=== PATIENT | male | born 1945 | race Caucasian/White ===

== ENCOUNTER 2024-02-26 08:53 | Emergency (ER) | payer MEDICARE, MEDICAID, SELFPAY ==
[2024-02-26] VITALS (9 sets, daily range): BP systolic 132–158; BP diastolic 59–82; PULSE 70–85; RESP 14–21; TEMP 36.3–36.7; O2SAT 93–96; BMI 22.6
--- NOTE | ~2024-02-26 | XR_ITS ---
EXAMINATION: XR CHEST CLINICAL INFORMATION: Acute mental status change and shortness of breath COMPARISON: None available. TECHNIQUE: Frontal view of the chest was obtained. FINDINGS: The cardiac silhouette does not appear enlarged. Hilar and mediastinal contours are unremarkable. There is slight elevation of the left hemidiaphragm. The lungs are clear. No pleural effusion or pneumothorax. Degenerative changes of the spine. XR/XR chest 1V IMPRESSION: Slight elevation of the left hemidiaphragm otherwise unremarkable exam.
--- NOTE | ~2024-02-26 | CT_ITS ---
EXAMINATION: CT HEAD WITHOUT CONTRAST CLINICAL INFORMATION: Altered mental status. COMPARISON: None available. TECHNIQUE: Contiguous axial imaging was performed from the skull base to vertex without intravenous administration of contrast. This CT examination was performed using dose optimization techniques as appropriate, variously including the following: *Automated exposure control *Adjustment of mA and/or kV according to patient size (this includes techniques or standardized protocols for targeted exams where dose is matched to indication/reason for exam; i.e. extremities or head) *Use of iterative reconstruction technique DLP: 697 mGy-cm FINDINGS: No evidence of intracranial hemorrhage, extra-axial surface collection, focal mass effect or midline shift. There is atherosclerotic calcification of cavernous carotid arteries. Patchy hypoattenuation within supratentorial white matter is compatible with sequela of chronic microangiopathy. 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 The murry-white matter differentiation is maintained. No evidence of an acute major vascular territory infarction. The cerebellar tonsils are in normal position. Chronic parenchymal volume loss with commensurate prominence of ventricles and sulci. No hydrocephalus. The visualized paranasal sinuses and mastoid air cells are well aerated. Prior ocular lens extractions. The orbits and temporomandibular joints are intact. CT/CT head/brain wo IV con IMPRESSION: * No intracranial hemorrhage or other acute intracranial pathology. * [id number]-[id number] parenchymal volume loss with commensurate prominence of ventricles and sulci. 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
--- OUTSIDE RECORDS SUMMARY | 2024-02-26 09:27 | XMS_ITS | Continuity of Care Document ---
Author Organization [facility] Nestor lt Address [address] [place] [address]- Care Team Providers Care Drill Press Tender Name Role Phone Adarsh Menon MD Primary Care Physician [phone] En[place] [facility] [place](s): 12/17/23 - 01/16/24 [facility] Adult [address] [place] [address]- Allergies, Adverse Reactions, Alerts Substance Reaction Severity Status penicillin Unknown Active Aricept dizziness Active Immunizations Given and Recorded Vaccine Date Status Refusal Reason pneumococcal 23-valent vaccine 10/19/22 Given [id number] 12y+ bivalent booster vax 08/25/22 Recorded influenza virus vaccine, inactivated 08/20/22 Virgil rded influenza virus vaccine, inactivated 09/04/21 Virgil rded influenza virus vaccine, inactivated 08/12/20 Virgil rded influenza virus vaccine, inactivated 09/04/19 Virgil rded influenza virus vaccine, inactivated 09/04/19 Virgil rded influenza virus vaccine, inactivated 09/24/18 Virgil rded SARS-CoV-2 (COVID-19) mRNA BNT-162b2 vac 09/11/21 Recorded SARS-CoV-2 (COVID-19) mRNA BNT-162b2 vac 03/13/21 Recorded SARS-CoV-2 (COVID-19) mRNA BNT-162b2 vac 02/18/21 Recorded Influenza Virus Vaccine (oldterm) 07/23/20 Recorde d tetanus/diphtheria/pertussis, acel(Tdap) 09/19/19 Given pneumococcal 13-valent vaccine 09/19/19 Given Medications amLODIPine 2.5 mg oral tablet 2.5 mg, 1, tablet, By Mouth, Daily, # 90 tablet, Refills 1, Tot. Refills 1, Maintenance, 12/07/23 9:46:00 EST, Route to Pharmacy Electronically, [facility] [address] [place] [address], [place], Partialfill upon patient request, 175, cm, 12/07/23 9:27:0... Start Date: 12/07/23 Status: Ordered Aricept 5 mg oral tablet 5 mg, 1, tablet, By Mouth, Daily at bedtime, # 90 tablet, Refills 1, Tot. Refills 1, Maintenance, 12/07/23 9:46:00 EST, Route to Pharmacy Electronically, [facility] [address] [place] [address], [place], Partial fill upon patient request if the prescript... Start Date: 12/07/23 Status: Ordered Catheter Supplies See Instructions, # 120 pack/packet, Maintenance, Self catheterize your bladder 4 times daily and as needed Dispense quantity sufficient for 30 days, 05/12/22 11:45:00 EDT, Supply Start Date: 05/12/22 Status: Ordered Flonase 50 mcg/inh nasal spray 1 sprays, Nares, Both, 2 times a day, 0 Refills, Maintenance, 03/23/19 9:41:46 EDT, [place] Start Date: 03/23/19 Status: Ordered warfarin 2.5 mg oral tablet See Instructions, 1 to 4 tablets by mouth daily adjusted by primary care office., # 120 tablet, 5 Refills, Maintenance, 12/07/23 9:46:00 EST, Tablet, [facility] [address] [place] [address], [place], 175, cm, 12/07/23 9:27:00 EST, Height, 75, kg, ... 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 Active Dementia 3 Confirmed Active Forgetfulness Confirmed Active [place] (hard of hearing) Confirmed Active History of Lyme disease Confirmed Active Hypercholesterolemia Confirmed Active HTN (hypertension) Confirmed Active Cognitive impairment Confirmed Active Anticoagulant long-term use Confirmed Active Lung nodule Confirmed Active Recurrent pulmonary embolism Confirmed Active Urinary retention Confirmed Active 1Per chart review meeting GFR criteria 2Lower extremity 3MoCA 2018 Social History Social History Type Response Smoking Status Never (less than 100 in lifetime); Tobacco user in household: No entered on: 5/9/19 Sex Patient Care team information Care Team Personnel Name: Adarsh Menon MD Position: [facility] Physician - Primary Care Member Role: PCP Address: Address: [address] [place] [address]- [place] Name: Becky Marie PharmD Position: [facility] Associate Professional Member Role: Lifetime Consulting Provider Address: Address: [address] [place] [address] [place] [address]- Care Team Related Persons Name: PAUL CHANDRA Address: home [address] [place] [address]
--- OUTSIDE RECORDS SUMMARY | 2024-02-26 09:27 | XMS_ITS | Continuity of Care Document ---
Author Organization [facility] Nestor lt Address [address] [place] [address]- Care Team Providers Care Boss Miner Name Role Phone Lynsey APPLE, Adarsh Patel Primary Care Physician [place] [facility] [place]13[place]21 [place] 10/20/21 [facility] Adult [address] [place] [address]- Attending Physician: Argelia Alcaraz NP Referring Physician: Adarsh Menon MD Allergies, Adverse Reactions, Alerts Substance Reaction Severity Status penicillin Unknown Active Immunizations Given and Recorded Vaccine Date Status Refusal Reason SARS-CoV-2 (COVID-19) mRNA BNT-162b2 vac 09/11/21 Recorded SARS-CoV-2 (COVID-19) mRNA BNT-162b2 vac 03/13/21 Recorded SARS-CoV-2 (COVID-19) mRNA BNT-162b2 vac 02/18/21 Recorded influenza virus vaccine, inactivated 09/04/21 Virgil rded influenza virus vaccine, inactivated 09/04/19 Virgil rded influenza virus vaccine, inactivated 09/04/19 Virgil rded Influenza Virus Vaccine (oldterm) 07/23/20 Recorde d tetanus/diphtheria/pertussis, acel(Tdap) 09/19/19 Given pneumococcal 13-valent vaccine 09/19/19 Given Medications amLODIPine 2.5 mg oral tablet 2.5 mg, 1, tablet, By Mouth, Daily, # 90 tablet, Refills 1, Tot. Refills 1, Maintenance, 10/13/21 13:08:00 EST, Route to Pharmacy Electronically, [facility] [place], [place], Partial fill upon patient request, 175, cm, 10/13/21 12:51... Start Date: 10/13/21 Status: Ordered Aricept 10 mg oral tablet 10 mg, 1, tablet, By Mouth, Daily at bedtime, # 90 tablet, Refills 1, Tot. Refills 1, Maintenance, 10/13/21 13:08:00 EST, Route to Pharmacy Electronically, [facility] [address] [place] [address], [place], Partial fill upon patient request if the prescri... Start Date: 10/13/21 Status: Ordered Flonase 50 mcg/inh nasal spray 1 sprays, Nares, Both, 2 times a day, 0 Refills, Maintenance, 03/23/19 9:41:46 EDT, [place] Start Date: 03/23/19 Status: Ordered warfarin 2.5 mg oral tablet See Instructions, 1 to 4 tablets by mouth daily adjusted by primary care office., # 120 tablet, 11 Refills, Maintenance, 04/07/21 11:18:00 EDT, Tablet, [facility] [address] [facility], [place], 175, cm, 04/07/21 10:55:00 EDT, Height, 75, kg, 02/13... Start Date: 04/07/21 Status: Ordered Problem List Condition Effective Dates Status Health Status Inform ant BPH (benign prostatic hyperplasia)(Confirmed) Active Stage 3 chronic kidney disease(Confirmed) Active Chronic sinusitis(Confirmed) Active Recurrent deep vein thrombos is of lower extremity(Confirmed) 1 Active Forgetfulness(Confirmed) Active [place] (hard of hearing)(Confirmed) Active History of Lyme disease(Confirmed) Active Hypercholesterolemia(Confirmed) Active HTN (hypertension)(Confirmed) Active Cognitive impairment(Confirmed) Active Anticoagulant long-term use(Confirmed) Active Lung nodule(Confirmed) Active Recurrent pulmonary embolism(Confirmed) Active Urinary retention(Confirmed) Active 1Lower extremity Vital Signs Most recent to oldest [Reference Range]: 1 Height 175 cm (10/13/21 12:51 PM) Weight 72.7 kg (10/13/21 12:51 PM) Oxygen Saturation [94-100 %] 98 % (10/13/21 12:51 PM) Pulse Rate [55-90 bpm] 60 bpm (10/13/21 12:51 PM) Body Mass Index [18.5-24.99] 23.74 (10/13/21 12:51 PM) Blood Pressure [90-138/55-84 mm Hg] 132/ 64mm Hg (10/13/21 12:51 PM) Temperature [96.8-100.4 DegF] 98.2 DegF (10/13/21 12:51 PM) Mode of Delivery (Oxygen) Room air (10/13/21 12:51 PM) Blood pressure sites Arm, right (10/13/21 12:51 PM) Temperature Route Oral (10/13/21 12:51 PM) Weight Obtained Via Standing scale (10/13/21 12:51 PM) Social History Social History Type Response Smoking Status Never (less than 100 in lifetime); Tobacco user in household: No entered on: 03/23/19 Sex
--- OUTSIDE RECORDS SUMMARY | 2024-02-26 09:27 | XMS_ITS | Continuity of Care Document ---
Author Organization [facility] Nestor lt Address [address] [place] [address]- Care Team Providers Care Director Of Therapy Services Name Role Phone Adarsh Menon MD Primary Care Physician [place] [facility] [place] 12/28/20 [facility] Adult [address] [place] [address]- Allergies, Adverse Reactions, Alerts Substance Reaction Severity Status penicillin Unknown Active Immunizations Given and Recorded Vaccine Date Status Refusal Reason Influenza Virus Vaccine (oldterm) 07/23/20 Recorde d tetanus/diphtheria/pertussis, acel(Tdap) 09/19/19 Given pneumococcal 13-valent vaccine 09/19/19 Given influenza virus vaccine, inactivated 09/04/19 Virgil rded influenza virus vaccine, inactivated 09/04/19 Virgil rded Medications amLODIPine 2.5 mg oral tablet 2.5 mg, 1, tablet, By Mouth, Daily, # 90 tablet, Refills 1, Tot. Refills 1, Maintenance, 09/30/20 12:47:00 EST, Route to Pharmacy Electronically, [facility] [address] [place] [address], Partial fill upon patient request, 175, cm, 09/30/20 12:36... Start Date: 09/30/20 Status: Ordered Aricept 5 mg oral tablet 5 mg, 1, tablet, By Mouth, Daily at bedtime, # 30 tablet, Refills 6, Tot. Refills 6, Maintenance, 12/03/20 9:31:00 EST, Route to Pharmacy Electronically, [facility] [address] [place] [address], Partial fill upon patient request if the prescript... Start Date: 12/03/20 Status: Ordered Flonase 50 mcg/inh nasal spray 1 sprays, Nares, Both, 2 times a day, 0 Refills, Maintenance, 03/23/19 9:41:46 EDT, [place] Start Date: 03/23/19 Status: Ordered warfarin 2.5 mg oral tablet See Instructions, 1 to 4 tablets by mouth daily adjusted by primary care office., # 120 tablet, 11 Refills, Maintenance, 05/10/20 14:19:00 EDT, Tablet, [facility] [place], 175, cm, 05/10/20 13:49:00 EDT, [place] Start Date: 05/10/20 Status: Ordered Problem List Condition Effective Dates Status Health Status Inform ant BPH (benign prostatic hyperplasia)(Confirmed) Active Stage 3 chronic kidney disease(Confirmed) Active Chronic sinusitis(Confirmed) Active Recurrent deep vein thrombos is of lower extremity(Confirmed) 1 Active Forgetfulness(Confirmed) Active [place] (hard of hearing)(Confirmed) Active Hypercholesterolemia(Confirmed) Active HTN (hypertension)(Confirmed) Active Cognitive impairment(Confirmed) Active Anticoagulant long-term use(Confirmed) Active Lung nodule(Confirmed) Active Recurrent pulmonary embolism(Confirmed) Active Urinary retention(Confirmed) Active 1Lower extremity Social History Social History Type Response Smoking Status Never (less than 100 in lifetime); Tobacco user in household: No entered on: 03/23/19 Sex
--- OUTSIDE RECORDS SUMMARY | 2024-02-26 09:27 | XMS_ITS | Continuity of Care Document ---
Author Organization [facility] Nestor lt Address [address] [place] [address]- Care Team Providers Care Algebraist Name Role Phone Adarsh Menon MD Primary Care Physician Encounter [facility] [place] Date(s): 05/27/23 - 06/26/23 [facility] Adult [address] [place] [address]- Attending Physician: Admtr, Ar8 Admitting Physician: Admtr, Ar8 Referring Physician: Admtr, Ar8 Allergies, Adverse Reactions, Alerts Substance Reaction Severity Status penicillin Unknown Active Aricept dizziness Active Immunizations Given and Recorded Vaccine Date Status Refusal Reason pneumococcal 23-valent vaccine 10/19/22 Given [id number] 12y+ bivalent booster vax 08/25/22 Recorded influenza [...] tablet, Refills 1, Tot. Refills 1, Maintenance, 04/27/23 10:18:00 EDT, Route to Pharmacy Electronically, [facility] [address] [place] [address], [place], Partial fill upon patient request, 180, cm, 04/27/23 9:58:... Start Date: 04/27/23 Status: Ordered Aricept 5 mg oral tablet 5 mg, 1, tablet, By Mouth, Daily at bedtime, # 90 tablet, Refills 0, Tot. Refills 0, Maintenance, 04/27/23 10:19:00 EDT, Route to Pharmacy Electronically, [facility] [address] [place] [address], [place], Partial fill upon patient request if the prescrip... Start Date: 04/27/23 Status: Ordered Catheter Supplies See Instructions, # 120 pack/packet, Maintenance, Self catheterize your bladder 4 times daily and as needed Dispense quantity sufficient for 30 days, 05/12/22 11:45:00 EDT, Supply Start Date: 05/12/22 Status: Ordered Flonase 50 mcg/inh nasal spray 1 sprays, Nares, Both, 2 times a day, 0 Refills, Maintenance, 03/23/19 9:41:46 EDT, [place] Start Date: 03/23/19 Status: Ordered warfarin 2.5 mg oral tablet See Instructions, 1 to 4 tablets by mouth daily adjusted by primary care office., # 120 tablet, 5 Refills, Maintenance, 04/27/23 10:18:00 EDT, Tablet, [facility] [address] [place] [address], [place], 180, cm, 04/27/23 9:58:00 EDT, Height, 73, kg, ... 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 Active Forgetfulness Confirmed Active [place] (hard of hearing) Confirmed Active History of Lyme disease Confirmed Active Hypercholesterolemia Confirmed Active HTN (hypertension) Confirmed Active Cognitive impairment Confirmed Active Anticoagulant long-term use Confirmed Active Lung nodule Confirmed Active Recurrent pulmonary embolism Confirmed Active Urinary retention Confirmed Active 1Per chart review meeting GFR criteria 2Lower extremity Social History Social History Type Response Smoking Status Never (less than 100 in lifetime); Tobacco user in household: No entered on: 03/23/19 Sex Patient Care team information Care Team Personnel Name: Adarsh Menon MD Position: [facility] Physician - Primary Care Member Role: PCP Address: Address: [address] [place] [address]- Name: Becky Marie PharmD Position: [facility] Associate Professional Member Role: Lifetime Consulting Provider Address: Address: [address] [place] [address] [place] [address]- Care Team Related Persons Name: PAUL CHANDRA Address: home [address] [place] [address]
--- OUTSIDE RECORDS SUMMARY | 2024-02-26 09:27 | XMS_ITS | Continuity of Care Document ---
Author Organization [facility] Nestor lt Address [address] [place] [address]- Care Team Providers Care Airplane First Officer Name Role Phone Adarsh Menon MD Primary Care Physician [phone] [place] [facility] [place] 10/29/22 - 11/28/22 [facility] Adult [address] [place] [address]- Allergies, Adverse Reactions, Alerts Substance Reaction Severity Status penicillin Unknown Active Immunizations Given and Recorded Vaccine Date Status Refusal Reason pneumococcal 23-valent vaccine 10/19/22 Given [id number] 12y+ bivalent booster vax 08/25/22 Recorded influenza [...] tablet, Refills 1, Tot. Refills 1, Maintenance, 10/19/22 14:31:00 EST, Route to Pharmacy Electronically, [facility] [address] [place] [address], [place], Partial fill upon patient request, 180, cm, 10/19/22 14:05... Start Date: 10/19/22 Status: Ordered Aricept 10 mg oral tablet 10 mg, 1, tablet, By Mouth, Daily at bedtime, # 90 tablet, Refills 1, Tot. Refills 1, Maintenance, 10/19/22 14:31:00 EST, Route to Pharmacy Electronically, [facility] [address] [place] [address], Partial fill upon patient request if the prescri... Start Date: 10/19/22 Status: Ordered Catheter Supplies See Instructions, # 120 pack/packet, Maintenance, Self catheterize your bladder 4 times daily and as needed Dispense quantity sufficient for 30 days, 05/12/22 11:45:00 EDT, Supply Start Date: 05/12/22 Status: Ordered Flonase 50 mcg/inh nasal spray 1 sprays, Nares, Both, 2 times a day, 0 Refills, Maintenance, 03/23/19 9:41:46 EDT, [place] Start Date: 03/23/19 Status: Ordered warfarin 2.5 mg oral tablet See Instructions, 1 to 4 tablets by mouth daily adjusted by primary care office., # 120 tablet, 5 Refills, Maintenance, 10/19/22 14:31:00 EST, Tablet, [facility] [address] [place] [address], [place], 180, cm, 10/19/22 14:05:00 EST, Height, 73, kg, 05/12... 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 Associate Professional Member Role: Lifetime Consulting Provider Address: Address: [address] [place] [address] [place] [address]- [place] Care Team Related Persons Name: PAUL CHANDRA Address: home [address] [place] [address]
--- OUTSIDE RECORDS SUMMARY | 2024-02-26 09:27 | XMS_ITS | Continuity of Care Document ---
Author Organization [facility] Nestor lt Address [address] [place] [address]- Care Team Providers Care Airborne Operations Manager Name Role Phone Adarsh Menon MD Primary Care Physician [phone] Encounter [facility] [place] Date(s): 01/06/21 - 01/13/21 [facility] Adult [address] [place] [address]- Attending Physician: Argelia Alcarza NP Referring Physician: Adarsh Menon MD Allergies, [...] tablet, Refills 1, Tot. Refills 1, Maintenance, 01/06/21 11:03:00 EST, Route to Pharmacy Electronically, [facility] [address] [place] [address], Partial fill upon patient request, 175, cm, 01/06/21 10:40... Start Date: 01/06/21 Status: Ordered Aricept 5 mg oral tablet 5 mg, 1, tablet, By Mouth, Daily at bedtime, # 90 tablet, Refills 1, Tot. Refills 1, Maintenance, 01/06/21 11:03:00 EST, Route to Pharmacy Electronically, [facility] [address] [place] [address], Partial fill upon patient request if the prescrip... Start Date: 01/06/21 Status: Ordered Flonase 50 mcg/inh nasal spray 1 sprays, Nares, Both, 2 times a day, 0 Refills, Maintenance, 03/23/19 9:41:46 EDT, [place] Start Date: 03/23/19 Status: Ordered warfarin 2.5 [...] of lower extremity(Confirmed) 1 Active Forgetfulness(Confirmed) Active CADDO (hard of hearing)(Confirmed) Active History of Lyme disease(Confirmed) Active Hypercholesterolemia(Confirmed) Active HTN (hypertension)(Confirmed) Active Cognitive impairment(Confirmed) Active Anticoagulant long-term use(Confirmed) Active Lung nodule(Confirmed) Active Recurrent pulmonary embolism(Confirmed) Active Urinary retention(Confirmed) Active 1Lower extremity Vital Signs Most recent to oldest [Reference Range]: 1 Height 175 cm (01/06/21 10:40 AM) Weight 78.2 kg (01/06/21 10:40 AM) Oxygen Saturation [94-100 %] 97 % (01/06/21 10:40 AM) Pulse Rate [55-90 bpm] 66 bpm (01/06/21 10:40 AM) Body Mass Index [18.5-24.99] 25.53 *H* (01/06/21 10:40 AM) Blood Pressure [90-138/55-84 mm Hg] 134/ 72mm Hg (01/06/21 10:40 AM) Blood pressure sites Arm, left (01/06/21 10:40 AM) Social History Social History Type Response Smoking Status Never (less than 100 in lifetime); Tobacco user in household: No entered on: 03/23/19 Sex
--- OUTSIDE RECORDS SUMMARY | 2024-02-26 09:27 | XMS_ITS | Continuity of Care Document ---
Author Organization [facility] ter Address [address] [place] [address]- Care Team Providers Care Thermit Welding Machine Operator Name Role Phone Lynsey APPLE, Adarsh Patel Primary Care Physician Encounter [facility] [place] Date(s): 12/16/23 - 12/16/[address] [address] Attending Physician: Kieran ISSA, Argelia Grubbs Allergies, Adverse Reactions, Alerts Substance Reaction Severity Status penicillin Unknown Active Aricept dizziness Active Immunizations Given and Recorded Vaccine Date Status Refusal Reason pneumococcal 23-valent vaccine 10/19/22 Given [id number] 12y+ bivalent booster vax 08/25/22 Recorded influenza [...] 12/07/23 9:46:00 EST, Route to Pharmacy Electronically, [facility] [address] [place] [address], [place], Partialfill upon patient request, 175, cm, 12/07/23 9:27:0... Start Date: 12/07/23 Status: Ordered Aricept 5 mg oral tablet 5 mg, 1, tablet, By Mouth, Daily at bedtime, # 90 tablet, Refills 1, Tot. Refills 1, Maintenance, 12/07/23 9:46:00 EST, Route to Pharmacy Electronically, [facility] [address] [place] [address], [place], Partial fill upon patient request if the [...] day, 0 Refills, Maintenance, 03/23/19 9:41:46 EDT, [place] Start Date: 03/23/19 Status: Ordered warfarin 2.5 mg oral tablet See Instructions, 1 to 4 tablets by mouth daily adjusted by primary care office., # 120 tablet, 5 Refills, Maintenance, 12/07/23 9:46:00 EST, Tablet, [facility] [address] [place] [address], [place], 175, cm, 12/07/23 9:27:00 EST, Height, 75, kg, ... 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 Active Dementia 3 Confirmed Active Forgetfulness Confirmed Active [place] (hard of hearing) Confirmed Active History of [...] Team Personnel Name: Adarsh Menon MD Position: [facility] Physician - Primary Care Member Role: PCP Address: Address: [address] [place] [address]- [place] Name: Becky Marie PharmD Position: [facility] Associate Professional Member Role: Lifetime Consulting Provider Address: Address: [address] [place] [address] [place] [address]- Care Team Related Persons Name: PAUL CHANDRA Address: [address] [place] [address]
--- OUTSIDE RECORDS SUMMARY | 2024-02-26 09:27 | XMS_ITS | Continuity of Care Document ---
Author Organization [facility] Nestor lt Address [address] [place] [address]- Care Team Providers Care Cylinder Tester Name Role Phone Adarsh Menon MD Primary Care Physician Encounter [facility] Date(s): 01/25/24 - 02/24/24 [facility] Adult [address] [place] [address]- Allergies, Adverse Reactions, Alerts Substance Reaction Severity Status penicillin Unknown Active Immunizations Given and Recorded Vaccine Date Status Refusal Reason pneumococcal 23-valent vaccine 10/19/22 Given [id number] 12y+ bivalent booster vax 08/25/22 Recorded influenza [...] Route to Pharmacy Electronically, [facility] [address] [place] [address], [place], Partialfill upon patient request, 175, cm, 12/07/23 9:27:0... Start Date: 12/07/23 Status: Ordered Aricept 5 mg oral tablet 5 mg, 1, tablet, By Mouth, Daily at bedtime, # 90 tablet, Refills 1, Tot. Refills 1, Maintenance, 12/07/23 9:46:00 EST, Route to Pharmacy Electronically, [facility] [address] [place] [address], Partial fill upon patient request if the prescript... Start Date: 12/07/23 Status: Ordered Flonase 50 mcg/inh nasal spray 1 sprays, Nares, Both, 2 times a day, 0 Refills, Maintenance, 03/23/19 9:41:46 EDT, [place] Start Date: 03/23/19 Status: Ordered SEROquel 25 mg oral tablet 25 mg, 1, tablet, By Mouth, 3 times a day, # 30 capsule, Refills 0, Tot. Refills 0, Maintenance, 01/27/24 11:27:00 EDT, Route to Pharmacy Electronically, [facility] [address] [place] [address], [place], Partial fill upon patient request if the prescript... Start Date: 01/27/24 Status: Ordered tamsulosin 0.4 mg oral capsule 0.4 mg, By Mouth, Daily, # 30 capsule, Refills 0, Tot. Refills 0, Maintenance, 02/19/24 8:03:00 EDT, Route to Pharmacy Electronically, [facility] [address] [place] [address], Partial fill uponpatient request if the prescription is for a schedu... Start Date: 02/19/24 Stop Date: 03/20/24 Status: Ordered traZODone 50 mg oral tablet 25 mg, By Mouth, Daily at bedtime, Refills 0, Maintenance, 02/23/24 13:34:00 EDT, Partial fill uponpatient request if the prescription is for a schedule II opioid drug. Start Date: 02/23/24 Status: Ordered warfarin 2.5 mg oral tablet See Instructions, 1 to 4 tablets by mouth daily adjusted by primary care office., # 120 tablet, 5 Refills, Maintenance, 12/07/23 9:46:00 EST, Tablet, [facility] - [place], [place], 175, cm, 12/07/23 9:27:00 EST, Height, 75, kg, ... 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 Active Dementia 3 Confirmed Active Forgetfulness Confirmed Active [place] (hard of hearing) Confirmed Active History of [...] Team Personnel Name: Adarsh Menon MD Position: [facility] Physician - Primary Care Member Role: PCP Address: Address: [address] [place] [address]- Name: Becky Marie PharmD Position: [facility] Associate Professional Member Role: Lifetime Consulting Provider Address: Address: [address] [place] [address] [place] [address]- Name: Stephani Edwards RN Position: S RN Member Role: Primary Care Nurse Name: Ellen Short RN Position: [facility] RN Supv Member Role: Primary Care Nurse Care Team Related Persons Name: PAUL CHANDRA Address: home [address] [place] [address]
--- OUTSIDE RECORDS SUMMARY | 2024-02-26 09:27 | XMS_ITS | Continuity of Care Document ---
Author Organization [facility] ter Address [address] [place] [address]- Care Team Providers Care Custodial Services Manager Name Role Phone Lynsey APPLE, Adarsh Patel Primary Care Physician [phone] [facility] Date(s[place] 12/16/23 - 12/16/[address] [address] [[email or web address]] Attending Physician: Kieran ISSA, Argelia Grubbs Allergies, Adverse Reactions, Alerts Substance Reaction Severity Status penicillin Unknown Active Aricept dizziness Active Immunizations Given and Recorded Vaccine Date Status Refusal Reason pneumococcal 23-valent vaccine 10/19/22 Given [id number] 12y+ bivalent booster vax 08/25/22 Recorded influenza [...] 12/07/23 9:46:00 EST, Route to Pharmacy Electronically, [facility] [address] [place] [address], [place], Partialfill upon patient request, 175, cm, 12/07/23 9:27:0... Start Date: 12/07/23 Status: Ordered Aricept 5 mg oral tablet 5 mg, 1, tablet, By Mouth, Daily at bedtime, # 90 tablet, Refills 1, Tot. Refills 1, Maintenance, 12/07/23 9:46:00 EST, Route to Pharmacy Electronically, [facility] [address] [place] [address], [place], Partial fill upon patient request if the [...] day, 0 Refills, Maintenance, 03/23/19 9:41:46 EDT, [place] Start Date: 03/23/19 Status: Ordered warfarin 2.5 mg oral tablet See Instructions, 1 to 4 tablets by mouth daily adjusted by primary care office., # 120 tablet, 5 Refills, Maintenance, 12/07/23 9:46:00 EST, Tablet, [facility] [address] [place] [address], [place], 175, cm, 12/07/23 9:27:00 EST, Height, 75, kg, ... 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
--- OUTSIDE RECORDS SUMMARY | 2024-02-26 09:27 | XMS_ITS | Continuity of Care Document ---
Author Organization [facility] Nestor lt Address [address] [place] [address]- Care Team Providers Care Hand Method Lasting Machine Operator Name Role Phone Adarsh Menon MD Primary Care Physician Encounter [facility] Date(s): 01/18/24 - 02/17/24 [facility] Adult [address] [place] [address]- Allergies, Adverse Reactions, Alerts Substance Reaction Severity Status penicillin Unknown Active Immunizations Given and Recorded Vaccine Date Status Refusal Reason pneumococcal 23-valent vaccine 10/19/22 Given [id number] 12y+ bivalent booster vax 08/25/22 Recorded influenza [...] EST, Route to Pharmacy Electronically, [facility] [address] [place] [address], [place], Partialfill upon patient request, 175, cm, 12/07/23 9:27:0... Start Date: 12/07/23 Status: Ordered Aricept 5 mg oral tablet 5 mg, 1, tablet, By Mouth, Daily at bedtime, # 90 tablet, Refills 1, Tot. Refills 1, Maintenance, 12/07/23 9:46:00 EST, Route to Pharmacy Electronically, [facility] [address] [place] [address], Partial fill upon patient request if the [...] day, 0 Refills, Maintenance, 03/23/19 9:41:46 EDT, [place] Start Date: 03/23/19 Status: Ordered SEROquel 25 mg oral tablet 25 mg, 1, tablet, By Mouth, 2 times a day, # 60 tablet, Refills 0, Tot. Refills 0, Maintenance, 01/27/24 11:27:00 EDT, Route to Pharmacy Electronically, [facility] [address] [place] [address],Partial fill upon patient request if the prescripti... Start Date: 01/27/24 Status: Ordered warfarin 2.5 mg oral tablet See Instructions, 1 to 4 tablets by mouth daily adjusted by primary care office., # 120 tablet, 5 Refills, Maintenance, 12/07/23 9:46:00 EST, Tablet, [facility] [address] [place] [address], [place], 175, cm, 12/07/23 9:27:00 EST, Height, 75, kg, ... 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 Active Dementia 3 Confirmed Active Forgetfulness Confirmed Active [place] (hard of hearing) Confirmed Active History of [...] Team Personnel Name: Adarsh Menon MD Position: [facility] Physician - Primary Care Member Role: PCP Address: Address: [address] [place] [phone]- [place] Name: Becky Marie PharmD Position: [facility] Associate Professional Member Role: Lifetime Consulting Provider Address: Address: [address] [place] [address] [place] [address]- Care Team Related Persons Name: PAUL CHANDRA Address: home [address] [place] [address]
--- OUTSIDE RECORDS SUMMARY | 2024-02-26 09:27 | XMS_ITS | Continuity of Care Document ---
Author Organization [facility] Nestor lt Address [address] [place] [address]- Care Team Providers Care Javascript Software Engineer Name Role Phone Adarsh Menon MD Primary Care Physician [phone] Encounter [facility] Date(s): 12/03/20 - 12/10/20 [facility] Adult [address] [place] [address]- Attending Physician: Argelia Alcaraz NP Allergies, Adverse Reactions, Alerts Substance Reaction Severity [...] 09/30/20 12:47:00 EST, Route to Pharmacy Electronically, [facility] [address] [place] [address], Partial fill upon patient request, 175, cm, 09/30/20 12:36... Start Date: 09/30/20 Status: Ordered Aricept 5 mg oral tablet 5 mg, 1, tablet, By Mouth, Daily at bedtime, # 30 tablet, Refills 6, Tot. Refills 6, Maintenance, 12/03/20 9:31:00 EST, Route to Pharmacy Electronically, [facility] [address] [place] [address], Partial fill upon patient request if the prescript... Start Date: 12/03/20 Status: Ordered doxycycline hyclate 100 mg oral tablet 1 tablet = 100 mg, By Mouth, 2 times a day, for 10 days, with fluids, # 20 tablet, 0 Refills, Acute12/19/20 16:16:00 EST, 12/09/20 16:16:00 EST, Tablet, [facility] - [place], [place], Partial fill upon patient request if the prescript... Start Date: 12/09/20 Stop Date: 12/19/20 Status: Ordered Flonase 50 mcg/inh nasal spray 1 sprays, Nares, Both, 2 times a day, 0 Refills, Maintenance, 03/23/19 9:41:46 EDT, [place] Start Date: 03/23/19 Status: Ordered warfarin 2.5 [...] chronic kidney disease(Confirmed) Active Chronic sinusitis(Confirmed) Active Forgetfulness(Confirmed) Active [place] (hard of hearing)(Confirmed) Active Hypercholesterolemia(Confirmed) Active HTN (hypertension)(Confirmed) Active Cognitive impairment(Confirmed) Active Anticoagulant long-term use(Confirmed) Active Lung nodule(Confirmed) Active Recurrent deep vein thrombos is (DVT)(Confirmed) Active Recurrent pulmonary embolism(Confirmed) Active Urinary retention(Confirmed) Active Vital Signs Most recent to oldest [Reference Range]: 1 2 3 Height 175 cm (12/03/20 9:18 AM) 175 cm (12/03/20 9:17 AM) 175 cm (12/03/20 9:01 AM) Weight 76.7 kg (12/03/20 9:01 AM) Oxygen Saturation [94-100 %] 97 % (12/03/20 9:01 AM) Pulse Rate [55-90 bpm] 76 bpm (12/03/20 9:01 AM) Body Mass Index [18.5-24.99] 25.04 *H* (12/03/20 9:01 AM) Blood Pressure [90-138/55-84 mm Hg] 141/78mm Hg *H* (12/03/20 9:18 AM) 138/74mm Hg (12/03/20 9:17 AM) 144/82mm Hg *H* (12/03/20 9:01 AM) Blood pressure sites Arm, right (12/03/20 9:01 AM) Social History Social History Type Response Smoking Status Never (less than 100 in lifetime); Tobacco user in household: No entered on: 03/23/19 Sex
--- OUTSIDE RECORDS SUMMARY | 2024-02-26 09:27 | XMS_ITS | Continuity of Care Document ---
Author Organization [facility] Nestor lt Address [address] [place] [address]- Care Team Providers Care Liquid Waste Treatment Plant Operator Name Role Phone Adarsh Menon MD Primary Care Physician Encounter [facility] [place] Date(s): 05/22/20 - 06/21/20 [facility] Adult [address] [place] [address]- [facility] Allergies, Adverse Reactions, Alerts Substance Reaction Severity Status penicillin Unknown Active Immunizations Given and Recorded Vaccine Date Status Refusal Reason tetanus/diphtheria/pertussis, acel(Tdap) 09/19/19 Given pneumococcal 13-valent vaccine 09/19/19 Given influenza virus vaccine, inactivated 09/04/19 Virgil rded influenza virus vaccine, inactivated 09/04/19 Vir[place] rded Medications amLODIPine 2.5 mg oral tablet 2.5 mg, 1, tablet, By Mouth, Daily, # 90 tablet, Refills 3, Tot. Refills 3, Maintenance, 12/25/19 11:29:00 EST, Route to Pharmacy Electronically, [facility] - [place], 175, cm, 12/25/19 11:01:00 EST, [place] Start Date: 12/25/19 Status: Ordered apixaban 2.5 mg oral tablet 1 tablet = 2.5 mg, By Mouth, 2 times a day, replaces 5 mg tablet, # 60 tablet, 11 Refills, Maintenance, 09/19/19 10:23:51 EST, Tablet Start Date: 09/19/19 Status: Ordered Flonase 50 mcg/inh nasal spray 1 sprays, Nares, Both, 2 times a day, 0 Refills, Maintenance, 03/23/19 9:41:46 EDT, [place] Start Date: 03/23/19 Status: Ordered warfarin 2.5 [...] disease(Confirmed) Active Chronic sinusitis(Confirmed) Active Forgetfulness(Confirmed) Active [place] (hard of hearing)(Confirmed) Active Hypercholesterolemia(Confirmed) Active HTN (hypertension)(Confirmed) Active Cognitive impairment(Confirmed) Active Anticoagulant long-term use(Confirmed) Active Lung nodule(Confirmed) Active Recurrent deep vein thrombos is (DVT)(Confirmed) Active Recurrent pulmonary embolism(Confirmed) Active Urinary retention(Confirmed) Active Social History Social History Type Response Smoking Status Never (less than 100 in lifetime); Tobacco user in household: No entered on: 03/23/19 Sex
--- OUTSIDE RECORDS SUMMARY | 2024-02-26 09:27 | XMS_ITS | Continuity of Care Document ---
Author Organization [facility] Nestor lt Address [address] [place] [address]- Care Team Providers Care Aircraft Rigging And Controls Mechanic Name Role Phone Adarsh Menon MD Primary Care Physician Encounter [facility] Date(s): 07/23/23 - 08/22/23 [facility] Adult [address] [place] [address]- Allergies, Adverse Reactions, Alerts Substance Reaction Severity Status penicillin Unknown Active Aricept dizziness Active Immunizations Given and Recorded Vaccine Date Status Refusal Reason pneumococcal 23-valent vaccine 10/19/22 Given [id number] 12y+ bivalent booster vax 08/25/22 Recorded influenza [...] 04/27/23 10:18:00 EDT, Route to Pharmacy Electronically, [facility] [address] [place] [address], [place], Partial fill upon patient request, 180, cm, 04/27/23 9:58:... Start Date: 04/27/23 Status: Ordered Aricept 5 mg oral tablet 5 mg, 1, tablet, By Mouth, Daily at bedtime, # 90 tablet, Refills 1, Tot. Refills 1, Maintenance, 07/23/23 16:23:00 EDT, Route to Pharmacy Electronically, [facility] [address] [place] [address], [place], Partial fill upon patient request if the prescrip... Start Date: 07/23/23 Status: Ordered Catheter Supplies See Instructions, # 120 pack/packet, Maintenance, Self catheterize your bladder 4 times daily and as needed Dispense quantity sufficient for 30 days, 05/12/22 11:45:00 EDT, Supply Start Date: 05/12/22 Status: Ordered Flonase 50 mcg/inh nasal spray 1 sprays, Nares, Both, 2 times a day, 0 Refills, Maintenance, 03/23/19 9:41:46 EDT, [place] Start Date: 03/23/19 Status: Ordered warfarin 2.5 mg oral tablet See Instructions, 1 to 4 tablets by mouth daily adjusted by primary care office., # 120 tablet, 5 Refills, Maintenance, 04/27/23 10:18:00 EDT, Tablet, [facility] [address] [place] [address], [place], 180, cm, 04/27/23 9:58:00 EDT, Height, 73, kg, ... 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 Active Dementia 3 Confirmed Active Forgetfulness Confirmed Active [place] (hard of hearing) Confirmed Active History of [...] Team Personnel Name: Adarsh Menon MD Position: [facility] Physician - Primary Care Member Role: PCP Address: Address: [address] [place] [phone]- [place] Name: Becky Marie PharmD Position: [facility] Associate Professional Member Role: Lifetime Consulting Provider Address: Address: [address] [place] [address] [place] [address]- Care Team Related Persons Name: PAUL CHANDRA Address: home [address] [place] [address]
--- OUTSIDE RECORDS SUMMARY | 2024-02-26 09:27 | XMS_ITS | Continuity of Care Document ---
Author Organization [facility] Nestor lt Address [address] [place] [address]- Care Team Providers Care Training Engineer Name Role Phone Adarsh Menon MD Primary Care Physician Encounter [facility] [place] Date(s): 10/19/22 - 10/26/22 [facility] Adult [address] [place] [address]- Attending Physician: Argelia Alcaraz NP Referring Physician: Adarsh Menon MD Allergies, Adverse Reactions, Alerts Substance Reaction Severity Status penicillin Unknown Active Immunizations Given and Recorded Vaccine Date Status Refusal Reason pneumococcal 23-valent vaccine 10/19/22 Given [id number] 12y+ bivalent booster vax 08/25/22 Recorded influenza [...] 10/19/22 14:31:00 EST, Route to Pharmacy Electronically, [facility] [address] [place] [address], [place], Partial fill upon patient request, 180, cm, 10/19/22 14:05... Start Date: 10/19/22 Status: Ordered Aricept 10 mg oral tablet 10 mg, 1, tablet, By Mouth, Daily at bedtime, # 90 tablet, Refills 1, Tot. Refills 1, Maintenance, 10/19/22 14:31:00 EST, Route to Pharmacy Electronically, [facility] [address] [place] [address], [place], Partial fill upon patient request if the [...] day, 0 Refills, Maintenance, 03/23/19 9:41:46 EDT, [place] Start Date: 03/23/19 Status: Ordered warfarin 2.5 mg oral tablet See Instructions, 1 to 4 tablets by mouth daily adjusted by primary care office., # 120 tablet, 5 Refills, Maintenance, 10/19/22 14:31:00 EST, Tablet, [facility] [address] [place] [address], [place], 180, cm, 10/19/22 14:05:00 EST, Height, 73, [...] chart review meeting GFR criteria 2Lower extremity Vital Signs Most recent to oldest [Reference Range]: 1 Height 180 cm (10/19/22 2:05 PM) Weight 75.1 kg (10/19/22 2:05 PM) Oxygen Saturation [94-100 %] 97 % (10/19/22 2:05 PM) Pulse Rate [55-90 bpm] 64 bpm (10/19/22 2:05 PM) Body Mass Index [18.5-24.99 kg/m2] 23.18 kg/m2 (10/19/22 2:05 PM) Blood Pressure [90-138/55-84 mm Hg] 124/ 70mm Hg (10/19/22 2:05 PM) Mode of Delivery (Oxygen) Room air (10/19/22 2:05 PM) Blood pressure sites Arm, left (10/19/22 2:05 PM) Weight Obtained Via Standing scale (10/19/22 2:05 PM) Social History Social History Type Response Smoking Status Never (less than 100 in lifetime); Tobacco user in household: No entered on: 03/23/19 Sex Note * Delmy Nevarez: PERFORM, SIGN, VERIFY Event Display: Patient Education/Instruction Authored Date: [facility] *BMP So Wil Ch Clinical Summary Name CHLOE CHANDRA Age 77 Years 1945 PCP Lynsey APPLE, Adarsh Patel PCP Visit Date 10/19/2022 13:52:00 Additional Instructions: Scheduled Appointments?? Future Appointments ?No Future Appointments Scheduled Follow-Up Instructions ?? Diagnosis Medications: Please continue your medications until treatment is completed or stopped by your provider. Discuss any questions related to medications with your provider. Medications to Continue with No Changes [facility] [address] [place] [address], [address], [place] [id number], [phone] Amlodipine (amLODIPine 2.5 mg oral tablet) 1 tab(s) Oral Daily. Refills: 1. Next Dose: Donepezil (Aricept 10 mg oral tablet) 1 tab(s) Oral Daily at Bedtime. Refills: 1. Next Dose: Warfarin (warfarin 2.5 mg oral tablet) 1 to 4 tablets by mouth daily adjusted by primary care office.. Refills: 5. Next Dose: These medications were not printed or sent to your pharmacy Durable Medical Equipment (Catheter Supplies) Self catheterize your bladder 4 times daily and as needed Dispense quantity sufficient for 30 days. Refills: 0. Next Dose: Fluticasone Nasal (Flonase 50 mcg/inh nasal spray) 1 spray(s) Nares, Both twice a day. Next Dose: Allergy Info:?? penicillin Medications Given This Visit Medication Dose Route Pneumococcal 23-Valent Vaccine (pneumococcal 23-valent (Adult) vacc) 0.5 mL Intramuscular Future Orders ?No future orders Vital Signs Height 180 cm Weight 75.1 kg BMI 23.18 kg/m2 Blood Pressure 124 mm Hg/70 mm Hg Temperature Pulse Rate 64 bpm Respiratory Rate 02 Sat Mode of Delivery 97 %/Room air You can now view a summary of your hospital visit from the comfort of your home through a free online portal called P4RC. P4RC is a website that allows you to securely view your medical information including discharge summary, medications and follow-up visits. ??You can alsosend a secure electronic message to your doctor???s office to request appointments, renew medications or just ask a question. You can enroll at [email or web address] or register during your next office visit. Disclaimer:?? The information provided is of a general nature and is intended to be used in conjunction with the recommendations and advice of your health care practitioner. ??Every effort has been made to ensure that the information provided is accurate and complete at the time it is provided to you however, as your needs change, or, as new ??information becomes available, different or additional instructions may be required. If you have questions, please consult with your primary care provider or pharmacist, as appropriate. ??This information is not intended to serve as substitution for assessment and evaluation by a qualified health care provider. If you do not have a primary care provider, you may find a [facility] provider by calling [facility] Link at [phone]. For information about the plan of care including goals and instructions for your diagnosis, please see the patient education orders section of this document. Patient Education Materials?? The content of this educational material or handout may have been modified, supplemented, or adapted from its original content and format to support your individualized medical care. Patient Care team information Care Team Personnel Name: Adarsh Menon MD Position: [facility] Primary Care Physician Member Role: PCP Address: Address: [address] [place] [address]- Name: Becky Marie PharmD Position: [facility] Associate Professional Member Role: Lifetime Consulting Provider Address: Address: [address] [facility] [place] [address]- Care Team Related Persons Name: PAUL CHANDRA Address: home [address] [place] [address]
--- OUTSIDE RECORDS SUMMARY | 2024-02-26 09:27 | XMS_ITS | Continuity of Care Document ---
Author Organization [facility] Nestor lt Address [address] [place] [address]- Care Team Providers Care Zipper Slide Attacher Name Role Phone Adarsh Menon MD Primary Care Physician [phone] En[place] [facility] [place] Date(s): 06/27/21 - 07/27/21 [facility] Adult [address] [place] [address]- Allergies, Adverse Reactions, Alerts Substance Reaction Severity Status penicillin Unknown Active Immunizations Given and Recorded Vaccine Date Status Refusal Reason SARS-CoV-2 (COVID-19) mRNA BNT-162b2 vac 03/13/21 Recorded SARS-CoV-2 (COVID-19) mRNA BNT-162y9 vac 02/18/21 Recorded Influenza Virus Vaccine (oldterm) 07/23/20 Recorde d tetanus/diphtheria/pertussis, acel(Tdap) 09/19/19 Given pneumococcal 13-valent vaccine 09/19/19 Given influenza virus vaccine, inactivated 09/04/19 Virgil rded influenza virus vaccine, inactivated 09/04/19 Virgil rded Medications amLODIPine 2.5 mg oral tablet 2.5 mg, 1, tablet, By Mouth, Daily, # 90 tablet, Refills 1, Tot. Refills 1, Maintenance, 06/16/21 13:45:00 EDT, Route to Pharmacy Electronically, [facility] [address] [place] [address], Partial fill upon patient request, 175, cm, 06/16/21 13:33... Start Date: 06/16/21 Status: Ordered Aricept 10 mg oral tablet 10 mg, 1, tablet, By Mouth, Daily at bedtime, DOSAGE INCREASE, # 90 tablet, Refills 1, Tot. Refills1, Maintenance, 04/07/21 11:18:00 EDT, Route to Pharmacy Electronically, [facility] [address] [place] [address], Partial fill upon patient reque... Start Date: 04/07/21 Status: Ordered Flonase 50 mcg/inh nasal spray 1 sprays, Nares, Both, 2 times a day, 0 Refills, Maintenance, 03/23/19 9:41:46 EDT, [place] Start Date: 03/23/19 Status: Ordered warfarin 2.5 mg oral tablet See Instructions, 1 to 4 tablets by mouth daily adjusted by primary care office., # 120 tablet, 11 Refills, Maintenance, 04/07/21 11:18:00 EDT, Tablet, [facility] [place], [place], 175, cm, 04/07/21 10:55:00 EDT, Height, 75, kg, 02/13... 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
--- OUTSIDE RECORDS SUMMARY | 2024-02-26 09:27 | XMS_ITS | Continuity of Care Document ---
Author Organization [facility] ter Address [address] [place] [address]- Care Team Providers Care Boat Canvas Installer Name Role Phone Adarsh Menon MD Primary Care Physician En[place] [facility] [place] Date(s): 12/16/23 - 12/16/[address] [address] Attending Physician: Not on Staff, Attending MD Allergies, Adverse Reactions, Alerts Substance Reaction Severity Status penicillin Unknown Active Aricept dizziness Active Immunizations Given and Recorded Vaccine Date Status Refusal Reason pneumococcal 23-valent vaccine 10/19/22 Given [id number] 12y+ bivalent booster vax 08/25/22 Recorded influenza [...] 12/07/23 9:46:00 EST, Route to Pharmacy Electronically, [facility] [address] [place] [address], [place], Partialfill upon patient request, 175, cm, 12/07/23 9:27:0... Start Date: 12/07/23 Status: Ordered Aricept 5 mg oral tablet 5 mg, 1, tablet, By Mouth, Daily at bedtime, # 90 tablet, Refills 1, Tot. Refills 1, Maintenance, 12/07/23 9:46:00 EST, Route to Pharmacy Electronically, [facility] [address] [place] [address], [place], Partial fill upon patient request if [...] day, 0 Refills, Maintenance, 03/23/19 9:41:46 EDT, [place] Start Date: 03/23/19 Status: Ordered warfarin 2.5 mg oral tablet See Instructions, 1 to 4 tablets by mouth daily adjusted by primary care office., # 120 tablet, 5 Refills, Maintenance, 12/07/23 9:46:00 EST, Tablet, [facility] [address] [place] [address], [place], 175, cm, 12/07/23 9:27:00 EST, Height, 75, [...] Team Personnel Name: Adarsh Menon MD Position: [facility] Physician - Primary Care Member Role: PCP Address: Address: [address] [place] [address]- [place] Name: Becky Marie PharmD Position: [facility] Associate Professional Member Role: Lifetime Consulting Provider Address: Address: [address] [place] [address] [place] [address]- Care Team Related Persons Name: PAUL CHANDRA Address: home [address] [place] [address]
--- OUTSIDE RECORDS SUMMARY | 2024-02-26 09:27 | XMS_ITS | Continuity of Care Document ---
Author Organization [facility] Nestor lt Address [address] [place] [address]- Care Team Providers Care Solid Fiber Paster Operator Name Role Phone Lynsey APPLE, Adarsh Patel Primary Care Physician [phone] [place] [facility] [place](s): 01/27/24 - 02/03/24 [facility] Adult [address] [place] [address]- Encounter Diagnosis Dementia(Discharge Diagnosis) - 01/27/24 Attending Physician: Kieran ISSA, Argelia Grubbs Allergies, Adverse Reactions, Alerts Substance Reaction Severity Status penicillin Unknown Active Aricept dizziness Active Immunizations Given and Recorded Vaccine Date Status Refusal Reason pneumococcal 23-valent vaccine 10/19/22 Given [id number] 12y+ bivalent booster vax 08/25/22 Recorded influenza [...] 12/07/23 9:46:00 EST, Route to Pharmacy Electronically, [facility] [address] [place] [address], [place], Partialfill upon patient request, 175, cm, 12/07/23 9:27:0... Start Date: 12/07/23 Status: Ordered Aricept 5 mg oral tablet 5 mg, 1, tablet, By Mouth, Daily at bedtime, # 90 tablet, Refills 1, Tot. Refills 1, Maintenance, 12/07/23 9:46:00 EST, Route to Pharmacy Electronically, [facility] [address] [place] [address], [place], Partial fill upon patient request if the [...] day, 0 Refills, Maintenance, 03/23/19 9:41:46 EDT, [place] Start Date: 03/23/19 Status: Ordered SEROquel 25 mg oral tablet 25 mg, 1, tablet, By Mouth, 2 times a day, # 60 tablet, Refills 0, Tot. Refills 0, Maintenance, 01/27/24 11:27:00 EDT, Route to Pharmacy Electronically, [facility] [address] [place] [address], [place],Partial fill upon patient request if the prescripti... Start Date: 01/27/24 Status: Ordered warfarin 2.5 mg oral tablet See Instructions, 1 to 4 tablets by mouth daily adjusted by primary care office., # 120 tablet, 5 Refills, Maintenance, 12/07/23 9:46:00 EST, Tablet, [facility] [address] [place] [address], [place], 175, cm, 12/07/23 9:27:00 EST, Height, 75, kg, ... 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 Active Dementia 3 Confirmed Active Forgetfulness Confirmed Active [place] (hard of hearing) Confirmed Active History of Lyme disease Confirmed Active Hypercholesterolemia Confirmed Active HTN (hypertension) Confirmed Active Cognitive impairment Confirmed Active Anticoagulant long-term use Confirmed Active Lung nodule Confirmed Active Recurrent pulmonary embolism Confirmed Active Urinary retention Confirmed Active 1Per chart review meeting GFR criteria 2Lower extremity 3MoCA 2018 Diagnosis Diagnosis Type Effective Dates Health Status Clini alejandra Service Informant Dementia Discharge Diagnosis 01/27/24 Vital Signs Most recent to oldest [Reference Range]: 1 Height 175 cm (01/27/24 11:04 AM) Weight 72.7 kg (01/27/24 11:04 AM) Body Mass Index [18.5-24.99 kg/m2] 23.74 kg/m2 (01/27/24 11:04 AM) Weight Obtained Via Patient/family state d (01/27/24 11:04 AM) Social History Social History Type Response Smoking Status Never (less than 100 in lifetime); Tobacco user in household: No entered on: 03/23/19 Sex Patient Care team information Care Team Personnel Name: Adarsh Menon MD Position: [facility] Physician - Primary Care Member Role: PCP Address: Address: [address] [place] [address]- [place] Name: Becky Marie PharmD Position: [facility] Associate Professional Member Role: Lifetime Consulting Provider Address: Address: [address] [facility] [place] [address]- Care Team Related Persons Name: PAUL CHANDRA Address: [address] [place] [address]
--- OUTSIDE RECORDS SUMMARY | 2024-02-26 09:27 | XMS_ITS | Continuity of Care Document ---
Author Organization [facility] Nestor lt Address [address] [place] [address]- Care Team Providers Care Rn Surgery Name Role Phone Adarsh Menon MD Primary Care Physician Encounter [facility] [place] Date(s): 04/27/23 - 05/04/23 [facility] Adult [address] [place] [address]- Encounter Diagnosis 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(Discharge Diagnosis) - 04/27/23 Recurrent pulmonary embolism(Discharge Diagnosis) - 04/27/23 HTN (hypertension)(Discharge Diagnosis) - 04/27/23 Cognitive impairment(Discharge Diagnosis) - 04/27/23 Chronic kidney disease, stage 3a(Discharge Diagnosis) - 04/27/23 Attending Physician: Argelia Alcaraz NP Referring Physician: Adarsh Menon MD Allergies, Adverse Reactions, Alerts Substance Reaction Severity Status penicillin Unknown Active Aricept dizziness Active Immunizations Given and Recorded Vaccine Date Status Refusal Reason pneumococcal 23-valent vaccine 10/19/22 Given [id number] 12y+ bivalent booster vax 08/25/22 Recorded influenza [...] 04/27/23 10:18:00 EDT, Route to Pharmacy Electronically, [facility] [address] [place] [address], [place], Partial fill upon patient request, 180, cm, 04/27/23 9:58:... Start Date: 04/27/23 Status: Ordered Aricept 5 mg oral tablet 5 mg, 1, tablet, By Mouth, Daily at bedtime, # 90 tablet, Refills 0, Tot. Refills 0, Maintenance, 04/27/23 10:19:00 EDT, Route to Pharmacy Electronically, [facility] [address] [place] [address], [place], Partial fill upon patient request if the [...] day, 0 Refills, Maintenance, 03/23/19 9:41:46 EDT, [place] Start Date: 03/23/19 Status: Ordered warfarin 2.5 mg oral tablet See Instructions, 1 to 4 tablets by mouth daily adjusted by primary care office., # 120 tablet, 5 Refills, Maintenance, 04/27/23 10:18:00 EDT, Tablet, [facility] [facility], [place], 180, cm, 04/27/23 9:58:00 EDT, Height, 73, kg, ... 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 Active Forgetfulness Confirmed Active [place] (hard of hearing) Confirmed Active History of Lyme disease Confirmed Active Hypercholesterolemia Confirmed Active HTN (hypertension) Confirmed Active Cognitive impairment Confirmed Active Anticoagulant long-term use Confirmed Active Lung nodule Confirmed Active Recurrent pulmonary embolism Confirmed Active Urinary retention Confirmed Active 1Per chart review meeting GFR criteria 2Lower extremity Diagnosis Diagnosis Type Effective Dates Health Status Clinical Service Informant 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 Discharge Diagnosis 04/27/23 Recurrent pulmonary embolism Discharge Diagnosis 04/27/23 HTN (hypertension) Discharge Diagnosis 04/27/23 Cognitive impairment Discharge Diagnosis 04/27/23 Chronic kidney disease, stage 3a Discharge Diagnosis 04/27/23 Vital Signs Most recent to oldest [Reference Range]: 1 Height 180 cm (04/27/23 9:58 AM) Weight 77.2 kg (04/27/23 9:58 AM) Oxygen Saturation [94-100 %] 95 % (04/27/23 9:58 AM) Pulse Rate [55-90 bpm] 72 bpm (04/27/23 9:58 AM) Body Mass Index [18.5-24.99 kg/m2] 23.83 kg/m2 (04/27/23 9:58 AM) Blood Pressure [90-138/55-84 mm Hg] 132/ 66mm Hg (04/27/23 9:58 AM) Respiratory Rate [16-30 br/min] 16 br/mi n (04/27/23 9:58 AM) Temperature [96.8-100.4 DegF] 98.1 DegF (04/27/23 9:58 AM) Mode of Delivery (Oxygen) Room air (04/27/23 9:58 AM) Blood pressure sites Arm, right (04/27/23 9:58 AM) Temperature Route Oral (04/27/23 9:58 AM) Weight Obtained Via Standing scale (04/27/23 9:58 AM) Social History Social History Type Response Smoking Status Never (less than 100 in lifetime); Tobacco user in household: No entered on: 03/23/19 Sex Note * Brianda Saucedo: PERFORM, SIGN, VERIFY Event Display: Patient Education/Instruction Authored Date: [facility] *ANDRY Ch Clinical Summary Name CHLOE CHANDRA Age 77 Years 1945 PCP Lynsey APPLE, Adarsh Patel PCP Visit Date 04/27/2023 09:45:00 Additional Instructions: Scheduled Appointments?? Future Appointments ?[facility] ?[address] ?[facility],??[place],??[address] ?Phone:??[phone]?Fax:??-- ?Appt. Date:??06/16/2023?10:00 AM ?Scheduled Provider:??[facility] 1 Follow-Up Instructions ?? With: Address: When: Kieran ISSA, Argelia Grubbs [address] [place] [address] Business (1) In 6 months Comments: [facility] With: Address: When: Kieran ISSA, Argelia Humera[address] [address] [facility] (1) In 1 month Comments: [place] Diagnosis Medications: Please continue your medications until treatment is completed or stopped by your provider. Discuss any questions related to medications with your provider. New Medications [facility] [address] [place] [address], [address], [place] [id number], [phone] Donepezil (Aricept 5 mg oral tablet) 1 tab(s) Oral Daily at Bedtime. Refills: 0. Next Dose: Medications to Continue with No Changes [facility] [address] [place] [address], [address], [place] [id number], [phone] Amlodipine (amLODIPine 2.5 mg oral tablet) 1 tab(s) Oral Daily. Refills: 1. Next Dose: Warfarin (warfarin 2.5 [...] twice a day. Next Dose: Allergy Info:?? Aricept; penicillin Medications Given This Visit Future Orders ?No future orders Vital Signs Height 180 cm Weight 77.2 kg BMI 23.83 kg/m2 Blood Pressure 132 mm Hg/66 mm Hg Temperature 98.1 DegF Pulse Rate 72 bpm Respiratory Rate 16 br/min 02 Sat Mode of Delivery 95 %/Room air You can now view a summary of your hospital visit from the comfort of your home through a free online portal called Yovia. Yovia is a website that allows you to securely view your medical information including discharge summary, medications and follow-up visits. ??You can alsosend a secure electronic message to your doctor???s office to request appointments, renew medications or just ask a question. You can enroll at [email or web address] or register during your next office visit. [...] primary care provider, you may find a [facility] provider by calling [facility] [employer] at [phone]. For information about the plan of care [...] Team Personnel Name: Adarsh Menon MD Position: [facility] Physician - Primary Care Member Role: PCP Address: Address: [address] [place] [address]- Name: Becky Marie PharmD Position: [facility] Associate Professional Member Role: Lifetime Consulting Provider Address: Address: [address] [place] [address] [place] [address]- Care Team Related Persons Name: PAUL CHANDRA Address: home [address] [place] [address]
--- OUTSIDE RECORDS SUMMARY | 2024-02-26 09:27 | XMS_ITS | Continuity of Care Document ---
Author Organization [facility] Nestor lt Address [address] [place] [address]- Care Team Providers Care Supply Requirements Officer Name Role Phone Adarsh Menon MD Primary Care Physician Encounter [facility] Date(s): 01/10/24 - 02/09/24 [facility] Adult [address] [place] [address]- Allergies, Adverse Reactions, Alerts Substance Reaction Severity Status penicillin Unknown Active Aricept dizziness Active Immunizations Given and Recorded Vaccine Date Status Refusal Reason pneumococcal 23-valent vaccine 10/19/22 Given [id number] 12y+ bivalent booster vax 08/25/22 Recorded influenza [...] Route to Pharmacy Electronically, [facility] [address] [place] [address], [place], Partialfill upon patient request, 175, cm, 12/07/23 9:27:0... Start Date: 12/07/23 Status: Ordered Aricept 5 mg oral tablet 5 mg, 1, tablet, By Mouth, Daily at bedtime, # 90 tablet, Refills 1, Tot. Refills 1, Maintenance, 12/07/23 9:46:00 EST, Route to Pharmacy Electronically, [facility] [address] [place] [address], Partial fill upon patient request if the [...] day, 0 Refills, Maintenance, 03/23/19 9:41:46 EDT, [place] Start Date: 03/23/19 Status: Ordered SEROquel 25 mg oral tablet 25 mg, 1, tablet, By Mouth, 2 times a day, # 60 tablet, Refills 0, Tot. Refills 0, Maintenance, 01/27/24 11:27:00 EDT, Route to Pharmacy Electronically, [facility] [address] [place] [address],Partial fill upon patient request if the prescripti... Start Date: 01/27/24 Status: Ordered warfarin 2.5 mg oral tablet See Instructions, 1 to 4 tablets by mouth daily adjusted by primary care office., # 120 tablet, 5 Refills, Maintenance, 12/07/23 9:46:00 EST, Tablet, [facility] [address] [place] [address], [place], 175, cm, 12/07/23 9:27:00 EST, Height, 75, kg, ... 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 Active Dementia 3 Confirmed Active Forgetfulness Confirmed Active [place] (hard of hearing) Confirmed Active History of [...] Team Personnel Name: Adarsh Menon MD Position: [facility] Physician - Primary Care Member Role: PCP Address: Address: [address] [place] [address]- [place] Name: Becky Marie PharmD Position: [facility] Associate Professional Member Role: Lifetime Consulting Provider Address: Address: [address] [place] [address] [place] [address]- Care Team Related Persons Name: PAUL CHANDRA Address: home [address] [place] [address]
--- OUTSIDE RECORDS SUMMARY | 2024-02-26 09:27 | XMS_ITS | Continuity of Care Document ---
Author Organization [facility] Nestor lt Address [address] [place] [address]- Care Team Providers Care Music Executive Name Role Phone Adarsh Menon MD Primary Care Physician [phone] [place] [facility] [place] 04/06/22 - 04/13/22 [facility] Adult [address] [place] [address]- Attending Physician: Argelia Alcaraz NP Referring Physician: [...] tablet, Refills 1, Tot. Refills 1, Maintenance, 04/06/22 13:41:00 EDT, Route to Pharmacy Electronically, [facility] - [place], [place], Partial fill upon patient request, 175, cm, 04/06/22 13:25... Start Date: 04/06/22 Status: Ordered Aricept 10 mg oral tablet 10 mg, 1, tablet, By Mouth, Daily at bedtime, # 90 tablet, Refills 1, Tot. Refills 1, Maintenance, 04/06/22 13:41:00 EDT, Route to Pharmacy Electronically, [facility] [address] [place] [address], [place], Partial fill upon patient request if the prescri... Start Date: 04/06/22 Status: Ordered Flonase 50 mcg/inh nasal spray 1 sprays, Nares, Both, 2 times a day, 0 Refills, Maintenance, 03/23/19 9:41:46 EDT, [place] Start Date: 03/23/19 Status: Ordered warfarin 2.5 mg oral tablet See Instructions, 1 to 4 tablets by mouth daily adjusted by primary care office., # 120 tablet, 5 Refills, Maintenance, 04/09/22 15:06:00 EDT, Tablet, [facility] [address] [place] [address], [place], 175, cm, 04/06/22 13:25:00 EDT, Height, 75, kg, 16... 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(Confirmed) 1 Active Forgetfulness(Confirmed) Active [place] (hard of hearing)(Confirmed) Active History of Lyme disease(Confirmed) Active Hypercholesterolemia(Confirmed) Active HTN (hypertension)(Confirmed) Active Cognitive impairment(Confirmed) Active Anticoagulant long-term use(Confirmed) Active Lung nodule(Confirmed) Active Recurrent pulmonary embolism(Confirmed) Active Urinary retention(Confirmed) Active 1Lower extremity Vital Signs Most recent to oldest [Reference Range]: 1 Height 175 cm (04/06/22 1:25 PM) Weight 73.7 kg (04/06/22 1:25 PM) Oxygen Saturation [94-100 %] 97 % (04/06/22 1:25 PM) Pulse Rate [55-90 bpm] 60 bpm (04/06/22 1:25 PM) Body Mass Index [18.5-24.99] 24.07 (04/06/22 1:25 PM) Blood Pressure [90-138/55-84 mm Hg] 126/ 68mm Hg (04/06/22 1:25 PM) Respiratory Rate [16-30 br/min] 20 br/mi n (04/06/22 1:25 PM) Mode of Delivery (Oxygen) Room air (04/06/22 1:25 PM) Blood pressure sites Arm, left (04/06/22 1:25 PM) Weight Obtained Via Standing scale (04/06/22 1:25 PM) Social History Social History Type Response Smoking Status Never (less than 100 in lifetime); Tobacco user in household: No entered on: 03/23/19 Sex
--- OUTSIDE RECORDS SUMMARY | 2024-02-26 09:27 | XMS_ITS | Continuity of Care Document ---
Author Organization [facility] Nestor lt Address [address] [place] [address]- Care Team Providers Care Cloth Wire Weaver Name Role Phone Adarsh Menon MD Primary Care Physician [phone] [place] [facility] [place]): [place]17[place]24 - 02/24/24 [facility] Adult [address] [place] [address]- Encounter Diagnosis Dementia(Discharge Diagnosis) - 02/17/24 Attending Physician: Kieran ROD BENDING MACHINE OPERATOR, Argelia Grubbs Allergies, Adverse Reactions, Alerts Substance Reaction Severity Status penicillin Unknown Active Immunizations Given and Recorded Vaccine Date Status Refusal Reason pneumococcal 23-valent vaccine 10/19/22 Given [id number] 12y+ bivalent booster vax 08/25/22 Recorded influenza [...] Route to Pharmacy Electronically, [facility] [address] [place] [address], [place], Partialfill upon patient request, 175, cm, 12/07/23 9:27:0... Start Date: 12/07/23 Status: Ordered Aricept 5 mg oral tablet 5 mg, 1, tablet, By Mouth, Daily at bedtime, # 90 tablet, Refills 1, Tot. Refills 1, Maintenance, 12/07/23 9:46:00 EST, Route to Pharmacy Electronically, [facility] [address] [place] [address], [place], Partial fill upon patient request if the prescript... Start Date: 12/07/23 Status: Ordered Flonase 50 mcg/inh nasal spray 1 sprays, Nares, Both, 2 times a day, 0 Refills, Maintenance, 03/23/19 9:41:46 EDT, [place] Start Date: 03/23/19 Status: Ordered SEROquel 25 mg oral tablet 25 mg, 1, tablet, By Mouth, 3 times a day, # 30 capsule, Refills 0, Tot. Refills 0, Maintenance, 01/27/24 11:27:00 EDT, Route to Pharmacy Electronically, [facility] [address] [place] [address], [place], Partial fill upon patient request if the prescript... Start Date: 01/27/24 Status: Ordered tamsulosin 0.4 mg oral capsule 0.4 mg, By Mouth, Daily, # 30 capsule, Refills 0, Tot. Refills 0, Maintenance, 02/19/24 8:03:00 EDT, Route to Pharmacy Electronically, [facility] [address] [place] [address], [place], Partial fill uponpatient request if the prescription [...] EST, Tablet, [facility] - [place], [place], 175, cm, 12/07/23 9:27:00 EST, Height, 75, kg, ... 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 Active Dementia 3 Confirmed Active Forgetfulness Confirmed Active [place] (hard of hearing) Confirmed Active History of [...] Clini alejandra Service Informant Dementia Discharge Diagnosis 02/17/24 Vital Signs Most recent to oldest [Reference Range]: 1 Height 175 cm (02/17/24 3:16 PM) Weight 76.3 kg (02/17/24 3:16 PM) Body Mass Index [18.5-24.99 kg/m2] 24.91 kg/m2 (02/17/24 3:16 PM) Weight Obtained Via Patient/family state d (02/17/24 3:16 PM) Social History Social History Type Response Smoking Status Never (less than 100 in lifetime); Tobacco user in household: No entered on: 03/23/19 Sex Patient Care team information Care Team Personnel Name: Adarsh Menon MD Position: [facility] Physician - Primary Care Member Role: PCP Address: Address: [address] [place] [address] [place] [address]- [place] Name: Becky Marie PharmD Position: [facility] Associate Professional Member Role: Lifetime Consulting Provider Address: Address: [address] [place] [address] [place] [address]- [place] Name: Stephani Edwards RN Position: S RN Member Role: Primary Care Nurse Name: Ellen Short RN Position: S RN Supv Member Role: Primary Care Nurse Care Team Related Persons Name: PAUL CHANDRA Address: home [address] [place] [address]
--- OUTSIDE RECORDS SUMMARY | 2024-02-26 09:27 | XMS_ITS | Continuity of Care Document ---
Author Organization [facility] Nestor lt Address [address] [place] [address]- Care Team Providers Care Inspector Machine Cut Glass Name Role Phone Adarsh Menon MD Primary Care Physician Encounter [facility] Date(s): 01/19/24 - 02/18/24 [facility] Adult [address] [place] [address]- Allergies, Adverse Reactions, Alerts Substance Reaction Severity Status penicillin Unknown Active Immunizations Given and Recorded Vaccine Date Status Refusal Reason pneumococcal 23-valent vaccine 10/19/22 Given [id number] 12y+ bivalent booster vax 08/25/22 Recorded influenza [...] EST, Route to Pharmacy Electronically, [facility] [address] [place] [address], [place], Partialfill upon patient request, 175, cm, 12/07/23 9:27:0... Start Date: 12/07/23 Status: Ordered Aricept 5 mg oral tablet 5 mg, 1, tablet, By Mouth, Daily at bedtime, # 90 tablet, Refills 1, Tot. Refills 1, Maintenance, 12/07/23 9:46:00 EST, Route to Pharmacy Electronically, [facility] [address] [place] [address], Partial fill upon patient request if the [...] day, 0 Refills, Maintenance, 03/23/19 9:41:46 EDT, [place] Start Date: 03/23/19 Status: Ordered SEROquel 25 mg oral tablet 25 mg, 1, tablet, By Mouth, 2 times a day, # 60 tablet, Refills 0, Tot. Refills 0, Maintenance, 01/27/24 11:27:00 EDT, Route to Pharmacy Electronically, [facility] [address] [place] [address],Partial fill upon patient request if the prescripti... Start Date: 01/27/24 Status: Ordered warfarin 2.5 mg oral tablet See Instructions, 1 to 4 tablets by mouth daily adjusted by primary care office., # 120 tablet, 5 Refills, Maintenance, 12/07/23 9:46:00 EST, Tablet, [facility] [address] [place] [address], [place], 175, cm, 12/07/23 9:27:00 EST, Height, 75, kg, ... 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
--- OUTSIDE RECORDS SUMMARY | 2024-02-26 09:27 | XMS_ITS | Continuity of Care Document ---
Author Organization [facility] Nestor lt Address [address] [place] [address]- Care Team Providers Care Service Dispatcher Name Role Phone Adarsh Menon MD Primary Care Physician Encounter [facility] Date(s): 12/07/23 - 12/14/23 [facility] Adult [address] [place] [address]- Encounter Diagnosis Wellness examination(Discharge Diagnosis) - 12/07/23 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(Discharge Diagnosis) - 12/07/23 Recurrent pulmonary embolism(Discharge Diagnosis) - 12/07/23 Dementia(Discharge Diagnosis) - 12/07/23 Chronic kidney disease, stage 3a(Discharge Diagnosis) - 12/07/23 Attending Physician: Argelia Alcaraz NP Referring Physician: Adarsh Menon MD Allergies, Adverse Reactions, Alerts Substance Reaction Severity Status penicillin Unknown Active Aricept dizziness Active Immunizations Given and Recorded Vaccine Date Status Refusal Reason pneumococcal 23-valent vaccine 10/19/22 Given [id number] 12y+ bivalent booster vax 08/25/22 Recorded influenza [...] to Pharmacy Electronically, [facility] [address] [place] [address], [place], Partialfill upon patient request, 175, cm, 12/07/23 9:27:0... Start Date: 12/07/23 Status: Ordered Aricept 5 mg oral tablet 5 mg, 1, tablet, By Mouth, Daily at bedtime, # 90 tablet, Refills 1, Tot. Refills 1, Maintenance, 12/07/23 9:46:00 EST, Route to Pharmacy Electronically, [facility] [address] [place] [address], [place], Partial fill upon patient request if the [...] day, 0 Refills, Maintenance, 03/23/19 9:41:46 EDT, [place] Start Date: 03/23/19 Status: Ordered warfarin 2.5 mg oral tablet See Instructions, 1 to 4 tablets by mouth daily adjusted by primary care office., # 120 tablet, 5 Refills, Maintenance, 12/07/23 9:46:00 EST, Tablet, [facility] [facility], [place], 175, cm, 12/07/23 9:27:00 EST, Height, 75, kg, ... 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 Active Dementia 3 Confirmed Active Forgetfulness Confirmed Active [place] (hard of hearing) Confirmed Active History of Lyme disease Confirmed Active Hypercholesterolemia Confirmed Active HTN (hypertension) Confirmed Active Cognitive impairment Confirmed Active Anticoagulant long-term use Confirmed Active Lung nodule Confirmed Active Recurrent pulmonary embolism Confirmed Active Urinary retention Confirmed Active 1Per chart review meeting GFR criteria 2Lower extremity 3MoCA 2018 Diagnosis Diagnosis Type Effective Dates Health Status Clinical Service Informant Wellness examination Discharge Diagnosis 12/07/23 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 Discharge Diagnosis 12/07/23 Recurrent pulmonary embolism Discharge Diagnosis 12/07/23 Dementia Discharge Diagnosis 12/07/23 Chronic kidney disease, stage 3a Discharge Diagnosis 12/07/23 Vital Signs Most recent to oldest [Reference Range]: 1 Height 175 cm (12/07/23 9:27 AM) Weight 71.8 kg (12/07/23 9:27 AM) Oxygen Saturation [94-100 %] 98 % (12/07/23 9:27 AM) Pulse Rate [55-90 bpm] 74 bpm (12/07/23 9:27 AM) Body Mass Index [18.5-24.99 kg/m2] 23.44 kg/m2 (12/07/23 9:27 AM) Blood Pressure [90-138/55-84 mm Hg] 120/ 58mm Hg (12/07/23 9:27 AM) Respiratory Rate [16-30 br/min] 16 br/mi n (12/07/23 9:27 AM) Mode of Delivery (Oxygen) Room air (12/07/23 9:27 AM) Blood pressure sites Arm, left (12/07/23 9:27 AM) Temperature Route Oral (12/07/23 9:27 AM) Weight Obtained Via Standing scale (12/07/23 9:27 AM) Social History Social History Type Response Smoking Status Never (less than 100 in lifetime); Tobacco user in household: No entered on: 03/23/19 Sex Patient Care team information Care Team Personnel Name: Adarsh Menon MD Position: [facility] Physician - Primary Care Member Role: PCP Address: Address: [address] [place] [address]- Name: Becky Marie PharmD Position: [facility] Associate Professional Member Role: Lifetime Consulting Provider Address: Address: [address] [place] [address] [place] [address]- Care Team Related Persons Name: PAUL CHANDRA Address: home [address] [address]
--- OUTSIDE RECORDS SUMMARY | 2024-02-26 09:27 | XMS_ITS | Continuity of Care Document ---
Author Organization [facility] Nestor lt Address [address] [place] [address]- Care Team Providers Care Structural Steel Worker Apprentice Name Role Phone Adarsh Menon MD Primary Care Physician [phone] Encounter [facility] [place] Date(s): 01/17/24 - 02/16/24 [facility] Adult [address] [place] [address]- Allergies, Adverse Reactions, Alerts Substance Reaction Severity Status penicillin Unknown Active Aricept dizziness Active Immunizations Given and Recorded Vaccine Date Status Refusal Reason pneumococcal 23-valent vaccine 10/19/22 Given [id number] 12y+ bivalent booster vax 08/25/22 Recorded influenza [...] Route to Pharmacy Electronically, [facility] [address] [place] [address], [place], Partialfill upon patient request, 175, cm, 12/07/23 9:27:0... Start Date: 12/07/23 Status: Ordered Aricept 5 mg oral tablet 5 mg, 1, tablet, By Mouth, Daily at bedtime, # 90 tablet, Refills 1, Tot. Refills 1, Maintenance, 12/07/23 9:46:00 EST, Route to Pharmacy Electronically, [facility] [address] [place] [address], Partial fill upon patient request if the [...] day, 0 Refills, Maintenance, 03/23/19 9:41:46 EDT, [place] Start Date: 03/23/19 Status: Ordered SEROquel 25 mg oral tablet 25 mg, 1, tablet, By Mouth, 2 times a day, # 60 tablet, Refills 0, Tot. Refills 0, Maintenance, 01/27/24 11:27:00 EDT, Route to Pharmacy Electronically, [facility] [address] [place] [address],Partial fill upon patient request if the prescripti... Start Date: 01/27/24 Status: Ordered warfarin 2.5 mg oral tablet See Instructions, 1 to 4 tablets by mouth daily adjusted by primary care office., # 120 tablet, 5 Refills, Maintenance, 12/07/23 9:46:00 EST, Tablet, [facility] [address] [place] [address], [place], 175, cm, 12/07/23 9:27:00 EST, Height, 75, kg, ... 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 Active Dementia 3 Confirmed Active Forgetfulness Confirmed Active [place] (hard of hearing) Confirmed Active History of [...] Team Personnel Name: Adarsh Menon MD Position: [facility] Physician - Primary Care Member Role: PCP Address: Address: [address] [place] [address]- [place] Name: Becky Marie PharmD Position: [facility] Associate Professional Member Role: Lifetime Consulting Provider Address: Address: [address] [place] [address] [place] [address]- Care Team Related Persons Name: PAUL CHANDRA Address: home [address] [place] [address]
--- OUTSIDE RECORDS SUMMARY | 2024-02-26 09:27 | XMS_ITS | Continuity of Care Document ---
Author Organization [facility] Nestor lt Address [address] [place] [address]- Care Team Providers Care Human Factors Scientist Name Role Phone Adarsh Menon MD Primary Care Physician [phone] Encounter [facility] [place] Date(s): 01/29/20 - 02/05/20 [facility] Adult [address] [place] [address]- [facility] Attending Physician: Argelia Alcaraz NP Referring Physician: [...] 12/25/19 11:29:00 EST, Route to Pharmacy Electronically, [facility] - [place], [place], [...] day, 0 Refills, Maintenance, 03/23/19 9:41:46 EDT, [place] Start Date: 03/23/19 Status: Ordered Problem List Condition Effective Dates Status Health Status Inform ant BPH (benign prostatic hyperplasia)(Confirmed) Active Stage 3 chronic kidney disease(Confirmed) Active Chronic sinusitis(Confirmed) Active Forgetfulness(Confirmed) Active [place] (hard of hearing)(Confirmed) Active Hypercholesterolemia(Confirmed) Active HTN (hypertension)(Confirmed) Active Cognitive impairment(Confirmed) Active Anticoagulant long-term use(Confirmed) Active Lung nodule(Confirmed) Active Recurrent deep vein thrombos is (DVT)(Confirmed) Active Recurrent pulmonary embolism(Confirmed) Active Urinary retention(Confirmed) Active Vital Signs Most recent to oldest [Reference Range]: 1 2 Height 175 cm (01/29/20 12:08 PM) 175 cm (01/29/20 11:25 AM) Weight 77.6 kg (01/29/20 11:25 AM) Oxygen Saturation [94-100 %] 97 % (01/29/20 11:25 AM) Pulse Rate [55-90 bpm] 61 bpm (01/29/20 11:25 AM) Body Mass Index [18.5-24.99] 25.34 *H* (01/29/20 11:25 AM) Blood Pressure [90-138/55-84 mm Hg] 130/ 78mm Hg (01/29/20 12:08 PM) 148/80mm Hg *H* (01/29/20 11:25 AM) Temperature [96.8-100.4 DegF] 97.6 DegF (01/29/20 11:25 AM) Blood pressure sites Arm, right (01/29/20 11:25 AM) Temperature Route Oral (01/29/20 11:25 AM) Social History Social History Type Response Smoking Status Never (less than 100 in lifetime); Tobacco user in household: No entered on: 03/23/19 Sex
--- OUTSIDE RECORDS SUMMARY | 2024-02-26 09:27 | XMS_ITS | Continuity of Care Document ---
Author Organization [facility] Nestor lt Address [address] [place] [address]- Care Team Providers Care Miller Head Wet Process Name Role Phone Adarsh Menon MD Primary Care Physician [place] [facility] [place](s[place] 05/10/20 - 05/17/20 [facility] Adult [address] [place] [address]- [facility] Encounter Diagnosis Recurrent pulmonary embolism(Discharge Diagnosis) - 05/10/20 Stage 3 chronic kidney disease(Discharge Diagnosis) - 05/10/20 Anticoagulant long-term use(Discharge Diagnosis) - 05/10/20 HTN (hypertension)(Discharge Diagnosis) - 05/10/20 BPH (benign prostatic hyperplasia)(Discharge Diagnosis) - 05/10/20 Attending Physician: Adarsh Menno MD Allergies, Adverse Reactions, Alerts Substance Reaction [...] 12/25/19 11:29:00 EST, Route to Pharmacy Electronically, [facility] [place], 175, cm, [...] day, 0 Refills, Maintenance, 03/23/19 9:41:46 EDT, [place] Start Date: 03/23/19 Status: Ordered warfarin 2.5 mg oral tablet See Instructions, 1 to 4 tablets by mouth daily adjusted by primary care office., # 120 tablet, 11 Refills, Maintenance, 05/10/20 14:19:00 EDT, Tablet, [facility] [place], 175, cm, 05/10/20 13:49:00 EDT, [place] Start Date: 05/10/20 Status: Ordered Problem List Condition Effective Dates Status Health Status Inform ant BPH (benign prostatic hyperplasia)(Confirmed) Active Stage 3 chronic kidney disease(Confirmed) Active Chronic sinusitis(Confirmed) Active Forgetfulness(Confirmed) Active [place] (hard of hearing)(Confirmed) Active Hypercholesterolemia(Confirmed) Active HTN (hypertension)(Confirmed) Active Cognitive impairment(Confirmed) Active Anticoagulant long-term use(Confirmed) Active Lung nodule(Confirmed) Active Recurrent deep vein thrombos is (DVT)(Confirmed) Active Recurrent pulmonary embolism(Confirmed) Active Urinary retention(Confirmed) Active Diagnosis Diagnosis Type Effective Dates Health Status Clinical Service Informant Recurrent pulmonary embolism Discharge Diagnosis 05/10/20 Stage 3 chronic kidney disease Discharge Diagnosis 05/10/20 Anticoagulant long-term use Discharge Diagnosis 05/10/20 HTN (hypertension) Discharge Diagnosis 05/10/20 BPH (benign prostatic hyperplasia) Discharge Diagnosis 05/10/20 Vital Signs Most recent to oldest [Reference Range]: 1 Height 175 cm (05/10/20 1:49 PM) Weight 77.8 kg (05/10/20 1:49 PM) Oxygen Saturation [94-100 %] 98 % (05/10/20 1:49 PM) Pulse Rate [55-90 bpm] 88 bpm (05/10/20 1:49 PM) Body Mass Index [18.5-24.99] 25.4 *H* (05/10/20 1:49 PM) Blood Pressure [90-138/55-84 mm Hg] 140/ 72mm Hg *H* (05/10/20 1:49 PM) Mode of Delivery (Oxygen) Room air (05/10/20 1:49 PM) Blood pressure sites Arm, left (05/10/20 1:49 PM) Weight Obtained Via Standing scale (05/10/20 1:49 PM) Social History Social History Type Response Smoking Status Never (less than 100 in lifetime); Tobacco user in household: No entered on: 03/23/19 Sex
--- OUTSIDE RECORDS SUMMARY | 2024-02-26 09:27 | XMS_ITS | Continuity of Care Document ---
Author Organization [facility] Nestor lt Address [address] [place] [address]- Care Team Providers Care Coke Drawer Name Role Phone Adarsh Menon MD Primary Care Physician [phone] Encounter [facility] [place] Date(s): 06/03/21 - 07/03/21 [facility] Adult [address] [place] [address]- Allergies, Adverse Reactions, Alerts Substance Reaction Severity Status penicillin Unknown Active Immunizations Given and Recorded Vaccine Date Status Refusal Reason SARS-CoV-2 (COVID-19) mRNA BNT-162b2 vac 03/13/21 Recorded SARS-CoV-2 (COVID-19) mRNA BNT-162c2 vac 02/18/21 Recorded Influenza Virus Vaccine (oldterm) 07/23/20 Recorde d tetanus/diphtheria/pertussis, acel(Tdap) 09/19/19 Given pneumococcal 13-valent vaccine 09/19/19 Given influenza virus vaccine, inactivated 09/04/19 Virgil rded influenza virus vaccine, inactivated 09/04/19 Virgil rded Medications amLODIPine 2.5 mg oral tablet 2.5 mg, 1, tablet, By Mouth, Daily, # 90 tablet, Refills 1, Tot. Refills 1, Maintenance, 06/16/21 13:45:00 EDT, Route to Pharmacy Electronically, [facility] [place] [address], Partial fill upon patient request, 175, cm, 06/16/21 13:33... Start Date: 06/16/21 Status: Ordered Aricept 10 mg oral tablet 10 mg, 1, tablet, By Mouth, Daily at bedtime, DOSAGE INCREASE, # 90 tablet, Refills 1, Tot. Refills1, Maintenance, 04/07/21 11:18:00 EDT, Route to Pharmacy Electronically, [facility] [place] [address], Partial fill upon patient reque... Start Date: 04/07/21 Status: Ordered Flonase 50 mcg/inh nasal spray 1 sprays, Nares, Both, 2 times a day, 0 Refills, Maintenance, 03/23/19 9:41:46 EDT, [place] Start Date: 03/23/19 Status: Ordered warfarin 2.5 mg oral tablet See Instructions, 1 to 4 tablets by mouth daily adjusted by primary care office., # 120 tablet, 11 Refills, Maintenance, 04/07/21 11:18:00 EDT, Tablet, [facility], [place], 175, cm, 04/07/21 10:55:00 EDT, Height, 75, kg, 02/13... Start Date: 04/07/21 Status: Ordered Problem List Condition Effective Dates Status Health Status Inform ant BPH (benign prostatic hyperplasia)(Confirmed) Active Stage 3 chronic kidney disease(Confirmed) Active Chronic sinusitis(Confirmed) Active Recurrent deep vein thrombos is of lower extremity(Confirmed) 1 Active Forgetfulness(Confirmed) Active [place] (hard of hearing)(Confirmed) Active History of Lyme disease(Confirmed) Active Hypercholesterolemia(Confirmed) Active HTN (hypertension)(Confirmed) Active Cognitive impairment(Confirmed) Active Anticoagulant long-term use(Confirmed) Active Lung nodule(Confirmed) Active Recurrent pulmonary embolism(Confirmed) Active Urinary retention(Confirmed) Active 1Lower extremity Social History Social History Type Response Smoking Status Never (less than 100 in lifetime); Tobacco user in household: No entered on: 03/23/19 Sex
--- OUTSIDE RECORDS SUMMARY | 2024-02-26 09:27 | XMS_ITS | Continuity of Care Document ---
Author Organization [facility] Nestor lt Address [address] [place] [address]- Care Team Providers Care Matte Cutter Name Role Phone Adarsh Menon MD Primary Care Physician Encounter [facility] [place] Date(s): 04/16/22 - 05/16/22 [facility] Adult [address] [place] [address]- Allergies, Adverse Reactions, Alerts Substance Reaction Severity [...] 04/06/22 13:41:00 EDT, Route to Pharmacy Electronically, [facility] - [place], [place], Partial fill upon patient request, 175, cm, 04/06/22 13:25... Start Date: 04/06/22 Status: Ordered Aricept 10 mg oral tablet 10 mg, 1, tablet, By Mouth, Daily at bedtime, # 90 tablet, Refills 1, Tot. Refills 1, Maintenance, 04/06/22 13:41:00 EDT, Route to Pharmacy Electronically, [facility] [address] [place] [address], [place], Partial fill upon patient request if the prescri... Start Date: 04/06/22 Status: Ordered Catheter Supplies See Instructions, # 120 pack/packet, Maintenance, Self catheterize your bladder 4 times daily and as needed Dispense quantity sufficient for 30 days, 05/12/22 11:45:00 EDT, Supply Start Date: 05/12/22 Status: Ordered Flonase 50 mcg/inh nasal spray 1 sprays, Nares, Both, 2 times a day, 0 Refills, Maintenance, 03/23/19 9:41:46 EDT, [place] Start Date: 03/23/19 Status: Ordered warfarin 2.5 mg oral tablet See Instructions, 1 to 4 tablets by mouth daily adjusted by primary care office., # 120 tablet, 5 Refills, Maintenance, 04/09/22 15:06:00 EDT, Tablet, [facility] [address] [place] [address], [place], 175, cm, 04/06/22 13:25:00 EDT, Height, 75, kg, 02/28... 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(Confirmed) 1 Active Forgetfulness(Confirmed) Active [place] (hard of hearing)(Confirmed) Active History of Lyme disease(Confirmed) Active Hypercholesterolemia(Confirmed) Active HTN (hypertension)(Confirmed) Active Cognitive impairment(Confirmed) Active Anticoagulant long-term use(Confirmed) Active Lung nodule(Confirmed) Active Recurrent pulmonary embolism(Confirmed) Active Urinary retention(Confirmed) Active 1Lower extremity Social History Social History Type Response Smoking Status Never (less than 100 in lifetime); Tobacco user in household: No entered on: 03/23/19 Sex
--- OUTSIDE RECORDS SUMMARY | 2024-02-26 09:27 | XMS_ITS | Continuity of Care Document ---
Author Organization [facility] Nestor lt Address [address] [place] [address]- Care Team Providers Care Insurance Office Supervisor Name Role Phone Adarsh Menon MD Primary Care Physician [phone] Encounter [facility] [place] Date(s): 01/18/24 - 02/17/24 [facility] Adult [address] [place] [address]- Allergies, Adverse Reactions, Alerts Substance Reaction Severity Status penicillin Unknown Active Immunizations Given and Recorded Vaccine Date Status Refusal Reason pneumococcal 23-valent vaccine 10/19/22 Given [id number] 12y+ bivalent booster vax 08/25/22 Recorded influenza [...] EST, Route to Pharmacy Electronically, [facility] [address] [place] [address], [place], Partialfill upon patient request, 175, cm, 12/07/23 9:27:0... Start Date: 12/07/23 Status: Ordered Aricept 5 mg oral tablet 5 mg, 1, tablet, By Mouth, Daily at bedtime, # 90 tablet, Refills 1, Tot. Refills 1, Maintenance, 12/07/23 9:46:00 EST, Route to Pharmacy Electronically, [facility] [place] [address], Partial fill upon patient request if the [...] day, 0 Refills, Maintenance, 03/23/19 9:41:46 EDT, [place] Start Date: 03/23/19 Status: Ordered SEROquel 25 mg oral tablet 25 mg, 1, tablet, By Mouth, 2 times a day, # 60 tablet, Refills 0, Tot. Refills 0, Maintenance, 01/27/24 11:27:00 EDT, Route to Pharmacy Electronically, [facility] [address] [place] [address],Partial fill upon patient request if the prescripti... Start Date: 01/27/24 Status: Ordered warfarin 2.5 mg oral tablet See Instructions, 1 to 4 tablets by mouth daily adjusted by primary care office., # 120 tablet, 5 Refills, Maintenance, 12/07/23 9:46:00 EST, Tablet, [facility] [address] [place] [address], [place], 175, cm, 12/07/23 9:27:00 EST, Height, 75, kg, ... 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 Active Dementia 3 Confirmed Active Forgetfulness Confirmed Active [place] (hard of hearing) Confirmed Active History of [...] Team Personnel Name: Adarsh Menon MD Position: [facility] Physician - Primary Care Member Role: PCP Address: Address: [address] [place] [id number]- [place] Name: Becky Marie PharmD Position: [facility] Associate Professional Member Role: Lifetime Consulting Provider Address: Address: [address] [place] [address] [place] [address]- Care Team Related Persons Name: PAUL CHANDRA Address: home [address] [place] [address]
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
--- OUTSIDE RECORDS SUMMARY | 2024-02-26 09:27 | XMS_ITS | Continuity of Care Document ---
Author Organization [facility] Nestor lt Address [address] [place] [address]- Care Team Providers Care Sewing Machine Repairer Name Role Phone Adarsh Menon MD Primary Care Physician [phone] Encounter [facility] [place] Date(s): 12/25/19 - 01/01/20 [facility] Adult [address] [place] [address]- [facility] Encounter Diagnosis Recurrent deep vein thrombosis (DVT)(Discharge Diagnosis) - 12/25/19 Anticoagulant long-term use(Discharge Diagnosis) - 12/25/19 Attending Physician: Adarsh Menon MD Allergies, Adverse [...] 12/25/19 11:29:00 EST, Route to Pharmacy Electronically, [facility] - [place], [place], [...] day, 0 Refills, Maintenance, 03/23/19 9:41:46 EDT, [place] Start Date: 03/23/19 Status: Ordered Problem List Condition Effective Dates Status Health Status Inform ant BPH (benign prostatic hyperplasia)(Confirmed) Active Stage 3 chronic kidney disease(Confirmed) Active Chronic sinusitis(Confirmed) Active Forgetfulness(Confirmed) Active [place] (hard of hearing)(Confirmed) Active Hypercholesterolemia(Confirmed) Active Cognitive impairment(Confirmed) Active Anticoagulant long-term use(Confirmed) Active Lung nodule(Confirmed) Active Recurrent deep vein thrombos is (DVT)(Confirmed) Active Recurrent pulmonary embolism(Confirmed) Active Urinary retention(Confirmed) Active Diagnosis Diagnosis Type Effective Dates Health Status Clinical Service Informant Recurrent deep vein thrombosis (DVT) Discharge Diagnosis 12/25/19 Anticoagulant long-term use Discharge Diagnosis 12/25/19 Vital Signs Most recent to oldest [Reference Range]: 1 Height 175 cm (12/25/19 11:01 AM) Weight 77.3 kg (12/25/19 11:01 AM) Oxygen Saturation [94-100 %] 97 % (12/25/19 11:01 AM) Pulse Rate [55-90 bpm] 69 bpm (12/25/19 11:01 AM) Body Mass Index [18.5-24.99] 25.24 *H* (12/25/19 11:01 AM) Blood Pressure [90-138/55-84 mm Hg] 142/ 80mm Hg *H* (12/25/19 11:01 AM) Temperature [96.8-100.4 DegF] 97.7 DegF (12/25/19 11:01 AM) Blood pressure sites Arm, left (12/25/19 11:01 AM) Temperature Route Oral (12/25/19 11:01 AM) Social History Social History Type Response Smoking Status Never (less than 100 in lifetime); Tobacco user in household: No entered on: 03/23/19 Sex
--- OUTSIDE RECORDS SUMMARY | 2024-02-26 09:27 | XMS_ITS | Continuity of Care Document ---
Author Organization [facility] Nestor lt Address [address] [place] [address]- Care Team Providers Care Campus Recruiter Name Role Phone Adarsh Menon MD Primary Care Physician Encounter [facility] [place] Date(s): 01/21/24 - 02/20/24 [facility] Adult [address] [place] [address]- Allergies, Adverse Reactions, Alerts Substance Reaction Severity Status penicillin Unknown Active Immunizations Given and Recorded Vaccine Date Status Refusal Reason pneumococcal 23-valent vaccine 10/19/22 Given [id number] 12y+ bivalent booster vax 08/25/22 Recorded influenza [...] Route to Pharmacy Electronically, [facility] [facility] [place], Partialfill upon patient request, 175, cm, 12/07/23 9:27:0... Start Date: 12/07/23 Status: Ordered Aricept 5 mg oral tablet 5 mg, 1, tablet, By Mouth, Daily at bedtime, # 90 tablet, Refills 1, Tot. Refills 1, Maintenance, 12/07/23 9:46:00 EST, Route to Pharmacy Electronically, [facility] [address] [place] [address] [place], Partial fill upon patient request if the prescript... Start Date: 12/07/23 Status: Ordered Flonase 50 mcg/inh nasal spray 1 sprays, Nares, Both, 2 times a day, 0 Refills, Maintenance, 03/23/19 9:41:46 EDT, [place] Start Date: 03/23/19 Status: Ordered SEROquel 25 mg oral tablet See Instructions, 0.25 tablet By Mouth 2 times a day, # 30 capsule, Refills 0, Tot. Refills 0, Maintenance, 01/27/24 11:27:00 EDT, Instructions Replace Required Details, Route to Pharmacy Electronically, [facility] [address] [place] [address], [place],... Start Date: 01/27/24 Status: Ordered tamsulosin 0.4 mg oral capsule 0.4 mg, By Mouth, Daily, # 30 capsule, Refills 0, Tot. Refills 0, Maintenance, 02/19/24 8:03:00 EDT, Route to Pharmacy Electronically, [facility] [address] [place] [address] [place], Partial fill uponpatient request if the prescription is for a schedu... Start Date: 02/19/24 Stop Date: 03/20/24 Status: Ordered warfarin 2.5 mg oral tablet See Instructions, 1 to 4 tablets by mouth daily adjusted by primary care office., # 120 tablet, 5 Refills, Maintenance, 12/07/23 9:46:00 EST, Tablet, [facility] [facility] [place], 175, cm, 12/07/23 9:27:00 EST, Height, 75, kg, ... 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 Active Dementia 3 Confirmed Active Forgetfulness Confirmed Active [place] (hard of hearing) Confirmed Active History of [...] Team Personnel Name: Adarsh Menon MD Position: [facility] Physician - Primary Care Member Role: PCP Address: Address: [address] [place] [address]- Name: Becky Marie PharmD Position: [facility] Associate Professional Member Role: Lifetime Consulting Provider Address: Address: [address] [place] [address] [place] [address]- [place] Name: Stephani Edwards RN Position: S RN Member Role: Primary Care Nurse Name: Ellen Short RN Position: [facility] RN Supv Member Role: Primary Care Nurse Care Team Related Persons Name: PAUL CHANDRA Address: home [address] [place] [id number]
--- OUTSIDE RECORDS SUMMARY | 2024-02-26 09:28 | XMS_ITS | Continuity of Care Document ---
Author Organization [facility] Nestor lt Address [address] [place] [address]- Care Team Providers Care Float Nurse Name Role Phone Adarsh Menon MD Primary Care Physician [phone] Encounter [facility] [place] Date(s): 07/25/21 - 08/24/21 [facility] Adult [address] [place] [address]- Allergies, Adverse Reactions, Alerts Substance Reaction Severity Status penicillin Unknown Active Immunizations Given and Recorded Vaccine Date Status Refusal Reason SARS-CoV-2 (COVID-19) mRNA BNT-162b2 vac 03/13/21 Recorded SARS-CoV-2 (COVID-19) mRNA BNT-162x7 vac 02/18/21 Recorded Influenza Virus Vaccine (oldterm) 07/23/20 Recorde d tetanus/diphtheria/pertussis, acel(Tdap) 09/19/19 Given pneumococcal 13-valent vaccine 09/19/19 Given influenza virus vaccine, inactivated 09/04/19 Virgil rded influenza virus vaccine, inactivated 09/04/19 Virgil rded Medications amLODIPine 2.5 mg oral tablet 2.5 mg, 1, tablet, By Mouth, Daily, # 90 tablet, Refills 1, Tot. Refills 1, Maintenance, 06/16/21 13:45:00 EDT, Route to Pharmacy Electronically, [facility] [address] [place] [address], Partial fill upon patient request, 175, cm, 06/16/21 13:33... Start Date: 06/16/21 Status: Ordered Aricept 10 mg oral tablet 10 mg, 1, tablet, By Mouth, Daily at bedtime, DOSAGE INCREASE, # 90 tablet, Refills 1, Tot. Refills1, Maintenance, 04/07/21 11:18:00 EDT, Route to Pharmacy Electronically, [facility] [address] [place] [address], Partial fill upon patient reque... Start Date: 04/07/21 Status: Ordered Flonase 50 mcg/inh nasal spray 1 sprays, Nares, Both, 2 times a day, 0 Refills, Maintenance, 03/23/19 9:41:46 EDT, [place] Start Date: 03/23/19 Status: Ordered warfarin 2.5 mg oral tablet See Instructions, 1 to 4 tablets by mouth daily adjusted by primary care office., # 120 tablet, 11 Refills, Maintenance, 04/07/21 11:18:00 EDT, Tablet, [facility] - [place], [place], 175, cm, 04/07/21 10:55:00 EDT, Height, 75, kg, 02/13... Start Date: 04/07/21 Status: Ordered Problem List Condition Effective Dates Status Health Status Inform ant BPH (benign prostatic hyperplasia)(Confirmed) Active Stage 3 chronic kidney disease(Confirmed) Active Chronic sinusitis(Confirmed) Active Recurrent deep vein thrombos is of lower extremity(Confirmed) 1 Active Forgetfulness(Confirmed) Active [place] (hard of hearing)(Confirmed) Active History of Lyme disease(Confirmed) Active Hypercholesterolemia(Confirmed) Active HTN (hypertension)(Confirmed) Active Cognitive impairment(Confirmed) Active Anticoagulant long-term use(Confirmed) Active Lung nodule(Confirmed) Active Recurrent pulmonary embolism(Confirmed) Active Urinary retention(Confirmed) Active 1Lower extremity Social History Social History Type Response Smoking Status Never (less than 100 in lifetime); Tobacco user in household: No entered on: 03/23/19 Sex
--- OUTSIDE RECORDS SUMMARY | 2024-02-26 09:28 | XMS_ITS | Continuity of Care Document ---
Author Organization [facility] Nestor lt Address [address] [place] [address]- Care Team Providers Care Motion Study Engineer Name Role Phone Adarsh Menon MD Primary Care Physician Encounter [facility] [place] Date(s): 12/04/21 - 01/03/22 [facility] Adult [address] [place] [address]- Allergies, Adverse Reactions, Alerts Substance Reaction Severity [...] 13:08:00 EST, Route to Pharmacy Electronically, [facility] - [place], [place], Partial fill upon patient request, 175, cm, 10/13/21 12:51... Start Date: 10/13/21 Status: Ordered Aricept 10 mg oral tablet 10 mg, 1, tablet, By Mouth, Daily at bedtime, # 90 tablet, Refills 1, Tot. Refills 1, Maintenance, 10/13/21 13:08:00 EST, Route to Pharmacy Electronically, [facility] [address] [facility], [place], Partial fill upon patient request if the prescri... Start Date: 10/13/21 Status: Ordered Flonase 50 mcg/inh nasal spray 1 sprays, Nares, Both, 2 times a day, 0 Refills, Maintenance, 03/23/19 9:41:46 EDT, [place] Start Date: 03/23/19 Status: Ordered warfarin 2.5 mg oral tablet See Instructions, 1 to 4 tablets by mouth daily adjusted by primary care office., # 120 tablet, 11 Refills, Maintenance, 04/07/21 11:18:00 EDT, Tablet, [facility] - [place], [place], 175, cm, 04/07/21 10:55:00 EDT, Height, 75, kg, 02/13... Start Date: 04/07/21 Status: Ordered Problem List Condition Effective Dates Status Health Status Inform ant BPH (benign prostatic hyperplasia)(Confirmed) Active Stage 3 chronic kidney disease(Confirmed) Active Chronic sinusitis(Confirmed) Active Recurrent deep vein thrombos is of lower extremity(Confirmed) 1 Active Forgetfulness(Confirmed) Active [place] (hard of hearing)(Confirmed) Active History of Lyme disease(Confirmed) Active Hypercholesterolemia(Confirmed) Active HTN (hypertension)(Confirmed) Active Cognitive impairment(Confirmed) Active Anticoagulant long-term use(Confirmed) Active Lung nodule(Confirmed) Active Recurrent pulmonary embolism(Confirmed) Active Urinary retention(Confirmed) Active 1Lower extremity Social History Social History Type Response Smoking Status Never (less than 100 in lifetime); Tobacco user in household: No entered on: 03/23/19 Sex
--- OUTSIDE RECORDS SUMMARY | 2024-02-26 09:28 | XMS_ITS | Continuity of Care Document ---
Author Organization [facility] Nestor lt Address [address] [place] [address]- Care Team Providers Care E Commerce Specialist Name Role Phone Lynsey APPLE, Adarsh Patel Primary Care Physician Encounter [facility] [place] Date(s): 04/07/21 - 04/14/21 [facility] Adult [address] [place] [address]- Attending Physician: Argelia Alcaraz NP Referring Physician: [...] tablet, Refills 1, Tot. Refills 1, Maintenance, 04/07/21 11:19:00 EDT, Route to Pharmacy Electronically, [facility] [address] [place] [address], Partial fill upon patient request, 175, cm, 04/07/21 10:55... Start Date: 04/07/21 Status: Ordered Aricept 10 mg oral tablet 10 mg, 1, tablet, By Mouth, Daily at bedtime, DOSAGE INCREASE, # 90 tablet, Refills 1, Tot. Refills1, Maintenance, 04/07/21 11:18:00 EDT, Route to Pharmacy Electronically, [facility] [address] [place] [address], Partial fill upon patient reque... Start Date: 04/07/21 Status: Ordered Flonase 50 mcg/inh nasal spray 1 sprays, Nares, Both, 2 times a day, 0 Refills, Maintenance, 03/23/19 9:41:46 EDT, [place] Start Date: 03/23/19 Status: Ordered warfarin 2.5 mg oral tablet See Instructions, 1 to 4 tablets by mouth daily adjusted by primary care office., # 120 tablet, 11 Refills, Maintenance, 04/07/21 11:18:00 EDT, Tablet, [facility] #[facility] - [place], [place], 175, cm, 04/07/21 10:55:00 EDT, Height, 75, kg, 02/13... Start Date: 04/07/21 Status: Ordered Problem List Condition Effective Dates Status Health Status Inform ant BPH (benign prostatic hyperplasia)(Confirmed) Active Stage 3 chronic kidney disease(Confirmed) Active Chronic sinusitis(Confirmed) Active Recurrent deep vein thrombos is of lower extremity(Confirmed) 1 Active Forgetfulness(Confirmed) Active [place] (hard of hearing)(Confirmed) Active History of Lyme disease(Confirmed) Active Hypercholesterolemia(Confirmed) Active HTN (hypertension)(Confirmed) Active Cognitive impairment(Confirmed) Active Anticoagulant long-term use(Confirmed) Active Lung nodule(Confirmed) Active Recurrent pulmonary embolism(Confirmed) Active Urinary retention(Confirmed) Active 1Lower extremity Vital Signs Most recent to oldest [Reference Range]: 1 Height 175 cm (04/07/21 10:55 AM) Weight 73.1 kg (04/07/21 10:55 AM) Oxygen Saturation [94-100 %] 97 % (04/07/21 10:55 AM) Pulse Rate [55-90 bpm] 62 bpm (04/07/21 10:55 AM) Body Mass Index [18.5-24.99] 23.87 (04/07/21 10:55 AM) Blood Pressure [90-138/55-84 mm Hg] 138/ 64mm Hg (04/07/21 10:55 AM) Blood pressure sites Arm, left (04/07/21 10:55 AM) Social History Social History Type Response Smoking Status Never (less than 100 in lifetime); Tobacco user in household: No entered on: 03/23/19 Sex
--- OUTSIDE RECORDS SUMMARY | 2024-02-26 09:28 | XMS_ITS | Continuity of Care Document ---
Author Organization [facility] Nestor lt Address [address] [place] [address]- Care Team Providers Care Training Program Manager Name Role Phone Adarsh Menon MD Primary Care Physician [phone] Encounter [facility] [place] Date(s): 06/16/21 - 06/23/21 [facility] Adult [address] [place] [address]- Encounter Diagnosis Cognitive impairment(Discharge Diagnosis) - 06/16/21 Attending Physician: Argelia Alcaraz NP Referring Physician: [...] 06/16/21 13:45:00 EDT, Route to Pharmacy Electronically, [facility] #[facility] - [place], [place], Partial fill upon patient request, 175, cm, 06/16/21 13:33... Start Date: 06/16/21 Status: Ordered Aricept 10 mg oral tablet 10 mg, 1, tablet, By Mouth, Daily at bedtime, DOSAGE INCREASE, # 90 tablet, Refills 1, Tot. Refills1, Maintenance, 04/07/21 11:18:00 EDT, Route to Pharmacy Electronically, [facility] [address] [place] [address], [place], Partial fill upon patient reque... Start Date: 04/07/21 Status: Ordered Flonase 50 mcg/inh nasal spray 1 sprays, Nares, Both, 2 times a day, 0 Refills, Maintenance, 03/23/19 9:41:46 EDT, [place] Start Date: 03/23/19 Status: Ordered warfarin 2.5 mg oral tablet See Instructions, 1 to 4 tablets by mouth daily adjusted by primary care office., # 120 tablet, 11 Refills, Maintenance, 04/07/21 11:18:00 EDT, Tablet, [facility] [address] [facility], [place], 175, cm, 04/07/21 10:55:00 EDT, Height, 75, kg, 02/13... Start Date: 04/07/21 Status: Ordered Problem List Condition Effective Dates Status Health Status Inform ant BPH (benign prostatic hyperplasia)(Confirmed) Active Stage 3 chronic kidney disease(Confirmed) Active Chronic sinusitis(Confirmed) Active Recurrent deep vein thrombos is of lower extremity(Confirmed) 1 Active Forgetfulness(Confirmed) Active [place] (hard of hearing)(Confirmed) Active History of Lyme disease(Confirmed) Active Hypercholesterolemia(Confirmed) Active HTN (hypertension)(Confirmed) Active Cognitive impairment(Confirmed) Active Anticoagulant long-term use(Confirmed) Active Lung nodule(Confirmed) Active Recurrent pulmonary embolism(Confirmed) Active Urinary retention(Confirmed) Active 1Lower extremity Diagnosis Diagnosis Type Effective Dates Health Status Clinical Service Informant Cognitive impairment Discharge Diagnosis 06/16/21 Vital Signs Most recent to oldest [Reference Range]: 1 2 Height 175 cm (06/16/21 1:57 PM) 175 cm (06/16/21 1:33 PM) Weight 73.0 kg (06/16/21 1:33 PM) Oxygen Saturation [94-100 %] 97 % (06/16/21 1:33 PM) Pulse Rate [55-90 bpm] 60 bpm (06/16/21 1:33 PM) Body Mass Index [18.5-24.99] 23.84 (06/16/21 1:33 PM) Blood Pressure [90-138/55-84 mm Hg] 138/ 80mm Hg (06/16/21 1:57 PM) 144/74mm Hg *H* (06/16/21 1:33 PM) Respiratory Rate [16-30 br/min] 12 br/mi n *L* (06/16/21 1:33 PM) Temperature [96.8-100.4 DegF] 98.0 DegF (06/16/21 1:33 PM) Mode of Delivery (Oxygen) Room air (06/16/21 1:33 PM) Blood pressure sites Arm, right (06/16/21 1:33 PM) Temperature Route Oral (06/16/21 1:33 PM) Weight Obtained Via Standing scale (06/16/21 1:33 PM) Social History Social History Type Response Smoking Status Never (less than 100 in lifetime); Tobacco user in household: No entered on: 03/23/19 Sex
--- OUTSIDE RECORDS SUMMARY | 2024-02-26 09:28 | XMS_ITS | Continuity of Care Document ---
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 Role Phone Adarsh Menon MD Primary Care Physician [phone] Encounter [facility] [place] Date(s): 08/30/20 - 09/06/20 [facility] Adult [address] [place] [address]- [facility] Attending Physician: Argelia Alcaraz NP Referring Physician: Adarsh Menon MD Allergies, Adverse Reactions, Alerts Substance Reaction Severity Status penicillin Unknown Active Immunizations Given and Recorded Vaccine Date Status Refusal Reason Influenza Virus Vaccine (oldterm) 07/23/20 Recorde d tetanus/diphtheria/pertussis, acel(Tdap) 09/19/19 Given pneumococcal 13-valent vaccine 09/19/19 Given influenza virus vaccine, inactivated 09/04/19 Virgil rded influenza virus vaccine, inactivated 09/04/19 Virgil rded Medications amLODIPine 5 mg oral tablet 5 mg, 1, tablet, By Mouth, Daily, DOSAGE INCEASE, # 90 tablet, Refills 1, Tot. Refills 1, Maintenance, 08/30/20 13:07:00 EDT, Route to Pharmacy Electronically, [facility] [address] [place] [address], 175, cm, 08/30/20 12:37:00 EDT, [place] Start Date: 08/30/20 Status: Ordered Flonase 50 mcg/inh nasal spray 1 sprays, Nares, Both, 2 times a day, 0 Refills, Maintenance, 03/23/19 9:41:46 EDT, [place] Start Date: 03/23/19 Status: Ordered warfarin 2.5 mg oral tablet See Instructions, 1 to 4 tablets by mouth daily adjusted by primary care office., # 120 tablet, 11 Refills, Maintenance, 05/10/20 14:19:00 EDT, Tablet, [facility] [address] [place] [address], 175, cm, 05/10/20 13:49:00 EDT, [place] Start Date: 05/10/20 Status: Ordered Problem List Condition Effective Dates Status Health Status Inform ant BPH (benign prostatic hyperplasia)(Confirmed) Active Stage 3 chronic kidney disease(Confirmed) Active Chronic sinusitis(Confirmed) Active Forgetfulness(Confirmed) Active [place] (hard of hearing)(Confirmed) Active Hypercholesterolemia(Confirmed) Active HTN (hypertension)(Confirmed) Active Cognitive impairment(Confirmed) Active Anticoagulant long-term use(Confirmed) Active Lung nodule(Confirmed) Active 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
--- OUTSIDE RECORDS SUMMARY | 2024-02-26 09:28 | XMS_ITS | Continuity of Care Document ---
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 Role Phone Adarsh Menon MD Primary Care Physician [place] [facility] [place] 02/10[place]21 - 03/12/21 [facility] Adult [address] [place] [address]- Allergies, Adverse Reactions, Alerts Substance Reaction Severity Status penicillin Unknown Active Immunizations Given and Recorded Vaccine Date Status Refusal Reason Influenza Virus Vaccine (oldterm) 07/23/20 Recorde d tetanus/diphtheria/pertussis, acel(Tdap) 09/19/19 Given pneumococcal 13-valent vaccine 09/19/19 Given influenza virus vaccine, inactivated 09/04/19 Virgil rded influenza virus vaccine, inactivated 09/04/19 Virgil rded Medications acetaminophen-HYDROcodone 325 mg-5 mg oral tablet 1-2 tablet, By Mouth, Every 6 hours, PRN for pain, May partial fill BS [id number], # 12 tablet, 0 Refills, Maintenance, 02/28/21 16:06:00 EDT, Tablet, [facility] [address] [place] [address], Partial fill upon patient request if the prescription i... Start Date: 02/28/21 Status: Ordered amLODIPine 2.5 mg oral tablet 2.5 mg, 1, tablet, By Mouth, Daily, # 90 tablet, Refills 1, Tot. Refills 1, Maintenance, 01/06/21 11:03:00 EST, Route to Pharmacy Electronically, [facility] [address] [place] [address], Partial fill upon patient request, 175, cm, 01/06/21 10:40... Start Date: 01/06/21 Status: Ordered Aricept 5 mg oral tablet 5 mg, 1, tablet, By Mouth, Daily at bedtime, # 90 tablet, Refills 1, Tot. Refills 1, Maintenance, 01/06/21 11:03:00 EST, Route to Pharmacy Electronically, [facility] - [place], [place], Partial fill upon patient request if the prescrip... Start Date: 01/06/21 Status: Ordered Flonase 50 mcg/inh nasal spray 1 sprays, Nares, Both, 2 times a day, 0 Refills, Maintenance, 03/23/19 9:41:46 EDT, [place] Start Date: 03/23/19 Status: Ordered warfarin 2.5 mg oral tablet See Instructions, 1 to 4 tablets by mouth daily adjusted by primary care office., # 120 tablet, 11 Refills, Maintenance, 05/10/20 14:19:00 EDT, Tablet, [facility] #[facility] - [place], 175, cm, 05/10/20 13:49:00 EDT, [place] Start Date: 05/10/20 Status: Ordered Problem List Condition Effective Dates Status Health Status Inform ant BPH (benign prostatic hyperplasia)(Confirmed) Active Stage 3 chronic kidney disease(Confirmed) Active Chronic sinusitis(Confirmed) Active Recurrent deep vein thrombos is of lower extremity(Confirmed) 1 Active Forgetfulness(Confirmed) Active [place] (hard of hearing)(Confirmed) Active History of Lyme disease(Confirmed) Active Hypercholesterolemia(Confirmed) Active HTN (hypertension)(Confirmed) Active Cognitive impairment(Confirmed) Active Anticoagulant long-term use(Confirmed) Active Lung nodule(Confirmed) Active Recurrent pulmonary embolism(Confirmed) Active Urinary retention(Confirmed) Active 1Lower extremity Social History Social History Type Response Smoking Status Never (less than 100 in lifetime); Tobacco user in household: No entered on: 03/23/19 Sex
--- OUTSIDE RECORDS SUMMARY | 2024-02-26 09:28 | XMS_ITS | Continuity of Care Document ---
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 Name Role Phone Adarsh Menon MD Primary Care Physician [place] [facility] [place] 01/19/24 - 02/18/24 [facility] Adult [address] [place] [address]- Allergies, Adverse Reactions, Alerts Substance Reaction Severity Status penicillin Unknown Active Immunizations Given and Recorded Vaccine Date Status Refusal Reason pneumococcal 23-valent vaccine 10/19/22 Given [id number] 12y+ bivalent booster vax 08/25/22 Recorded influenza [...] EST, Route to Pharmacy Electronically, [facility] [address] [place] [address], [place], Partialfill upon patient request, 175, cm, 12/07/23 9:27:0... Start Date: 12/07/23 Status: Ordered Aricept 5 mg oral tablet 5 mg, 1, tablet, By Mouth, Daily at bedtime, # 90 tablet, Refills 1, Tot. Refills 1, Maintenance, 12/07/23 9:46:00 EST, Route to Pharmacy Electronically, [facility] [address] [place] [address], Partial fill upon patient request if the [...] day, 0 Refills, Maintenance, 03/23/19 9:41:46 EDT, [place] Start Date: 03/23/19 Status: Ordered SEROquel 25 mg oral tablet 25 mg, 1, tablet, By Mouth, 2 times a day, # 60 tablet, Refills 0, Tot. Refills 0, Maintenance, 01/27/24 11:27:00 EDT, Route to Pharmacy Electronically, [facility] [address] [place] [address],Partial fill upon patient request if the prescripti... Start Date: 01/27/24 Status: Ordered warfarin 2.5 mg oral tablet See Instructions, 1 to 4 tablets by mouth daily adjusted by primary care office., # 120 tablet, 5 Refills, Maintenance, 12/07/23 9:46:00 EST, Tablet, [facility] [address] [place] [address], [place], 175, cm, 12/07/23 9:27:00 EST, Height, 75, kg, ... 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 Active Dementia 3 Confirmed Active Forgetfulness Confirmed Active [place] (hard of hearing) Confirmed Active History of [...] Primary Care Member Role: PCP Address: Address: [address] [place] [id number]- [place] Name: Becky Marie PharmD Position: [facility] Associate Professional Member Role: Lifetime Consulting Provider Address: Address: [address] [place] [address] [place] [address]- Care Team Related Persons Name: PAUL CHANDRA Address: [address] [place] [address]
--- OUTSIDE RECORDS SUMMARY | 2024-02-26 09:28 | XMS_ITS | Continuity of Care Document ---
Author Organization [facility] Nestor lt Address [address] [place] [address]- Care Team Providers Care Mission Manager Name Role Phone Adarsh Menon MD Primary Care Physician [phone] [place] [facility] [place] 04/25[place]21 - 05/25/21 [facility] Adult [address] [place] [address]- Allergies, Adverse Reactions, Alerts Substance Reaction Severity [...] 04/07/21 11:19:00 EDT, Route to Pharmacy Electronically, [facility] [address], Partial fill upon patient request, 175, cm, 04/07/21 10:55... Start Date: 04/07/21 Status: Ordered Aricept 10 mg oral tablet 10 mg, 1, tablet, By Mouth, Daily at bedtime, DOSAGE INCREASE, # 90 tablet, Refills 1, Tot. Refills1, Maintenance, 04/07/21 11:18:00 EDT, Route to Pharmacy Electronically, [facility] [address] [place] [address], Partial fill upon patient reque... Start Date: 04/07/21 Status: Ordered Flonase 50 mcg/inh nasal spray 1 sprays, Nares, Both, 2 times a day, 0 Refills, Maintenance, 03/23/19 9:41:46 EDT, [place] Start Date: 03/23/19 Status: Ordered Namenda 5 mg oral tablet 1 tablet = 5 mg, By Mouth, Daily, # 30 tablet, 1 Refills, Maintenance, 05/13/21 11:00:00 EDT, Tablet, [facility] [address] [place] [address], [place], Partial fill upon patient request if the prescription is for a schedule II opioid drug., 175, cm, 04/16... Start Date: 05/13/21 Status: Ordered warfarin 2.5 mg oral tablet See Instructions, 1 to 4 tablets by mouth daily adjusted by primary care office., # 120 tablet, 11 Refills, Maintenance, 04/07/21 11:18:00 EDT, Tablet, [facility] - [place], [place], 175, cm, 04/07/21 10:55:00 EDT, Height, 75, kg, 02/13... 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
--- OUTSIDE RECORDS SUMMARY | 2024-02-26 09:28 | XMS_ITS | Continuity of Care Document ---
Author Organization [facility] lt Address [address] [place] [address]- Care Team Providers Care Specialist Physicians Name Role Phone Adarsh Menon MD Primary Care Physician [place] [facility] [place]): [place] 05/20/21 [facility] [address] [place] [address]- Encounter Diagnosis Cognitive impairment(Discharge Diagnosis) - 05/13/21 Attending Physician: Argelia Alcaraz NP Referring Physician: [...] 04/07/21 11:19:00 EDT, Route to Pharmacy Electronically, [facility] [address] [place] [address], Partial fill upon patient request, 175, cm, 04/07/21 10:55... Start Date: 04/07/21 Status: Ordered Aricept 10 mg oral tablet 10 mg, 1, tablet, By Mouth, Daily at bedtime, DOSAGE INCREASE, # 90 tablet, Refills 1, Tot. Refills1, Maintenance, 04/07/21 11:18:00 EDT, Route to Pharmacy Electronically, [facility] [address] [place] [address], Partial fill upon patient reque... Start Date: 04/07/21 Status: Ordered Flonase 50 mcg/inh nasal spray 1 sprays, Nares, Both, 2 times a day, 0 Refills, Maintenance, 03/23/19 9:41:46 EDT, [place] Start Date: 03/23/19 Status: Ordered Namenda 5 mg oral tablet 1 tablet = 5 mg, By Mouth, Daily, # 30 tablet, 1 Refills, Maintenance, 05/13/21 11:00:00 EDT, Tablet, [facility] [address] [place] [address], [place], Partial fill upon patient request if the prescription is for a schedule II opioid drug., 175, cm, 04/16... Start Date: 05/13/21 Status: Ordered warfarin 2.5 mg oral tablet See Instructions, 1 to 4 tablets by mouth daily adjusted by primary care office., # 120 tablet, 11 Refills, Maintenance, 04/07/21 11:18:00 EDT, Tablet, [facility] [address] [place] [address], [place], 175, cm, 04/07/21 10:55:00 EDT, Height, 75, kg, 02/13... Start Date: 04/07/21 Status: Ordered Problem List Condition Effective Dates Status Health Status Inform ant BPH (benign prostatic hyperplasia)(Confirmed) Active Stage 3 chronic kidney disease(Confirmed) Active Chronic sinusitis(Confirmed) Active Recurrent deep vein thrombos is of lower extremity(Confirmed) 1 Active Forgetfulness(Confirmed) Active [place] (hard of hearing)(Confirmed) Active History of Lyme disease(Confirmed) Active Hypercholesterolemia(Confirmed) Active HTN (hypertension)(Confirmed) Active Cognitive impairment(Confirmed) Active Anticoagulant long-term use(Confirmed) Active Lung nodule(Confirmed) Active Recurrent pulmonary embolism(Confirmed) Active Urinary retention(Confirmed) Active 1Lower extremity Diagnosis Diagnosis Type Effective Dates Health Status Clinical Service Informant Cognitive impairment Discharge Diagnosis 05/13/21 Vital Signs Most recent to oldest [Reference Range]: 1 Height 175 cm (05/13/21 10:33 AM) Weight 72.7 kg (05/13/21 10:33 AM) Oxygen Saturation [94-100 %] 98 % (05/13/21 10:33 AM) Pulse Rate [55-90 bpm] 75 bpm (05/13/21 10:33 AM) Body Mass Index [18.5-24.99] 23.74 (05/13/21 10:33 AM) Blood Pressure [90-138/55-84 mm Hg] 134/ 78mm Hg (05/13/21 10:33 AM) Blood pressure sites Arm, right (05/13/21 10:33 AM) Social History Social History Type Response Smoking Status Never (less than 100 in lifetime); Tobacco user in household: No entered on: 03/23/19 Sex
--- NOTE | 2024-02-26 09:33 | PC.NURSE ---
arrives calm/coop, no distress, no pain reported. new nielsen tubing/bag applied to chronic nielsen. urine in previous bag yellow, 500 cc. at this time no new urine in sterile draininage kit applied. checked backside- no skin issues noted, no BM incontinence. boosted, repositioned, given pillow and warm blankets. pleasant. VSS
--- NOTE | 2024-02-26 09:37 | PC.NURSE ---
tech drawing blood.
--- NOTE | 2024-02-26 09:46 | ED_ITS ---
HPI - General Adult General Chief complaint: Behavioral Concerns Stated complaint: COMBATIVE CONFUSED Time Seen by Provider: 02/26/24 09:30 Source: patient and EMS Mode of arrival: EMS Limitations: altered mental status History of Present Illness HPI narrative: 78-year-old male history of pulmonary embolism on warfarin , BPH, hypertension, UTI presenting from [facility] with agitation x1 day according to EMS patient was combative toward staff members at [facility]. He is confused at baseline however it seems to be worsening. According to report patient is on antibiotics for UTI he was recently diagnosed with this. Patient does have a chronic indwelling Saeed catheterization Patient is on Coumadin. He is pleasantly confused common cooperative on arrival. Alert to person and place not time or situation. Unable to obtain an accurate history review of systems on this patient. Related Data Allergies Allergy/AdvReac Type Severity Reaction Status Date / Time Penicillins [PCN] Allergy Unknown Unknown Verified 02/26/24 09:09 Review of Systems 2 Review of Systems: Yes all other systems are reviewed and are negative [facility] Past Medical History Attestation statement: The following information was validated with the patient. Source: old records reviewed and nursing notes reviewed Social History Social History Smoked in Last 30 Days: No Use of substances other than those prescribed or required for medical reasons: No Advance Directives: No Advance Directives Information Provided: No Physical Exam ED Vital Signs: Vital Signs - 24 hr 02/26/24 09:06 02/26/24 10:16 02/26/24 12:50 Temperature 97.6 F 97.3 F Pulse Rate 76 74 78 Respiratory Rate 16 21 H 19 Blood Pressure 139/65 132/59 L 135/62 Pulse Oximetry 96 95 96 Oxygen Delivery Method Room Air Room Air Room Air 02/26/24 13:45 02/26/24 14:00 02/26/24 14:06 Temperature 97.9 F Pulse Rate 82 Respiratory Rate 18 Blood Pressure 132/74 Pulse Oximetry 94 Oxygen Delivery Method Room Air 02/26/24 17:36 02/26/24 21:17 Temperature 98.1 F 97.7 F Pulse Rate 85 82 Respiratory Rate 18 14 Blood Pressure 153/82 H 158/82 H Pulse Oximetry 93 93 Oxygen Delivery Method Room Air Room Air BMI result Body Mass Index 22.6 vss Appearance: Alert.? Oriented to person and place, not time or situation.? No acute distress.? Head: Normocephalic, atraumatic, no step-offs or deformities Eyes: Pupils equal, round and reactive to light.? CVS: Normal heart rate and rhythm.? Pulses normal.? Respiratory: No respiratory distress.? Breath sounds normal.? Abdomen: Soft and nontender.? Skin: Skin warm and dry.? Normal skin color.? Normal skin turgor.? Extremities: No lower extremity edema.? No calf ttp. 5/5 strength to bilateral upper and lower extremities Back: No midline tenderness, no C-spine tenderness, full range of motion, no CVA tenderness bilaterally Neuro: Oriented to person and place not time or situation.? No motor deficit.? No sensory deficit. CN 2-12 intact Course Reevaluation(s) Reevaluation #1: CBC no acute findings requiring intervention. Chemistry with elevated BUN and creatinine giving hydration, will repeat after fluids. Time: 10:35 Reevaluation #2: UA unremarkable. Head CT no acute findings requiring intervention. No intracranial hemorrhage or acute intracranial pathology. Moderate to severe parenchymal volume loss. Patchy hypoattenuation within supratentorial white matter is palpable with sequelae of micro angiography. Time: 11:30 Reevaluation #3: Sign out to Samanta FLOYD pending repeat cmp and fluids. I also added a chest x- ray an INR Time: 16:01 Additional Reevaluation(s): 1750-- I assumed care of patient pending repeat CMP, IVFs, INR and CXR results. Chest xray showing slight elevation of the left hemidiaphragm, otherwise wnl. There are no infiltrates or consolidations to suggest pneumonia. No masses. There is no previous chest x-ray to compare to. 1932-- repeat BMP following IVFs shows improvement in renal function. Creatinine now at baseline. BUN still elevated to 31 however improved. INR 1.7 >Labs otherwise wnl. Patient has not been combative in ED. He is A&O x2. Is well- appearing. As work up is essentially unremarkable, [facility] Discussed this with the patient and his daughter who is at bedside. Medications Administered Discontinued Medications Generic Name Dose Route Start Last Admin Trade Name Freq PRN Reason Stop Dose Admin Acetaminophen 975 mg 02/26/24 18:33 02/26/24 19:18 Acetaminophen 325 Mg Tablet PO 02/26/24 18:34 975 mg ONCE ONE Administration Sodium Chloride 1,000 mls @ 999 mls/hr 02/26/24 16:15 02/26/24 20:17 Ns IV 02/26/24 17:15 Infused .Q1H1M TAY Infusion Quetiapine Fumarate 25 mg 02/26/24 13:10 02/26/24 14:00 Quetiapine Fumarate 25 Mg Tablet PO 02/26/24 13:11 25 mg ONCE ONE Administration Medical Decision Making Medical Decision Making [facility] Narrative: 78-year-old male presents with agitation for the past day. Recent diagnosis of UTI according to report patient on antibiotics. Physical exam patient alert to person and place not time or situation. Otherwise unremarkable History and physical exam concerning for urinary tract infection with agitation. Will rule out metabolic derangements. Unlikely sepsis. Agitation secondary to dementia also possible. Unlikely intracranial hemorrhage, stroke posterior stroke. No evidence of trauma Plan labs, imaging, urine Differential Diagnosis Differential Diagnoses: The differential diagnosis associated with the presentation includes History and physical exam concerning for urinary tract infection with agitation. Will rule out metabolic derangements. Unlikely sepsis. Agitation secondary to dementia also possible. Unlikely intracranial hemorrhage, stroke posterior stroke. No evidence of trauma Admission/Observation Consideration of admission/observation: Escalation of care including admission/observation considered Lab Data [facility] Lab Attestation statement: I reviewed the patient's lab results. 02/26/24 09:49 02/26/24 18:33 Labs: Lab Results 02/26/24 02/26/24 02/26/24 Range/Units 09:49 10:22 17:55 WBC 7.5 (4.8-10.8) X10*3/uL RBC 4.51 L (4.60-5.80) X10*6/uL Hgb 15.5 (14.0-18.0) g/dl Hct 46.0 (42.0-52.0) % MCV 102.0 H (80.0-98.0) fL MCH 34.4 H (27.0-33.0) pg MCHC 33.7 (31.0-36.0) g/dl RDW 12.8 (11.0-16.0) % Plt Count 253 (160-400) X10*3/uL MPV 8.8 L (9.4-12.4) fL Immature Gran % (Auto) 0.3 (0.0-0.4) % Neut % (Auto) 65.2 (45-73) % Lymph % (Auto) 23.1 (20-40) % [place] % (Auto) 8.4 (2-11) % Eos % (Auto) 2.7 (0-4) % Baso % (Auto) 0.3 (0-2) % Lymph # (Auto) 1.7 (1.2-4.9) X10*3/uL [place] # (Auto) 0.6 (0.1-1.2) X10*3/uL Eos # (Auto) 0.2 (0.0-0.4) X10*3/uL Baso # (Auto) 0.0 (0.0-0.2) X10*3/uL Abs Immat Gran (auto) 0.02 (0.00-0.03) X10*3/uL Absolute Neuts (auto) 4.9 (2.0-8.3) x10*3/uL Absolute Nucleated RBC 0.000 (0.0-0.012) X10*3/uL Nucleated RBC % (auto) 0.0 (0.0-0.2) /100WBC PT 19.9 H (11.1-13.3) SEC INR 1.6 H (0.9-1.1) Sodium 142 139 (135-145) mmol/L Potassium 4.0 5.3 H D (3.3-5.1) mmol/L Chloride 107 108 (96-108) mmol/L Carbon Dioxide 28 24 (22-29) mmol/L Anion Gap 11 L 12 (12-20) BUN 38 H 33 H (9-16) mg/dL Creatinine 1.50 H 1.31 (0.5-1.4) mg/dL Estim Creat Clear Calc 41.4 47.4 Estimated GFR 45 53 Random Glucose 106 100 (60-115) mg/dL Calcium 9.1 8.8 (8.4-10.2) mg/dL Magnesium 2.4 (1.6-2.6) mg/dL Total Bilirubin 0.7 0.6 (0.0-1.0) mg/dL AST 32 46 H (5-37) U/L ALT 30 31 (0-40) U/L Alkaline Phosphatase 70 63 (39-117) U/L Total Protein 7.3 7.7 (6.5-8.0) g/dL Albumin 3.6 3.5 (3.5-5.0) g/dL Urine Color Yellow Urine Appearance Clear Urine pH 5.5 (5.0-9.0) Ur Specific [place] >= 1.030 H (1.005-1.025) Urine Protein 30 (1+) H (Neg-Trace) mg/dL Urine Glucose (UA) Negative (Negative) mg/dL Urine Ketones Negative (Negative) mg/dL Urine Blood Negative (Negative) Urine Nitrite Negative (Negative) Ur Leukocyte Esterase Trace H (Negative) Urine RBC 0-2 (0-2) /HPF Urine WBC 6-10 H (0-5) /HPF Ur Squamous Epith Cells 0-2 (0-2) /HPF Urine Bacteria None Seen (None Seen) Hyaline Casts 0-2 (0-2) /LPF 02/26/24 Range/Units 18:33 WBC (4.8-10.8) X10*3/uL RBC (4.60-5.80) X10*6/uL Hgb (14.0-18.0) g/dl Hct (42.0-52.0) % MCV (80.0-98.0) fL MCH (27.0-33.0) pg MCHC (31.0-36.0) g/dl RDW (11.0-16.0) % Plt Count (160-400) X10*3/uL MPV (9.4-12.4) fL Immature Gran % (Auto) (0.0-0.4) % Neut % (Auto) (45-73) % Lymph % (Auto) (20-40) % [place] % (Auto) (2-11) % Eos % (Auto) (0-4) % Baso % (Auto) (0-2) % Lymph # (Auto) (1.2-4.9) X10*3/uL [place] # (Auto) (0.1-1.2) X10*3/uL Eos # (Auto) (0.0-0.4) X10*3/uL Baso # (Auto) (0.0-0.2) X10*3/uL Abs Immat Gran (auto) (0.00-0.03) X10*3/uL Absolute Neuts (auto) (2.0-8.3) x10*3/uL Absolute Nucleated RBC (0.0-0.012) X10*3/uL Nucleated RBC % (auto) (0.0-0.2) /100WBC PT 20.2 H (11.1-13.3) SEC INR 1.7 H (0.9-1.1) Sodium 139 (135-145) mmol/L Potassium 3.9 D (3.3-5.1) mmol/L Chloride 110 H (96-108) mmol/L Carbon Dioxide 21 L (22-29) mmol/L Anion Gap 12 (12-20) BUN 31 H (9-16) mg/dL Creatinine 1.18 (0.5-1.4) mg/dL Estim Creat Clear Calc 52.7 Estimated GFR 60 Random Glucose 102 (60-115) mg/dL Calcium 8.5 (8.4-10.2) mg/dL Magnesium (1.6-2.6) mg/dL Total Bilirubin (0.0-1.0) mg/dL AST (5-37) U/L ALT (0-40) U/L Alkaline Phosphatase (39-117) U/L Total Protein (6.5-8.0) g/dL Albumin (3.5-5.0) g/dL Urine Color Urine Appearance Urine pH (5.0-9.0) Ur Specific [place] (1.005-1.025) Urine Protein (Neg-Trace) mg/dL Urine Glucose (UA) (Negative) mg/dL Urine Ketones (Negative) mg/dL Urine Blood (Negative) Urine Nitrite (Negative) Ur Leukocyte Esterase (Negative) Urine RBC (0-2) /HPF Urine WBC (0-5) /HPF Ur Squamous Epith Cells (0-2) /HPF Urine Bacteria (None Seen) Hyaline Casts (0-2) /LPF Discharge Plan Discharge Clinical Impression: Mental status alteration, RAKESH (acute kidney injury) Patient Disposition: Home, Self-Care Instructions: Acute Kidney Injury (DC), Alzheimer Disease (DC), Dementia (ED), Altered Mental Status (ED) Additional Instructions: Your lab work today is reassuring. Your urine does not demonstrate infection. Your chest xray does not demonstrate pneumonia. Your urine does not demonstrate infection. Please follow up with PCP regarding medication management/ possible changes to medication regimen. Return with new or worsening symptoms. In the case of an emergency call 911. Interventions: ED Discharge Assessment Last Done: 02/26/24 21:17 Discharge Date/Time: 02/26/24 21:18 Print Language: [place]ian
[2024-02-26 09:53] LABS: MANUAL DIFF FLAG NO
[2024-02-26 09:55] LABS: Basophils Percent Auto 0.3 % (0-2); Eosinophils Absolute Auto 0.2 X10*3/uL (0.0-0.4); Eosinophils Percent Auto 2.7 % (0-4); Hemoglobin 15.5 g/dl (14.0-18.0); Imm Gran Abs Auto 0.02 X10*3/uL (0.00-0.03); Imm Gran Pct Auto 0.3 % (0.0-0.4); Lymphocytes Absolute Auto 1.7 X10*3/uL (1.2-4.9); Lymphocytes Percent Auto 23.1 % (20-40); Mean Corpuscular HGB Conc 33.7 g/dl (31.0-36.0); Mean Corpuscular Hemoglobin 34.4 pg (27.0-33.0); Mean Platelet Volume 8.8 fL (9.4-12.4); Monocytes Absolute Auto 0.6 X10*3/uL (0.1-1.2); Monocytes Percent Auto 8.4 % (2-11); Neutrophils Absolute Auto 4.9 x10*3/uL (2.0-8.3); Neutrophils Percent Auto 65.2 % (45-73); Platelet Count 253 X10*3/uL (160-400); Red Blood Count 4.51 X10*6/uL (4.60-5.80); Red Cell Distribution Width 12.8 % (11.0-16.0); White Blood Count 7.5 X10*3/uL (4.8-10.8)
[2024-02-26 10:03] LABS: INTERNATIONAL NORM RATIO 1.6 (0.9-1.1); Prothrombin Time 19.9 SEC (11.1-13.3)
[2024-02-26 10:21] LABS: Alanine Aminotransferase 30 U/L (0-40); Albumin Level 3.6 g/dL (3.5-5.0); Alkaline Phosphatase 70 U/L (39-117); Anion Gap 11 (12-20); Aspartate Amino Transferase 32 U/L (5-37); Bilirubin Total 0.7 mg/dL (0.0-1.0); Blood Urea Nitrogen 38 mg/dL (9-16); Calcium 9.1 mg/dL (8.4-10.2); Carbon Dioxide 28 mmol/L (22-29); Chloride 107 mmol/L (96-108); Creatinine Clr Calc Pharmacy 41.4; Estimated Glomerular Filt Rate 45; Glucose Random 106 mg/dL (60-115); Magnesium 2.4 mg/dL (1.6-2.6); Sodium 142 mmol/L (135-145); Total Protein 7.3 g/dL (6.5-8.0)
[2024-02-26 10:30] LABS: Appearance Urine Clear; Color Urine Yellow; Glucose Urine UA Negative (Negative); Leukocyte Esterase Urine Trace (Negative); Nitrite Urine Negative (Negative); PH 5.5 (5.0-9.0); Specific Gravity - Urine >= 1.030 (1.005-1.025); UMIC TRIGGER UACC YES; Urine Blood Negative (Negative); Urine Ketones Negative (Negative); Urine Protein 30 (1+) mg/dL (Neg-Trace)
[2024-02-26 10:35] LABS: Bacteria Urine None Seen (None Seen); Hyaline Casts Urine 0-2 /LPF (0-2); RBC Urine 0-2 /HPF (0-2); Squamous Epithelial Cell Urine 0-2 /HPF (0-2); UACC Culture Trigger YES
--- NOTE | 2024-02-26 11:38 | PC.NURSE ---
pt attempting to get oob. red socks remain on. bed low/locked. redirected to stay in bed. pt given more blankets. video camera in place by tech/rn- called behavioral monitoring team to confirm pt in view. pt in view. no distress.
[2024-02-26] MEDS: QUEtiapine Fumarate 25 MG TABLET PO (14:00)
--- NOTE | 2024-02-26 14:06 | PC.NURSE ---
pt takes seroquel TID at [facility]- given midday seroquel.
[2024-02-26] MEDS: 0.9 % Sodium Chloride 1,000 ML 999 ML IV (17:44)
[2024-02-26 18:23] LABS: Alanine Aminotransferase 31 U/L (0-40); Albumin Level 3.5 g/dL (3.5-5.0); Alkaline Phosphatase 63 U/L (39-117); Anion Gap 12 (12-20); Aspartate Amino Transferase 46 U/L (5-37); Bilirubin Total 0.6 mg/dL (0.0-1.0); Blood Urea Nitrogen 33 mg/dL (9-16); Calcium 8.8 mg/dL (8.4-10.2); Carbon Dioxide 24 mmol/L (22-29); Chloride 108 mmol/L (96-108); Creatinine Clr Calc Pharmacy 47.4; Estimated Glomerular Filt Rate 53; Glucose Random 100 mg/dL (60-115); Potassium 5.3 mmol/L (3.3-5.1); Sodium 139 mmol/L (135-145); Total Protein 7.7 g/dL (6.5-8.0)
[2024-02-26 18:45] LABS: INTERNATIONAL NORM RATIO 1.7 (0.9-1.1); Prothrombin Time 20.2 SEC (11.1-13.3)
[2024-02-26 19:01] LABS: Anion Gap 12 (12-20); Blood Urea Nitrogen 31 mg/dL (9-16); Calcium 8.5 mg/dL (8.4-10.2); Carbon Dioxide 21 mmol/L (22-29); Chloride 110 mmol/L (96-108); Creatinine Clr Calc Pharmacy 52.7; Estimated Glomerular Filt Rate 60; Glucose Random 102 mg/dL (60-115); Potassium 3.9 mmol/L (3.3-5.1); Sodium 139 mmol/L (135-145)
[2024-02-26] MEDS: Acetaminophen 325 MG TABLET 975 MG PO (19:18)
--- NOTE | 2024-02-26 19:29 | PC.NURSE ---
Assumed care for pt. Pt calm and confused, attempting to get out of the bed. Pt repositioned to the bedside. Video monitor in place. Ate 100% of meal. Pending lab results. Monitoring is ongoing.
--- NOTE | 2024-02-26 21:17 | PC.NURSE ---
Pt returning to [facility] via EMS. Nursing report given to Princess Smith from [facility].
== END 2024-02-26 21:18 | disposition home or self-care (01) ==
PROVIDERS: Physician Assistant; Physician Assistant Medical; Emergency Provider Emergency Medicine Emergency Medical Services; PCP Family Medicine
DX: R41.0 Disorientation, unspecified (principal); N39.0 Urinary tract infection, site not specified; R11.2 Nausea with vomiting, unspecified; R06.02 Shortness of breath; R51.9 Headache, unspecified; Z79.899 Other long term (current) drug therapy; Z79.01 Long term (current) use of anticoagulants
CPT/HCPCS: 36415; 70450; 71045; 80048; 80053; 81001; 83735; 85025; 85610; 87086; 96360; 96361; 99284; 99285

== ENCOUNTER 2024-03-04 09:08 | Inpatient (IN) | payer MEDICARE, MEDICAID, SELFPAY ==
--- NOTE | ~2024-03-04 | XR_ITS ---
EXAMINATION: XR CHEST CLINICAL INFORMATION: Hypoxia COMPARISON: 02/26/2024 TECHNIQUE: AP upright view of the chest was obtained. FINDINGS: Persistent abnormal elevation of the left diaphragm. This may be exacerbated by scoliosis. Atelectasis at the left base. Stable prominence of the heart and mediastinum on limited imaging. No overt edema. No obvious mass. Probable aortic ectasia. Nonobstructive gas pattern. XR/XR chest 1V IMPRESSION: Abnormal elevation of the left diaphragm with left basilar atelectasis.
--- NOTE | ~2024-03-04 | CT_ITS ---
EXAMINATION: CT ABDOMEN AND PELVIS WITHOUT CONTRAST CLINICAL INFORMATION: Diffuse abdominal pain COMPARISON: Plain radiographs of the chest TECHNIQUE: Multidetector volumetric imaging was performed from the superior aspect of the liver through the pubic symphysis. Sagittal and coronal reformatted images were obtained on the technologist's workstation. Arms at sides results in artifact. This CT examination was performed using dose optimization techniques as appropriate, variously including the following: *Automated exposure control *Adjustment of mA and/or kV according to patient size (this includes techniques or standardized protocols for targeted exams where dose is matched to indication/reason for exam; i.e. extremities or head) *Use of iterative reconstruction technique DLP: 1078 mGy-cm FINDINGS: LUNG BASES: Motion artifact. Minor dependent atelectasis on the right. LIVER, GALLBLADDER, AND BILIARY TREE: The liver is normal in size, shape, and attenuation. No focal hepatic lesion or biliary ductal dilatation is present. The gallbladder is unremarkable with no evidence of radiopaque gallstones, gallbladder wall thickening, or obvious pericholecystic inflammatory changes. PANCREAS: Unremarkable. SPLEEN: Unremarkable. ADRENAL GLANDS: Unremarkable. KIDNEYS AND URETERS: The left kidney is chronically atrophied. There is left hydronephrosis. The right kidney is enlarged. This likely reflects a combination of compensatory hypertrophy and hydronephrosis. There is severe right hydroureteronephrosis. The right collecting structures are higher in attenuation than the left. This is nonspecific but could represent blood, infection or other urothelial lesion. Etiology of bilateral hydronephrosis is uncertain. The bladder is massively distended. However, the distal ureters are not well seen and not definitively dilated. Recommend follow-up renal ultrasound after decompression of the urinary bladder. Further investigation may be required. BLADDER: The bladder is massively distended with urine seen to the level of the duodenal C-sweep. GASTROINTESTINAL TRACT: There is a rectal fecal impaction. No definite colitis. Nonobstructive gas pattern. No free air or free fluid. The appendix is not specifically identified. ABDOMINAL WALL: Small fat-containing umbilical hernia. Small fat-containing inguinal hernias. LYMPH NODES: Normal. VASCULAR: Moderate atherosclerotic peripheral vascular disease. PELVIC VISCERA: The prostate is enlarged. The seminal vesicles are grossly symmetric. No pelvic free fluid or adenopathy. OSSEOUS STRUCTURES: Marked degenerative changes in the spine. Scoliosis. L2 compression deformity appears chronic given abundant associated osteophytosis. Diffuse osteopenia. Bone densitometry may be helpful. CT/CT abdomen pelvis wo IV con IMPRESSION: 1. Severe bladder distention. 2. Prostatomegaly. 3. Bilateral hydronephrosis of uncertain etiology. Recommend follow-up renal ultrasound after decompression of the urinary bladder. Right renal collecting system is higher in attenuation than left raising the possibility of blood, pus or other urothelial lesion. Further clinical evaluation required. 4. Left renal atrophy. Fleischner guidelines were followed.
[2024-03-04 09:10] VITALS: BP 130/60; BP 143/80; PULSE 78; PULSE 88; RESP 18; TEMP 36.6; O2SAT 94; BMI 29.2
--- NOTE | 2024-03-04 09:39 | ECG_ITS ---
Test Reason : ABDOMINAL PAIN Blood Pressure : / mmHG Vent. Rate : 090 BPM Atrial Rate : 090 BPM P-R Int : 154 ms QRS Dur : 080 ms QT Int : 366 ms P-R-T Axes : 058 060 054 degrees QTc Int : 447 ms Normal sinus rhythm Normal ECG No previous ECGs available Referred By: Michael Escalante Electronically Signed By:JUVENTINO MERCHANT
--- NOTE | 2024-03-04 09:44 | ED.ABDPAIN ---
HPI - Abdominal Pain General Chief Complaint: Abdominal Pain Stated Complaint: from snf, abd pain Time Seen by Provider: 03/04/24 09:20 Source: family (Daughter) and EMS Mode of arrival: EMS Limitations: physical limitation History of Present Illness HPI narrative: 78-year-old male history of pulmonary embolism on warfarin, BPH, HTN, UTI, presented from [facility] for evaluation of abdominal pain, patient found by EMS to be hypoxic at 88% on room air patient required 2 L of supplemental oxygen via nasal cannula during transportation. Patient is poor historian secondary to dementia. Unknown history of fever, chills, shortness of breath, coughing, past abdominal surgery. Daughter at the bedside confirmed patient had Saeed catheter that he pulled it out 2 days ago they did bladder scan at the [place] [facility] was only 150 cc as per patient, unsure if the patient is urinating or not. Related Data Home Medications ?Medication ?Instructions ?Recorded ?Confirmed acetaminophen 325 mg tablet 650 mg PO Q4H PRN Fever Or Pain 03/04/24 03/04/24 (Tylenol) amlodipine 2.5 mg tablet 2.5 mg PO DAILY 03/04/24 03/04/24 bisacodyl 10 mg rectal suppository 10 mg WI DAILY PRN Constipation 03/04/24 03/04/24 donepezil 5 mg tablet 5 mg PO BEDTIME 03/04/24 03/04/24 fluticasone propionate 50 1 spray intranasal BID 03/04/24 03/04/24 mcg/actuation nasal spray,suspension magnesium hydroxide 400 mg/5 mL 30 ml PO DAILY PRN Constipation 03/04/24 03/04/24 oral suspension (Milk of Magnesia) naloxone 4 mg/actuation nasal 4 mg intranasal Q3M PRN Opioid 03/04/24 03/04/24 spray (Narcan) Overdose quetiapine 25 mg tablet 25 mg PO TID 03/04/24 03/04/24 sodium phosphates 19 gram-7 118 ml WI DAILY PRN Constipation 03/04/24 03/04/24 gram/118 mL enema (Fleet Enema) tamsulosin 0.4 mg capsule 0.4 mg PO DAILY 03/04/24 03/04/24 trazodone 50 mg tablet 25 mg PO DAILY 03/04/24 03/04/24 warfarin 7.5 mg tablet 7.5 mg PO DAILY@1800 03/04/24 03/04/24 Allergies Allergy/AdvReac Type Severity Reaction Status Date / Time Penicillins [PCN] Allergy Unknown Unknown Verified 03/04/24 09:32 Review of Systems Review of Systems Yes Unobtainable due to mental status [facility] Social History Social History Smoked in Last 30 Days: No Use of substances other than those prescribed or required for medical reasons: No Advance Directives: No Advance Directives Information Provided: Yes Physical Exam ED Vital Signs: Vital Signs - 24 hr 03/04/24 09:10 03/04/24 11:16 03/04/24 12:11 Temperature 97.9 F 98.1 F 98.1 F Pulse Rate 88 91 Respiratory Rate 18 18 Blood Pressure 143/80 H 147/74 H Pulse Oximetry 94 Oxygen Delivery Method Room Air Room Air Oxygen Flow Rate 93 BMI result Body Mass Index 29.2 Vital signs have been reviewed and appear to be correct. Blood pressure elevated. Heart rate normal. Respiratory rate normal. Temperature normal. Oxygen saturation normal. Appearance: Disoriented x3 No acute distress. Head: Normal external exam. Normocephalic. Atraumatic. No [place] signs noted. No raccoon eyes noted Eyes: PERRLA. EOMI. Conjunctiva and sclera normal. Eyelids normal. ENT: TM's Normal. Pharynx normal. Uvula midline. Moist mucous membranes. No trismus noted. No drooling noted. No muffled voice noted. Neck: Normal inspection. Neck supple. FROM. No adenopathy. Thyroid Normal. No meningeal signs. No neck mass noted. CVS: Normal heart rate and rhythm. Heart sound normal. No murmurs noted. Pulses normal throughout. Respiratory: No respiratory distress. Painless inspiration. Breath sounds normal. No wheezes/rales/rhonchi noted. Chest nontender. No accessory muscle usage noted or decreased air movement noted. Abdomen: Suprapubic abdominal tenderness and distention, no rebound tenderness, no guarding. Bowel sounds normal in all 4 quadrants. No distention noted. No organomegaly noted. No visible injury noted. Back: bilateral CVA tenderness. Full range of motion noted. Skin: Skin warm and dry. Normal skin color. Normal skin turgor. No rashes/lesions/lacerations noted. Extremities: No lower extremity edema. Extremities exhibit normal range of motion. Extremities nontender. Neuro: Cranial nerve exam: II-XII are grossly intact No motor deficit. No sensory deficit. Reflexes normal. Course Reevaluation(s) Reevaluation #1: 78-year-old history of dementia came in for abdominal discomfort due to severe bladder distention and urinary retention, Saeed catheter was placed in the emergency department about 3000 mL of grossly infected urine was foul odor was drained, had bilateral CVA tenderness which consistent with pyelonephritis diagnosis, patient was given ceftriaxone IV, case discussed with Urology Dr.Corlis James who recommended antibiotic and continue with Saeed catheter for now and she will consult as an inpatient. Patient initially found at the [place] [facility] to be hypoxic at 88% on room air that required 2 L of oxygen for transportation patient while in the emergency department O2 sat remained in the 94% on 2 L of oxygen, x-ray was unremarkable for acute pathology. Time: 14:30 Medical Decision Making Differential Diagnosis Differential Diagnoses: The differential diagnosis associated with the presentation includes (Acute colitis, acute diverticulitis, perforated viscus, urinary retention, RAKESH, pyelonephritis, electrolyte derangement, severe anemia.) Admission/Observation Consideration of admission/observation: Escalation of care including admission/observation considered Consult Healthcare Provider Management of the patient was discussed with: Hospitalist (Dr. Funez) and Shipping Coordinator (Dr. Corine James) Lab Data MDM Lab Attestation statement: I reviewed the patient's lab results. 03/04/24 Unknown 03/04/24 Unknown Labs: Lab Results 03/04/24 03/04/24 Range/Units 12:37 Unknown WBC 11.0 H (4.8-10.8) X10*3/uL RBC 4.29 L (4.60-5.80) X10*6/uL Hgb 15.0 (14.0-18.0) g/dl Hct 43.7 (42.0-52.0) % MCV 101.9 H (80.0-98.0) fL MCH 35.0 H (27.0-33.0) pg MCHC 34.3 (31.0-36.0) g/dl RDW 12.9 (11.0-16.0) % Plt Count 250 (160-400) X10*3/uL MPV 9.0 L (9.4-12.4) fL Immature Gran % (Auto) 0.5 H (0.0-0.4) % Neut % (Auto) 77.3 H (45-73) % Lymph % (Auto) 12.1 L (20-40) % [place] % (Auto) 9.4 (2-11) % Eos % (Auto) 0.4 (0-4) % Baso % (Auto) 0.3 (0-2) % Lymph # (Auto) 1.3 (1.2-4.9) X10*3/uL [place] # (Auto) 1.0 (0.1-1.2) X10*3/uL Eos # (Auto) 0.0 (0.0-0.4) X10*3/uL Baso # (Auto) 0.0 (0.0-0.2) X10*3/uL Abs Immat Gran (auto) 0.05 H (0.00-0.03) X10*3/uL Absolute Neuts (auto) 8.5 H (2.0-8.3) x10*3/uL Absolute Nucleated RBC 0.000 (0.0-0.012) X10*3/uL Nucleated RBC % (auto) 0.0 (0.0-0.2) /100WBC Sodium 140 (135-145) mmol/L Potassium 4.2 (3.3-5.1) mmol/L Chloride 108 (96-108) mmol/L Carbon Dioxide 25 (22-29) mmol/L Anion Gap 11 L (12-20) BUN 28 H (9-16) mg/dL Creatinine 1.33 (0.5-1.4) mg/dL Estim Creat Clear Calc 45.3 Estimated GFR 52 Random Glucose 132 H (60-115) mg/dL Lactic Acid 1.2 (0.5-2.0) mmol/L Calcium 9.1 D (8.4-10.2) mg/dL Total Bilirubin 0.6 (0.0-1.0) mg/dL Direct Bilirubin 0.2 (0.0-0.5) mg/dL AST 26 (5-37) U/L ALT 21 (0-40) U/L Alkaline Phosphatase 75 (39-117) U/L Troponin I High Sens 10.1 (<3.5-35.0) ng/L B-Natriuretic Peptide 31 (<100) pg/mL Total Protein 7.6 (6.5-8.0) g/dL Albumin 3.7 (3.5-5.0) g/dL Lipase 38 (8-78) U/L Urine Color Dark Yellow Urine Appearance Cloudy Urine pH 6.5 (5.0-9.0) Ur Specific [place] 1.020 (1.005-1.025) Urine Protein 100 (2+) H (Neg-Trace) mg/dL Urine Glucose (UA) Negative (Negative) mg/dL Urine Ketones Negative (Negative) mg/dL Urine Blood Large (3+) H (Negative) Urine Nitrite Positive H (Negative) Ur Leukocyte Esterase Large (3+) H (Negative) Urine RBC >20 H (0-2) /HPF Urine WBC >50 H (0-5) /HPF Ur Squamous Epith Cells 0-2 (0-2) /HPF Urine Bacteria 4+ (None Seen) Hyaline Casts 0-2 (0-2) /LPF Influenza Type A (PCR) NEGATIVE (Negative) Influenza Type B (PCR) NEGATIVE (Negative) RSV RNA Qual (PCR) NEGATIVE (Negative) SARS-CoV-2 RNA (RT-PCR) NEGATIVE (Negative) Independent Interpretation I performed an independent interpretation of an: Plain X-Ray (Chest:Abnormal elevation of the left diaphragm with left basilar atelectasis. ) and CT Scan (Abdomen pelvis:1. Severe bladder distention. 2. Prostatomegaly. 3. Bilateral hydronephrosis of uncertain etiology. Recommend follow-up renal ultrasound after decompression of the urinary bladder. Right renal collecting system is higher in attenuation than left raising the possibility of blood,) Radiology Impression Discussion of test interpretation with radiology: I have reviewed the radiologist's reading. Chronic Conditions Patient?s care impacted by: Other (Prostatic enlargement) Medications Administered Discontinued Medications Generic Name Dose Route Start Last Admin Trade Name Freq PRN Reason Stop Dose Admin Sodium Chloride 1,000 mls @ 999 mls/hr 03/04/24 09:39 03/04/24 12:29 Ns IV 03/04/24 10:39 Infused .Q1H1M ONE Infusion Discharge Plan Discharge Clinical Impression: Acute urinary retention, Acute pyelonephritis, Enlarged prostate Patient Disposition: Admitted As Inpatient Print Language: Frisian
--- NOTE | 2024-03-04 09:49 | PC.NURSE ---
Pt alert, oriented to self, confused at baseline. Pt from [facility] via ambulance, per report from ems the facility staff reported that the pt c/o 8/10 abd pain x 20 mins, temp 100, 88-92 r/a. pt put on 2l n/c - O2 97%. by ems. Pt recently finished a course of abx for uti. He had f/c in and he pulled it out. In ER Pt satting 93-95% r/a, then dropped to 88%. Pt was put on 2L n/c satting 93-94%.
[2024-03-04] MEDS: 0.9 % Sodium Chloride 1,000 ML 999 ML IV (10:37)
[2024-03-04 10:40] LABS: MANUAL DIFF FLAG NO
[2024-03-04 10:43] LABS: Basophils Percent Auto 0.3 % (0-2); Eosinophils Percent Auto 0.4 % (0-4); Hematocrit 43.7 % (42.0-52.0); Imm Gran Abs Auto 0.05 X10*3/uL (0.00-0.03); Imm Gran Pct Auto 0.5 % (0.0-0.4); Lymphocytes Absolute Auto 1.3 X10*3/uL (1.2-4.9); Lymphocytes Percent Auto 12.1 % (20-40); Mean Corpuscular HGB Conc 34.3 g/dl (31.0-36.0); Mean Corpuscular Volume 101.9 fL (80.0-98.0); Monocytes Percent Auto 9.4 % (2-11); Neutrophils Absolute Auto 8.5 x10*3/uL (2.0-8.3); Neutrophils Percent Auto 77.3 % (45-73); Platelet Count 250 X10*3/uL (160-400); Red Blood Count 4.29 X10*6/uL (4.60-5.80); Red Cell Distribution Width 12.9 % (11.0-16.0)
--- NOTE | 2024-03-04 10:53 | PC.NURSE ---
20g iv inserted L forearm, labs drawn, fluids started. pt taken to ct scan. pt's daughter is at his bedside.
[2024-03-04 10:58] LABS: Lactic Acid 1.2 mmol/L (0.5-2.0)
[2024-03-04 11:03] LABS: Alanine Aminotransferase 21 U/L (0-40); Albumin Level 3.7 g/dL (3.5-5.0); Alkaline Phosphatase 75 U/L (39-117); Anion Gap 11 (12-20); Aspartate Amino Transferase 26 U/L (5-37); Bilirubin Direct 0.2 mg/dL (0.0-0.5); Bilirubin Total 0.6 mg/dL (0.0-1.0); Blood Urea Nitrogen 28 mg/dL (9-16); Calcium 9.1 mg/dL (8.4-10.2); Carbon Dioxide 25 mmol/L (22-29); Chloride 108 mmol/L (96-108); Creatinine Clr Calc Pharmacy 45.3; Estimated Glomerular Filt Rate 52; Glucose Random 132 mg/dL (60-115); Lipase 38 U/L (8-78); Potassium 4.2 mmol/L (3.3-5.1); Sodium 140 mmol/L (135-145); Total Protein 7.6 g/dL (6.5-8.0)
[2024-03-04 11:09] LABS: Troponin-I High Sensitivity 10.1 ng/L (<3.5-35.0)
[2024-03-04 11:10] LABS: B Type Natriuretic Peptide 31 pg/mL (<100)
[2024-03-04 11:16] VITALS: TEMP 36.7
[2024-03-04 11:27] LABS: Influenza A PCR NEGATIVE (Negative); Influenza B PCR NEGATIVE (Negative); Resp Syncy Virus RNA Qual PCR NEGATIVE (Negative); SARS COV2 PCR INHOUSE NEGATIVE (Negative)
[2024-03-04 12:11] VITALS: BP 147/74; PULSE 91; RESP 18; TEMP 36.7
--- NOTE | 2024-03-04 12:27 | PC.NURSE ---
16Fr nielsen catheter placed per MD perkins pt bladder holding 1775ml- nielsen placed without complication, draining dark foul smelling urine. pt verbalizes relief- primary RN aware
[2024-03-04 12:47] LABS: Appearance Urine Cloudy; Color Urine Dark Yellow; Glucose Urine UA Negative (Negative); PH 6.5 (5.0-9.0); Urine Blood Large (3+) (Negative)
[2024-03-04 12:48] LABS: Leukocyte Esterase Urine Large (3+) (Negative); Nitrite Urine Positive (Negative); UMIC TRIGGER UACC YES; Urine Ketones Negative (Negative); Urine Protein 100 (2+) mg/dL (Neg-Trace)
[2024-03-04 12:55] LABS: Bacteria Urine 4+ (None Seen); Hyaline Casts Urine 0-2 /LPF (0-2); RBC Urine >20 /HPF (0-2); Squamous Epithelial Cell Urine 0-2 /HPF (0-2); UACC Culture Trigger YES; WBC Urine >50 /HPF (0-5)
[2024-03-04] MEDS: cefTRIAXone sodium 1 GM in 0.9 % Sodium Chloride 50 ML IV (14:25)
--- NOTE | 2024-03-04 14:38 | PHA.MEDREC ---
Pharmacy Consult ? Medication Reconciliation Pharmacy has completed the medication reconciliation. Pt had med list from [facility].
--- NOTE | 2024-03-04 15:01 | PM.IMHP ---
History of Present Illness Date of Service: 03/04/24 Attending physician on admission: Valerio Funez Chief Complaint: Abd pain, urinary retention Pt is a 78-year-old male with a PMH significant for?DVT and PE on warfarin, HTN, BPH, hx of urinary retention, and unspecified dementia who presents to the ED from [facility] for evaluation of abdominal pain with concern for urinary retention. Patient is alert and oriented to self only, and incapable of providing HPI which is instead obtained from chart and provider review, as well as /HCP by phone. Patient has apparently been self catheterizing for the past 7 years, though became encephalopathic at the beginning of this month secondary to a UTI. Since then has been too confused to self-cath and has had to rely on an chronic indwelling Saeed catheter. Patient apparently became agitated and pulled out his Saeed 2 days ago and since then likely has not urinated. Bladder scan at facility found 1775 mL and pt was sent out to ED for further evaluation. In the ED Saeed catheter was placed which drained over 2 L of urine. In the ED pt was tachycardic up to 113, tachypneic up to 22, hypertensive up to 152/81, with elevated temperature of 99.3 degrees, and hypoxic as low as 88% on RA. Labs were significant for leukocytosis of 11.0, INR subtherapeutic at 1.3, otherwise grossly unremarkable. Stable H& H. No significant electrolyte abnormalities. Renal and hepatic function WNL. UA positive for UTI. Tested negative for influenza RSV, COVID. CXR showed abnormal elevation of left diaphragm with left basilar atelectasis. CT?of abdomen and pelvis showed severe bladder distention with bilateral hydronephrosis of uncertain etiology, with right renal collecting system higher in attenuation than left, raising possibility of blood, pus, or other urothelial lesion. EKG demonstrated normal sinus rhythm with no significant ST elevations or depressions. Pt was treated with IVF and ceftriaxone. Pt will be admitted to the hospital for treatment and further evaluation of UTI with sepsis concerning for pyelonephritis. Review of Systems Review of Systems: Unable to obtain due to patient's mentation [facility] Medical History (Updated 03/04/24 @ 16:33 by CASTILLO Olivas) Dementia Pulmonary embolus DVT (deep venous thrombosis) Urinary retention HTN (hypertension) BPH (benign prostatic hyperplasia) Social History Household Members: Caregiver Housing: [facility] Comment: sitter at bedside Patient Tobacco Use Status: Tobacco use Unknown Smoked in Last 30 Days: No Use of substances other than those prescribed or required for medical reasons: Unable to respond Currently Displaying Signs/Symptoms of Drug Intoxication Withdrawal: No Advance Directives: No Advance Directives Information Provided: Yes Do you have thoughts of harming others: None Do you have a plan to hurt others: No Plan Recently lost weight without trying: No How much weight loss: Not applicable Eating poorly because of decreased appetite: No Nutrition screen score: 0 Nutrition Risks: No Nutritional Risk Poor oral hygiene: No Meds Allergies Allergy/AdvReac Type Severity Reaction Status Date / Time Penicillins [PCN] Allergy Unknown Unknown Verified 03/04/24 09:32 Home Medications ?Medication ?Instructions ?Recorded ?Confirmed ?Last Taken ?Type acetaminophen 325 mg tablet 650 mg PO Q4H PRN Fever Or Pain 03/04/24 03/04/24 Unknown History (Tylenol) amlodipine 2.5 mg tablet 2.5 mg PO DAILY 03/04/24 03/04/24 Unknown History bisacodyl 10 mg rectal suppository [address] DAILY PRN Constipation 03/04/24 03/04/24 Unknown History donepezil 5 mg tablet 5 mg PO BEDTIME 03/04/24 03/04/24 Unknown History fluticasone propionate 50 1 spray intranasal BID 03/04/24 03/04/24 Unknown History mcg/actuation nasal spray,suspension magnesium hydroxide 400 mg/5 mL 30 ml PO DAILY PRN Constipation 03/04/24 03/04/24 Unknown History oral suspension (Milk of Magnesia) naloxone 4 mg/actuation nasal 4 mg intranasal Q3M PRN Opioid 03/04/24 03/04/24 Unknown History spray (Narcan) Overdose quetiapine 25 mg tablet 25 mg PO TID 03/04/24 03/04/24 Unknown History sodium phosphates 19 gram-[address] DAILY PRN Constipation 03/04/24 03/04/24 Unknown History gram/118 mL enema (Fleet Enema) tamsulosin 0.4 mg capsule 0.4 mg PO DAILY 03/04/24 03/04/24 Unknown History trazodone 50 mg tablet 25 mg PO DAILY 03/04/24 03/04/24 Unknown History warfarin 7.5 mg tablet 7.5 mg PO DAILY@1800 03/04/24 03/04/24 Unknown History Physical Exam Vital Signs and Narrative: Vital Signs: Last Vital Signs Temp 98.1 F 03/04/24 12:11 Pulse 91 03/04/24 12:11 Resp 18 03/04/24 12:11 BP 147/74 H 03/04/24 12:11 Pulse Ox 94 03/04/24 09:10 O2 Del Method Room Air 03/04/24 12:11 O2 Flow Rate 93 03/04/24 12:11 BMI result Body Mass Index 29.2 General: AOx1, somnolent but arousable, in no acute distress Resp: CTA bilaterally CVS: S1, S2, tachy GI: +BS, NT, no distention Skin: Warm, dry Neuro: Cranial nerves II-XII grossly intact bilaterally. Motor grossly intact bilaterally Back: Bilateral CVA tenderness Extremities: No edema Psych: Pleasantly confused Results Labs 03/05/24 05:54 03/05/24 05:54 Labs: Laboratory Results - last 24 hr 03/04/24 03/04/24 12:37 Unknown MCV 101.9 H MCH 35.0 H MCHC 34.3 RDW 12.9 Plt Count 250 MPV 9.0 L Immature Gran % (Auto) 0.5 H Neut % (Auto) 77.3 H Lymph % (Auto) 12.1 L [place] % (Auto) 9.4 Eos % (Auto) 0.4 Baso % (Auto) 0.3 Lymph # (Auto) 1.3 [place] # (Auto) 1.0 Eos # (Auto) 0.0 Baso # (Auto) 0.0 Abs Immat Gran (auto) 0.05 H Absolute Neuts (auto) 8.5 H Absolute Nucleated RBC 0.000 Nucleated RBC % (auto) 0.0 Anion Gap 11 L Estim Creat Clear Calc 45.3 Estimated GFR 52 Random Glucose 132 H Lactic Acid 1.2 Calcium 9.1 D Total Bilirubin 0.6 Direct Bilirubin 0.2 AST 26 ALT 21 Alkaline Phosphatase 75 Troponin I High Sens 10.1 B-Natriuretic Peptide 31 Total Protein 7.6 Albumin 3.7 Lipase 38 Urine Color Dark Yellow Urine Appearance Cloudy Urine pH 6.5 Ur Specific [place] 1.020 Urine Protein 100 (2+) H Urine Glucose (UA) Negative Urine Ketones Negative Urine Blood Large (3+) H Urine Nitrite Positive H Ur Leukocyte Esterase Large (3+) H Urine RBC >20 H Urine WBC >50 H Ur Squamous Epith Cells 0-2 Urine Bacteria 4+ Hyaline Casts 0-2 Influenza Type A (PCR) NEGATIVE Influenza Type B (PCR) NEGATIVE RSV RNA Qual (PCR) NEGATIVE SARS-CoV-2 RNA (RT-PCR) NEGATIVE Imaging Radiologist's Impressions: Impressions Abdomen/Pelvis CT 03/04/24 10:53 IMPRESSION: 1. Severe bladder distention. 2. Prostatomegaly. 3. Bilateral hydronephrosis of uncertain etiology. Recommend follow-up renal ultrasound after decompression of the urinary bladder. Right renal collecting system is higher in attenuation than left raising the possibility of blood, pus or other urothelial lesion. Further clinical evaluation required. 4. Left renal atrophy. Fleischner guidelines were followed. Chest X-Ray 03/04/24 10:54 IMPRESSION: Abnormal elevation of the left diaphragm with left basilar atelectasis. Assessment and Plan (1) Acute urinary retention: Status: Acute (2) Acute pyelonephritis: Status: Acute Plan Pt is a 78-year-old male with a PMH significant for?DVT and PE on warfarin, HTN, BPH, hx of urinary retention, and unspecified dementia who presents to the ED from [facility] for evaluation of abdominal pain with concern for urinary retention. Pt will be admitted to the hospital for treatment and further evaluation of UTI with sepsis concerning for pyelonephritis. UTI UA positive, pt with CVA tenderness, CT with bilateral hydronephrosis Concerning for pyelonephritis Patient meets sepsis criteria at 18:27: tachycardic and tachypnic; will get repeat lactic acid Pt received IVF and started on broad spectrum antibiotics in the ED Will treat with ceftriaxone, started 03/04/2024 Follow cultures Severe urinary retention CT of abdomen showing severe bladder distention Secondary to removal of indwelling Saeed catheter 2 days prior In the ED Saeed inserted which drained over 2 L of urine Monitor urine output Abnormal CT of abdomen and pelvis findings CT showed bilateral hydronephrosis of uncertain etiology CT also showed right renal collecting system higher in attenuation than left, suggestive of blood, pus, or other urothelial lesion Urology consult Hypoxia Pt desatting as low as 88% on RA Does not carry pulmonary diagnosis, not on home O2 Possibly secondary to bladder distention inhibiting diaphragmatic excursion and inducing atelectasis Titrate supplemental O2>92, wean as tolerated Consider PE workup if pt remains hypoxic and tachycardic Hx of DVT/PE INR subtherapeutic Continue warfarin Follow INR with goal of 2.0-3.0 BPH Continue tamsulosin HTN Continue amlodipine Mood disorder/unspecified dementia Continue quetiapine, donepezil DNR/DNI Attending:?Dr. Funez DVT Prophylaxis: On warfarin Pt will require a hospitalization of at least two nights for treatment of?acute UTI with sepsis concerning for pyelonephritis and severe urinary retention. Pt will require hospitalization for the administration of IV antibiotics, close monitoring of urine output, and specialist consultation with Urology with likely additional procedure and/or imaging. Quality Stroke Does the patient have a stroke diagnosis?: No VTE Prior VTE?: No VTE Risk Level:: Medical - moderate - high VTE Device Contraindication: Treatment Not Indicated VTE Drug Contraindication: N/A - Med Ordered
[2024-03-04 15:43] VITALS: BP 136/64; PULSE 106; RESP 20; TEMP 36.7; O2SAT 93
[2024-03-04 16:46] LABS: INTERNATIONAL NORM RATIO 1.3 (0.9-1.1); Prothrombin Time 15.4 SEC (11.1-13.3)
--- NOTE | 2024-03-04 18:10 | PC.NURSE ---
THIS RN SPOKE WITH THE PT'S DAUGHTER JORGE [phone]. DAUGHTER REQUESTED TO SPEAK WITH THE ADMITTING PROVIDER. GIGI CHONG WAS NOTIFIED AND GIVEN THE PT'S DAUGHTER AND 'S CONTACT INFORMATION.
[2024-03-04 18:27] VITALS: BP 152/81; PULSE 113; RESP 22; TEMP 37.4
--- NOTE | 2024-03-04 18:37 | PC.NURSE ---
KAUFFMAN DRAINAGE BAG EMPTIED 700 ML. URINE COLOR BOBBI, FOUL ODOR NOTED.
[2024-03-04] MEDS: Warfarin Sodium 7.5 MG TABLET PO (18:47)
[2024-03-04] MEDS: 0.9 % Sodium Chloride Flush 3 ML SYRINGE IVFLUSH ×2 (18:47→21:37)
[2024-03-04 20:55] VITALS: BP 167/76; PULSE 105; RESP 18; TEMP 37.1; O2SAT 93
[2024-03-04 21:24] VITALS: BMI 25.6
[2024-03-04] MEDS: Donepezil HCl 5 MG TABLET PO (21:36)
[2024-03-04] MEDS: QUEtiapine Fumarate 25 MG TABLET PO (21:36)
[2024-03-05 04:00] VITALS: BP 135/99; PULSE 84; RESP 18; TEMP 36.9; O2SAT 95
[2024-03-05 06:26] LABS: INTERNATIONAL NORM RATIO 1.4 (0.9-1.1); Prothrombin Time 17.3 SEC (11.1-13.3)
[2024-03-05 06:33] LABS: Hematocrit 38.2 % (42.0-52.0); Hemoglobin 13.1 g/dl (14.0-18.0); Mean Corpuscular HGB Conc 34.3 g/dl (31.0-36.0); Mean Corpuscular Hemoglobin 35.1 pg (27.0-33.0); Mean Corpuscular Volume 102.4 fL (80.0-98.0); Mean Platelet Volume 9.2 fL (9.4-12.4); Platelet Count 210 X10*3/uL (160-400); Red Blood Count 3.73 X10*6/uL (4.60-5.80); Red Cell Distribution Width 12.8 % (11.0-16.0); White Blood Count 8.6 X10*3/uL (4.8-10.8)
[2024-03-05 06:35] LABS: Anion Gap 9 (12-20); Blood Urea Nitrogen 21 mg/dL (9-16); Calcium 8.2 mg/dL (8.4-10.2); Carbon Dioxide 25 mmol/L (22-29); Chloride 110 mmol/L (96-108); Estimated Glomerular Filt Rate > 60; Glucose Random 95 mg/dL (60-115); Potassium 3.9 mmol/L (3.3-5.1); Sodium 140 mmol/L (135-145)
[2024-03-05 07:27] VITALS: BP 170/77; PULSE 100; RESP 18; TEMP 37.1; O2SAT 90
[2024-03-05 08:21] VITALS: BP 170/77
[2024-03-05] MEDS: Tamsulosin HCL 0.4 MG CAPSULE PO (08:21)
[2024-03-05] MEDS: amLODIPine Besylate 2.5 MG TABLET PO (08:21)
[2024-03-05] MEDS: Fluticasone Propionate Nasal 16 GM SPRAY 1 SPRAY NOSTRIL-B ×2 (08:21→19:56)
[2024-03-05] MEDS: traZODone HCL 25 MG HALFTAB PO (08:21)
[2024-03-05] MEDS: 0.9 % Sodium Chloride Flush 3 ML SYRINGE IVFLUSH ×3 (08:21→19:56)
[2024-03-05] MEDS: QUEtiapine Fumarate 25 MG TABLET PO ×3 (08:21→19:56)
--- NOTE | 2024-03-05 12:01 | P.PNIM_ITS ---
Subjective Subjective Date of Service: 03/05/24 Interval History: Seen and evaluated this morning more alert but still significantly confused No reported events overnight Physical Exam 2 Vital Signs: Vital Signs: Last Vital Signs Temp 98.8 F 03/05/24 07:27 Pulse 100 03/05/24 07:27 Resp 18 03/05/24 07:27 BP 170/77 H 03/05/24 08:21 Pulse Ox 90 L 03/05/24 07:27 O2 Del Method Room Air 03/05/24 07:27 O2 Flow Rate 92 03/04/24 18:27 BMI result Body Mass Index 25.6 Const: Other: Constitutional : Awake with stimulation, not in distress Neck : Normal inspection, Supple Cardiovascular : RRR, no JVP, no lower extremity edema Respiratory : good bilateral air entry, no crackles, wheezes or rhonchi Gastrointestinal: soft, lax, Normal bowel sounds, Non tender Skin : Warm, Dry Neurological : Alert & oriented to self only, Non-verbal much Objective Data Active Medications Acetaminophen (Acetaminophen 325 Mg Tablet) 650 mg PO Q6H PRN PRN Reason: Pain, Mild (Pain Scale 1-3) Amlodipine Besylate (Amlodipine Besylate 2.5 Mg Tablet) 2.5 mg PO DAILY [facility]; Protocol Last Admin: 03/05/24 08:21 Dose: 2.5 mg Documented By: VANNESSA Bisacodyl (Bisacodyl 10 Mg Supp.Rect) 10 mg [place] DAILY PRN PRN Reason: Constipation Donepezil HCl (Donepezil Hcl 5 Mg Tablet) 5 mg PO BEDTIME [facility] Last Admin: 03/04/24 21:36 Dose: 5 mg Documented By: JOSUÉ Fluticasone Propionate (Fluticasone Propionate Nasal 16 Gm [place]) 1 spray NOSTRIL-B BID [facility] Last Admin: 03/05/24 08:21 Dose: 1 spray Documented By: VANNESSA Ceftriaxone Sodium 1 gm/ (Sodium Chloride) 50 mls @ 100 mls/hr IV Q24H [facility] Magnesium Hydroxide (Milk Of Magnesia 30 Ml Oral.Susp) 30 ml PO DAILY PRN PRN Reason: Constipation Naloxone HCl (Naloxone Hcl Nasal 4 Mg [place]) 4 mg NOSTRILALT Q3M PRN PRN Reason: Opioid Overdose Quetiapine Fumarate (Quetiapine Fumarate 25 Mg Tablet) 25 mg PO TID [facility] Last Admin: 03/05/24 08:21 Dose: 25 mg Documented By: VANNESSA Sodium Biphosphate/Sodium Phosphate (Sodium Phosphate,[place]-Dibasic 133 Ml Enema) 118 ml [place] DAILY PRN PRN Reason: Constipation Sodium Chloride (0.9 % Sodium Chloride Flush 3 Ml Syringe) 3 ml IVFLUSH QSHIFT [facility] Last Admin: 03/05/24 08:21 Dose: 3 ml Documented By: VANNESSA Tamsulosin HCl (Tamsulosin Hcl 0.4 Mg Capsule) 0.4 mg PO DAILY [facility] Last Admin: 03/05/24 08:21 Dose: 0.4 mg Documented By: VANNESSA Trazodone HCl (Trazodone Hcl 25 Mg Halftab) 25 mg PO DAILY [facility] Last Admin: 03/05/24 08:21 Dose: 25 mg Documented By: VANNESSA Warfarin Sodium (Warfarin Sodium 7.5 Mg Tablet) 7.5 mg PO DAILY@1800 [facility] Last Admin: 03/04/24 18:47 Dose: 7.5 mg Documented By: PRISCILLACL Labs 03/05/24 05:54 03/05/24 05:54 Labs: Laboratory Results - last 24 hr 03/04/24 03/04/24 03/04/24 12:37 16:33 19:14 MCV MCH MCHC RDW Plt Count MPV Absolute Nucleated RBC Nucleated RBC % (auto) PT 15.4 H D INR 1.3 H Anion Gap Estim Creat Clear Calc Estimated GFR Random Glucose Lactic Acid 2.0 Calcium Urine Color Dark Yellow Urine Appearance Cloudy Urine pH 6.5 Ur Specific [place] 1.020 Urine Protein 100 (2+) H Urine Glucose (UA) Negative Urine Ketones Negative Urine Blood Large (3+) H Urine Nitrite Positive H Ur Leukocyte Esterase Large (3+) H Urine RBC >20 H Urine WBC >50 H Ur Squamous Epith Cells 0-2 Urine Bacteria 4+ Hyaline Casts 0-2 03/05/24 05:54 MCV 102.4 H MCH 35.1 H MCHC 34.3 RDW 12.8 Plt Count 210 MPV 9.2 L Absolute Nucleated RBC 0.000 Nucleated RBC % (auto) 0.0 PT 17.3 H INR 1.4 H Anion Gap 9 L Estim Creat Clear Calc 47.0 Estimated GFR > 60 Random Glucose 95 Lactic Acid Calcium 8.2 L D Urine Color Urine Appearance Urine pH Ur Specific [place] Urine Protein Urine Glucose (UA) Urine Ketones Urine Blood Urine Nitrite Ur Leukocyte Esterase Urine RBC Urine WBC Ur Squamous Epith Cells Urine Bacteria Hyaline Casts Microbiology Microbiology Results: Microbiology 03/04/24 Unknown Urine Culture - Preliminary Urine Catheterized - Saeed Catheter Culture in progress. Assessment and Plan (1) Enlarged prostate: Status: Acute (2) Acute pyelonephritis: Status: Acute (3) Acute urinary retention: Status: Acute (4) Hydronephrosis: Status: Acute Plan Pt is a 78-year-old male with a PMH significant for?DVT and PE on warfarin, HTN, BPH, hx of urinary retention, and unspecified dementia who presents to the ED from [facility] for evaluation of abdominal pain with concern for urinary retention. Pt will be admitted to the hospital for treatment and further evaluation of UTI with sepsis concerning for pyelonephritis. Sepsis 2/2 UTI w possible Pyelonephritis UA positive pending cultures Continue ceftriaxone, started 03/04/2024 Severe urinary retention complicated with bilateral hydronephrosis CT of abdomen showing severe bladder distention Secondary to removal of indwelling Saeed catheter 2 days prior In the ED Saeed inserted which drained over 2 L of urine Urology consult Increase Tamsulosin to 0.8 Monitor urine output Abnormal CT of abdomen and pelvis findings CT showed bilateral hydronephrosis of uncertain etiology CT also showed right renal collecting system higher in attenuation than left, suggestive of blood, pus, or other urothelial lesion Urology consult pending Hypoxia Pt desatting as low as 88% on RA Does not carry pulmonary diagnosis, not on home O2 Possibly secondary to bladder distention inhibiting diaphragmatic excursion and inducing atelectasis Titrate supplemental O2>92, wean as tolerated Consider PE workup if pt remains hypoxic and tachycardic Hx of DVT/PE INR subtherapeutic Continue warfarin Follow INR with goal of 2.0-3.0 BPH Continue tamsulosin HTN Continue amlodipine Mood disorder/unspecified dementia Continue quetiapine, donepezil DNR/DNI DVT Prophylaxis: On warfarin Pt will require a hospitalization overnight for treatment of?acute UTI with sepsis concerning for pyelonephritis and severe urinary retention for the administration of IV antibiotics, close monitoring of urine output, and specialist consultation with Urology Quality Stroke Does the patient have a stroke diagnosis?: No VTE Prior VTE?: No VTE Risk Level:: Medical - moderate - high VTE Device Contraindication: Treatment Not Indicated VTE Drug Contraindication: N/A - Med Ordered
--- NOTE | 2024-03-05 12:23 | MHC.CM.PN ---
PATIENT IS IN FROM [facility], WHERE HE IS RECEIVING REHAB SERVICES. PATIENT IS A BEDHOLD. HCP AND MOLST UPLOADED INTO [facility] AND COPIES PLACED IN CHART. HE USES WALKER AND WHEELCHAIR AT FACILITY. IS IN ROOM AT THIS TIME AND ASSISTING WITH ASSESSMENT. CASE MANAGEMENT NAME WRITTEN ON WHITE BOARD REFERRAL TO [facility] FOR HIS RETURN. IMM 03/05 IN CHART.
[2024-03-05] MEDS: cefTRIAXone sodium 1 GM in 0.9 % Sodium Chloride 50 ML IV (14:01)
[2024-03-05 14:55] VITALS: BP 140/62; PULSE 92; RESP 18; TEMP 36.9; O2SAT 92
[2024-03-05] MEDS: Warfarin Sodium 7.5 MG TABLET PO (17:23)
[2024-03-05 19:42] VITALS: BP 135/67; PULSE 92; RESP 18; TEMP 36.9; O2SAT 94
[2024-03-05] MEDS: Donepezil HCl 5 MG TABLET PO (19:56)
[2024-03-06 02:57] VITALS: BP 136/60; PULSE 79; RESP 16; TEMP 36.9; O2SAT 92
[2024-03-06 07:00] VITALS: BP 151/70; PULSE 88; RESP 18; TEMP 36.6; O2SAT 90
[2024-03-06 07:01] LABS: Hematocrit 37.7 % (42.0-52.0); Hemoglobin 12.7 g/dl (14.0-18.0); Mean Corpuscular HGB Conc 33.7 g/dl (31.0-36.0); Mean Corpuscular Hemoglobin 34.7 pg (27.0-33.0); Mean Platelet Volume 9.5 fL (9.4-12.4); Platelet Count 235 X10*3/uL (160-400); Red Blood Count 3.66 X10*6/uL (4.60-5.80); Red Cell Distribution Width 12.8 % (11.0-16.0); White Blood Count 8.5 X10*3/uL (4.8-10.8)
[2024-03-06 07:11] LABS: Anion Gap 10 (12-20); Blood Urea Nitrogen 20 mg/dL (9-16); Calcium 8.3 mg/dL (8.4-10.2); Carbon Dioxide 25 mmol/L (22-29); Chloride 108 mmol/L (96-108); Creatinine Clr Calc Pharmacy 42.2; Estimated Glomerular Filt Rate 54; Glucose Random 87 mg/dL (60-115); Potassium 3.7 mmol/L (3.3-5.1); Sodium 139 mmol/L (135-145)
[2024-03-06 07:23] LABS: INTERNATIONAL NORM RATIO 1.7 (0.9-1.1); Prothrombin Time 20.6 SEC (11.1-13.3)
[2024-03-06 09:04] VITALS: BP 123/60
[2024-03-06] MEDS: Tamsulosin HCL 0.4 MG CAPSULE 0.8 MG PO (09:04)
[2024-03-06] MEDS: QUEtiapine Fumarate 25 MG TABLET PO ×3 (09:04→19:17)
[2024-03-06] MEDS: traZODone HCL 25 MG HALFTAB PO (09:04)
[2024-03-06] MEDS: amLODIPine Besylate 2.5 MG TABLET PO (09:04)
[2024-03-06] MEDS: Fluticasone Propionate Nasal 16 GM SPRAY 1 SPRAY NOSTRIL-B ×2 (09:06→19:19)
[2024-03-06] MEDS: 0.9 % Sodium Chloride Flush 3 ML SYRINGE IVFLUSH ×3 (09:06→19:19)
[2024-03-06 09:17] VITALS: BP 123/60; PULSE 83; RESP 18; O2SAT 92
--- NOTE | 2024-03-06 11:37 | P.CNUR_ITS ---
History of Present Illness Consult details Consult date: 03/06/24 Narrative: CC: Pyelonephritis 78-year-old male Past history of BPH with history of urinary retention Neurogenic bladder According to he used to self cath at home 3-4 times per day. This has been going on for 7 years. Follows with [facility] Progressive dementia Saeed catheter had been recently placed. Patient had apparently become agitated and pulled Saeed catheter 2 days prior to admission Found to have 1775cc on bladder scan. Saeed catheter placed in emergency department for [address] with question of pyelonephritis. Noted to have bilateral hydronephrosis. Has been admitted for IV antibiotics. Microbiology with Gram-negative rods, Enterococcus Discussed with . Has follow-up appointment 1st week of March with Urology group. Saeed catheter has been placed. Antibiotics per culture results No acute urologic issues. Review of Systems 2 Constitutional: Constitutional: Reports as per HPI and Reports no additional constitutional complaints Cardiovascular: Cardiovascular: Reports as per HPI and Reports no additional cardiovascular complaints Respiratory: Respiratory: Reports as per HPI and Reports no additional respiratory complaints Gastrointestinal: Gastrointestinal: Reports as per HPI and Reports no additional gastrointestinal complaints Genitourinary: Genitourinary: Reports as per HPI Musculoskeletal: Musculoskeletal: Reports no additional musculoskeletal complaints and Reports as per HPI Neurologic: Reports system reviewed and no additional complaints, except as documented and Reports as per HPI [facility] Past Medical History Medical History (Updated 03/05/24 @ 13:42 by Valerio Funez MD) Dementia Pulmonary embolus DVT (deep venous thrombosis) Urinary retention HTN (hypertension) BPH (benign prostatic hyperplasia) Social History Social History Household Members: Caregiver Housing: [facility] Comment: sitter at bedside Patient Tobacco Use Status: Tobacco use Unknown Smoked in Last 30 Days: No Use of substances other than those prescribed or required for medical reasons: Unable to respond Currently Displaying Signs/Symptoms of Drug Intoxication Withdrawal: No Advance Directives: No Advance Directives Information Provided: Yes Do you have thoughts of harming others: None Do you have a plan to hurt others: No Plan Recently lost weight without trying: No How much weight loss: Not applicable Eating poorly because of decreased appetite: No Nutrition screen score: 0 Nutrition Risks: No Nutritional Risk Poor oral hygiene: No Meds Allergies Allergy/AdvReac Type Severity Reaction Status Date / Time Penicillins [PCN] Allergy Unknown Unknown Verified 03/04/24 09:32 Active Medications: Current Medications Acetaminophen (Acetaminophen 325 Mg Tablet) 650 mg PO Q6H PRN PRN Reason: Pain, Mild (Pain Scale 1-3) Amlodipine Besylate (Amlodipine Besylate 2.5 Mg Tablet) 2.5 mg PO DAILY [facility]; Protocol Last Admin: 03/06/24 09:04 Dose: 2.5 mg Bisacodyl (Bisacodyl 10 Mg Supp.Rect) 10 mg [place] DAILY PRN PRN Reason: Constipation Donepezil HCl (Donepezil Hcl 5 Mg Tablet) 5 mg PO BEDTIME [facility] Last Admin: 03/05/24 19:56 Dose: 5 mg Fluticasone Propionate (Fluticasone Propionate Nasal 16 Gm [place]) 1 spray NOSTRIL-B BID [facility] Last Admin: 03/06/24 09:06 Dose: 1 spray Ceftriaxone Sodium 1 gm/ (Sodium Chloride) 50 mls @ 100 mls/hr IV Q24H [facility] Last Infusion: 03/05/24 14:42 Dose: Infused Magnesium Hydroxide (Milk Of Magnesia 30 Ml Oral.Susp) 30 ml PO DAILY PRN PRN Reason: Constipation Naloxone HCl (Naloxone Hcl Nasal 4 Mg [place]) 4 mg NOSTRILALT Q3M PRN PRN Reason: Opioid Overdose Quetiapine Fumarate (Quetiapine Fumarate 25 Mg Tablet) 25 mg PO TID [facility] Last Admin: 03/06/24 09:04 Dose: 25 mg Sodium Biphosphate/Sodium Phosphate (Sodium Phosphate,[place]-Dibasic 133 Ml Enema) 118 ml [place] DAILY PRN PRN Reason: Constipation Sodium Chloride (0.9 % Sodium Chloride Flush 3 Ml Syringe) 3 ml IVFLUSH QSHIFT [facility] Last Admin: 03/06/24 09:06 Dose: 3 ml Tamsulosin HCl (Tamsulosin Hcl 0.4 Mg Capsule) 0.8 mg PO DAILY [facility] Last Admin: 03/06/24 09:04 Dose: 0.8 mg Trazodone HCl (Trazodone Hcl 25 Mg Halftab) 25 mg PO DAILY [facility] Last Admin: 03/06/24 09:04 Dose: 25 mg Warfarin Sodium (Warfarin Sodium 7.5 Mg Tablet) 7.5 mg PO DAILY@1800 [facility] Last Admin: 03/05/24 17:23 Dose: 7.5 mg Home Medications ?Medication ?Instructions ?Recorded ?Confirmed ?Last Taken ?Type acetaminophen 325 mg tablet 650 mg PO Q4H PRN Fever Or Pain 03/04/24 03/04/24 Unknown History (Tylenol) amlodipine 2.5 mg tablet 2.5 mg PO DAILY 03/04/24 03/04/24 Unknown History bisacodyl 10 mg rectal suppository 10 mg [place] DAILY PRN Constipation 03/04/24 03/04/24 Unknown History donepezil 5 mg tablet 5 mg PO BEDTIME 03/04/24 03/04/24 Unknown History fluticasone propionate 50 1 spray intranasal BID 03/04/24 03/04/24 Unknown History mcg/actuation nasal spray,suspension magnesium hydroxide 400 mg/5 mL 30 ml PO DAILY PRN Constipation 03/04/24 03/04/24 Unknown History oral suspension (Milk of Magnesia) naloxone 4 mg/actuation nasal 4 mg intranasal Q3M PRN Opioid 03/04/24 03/04/24 Unknown History spray (Narcan) Overdose quetiapine 25 mg tablet 25 mg PO TID 03/04/24 03/04/24 Unknown History sodium phosphates 19 gram-7 118 ml [place] DAILY PRN Constipation 03/04/24 03/04/24 Unknown History gram/118 mL enema (Fleet Enema) tamsulosin 0.4 mg capsule 0.4 mg PO DAILY 03/04/24 03/04/24 Unknown History trazodone 50 mg tablet 25 mg PO DAILY 03/04/24 03/04/24 Unknown History warfarin 7.5 mg tablet 7.5 mg PO DAILY@1800 03/04/24 03/04/24 Unknown History Physical Exam 2 Vital Signs: Vital Signs: Last Vital Signs Temp 97.8 F 03/06/24 07:00 Pulse 83 03/06/24 09:17 Resp 18 03/06/24 09:17 BP 123/60 03/06/24 09:17 Pulse Ox 92 03/06/24 09:17 O2 Del Method Room Air 03/06/24 09:17 O2 Flow Rate 92 03/04/24 18:27 BMI result Body Mass Index 25.6 Const: General: cooperative, healthy appearing, comfortable and no acute distress Orientation/consciousness: patient oriented x3 HEENT: Face and sinus: Yes normal facial exam Mouth: moist mucous membranes Neck: Neck: Yes normal visual inspection, Yes full ROM and Yes trachea midline Chest: Chest palpation & inspection: normal inspection of the chest Resp: Effort & Inspection: normal respiratory effort, able to speak in complete sentences and no respiratory distress GI: Inspection: Yes normal to inspection Back/Spine/Pelvis: Cervical Spine: normal cervical lordosis Thoracic/Lumbar Spine: thoracic and lumbar spine normal to inspection Skin: General skin exam: no rashes or lesions noted Neuro: General: patient oriented x3, tone normal and moves all extremities Extrem: General: Yes normal to inspection and Yes capillary refill normal Results Labs 03/06/24 05:47 03/06/24 05:47 Labs: Abnormal lab results 03/06/24 Range/Units 05:47 RBC 3.66 L (4.60-5.80) X10*6/uL Hgb 12.7 L (14.0-18.0) g/dl Hct 37.7 L (42.0-52.0) % MCV 103.0 H (80.0-98.0) fL MCH 34.7 H (27.0-33.0) pg PT 20.6 H (11.1-13.3) SEC INR 1.7 H (0.9-1.1) Anion Gap 10 L (12-20) BUN 20 H (9-16) mg/dL Calcium 8.3 L (8.4-10.2) mg/dL Short CBC 03/06/24 Range/Units 05:47 WBC 8.5 (4.8-10.8) X10*3/uL Hgb 12.7 L (14.0-18.0) g/dl Hct 37.7 L (42.0-52.0) % Plt Count 235 (160-400) X10*3/uL BMP 03/06/24 05:47 Sodium 139 Potassium 3.7 Chloride 108 Carbon Dioxide 25 BUN 20 H Creatinine 1.28 Calcium 8.3 L Urine 03/04/24 Range/Units 12:37 Urine Color Dark Yellow Urine Appearance Cloudy Urine pH 6.5 (5.0-9.0) Ur Specific [place] 1.020 (1.005-1.025) Urine Protein 100 (2+) H (Neg-Trace) mg/dL Urine Glucose (UA) Negative (Negative) mg/dL All other labs normal. Assessment and Plan (1) Acute pyelonephritis: Status: Acute (2) Hydronephrosis: Status: Acute (3) Acute urinary retention: Status: Acute Plan Saeed catheter Follow-up with external urologist on discharge Procedures Date of Service Date of Service: 03/06/24
--- NOTE | 2024-03-06 12:25 | HO.PM.IMPN ---
Subjective Subjective Date of Service: 03/06/24 Interval History: Seen and evaluated this morning more alert and interactive URine culture growing possible Enterococcus + GNR No reported events overnight Review of Systems Review of Systems: Yes all other systems are reviewed and are negative Physical Exam Vital Signs: Vital Signs: Last Vital Signs Temp 97.8 F 03/06/24 07:00 Pulse 83 03/06/24 09:17 Resp 18 03/06/24 09:17 BP 123/60 03/06/24 09:17 Pulse Ox 92 03/06/24 09:17 O2 Del Method Room Air 03/06/24 09:17 O2 Flow Rate 92 03/04/24 18:27 BMI result Body Mass Index 25.6 Const: Other: Constitutional : Awake with stimulation, not in distress Neck : Normal inspection, Supple Cardiovascular : RRR, no JVP, no lower extremity edema Respiratory : good bilateral air entry, no crackles, wheezes or rhonchi Gastrointestinal: soft, lax, Normal bowel sounds, Non tender Skin : Warm, Dry, Saeed in place Neurological : Alert & oriented to self only, Non-verbal much Objective Data Active Medications Acetaminophen (Acetaminophen 325 Mg Tablet) 650 mg PO Q6H PRN PRN Reason: Pain, Mild (Pain Scale 1-3) Amlodipine Besylate (Amlodipine Besylate 2.5 Mg Tablet) 2.5 mg PO DAILY [facility]; Protocol Last Admin: 03/06/24 09:04 Dose: 2.5 mg Documented By: JASMYN Bisacodyl (Bisacodyl 10 Mg Supp.Rect) 10 mg [place] DAILY PRN PRN Reason: Constipation Donepezil HCl (Donepezil Hcl 5 Mg Tablet) 5 mg PO BEDTIME [facility] Last Admin: 03/05/24 19:56 Dose: 5 mg Documented By: CASTEDER Fluticasone Propionate (Fluticasone Propionate Nasal 16 Gm [place]) 1 spray NOSTRIL-B BID [facility] Last Admin: 03/06/24 09:06 Dose: 1 spray Documented By: JASMYN Ceftriaxone Sodium 1 gm/ (Sodium Chloride) 50 mls @ 100 mls/hr IV Q24H [facility] Last Infusion: 03/05/24 14:42 Dose: Infused Documented By: VANNESSA Magnesium Hydroxide (Milk Of Magnesia 30 Ml Oral.Susp) 30 ml PO DAILY PRN PRN Reason: Constipation Naloxone HCl (Naloxone Hcl Nasal 4 Mg [place]) 4 mg NOSTRILALT Q3M PRN PRN Reason: Opioid Overdose Quetiapine Fumarate (Quetiapine Fumarate 25 Mg Tablet) 25 mg PO TID [facility] Last Admin: 03/06/24 09:04 Dose: 25 mg Documented By: JASMYN Sodium Biphosphate/Sodium Phosphate (Sodium Phosphate,[place]-Dibasic 133 Ml Enema) 118 ml [place] DAILY PRN PRN Reason: Constipation Sodium Chloride (0.9 % Sodium Chloride Flush 3 Ml Syringe) 3 ml IVFLUSH QSHIFT [facility] Last Admin: 03/06/24 09:06 Dose: 3 ml Documented By: JASMYN Tamsulosin HCl (Tamsulosin Hcl 0.4 Mg Capsule) 0.8 mg PO DAILY [facility] Last Admin: 03/06/24 09:04 Dose: 0.8 mg Documented By: JASMYN Trazodone HCl (Trazodone Hcl 25 Mg Halftab) 25 mg PO DAILY [facility] Last Admin: 03/06/24 09:04 Dose: 25 mg Documented By: JASMYN Warfarin Sodium (Warfarin Sodium 7.5 Mg Tablet) 7.5 mg PO DAILY@1800 [facility] Last Admin: 03/05/24 17:23 Dose: 7.5 mg Documented By: VANNESSA Labs 03/06/24 05:47 03/06/24 05:47 Labs: Laboratory Results - last 24 hr 03/06/24 05:47 MCV 103.0 H MCH 34.7 H MCHC 33.7 RDW 12.8 Plt Count 235 MPV 9.5 Absolute Nucleated RBC 0.000 Nucleated RBC % (auto) 0.0 PT 20.6 H INR 1.7 H Anion Gap 10 L Estim Creat Clear Calc 42.2 Estimated GFR 54 Random Glucose 87 Calcium 8.3 L Microbiology Microbiology Results: Microbiology 03/04/24 Unknown Urine Culture - Preliminary Urine Catheterized - Saeed Catheter Gram negative renee Enterococcus/Streptococcus sp 03/04/24 11:09 Blood Culture - Preliminary Blood - Venous No growth after 24 hours. 03/04/24 Unknown Blood Culture - Preliminary Blood - Venous No growth after 24 hours. Assessment and Plan (1) Enlarged prostate: Status: Acute (2) Acute pyelonephritis: Status: Acute (3) Acute urinary retention: Status: Acute (4) Hydronephrosis: Status: Acute Plan Pt is a 78-year-old male with a PMH significant for?DVT and PE on warfarin, HTN, BPH, hx of urinary retention, and unspecified dementia who presents to the ED from [facility] for evaluation of abdominal pain with concern for urinary retention. Pt will be admitted to the hospital for treatment and further evaluation of UTI with sepsis concerning for pyelonephritis. Sepsis 2/2 UTI w possible Pyelonephritis UA positive cultures growing GNR and Entero\strepto Continue ceftriaxone, started 03/04/2024 Severe urinary retention complicated with bilateral hydronephrosis CT of abdomen showing severe bladder distention Secondary to removal of indwelling Saeed catheter 2 days prior In the ED Saeed inserted which drained over 2 L of urine Urology consult Increase Tamsulosin to 0.8 Monitor urine output Abnormal CT of abdomen and pelvis findings CT showed bilateral hydronephrosis of uncertain etiology CT also showed right renal collecting system higher in attenuation than left, suggestive of blood, pus, or other urothelial lesion Urology consult pending Hypoxia resolved, back to RA Possibly secondary to bladder distention inhibiting diaphragmatic excursion and inducing atelectasis Hx of DVT/PE INR subtherapeutic at 1.7 Continue warfarin Follow INR with goal of 2.0-3.0 BPH Continue tamsulosin HTN Continue amlodipine Mood disorder/unspecified dementia Continue quetiapine, donepezil DNR/DNI DVT Prophylaxis: On warfarin Pt will require a hospitalization overnight for treatment of?acute UTI with sepsis concerning for pyelonephritis and severe urinary retention for the administration of IV antibiotics, close monitoring of urine output, and specialist consultation with Urology Quality Stroke Does the patient have a stroke diagnosis?: No VTE Prior VTE?: No VTE Risk Level:: Medical - moderate - high VTE Device Contraindication: Treatment Not Indicated VTE Drug Contraindication: N/A - Med Ordered
--- NOTE | 2024-03-06 12:43 | MHC.CM.PN ---
EMR REVIEWED. PER MD ROUNDS PATIENT NOT MEDICALLY CLEARED FOR DC. PLAN REMAINS RETURN TO STR AT [facility].
[2024-03-06] MEDS: cefTRIAXone sodium 1 GM in 0.9 % Sodium Chloride 50 ML IV (14:00)
[2024-03-06 15:12] VITALS: BP 129/60; PULSE 88; RESP 20; TEMP 36.6; O2SAT 93
[2024-03-06] MEDS: Warfarin Sodium 7.5 MG TABLET PO (17:52)
[2024-03-06] MEDS: Donepezil HCl 5 MG TABLET PO (19:17)
[2024-03-06 19:25] VITALS: BP 129/88; PULSE 90; RESP 18; TEMP 36.3; O2SAT 92
[2024-03-07 04:00] VITALS: BP 137/63; PULSE 84; RESP 18; TEMP 36.3; O2SAT 98
[2024-03-07 06:16] LABS: INTERNATIONAL NORM RATIO 1.8 (0.9-1.1)
[2024-03-07 07:32] VITALS: BP 163/84; PULSE 88; RESP 20; TEMP 36.6; O2SAT 94
[2024-03-07] MEDS: 0.9 % Sodium Chloride Flush 3 ML SYRINGE IVFLUSH (08:22)
[2024-03-07 08:23] VITALS: BP 163/84
[2024-03-07] MEDS: traZODone HCL 25 MG HALFTAB PO (08:23)
[2024-03-07] MEDS: amLODIPine Besylate 2.5 MG TABLET PO (08:23)
[2024-03-07] MEDS: QUEtiapine Fumarate 25 MG TABLET PO (08:23)
[2024-03-07] MEDS: Nitrofurantoin Monohyd/M-Cryst 100 MG CAPSULE PO (08:23)
[2024-03-07] MEDS: Tamsulosin HCL 0.4 MG CAPSULE 0.8 MG PO (08:23)
--- NOTE | 2024-03-07 09:18 | MHC.CM.PN ---
Per MD patient is medically cleared to return to STR at [facility]. /HCP notified and agreeable to plan. After STR patient will return home w/ /[employer] services. BLS transportation scheduled for 1pm. RN and aware.
[2024-03-07] MEDS: Fluticasone Propionate Nasal 16 GM SPRAY 1 SPRAY NOSTRIL-B (09:31)
--- NOTE | 2024-03-07 11:16 | P.DS_ITS ---
DS: Providers Provider Date of Service: 03/07/24 Date of admission: 03/04/24 15:32 Primary care physician: Adarsh Menon MD Consults: 03/04/24 15:42 Consult to Urology Routine Consulting Provider: Corine James Reason for consultation: Severe urinary retention, bilateral hydronephrosis, ?pyelo DS: Diagnosis Discharge Diagnosis (1) Enlarged prostate: Status: Acute (2) Acute urinary retention: Status: Acute (3) Hydronephrosis: Status: Acute (4) UTI (urinary tract infection): Status: Acute DS: Summary Hospital Course Hospital Course: Admission note Pt is a 78-year-old male with a PMH significant for?DVT and PE on warfarin, HTN, BPH, hx of urinary retention, and unspecified dementia who presents to the ED from [facility] for evaluation of abdominal pain with concern for urinary retention. Patient is alert and oriented to self only, and incapable of providing HPI which is instead obtained from chart and provider review, as well as /HCP by phone. Patient has apparently been self catheterizing for the past 7 years, though became encephalopathic at the beginning of this month secondary to a UTI. Since then has been too confused to self-cath and has had to rely on an chronic indwelling Saeed catheter. Patient apparently became juventino tated and pulled out his Saeed 2 days ago and since then likely has not urinated. Bladder scan at facility found 1775 mL and pt was sent out to ED for further evaluation. In the ED Saeed catheter was placed which drained over 2 L of urine. In the ED pt was tachycardic up to 113, tachypneic up to 22, hypertensive up to 152/81, with elevated temperature of 99.3 degrees, and hypoxic as low as 88% on RA. Labs were significant for leukocytosis of 11.0, INR subtherapeutic at 1.3, otherwise grossly unremarkable. Stable H& H. No significant electrolyte abnormalities. Renal and hepatic function WNL. UA positive for UTI. Tested negative for influenza RSV, COVID. CXR showed abnormal elevation of left diaphragm with left basilar atelectasis. CT?of abdomen and pelvis showed severe bladder distention with bilateral hydronephrosis of uncertain etiology, with right renal collecting system higher in attenuation than left, raising possibility of blood, pus, or other urothelial lesion. EKG demonstrated normal sinus rhythm with no significant ST elevations or depressions. Pt was treated with IVF and ceftriaxone. Pt will be admitted to the hospital for treatment and further evaluation of UTI with sepsis concerning for pyelonephritis. Hospital course # Sepsis 2/2 UTI Urine grew E.Coli >100k and Enterococcus 50-100k. Treated primarly with Ceftriaxone with good response as his mentation improved back to baseline. to be discharged on Nitrofurantoin to finish total of 10 days. # Severe urinary retention complicated with bilateral hydronephrosis CT of abdomen showing severe bladder distention with bilateral hydronephrosis with no kidney injury. happened Secondary to removal of indwelling Saeed catheter 2 days prior by the patient himself. In the ED Saeed inserted which drained over 2 L of urine. Urology consulted and recommended outpatient follow up. Increase Tamsulosin to 0.8 # Hx of DVT/PE INR subtherapeutic at 1.8 this morning. Will continue same dose of warfarin with INR goal of 2.0-3.0 Discharge Plan Continue Antibiotic as prescribed To follow with Urology as outpatient Increase Tamsulosin to 0.8 mg daily Time Attestation Discharge Coordination Time (in mins): 36 Quality: Safe Use of Opioids Does Pt have an Active Cancer Diagnosis on the Problem List?: No Quality: Stroke Does the patient have a stroke diagnosis?: No Physical Exam 2 Vital Signs: Vital Signs: Last Vital Signs Temp 97.8 F 03/07/24 07:32 Pulse 88 03/07/24 07:32 Resp 20 03/07/24 07:32 BP 163/84 H 03/07/24 08:23 Pulse Ox 94 03/07/24 07:32 O2 Del Method Room Air 03/07/24 07:32 O2 Flow Rate 92 03/04/24 18:27 BMI result Body Mass Index 25.6 Const: Other: Constitutional : Awake with stimulation, not in distress Neck : Normal inspection, Supple Cardiovascular : RRR, no JVP, no lower extremity edema Respiratory : good bilateral air entry, no crackles, wheezes or rhonchi Gastrointestinal: soft, lax, Normal bowel sounds, Non tender Skin : Warm, Dry, Saeed in place Neurological : Alert & oriented to self only, Non-verbal much DS: Data Data Completed and Pending Labs on day of discharge: Laboratory Results - last 24 hr 03/07/24 05:35 PT 22.0 H INR 1.8 H Preliminary micro results at discharge 03/04/24 Unknown Urine Culture - Preliminary Urine Catheterized - Saeed Catheter Escherichia coli Enterococcus faecalis 03/04/24 11:09 Blood Culture - Preliminary Blood - Venous No growth after 48 hours. 03/04/24 Unknown Blood Culture - Preliminary Blood - Venous No growth after [address] scan - abdomen: Radiologist's impression: ITS Impressions Abdomen/Pelvis CT 03/04/24 10:53 IMPRESSION: 1. Severe bladder distention. 2. Prostatomegaly. 3. Bilateral hydronephrosis of uncertain etiology. Recommend follow-up renal ultrasound after decompression of the urinary bladder. Right renal collecting system is higher in attenuation than left raising the possibility of blood, pus or other urothelial lesion. Further clinical evaluation required. 4. Left renal atrophy. Fleischner guidelines were followed. Chest X-Ray 03/04/24 10:54 IMPRESSION: Abnormal elevation of the left diaphragm with left basilar atelectasis. Discharge Plan Discharge Anticipated Discharge Date/Time: 03/07/24 11:12 Patient Disposition: Xfer [facility] Discharge Diagnosis: Urine infection Urine retention Hydronephrosis Referrals: [facility] [place] [Outside] - 1 Day (Complete short term rehab) Adarsh Menon MD [Primary Care Provider] - 1 Week Discharge Medications: New nitrofurantoin monohyd/m-cryst 100 mg Capsule 100 mg PO Q12H Qty: 14 0RF Continued quetiapine 25 mg Tablet 25 mg PO TID acetaminophen [Tylenol] 325 mg Tablet 650 mg PO Q4H PRN (Reason: Fever Or Pain) donepezil 5 mg tablet 5 mg PO BEDTIME trazodone 50 mg Tablet 25 mg PO DAILY warfarin 7.5 mg Tablet 7.5 mg PO DAILY@1800 amlodipine 2.5 mg tablet 2.5 mg PO DAILY magnesium hydroxide [Milk of Magnesia] 400 mg/5 mL Suspension 30 ml PO DAILY PRN (Reason: Constipation) bisacodyl 10 mg Suppository 10 mg HI DAILY PRN (Reason: Constipation) Fleet Enema 19-7 gram/118 mL Enema 118 ml HI DAILY PRN (Reason: Constipation) fluticasone propionate 50 mcg/actuation [place],Suspension 1 spray INTRANASAL BID Rx Instructions: administer into each nostril naloxone [Narcan] 4 mg/actuation [place],Non-Aerosol 4 mg INTRANASAL Q3M PRN (Reason: Opioid Overdose) Rx Instructions: spray 1 dose into ONE nostril; alternate nostrils w each dose until help arrives Changed tamsulosin 0.4 mg Capsule 0.8 mg PO DAILY Qty: 60 0RF Discharge Orders: Discharge Order (Routine); Ordered 03/07/24 Ordered By: Valerio Funez Diet: Advance to usual diet Activity on Discharge: As tolerated Stand Alone Forms: Patient Portal Discharge page Print Language: [place] Care Plan Goals: Read below Health Concerns: Read below Plan of Treatment: Read below Assessment: Continue Antibiotic as prescribed To follow with Urology as outpatient Increase Tamsulosin to 0.8 mg daily
--- NOTE | 2024-03-07 11:36 | P.CDIM_ITS ---
PROVIDER RESPONSE TEXT: To clarify, the appropriate diagnosis supported by the clinical indicators: Other (explain): less likely Pyelonephritis QUERY TEXT: PHYSICIAN'S DOCUMENTATION REQUEST Date of Query: 03/06/2024 08:56 AM EDT Patient Name: Trevor Haley Admit Date: 03/04/2024 Dear Valerio Funez, A review of the medical record indicates additional documentation may be needed. Please review below and update the documentation accordingly. Clinical Indicators: PN: Plan - Sepsis 2/2 UTI with possible pyelonephritis UA positive Continue Ceftriaxone, started 03/04/24. Clarify which of the following accurately represents the acuity of the Pyelonephritis: Possible options might include: Acute Acute on chronic Other (explain) Clinically unable to determine (explain) Thank you, Kimberly Pepepr, CCS, CDIS Use of terms such as suspected, likely, concern for, or probable (associated with a specific diagnosi s that is being evaluated, monitored, or treated as if it exists) are acceptable and can be coded in the inpatient se tting, when documented at the time of discharge. Please use your independent medical judgment in providing your response. THIS QUERY IS PART OF THE PERMANENT MEDICAL RECORD
== END 2024-03-07 12:58 | disposition skilled nursing facility (03) | DRG 872 ==
LOC: HO.ED 14:40 → HO.EDOVER 18:58 → HO.S3 19:38
PROVIDERS: Admitting Provider Student in an Organized Health Care Education/Training Program; Emergency Provider Emergency Medicine; PCP Internal Medicine; Visit Provider Student in an Organized Health Care Education/Training Program
DX: A41.9 Sepsis, unspecified organism (principal); N13.6 Pyonephrosis; N40.1 Benign prostatic hyperplasia with lower urinary tract symptoms; B95.2 Enterococcus as the cause of diseases classified elsewhere; R33.8 Other retention of urine; I10 Essential (primary) hypertension; F03.90 Unspecified dementia, unspecified severity, without behavioral disturbance, psychotic disturbance, mood disturbance, and anxiety; F39 Unspecified mood [affective] disorder; Z66 Do not resuscitate; R79.1 Abnormal coagulation profile; Z20.822 Contact with and (suspected) exposure to COVID-19; Z86.711 Personal history of pulmonary embolism; Z87.440 Personal history of urinary (tract) infections; Z79.01 Long term (current) use of anticoagulants; Z79.51 Long term (current) use of inhaled steroids; Z79.899 Other long term (current) drug therapy
CPT/HCPCS: 0241U; 36415; 71045; 74176; 80048; 80076; 81001; 83605; 83690; 83880; 84484; 85025; 85027; 85610; 87040; 87086; 87088; 87186; 93005; 99285; C1758; J0696

== ENCOUNTER → 2024-03-04 09:39 | Outpatient (BNV) | payer MEDICARE, MEDICAID, SELFPAY | PROVIDERS: Admitting Provider Student in an Organized Health Care Education/Training Program; Emergency Provider Emergency Medicine; PCP Internal Medicine; Visit Provider Internal Medicine | DX: N10 Acute pyelonephritis (principal) | CPT/HCPCS: 93010 ==

== ENCOUNTER → 2024-03-04 15:32 | Outpatient (BNV) | payer MEDICARE, MEDICAID, SELFPAY | PROVIDERS: Admitting Provider Student in an Organized Health Care Education/Training Program; Emergency Provider Emergency Medicine; PCP Internal Medicine; Visit Provider Urology | DX: N10 Acute pyelonephritis (principal); N13.30 Unspecified hydronephrosis; R33.8 Other retention of urine | CPT/HCPCS: 99222 ==

== ENCOUNTER → 2024-03-04 15:32 | Outpatient (BNV) | payer MEDICARE, MEDICAID, SELFPAY | PROVIDERS: Admitting Provider Student in an Organized Health Care Education/Training Program; Emergency Provider Emergency Medicine; PCP Internal Medicine; Visit Provider Student in an Organized Health Care Education/Training Program | DX: N40.0 Benign prostatic hyperplasia without lower urinary tract symptoms (principal); R33.8 Other retention of urine; N13.30 Unspecified hydronephrosis; N39.0 Urinary tract infection, site not specified | CPT/HCPCS: 99223; 99232; 99233; 99239 ==

== ENCOUNTER 2024-05-23 11:42 | Inpatient (IN) | payer MEDICARE, MEDICAID, SELFPAY ==
--- NOTE | ~2024-05-23 | XR_ITS ---
EXAMINATION: XR CHEST CLINICAL INFORMATION: Reason for Exam SOB COMPARISON: Chest radiograph 03/04/2024 TECHNIQUE: 2 views of the chest FINDINGS: Lines and tubes: None. Improved streaky left basilar opacity suggesting atelectasis. Persistent asymmetric elevation of the left hemidiaphragm. No pleural effusion. No pneumothorax. Unchanged cardiomediastinal silhouette. XR/XR chest 2V IMPRESSION: Improved streaky left basilar opacity suggesting atelectasis. Persistent asymmetric elevation of the left hemidiaphragm.
--- NOTE | ~2024-05-23 | XR_ITS ---
EXAMINATION: XR ABDOMEN KUB CLINICAL INDICATION: Constipation COMPARISON: CT from 03/04/2024 TECHNIQUE: AP view of the abdomen. FINDINGS: Large amount retained stool seen in the rectum. There is mild gaseous distention of the small bowel loops and stomach. XR/XR KUB IMPRESSION: Large amount of retained stool in the rectum.
--- NOTE | ~2024-05-23 | US_ITS ---
EXAMINATION: US VENOUS ULTRASOUND WITH DOPPLER LOWER EXTREMITY, BILATERAL CLINICAL INFORMATION: History of DVT not on blood thinners. Swelling. COMPARISON: None available. TECHNIQUE: Ultrasound of the deep veins is performed from the hip to the calf with compression sonography and color and pulse Doppler assessment. Spectral analysis with color-flow imaging is performed. Examination is limited by patient's altered mental status, agitation, and movement. FINDINGS: RIGHT: Thrombus is seen within the mid posterior duplicated femoral vein, distal femoral vein, popliteal vein and visualized calf veins are grossly patent.. There is no significant popliteal fossa cyst. LEFT: And the contralateral left side there does appear to be thrombus within the noncompressible profunda femoral vein but this does not appear to extend into the common femoral vein. The visualized common femoral vein, superficial femoral vein, popliteal vein, and the trifurcation region shows no evidence of deep venous thrombosis. There is no significant popliteal fossa cyst. US/US venous duplex LE BI IMPRESSION: Bilateral DVT as described above. This critical result was discussed with Dr Hamm at 06/12/2024 7:56 PM and it was ascertained that the content and urgency of the report was understood at the time of direct communication.
--- NOTE | ~2024-05-23 | CT_ITS ---
EXAMINATION: CT ANGIOGRAM OF THE CHEST WITH AND WITHOUT CONTRAST (CT PULMONARY ANGIOGRAM FOR PE) CLINICAL INFORMATION: Reason for Exam suspected PE, significant tachypnea mild hypoxia COMPARISON: None available. TECHNIQUE: Prior to contrast administration, noncontrast localization images were obtained. Subsequently, multidetector volumetric imaging was performed from the thoracic inlet to below the diaphragms following the administration of 65 mL Omnipaque 350 intravenous contrast. No contrast reaction reported Sagittal, coronal, and MIP oblique sagittal reformatted images were obtained on the CT workstation, uploaded to PACS, and reviewed. This CT examination was performed using dose optimization techniques as appropriate, variously including the following: *Automated exposure control *Adjustment of mA and/or kV according to patient size (this includes techniques or standardized protocols for targeted exams where dose is matched to indication/reason for exam; i.e. extremities or head) *Use of iterative reconstruction technique Total exam dose-length product 399 mGy-cm FINDINGS: QUALITY OF STUDY/CONTRAST BOLUS: Suboptimal. PULMONARY ARTERIES: Limited evaluation throughout the segmental and subsegmental vessels due to extensive respiratory motion artifact. However, there do appear to be filling defects in the proximal right middle and lower lobar pulmonary arteries consistent with pulmonary emboli. Multiple scattered subsegmental emboli bilaterally cannot be excluded in this setting. THORACIC AORTA: No aneurysm. LUNG: Significantly limited evaluation due to respiratory motion artifact. Left hemidiaphragm elevation is noted with adjacent basilar opacity favoring atelectasis. Scattered subsegmental atelectasis is suspected in the right upper lobe. PLEURA: No pneumothorax. Trace left pleural effusion. MEDIASTINUM: Thyroid gland is not adequately assessed due to motion artifact. No discrete mediastinal lymphadenopathy is seen. Cardiac size is within normal limits; no pericardial effusion. There is right ventricular prominence with some flattening of the interventricular septum suggesting at least mild right-sided heart strain. CORONARY ARTERY CALCIFICATION: Mild coronary artery calcifications are suspected, although not well assessed due to motion artifact. CHEST WALL/AXILLA: No axillary or internal mammary lymphadenopathy. OSSEOUS STRUCTURES: Multilevel degenerative changes in the spine. UPPER ABDOMEN: Limited evaluation due to motion artifact. Imaged portion of the left kidney appears atrophic. No reflux of contrast into the hepatic veins to suggest elevated right heart pressures. CT/CT angio chest PE protocol IMPRESSION: 1. Filling defects in the proximal right middle and lower lobar pulmonary arteries consistent with pulmonary emboli. Multiple additional scattered subsegmental emboli cannot be excluded in the setting of extensive respiratory motion artifact. 2. Right ventricular prominence with flattening of the interventricular septum suggesting at least mild right-sided heart strain. 3. Left hemidiaphragm elevation with adjacent basilar opacity favoring atelectasis. Trace left pleural effusion. VTE: positive. This critical result was discussed with Dr. Hamm on 06/14/2024 12:08 AM, and it was ascertained that the content and urgency of the report was understood at the time of direct communication.
--- NOTE | ~2024-05-23 | XR_ITS ---
EXAMINATION: XR ABDOMEN KUB CLINICAL INDICATION: Follow-up obstipation COMPARISON: CT scan abdomen and pelvis 03/04/2024, KUB 06/08/2024 TECHNIQUE: AP upright portable view of the abdomen. Patient is uncooperative and moving and hitting. FINDINGS: The patient's upper arm obscures the lateral side and upper pelvis on one of the views. The patient's pelvis is rotated on 2 views There is increased opacity at the left lung base consistent with atelectasis and/or pneumonia. The bowel gas pattern is normal with no evidence of ileus or obstruction. No excessive stool burden. Question of punctate calcification projected over the lower pole of the right kidney. Question of air within the bladder. Has the patient been recently catheterized? The bones are unremarkable. XR/XR KUB IMPRESSION: 1. No evidence of obstruction. 2. No excessive stool burden. 3. Question of punctate calcification projected over the lower pole of the right kidney. 4. Question of air within the bladder. Has the patient been recently catheterized?
--- NOTE | ~2024-05-23 | XR_ITS ---
EXAMINATION: PORTABLE CHEST 1 VIEW CLINICAL INFORMATION: hyperventilation, hypoxia. COMPARISON: 06/09/2024. TECHNIQUE: Portable frontal view of the chest was obtained. FINDINGS: Lungs are hypoexpanded with asymmetric elevation of the left hemidiaphragm again noted. Bibasilar markings likely reflect component of atelectasis on this rotated hypoexpanded film. No overt edema or pneumothorax. Cardiac silhouette within normal limits for size although rotated. Degenerative changes in the spine. XR/XR chest 1V IMPRESSION: Hypoexpanded with basilar markings more likely due to atelectasis.
--- NOTE | ~2024-05-23 | XR_ITS ---
EXAMINATION: XR ABDOMEN KUB CLINICAL INDICATION: Constipation COMPARISON: None available. TECHNIQUE: AP view of the abdomen. FINDINGS: Evaluation is limited with the upper and left aspect of the abdomen, from the [id number]. There is a large amount of retained stool seen within the rectal vault. Some gaseous distention is is seen in the more proximal small bowel loops and colon. XR/XR KUB IMPRESSION: Large amount of retained stool in the rectal vault.
[2024-05-23 11:52] VITALS: BP 123/78; BP 148/80; PULSE 76; PULSE 81; RESP 16; TEMP 36.7; O2SAT 92; O2SAT 94; BMI 29.8
--- NOTE | 2024-05-23 12:22 | ED_ITS ---
HPI - Altered Mental Status General Chief Complaint: Altered Mental Status Stated Complaint: AGGRESSIVE W/STAFF,REFUSES MEDS,ANGRY NOW PER EMS Time Seen by Provider: 05/23/24 12:16 Source: EMS Mode of arrival: EMS Limitations: altered mental status History of Present Illness ED Provider: Dr. Avery HPI narrative: patient brought in by ambulance from half-way for increased agitation and refusing to take his medications MD complaint: altered mental status and confusion Onset (ago): week(s) Related Data Home Medications ?Medication ?Instructions ?Recorded ?Confirmed acetaminophen 325 mg tablet 650 mg PO Q4H PRN Fever Or Pain 03/04/24 03/04/24 (Tylenol) amlodipine 2.5 mg tablet 2.5 mg PO DAILY 03/04/24 03/04/24 bisacodyl 10 mg rectal suppository 10 mg AK DAILY PRN Constipation 03/04/24 03/04/24 donepezil 5 mg tablet 5 mg PO BEDTIME 03/04/24 03/04/24 fluticasone propionate 50 1 spray intranasal BID 03/04/24 03/04/24 mcg/actuation nasal spray,suspension magnesium hydroxide 400 mg/5 mL 30 ml PO DAILY PRN Constipation 03/04/24 03/04/24 oral suspension (Milk of Magnesia) naloxone 4 mg/actuation nasal 4 mg intranasal Q3M PRN Opioid 03/04/24 03/04/24 spray (Narcan) Overdose quetiapine 25 mg tablet 25 mg PO TID 03/04/24 03/04/24 sodium phosphates 19 gram-7 118 ml AK DAILY PRN Constipation 03/04/24 03/04/24 gram/118 mL enema (Fleet Enema) trazodone 50 mg tablet 25 mg PO DAILY 03/04/24 03/04/24 warfarin 7.5 mg tablet 7.5 mg PO DAILY@1800 03/04/24 03/04/24 Previous Rx's ?Medication ?Instructions ?Recorded nitrofurantoin 100 mg PO Q12H #14 caps 03/07/24 monohydrate/macrocrystals 100 mg capsule tamsulosin 0.4 mg capsule 0.8 mg (2 x 0.4 mg) PO DAILY #60 03/07/24 caps Allergies Allergy/AdvReac Type Severity Reaction Status Date / Time Penicillins [PCN] Allergy Unknown Unknown Verified 05/23/24 11:55 Review of Systems 2 Review of Systems: Yes Unobtainable due to mental status Neurologic: Denies Sensory deficit (Neuro) [facility] Past Medical History Medical History Enlarged prostate Dementia Pulmonary embolus DVT (deep venous thrombosis) Urinary retention HTN (hypertension) BPH (benign prostatic hyperplasia) Social History Social History Household Members: Caregiver Housing: [facility] Comment: sitter at bedside Patient Tobacco Use Status: Tobacco use Unknown Smoked in Last 30 Days: No Use of substances other than those prescribed or required for medical reasons: No Advance Directives: Yes Advance Directives on File: Yes Advance Directives Date on File: 03/08/24 Do you have a plan to hurt others: No Plan Physical Exam ED Vital Signs: Vital Signs - 24 hr 05/23/24 11:52 Temperature 98.1 F Pulse Rate 76 Respiratory Rate 16 Blood Pressure 123/78 Pulse Oximetry 92 Oxygen Delivery Method Room Air BMI result Body Mass Index 29.8 Const Other: elderly thin male agitated and slightly agressive with staff Nutritional Appearance: average body habitus Orientation/consciousness: oriented to person Limitations: altered mental status HENMT Head: Yes normal to inspection Ears: external ears normal General nose exam: Normal external nose present Mouth: Normal oral and palatal mucosa present and oropharynx normal Throat: Yes posterior oropharynx normal Eyes General: appearance normal, both eyes and all related structures Neck Neck: Yes normal visual inspection Chest Chest palpation & inspection: normal inspection of the chest Resp Auscultation: clear to auscultation bilaterally Cardio Jugular venous distension: no JVD Rate: regular rate Rhythm: regular rhythm Heart sounds: S1 normal heart sound present and S2 normal heart sound present GI Inspection: Yes normal to inspection Palpation (GI): Soft to palpation, nontender and No hepatosplenomegaly present Auscultation: normal bowel sounds General: Yes no CVA tenderness Back/Spine/Pelvis Back: no CVA tenderness Skin General skin exam: no rashes or lesions noted Neuro General: oriented to person Cranial nerves: Yes CN's II-XII intact bilaterally Motor exam (neuro): 5/5 motor strength present throughout Sensory Exam: No Sensory deficit (Neuro) Extrem General: Yes normal to inspection Psych Other: altered mental status, aggressive Course Reevaluation(s) Reevaluation #1: PHysician observation: patient evaluated by Care team will need to be [place]et[place] Psych evaluation and likely admission will place in observation because time is needed to see if he improves or will need admission. Time: 17:01 Reevaluation #2: Evaluation for fall, patient with witnessed fall no head trauma, no obvious injury, stood the patient up with no pain Time: 17:02 Medications Administered Discontinued Medications Generic Name Dose Route Start Last Admin Trade Name Farheen PRN Reason Stop Dose Admin Cephalexin HCl 500 mg 05/23/24 14:53 05/23/24 15:07 Cephalexin 500 Mg Capsule PO 05/23/24 14:54 500 mg ONCE ONE Administration Diphenhydramine HCl 25 mg 05/23/24 12:24 05/23/24 12:37 Diphenhydramine Hcl 50 Mg/Ml Vial IM 05/23/24 12:25 25 mg ONCE ONE Administration Haloperidol Lactate 2.5 mg 05/23/24 12:24 05/23/24 12:37 Haloperidol Lactate 5 Mg/Ml Vial IM 05/23/24 12:25 2.5 mg STAT STA Administration Medical Decision Making Differential Diagnosis Differential Diagnoses: The differential diagnosis associated with the presentation includes (dementia, agitation, UTI) Admission/Observation Consideration of admission/observation: Escalation of care including admission/observation considered (upon arrival patient considered for admission) Consult Healthcare Provider Management of the patient was discussed with: Behavioral Health Provider Lab Data 05/23/24 12:51 05/23/24 12:51 Labs: Lab Results 05/23/24 05/23/24 Range/Units 12:42 12:51 WBC 9.5 (4.8-10.8) X10*3/uL RBC 4.43 L D (4.60-5.80) X10*6/uL Hgb 15.3 D (14.0-18.0) g/dl Hct 45.2 (42.0-52.0) % MCV 102.0 H (80.0-98.0) fL MCH 34.5 H (27.0-33.0) pg MCHC 33.8 (31.0-36.0) g/dl RDW 12.9 (11.0-16.0) % Plt Count 268 (160-400) X10*3/uL MPV 9.0 L (9.4-12.4) fL Immature Gran % (Auto) 0.3 (0.0-0.4) % Neut % (Auto) 54.2 (45-73) % Lymph % (Auto) 33.5 (20-40) % [place] % (Auto) 7.6 (2-11) % Eos % (Auto) 4.1 H (0-4) % Baso % (Auto) 0.3 (0-2) % Lymph # (Auto) 3.2 (1.2-4.9) X10*3/uL [place] # (Auto) 0.7 (0.1-1.2) X10*3/uL Eos # (Auto) 0.4 (0.0-0.4) X10*3/uL Baso # (Auto) 0.0 (0.0-0.2) X10*3/uL Abs Immat Gran (auto) 0.03 (0.00-0.03) X10*3/uL Absolute Neuts (auto) 5.1 (2.0-8.3) x10*3/uL Absolute Nucleated RBC 0.000 (0.0-0.012) X10*3/uL Nucleated RBC % (auto) 0.0 (0.0-0.2) /100WBC Sodium 142 (135-145) mmol/L Potassium 4.3 (3.3-5.1) mmol/L Chloride 109 H (96-108) mmol/L Carbon Dioxide 26 (22-29) mmol/L Anion Gap 11 L (12-20) BUN 16 (9-16) mg/dL Creatinine 1.38 (0.5-1.4) mg/dL Estim Creat Clear Calc 53.0 Estimated GFR 50 Random Glucose 95 (60-115) mg/dL Calcium 8.9 D (8.4-10.2) mg/dL Urine Color Yellow Urine Appearance Clear Urine pH 7.0 (5.0-9.0) Ur Specific [place] 1.015 (1.005-1.025) Urine Protein Trace (Neg-Trace) mg/dL Urine Glucose (UA) Negative (Negative) mg/dL Urine Ketones Negative (Negative) mg/dL Urine Blood Negative (Negative) Urine Nitrite Negative (Negative) Ur Leukocyte Esterase Large (3+) H (Negative) Urine RBC 0-2 (0-2) /HPF Urine WBC >50 H (0-5) /HPF Ur Squamous Epith Cells 0-2 (0-2) /HPF Urine Bacteria None Seen (None Seen) Hyaline Casts 0-2 (0-2) /LPF Independent Historian Clinical information obtained from an independent historian. History obtained from or confirmed by: EMS and Other (daughter) Tests considered The following testing was considered but not selected: CT of brain considered but patient with long history of dementia Chronic Conditions Patient?s care impacted by: Other (dementia) Discharge Plan Discharge Clinical Impression: Altered mental status, Dementia, UTI (urinary tract infection) Patient Disposition: Still a Patient Prescriptions: No Action quetiapine 25 mg Tablet 25 mg PO TID acetaminophen [Tylenol] 325 mg Tablet 650 mg PO Q4H PRN (Reason: Fever Or Pain) donepezil 5 mg tablet 5 mg PO BEDTIME trazodone 50 mg Tablet 25 mg PO DAILY warfarin 7.5 mg Tablet 7.5 mg PO DAILY@1800 amlodipine 2.5 mg tablet 2.5 mg PO DAILY magnesium hydroxide [Milk of Magnesia] 400 mg/5 mL Suspension 30 ml PO DAILY PRN (Reason: Constipation) bisacodyl 10 mg Suppository 10 mg AK DAILY PRN (Reason: Constipation) Fleet Enema 19-7 gram/118 mL Enema 118 ml AK DAILY PRN (Reason: Constipation) fluticasone propionate 50 mcg/actuation [place],Suspension 1 spray INTRANASAL BID Rx Instructions: administer into each nostril naloxone [Narcan] 4 mg/actuation [place],Non-Aerosol 4 mg INTRANASAL Q3M PRN (Reason: Opioid Overdose) Rx Instructions: spray 1 dose into ONE nostril; alternate nostrils w each dose until help arrives nitrofurantoin monohyd/m-cryst 100 mg Capsule 100 mg PO Q12H Qty: 14 0RF tamsulosin 0.4 mg Capsule 0.8 mg PO DAILY Qty: 60 0RF Print Language: Armenian
[2024-05-23] MEDS: diphenhydrAMINE HCL 50 MG/ML VIAL 25 MG IM (12:37)
[2024-05-23] MEDS: Haloperidol Lactate 5 MG/ML VIAL 2.5 MG IM (12:37)
[2024-05-23 12:48] LABS: Appearance Urine Clear; Color Urine Yellow; Glucose Urine UA Negative (Negative); Leukocyte Esterase Urine Large (3+) (Negative); Nitrite Urine Negative (Negative); Specific Gravity - Urine 1.015 (1.005-1.025); UMIC TRIGGER UACC YES; Urine Blood Negative (Negative); Urine Ketones Negative (Negative); Urine Protein Trace mg/dL (Neg-Trace)
[2024-05-23 12:54] LABS: MANUAL DIFF FLAG NO
[2024-05-23 12:56] LABS: Basophils Percent Auto 0.3 % (0-2); Eosinophils Absolute Auto 0.4 X10*3/uL (0.0-0.4); Eosinophils Percent Auto 4.1 % (0-4); Hematocrit 45.2 % (42.0-52.0); Hemoglobin 15.3 g/dl (14.0-18.0); Imm Gran Abs Auto 0.03 X10*3/uL (0.00-0.03); Imm Gran Pct Auto 0.3 % (0.0-0.4); Lymphocytes Absolute Auto 3.2 X10*3/uL (1.2-4.9); Lymphocytes Percent Auto 33.5 % (20-40); Mean Corpuscular HGB Conc 33.8 g/dl (31.0-36.0); Mean Corpuscular Hemoglobin 34.5 pg (27.0-33.0); Monocytes Absolute Auto 0.7 X10*3/uL (0.1-1.2); Monocytes Percent Auto 7.6 % (2-11); Neutrophils Absolute Auto 5.1 x10*3/uL (2.0-8.3); Neutrophils Percent Auto 54.2 % (45-73); Platelet Count 268 X10*3/uL (160-400); Red Blood Count 4.43 X10*6/uL (4.60-5.80); Red Cell Distribution Width 12.9 % (11.0-16.0); White Blood Count 9.5 X10*3/uL (4.8-10.8)
--- OUTSIDE RECORDS SUMMARY | 2024-05-23 13:04 | XMS_ITS | Continuity of Care Document ---
Author Organization [facility] lt Address [address] [place] [address]- Care Team Providers Care Energy Analyst Name Role Phone Adarsh Menon MD Primary Care Physician [phone] Encounter [facility] Date(s): 04/07/24 - 05/07/24 [facility] Adult [address] [place] [address]- Allergies, Adverse Reactions, Alerts Substance Reaction Severity Status penicillin Unknown Active Immunizations Given and Recorded Vaccine Date Status Refusal Reason SARS-CoV-2(COVID-19)mRNA-LNP vac([id number]) 09/03/23 Recorded influenza virus vaccine, inactivated 08/20/23 Virgil rded influenza virus vaccine, inactivated 08/20/22 Virgil rded influenza virus vaccine, inactivated 09/04/21 Virgil rded influenza virus vaccine, inactivated 08/12/20 Virgil rded influenza virus vaccine, inactivated 09/04/19 Virgil rded influenza virus vaccine, inactivated 09/04/19 Virgil rded influenza virus vaccine, inactivated 09/24/18 Virgil rded pneumococcal 23-valent vaccine 10/19/22 Given [id number] 12y+ bivalent booster vax 08/25/22 Recorded SARS-CoV-2 (COVID-19) mRNA BNT-162b2 vac 09/11/21 Recorded [...] Electronically, [facility] [address] [place] [address], [place], Partialfill upon patient request, 175, cm, 12/07/23 9:27:0... Start Date: 12/07/23 Status: Ordered Aricept 5 mg oral tablet 5 mg, 1, tablet, By Mouth, Daily at bedtime, # 90 tablet, Refills 1, Tot. Refills 1, Maintenance, 12/07/23 9:46:00 EST, Route to Pharmacy Electronically, [facility] [address] [place] [address], [place], Partial fill upon patient request if the prescript... Start Date: 12/07/23 Status: Ordered Flonase 50 mcg/inh nasal spray 1 sprays, Nares, Both, 2 times a day, 0 Refills, Maintenance, 03/23/19 9:41:46 EDT, [place] Start Date: 03/23/19 Status: Ordered Pesonal Care Wipe Prevail Soft pack 48count Pesonal Care Wipe Prevail Soft pack 48count, See Instructions, # 4 pack/packet, Refills 11, Tot. Refills 11, Maintenance, 4 packs per month (48 count) per month X 12 months, 04/06/24 10:42:00 EDT, Supply Start Date: 04/06/24 Status: Ordered SEROquel 25 mg oral tablet 25 mg, 1, tablet, By Mouth, 3 times a day, # 270 capsule, Refills 0, Tot. Refills 0, Maintenance, 04/20/24 16:38:00 EDT, Route to Pharmacy Electronically, [facility] [address] [place] [address], [place], Partial fill upon patient request if the prescrip... Start Date: 04/20/24 Status: Ordered tamsulosin 0.4 mg oral capsule 0.8 mg, 2, capsule, By Mouth, Daily, # 180 capsule, Refills 1, Tot. Refills 1, Maintenance, 03/30/24 13:12:00 EDT, Route to Pharmacy Electronically, [facility] [address] [place] [address], [place], Partial fill upon patient request if the prescription i... Start Date: 03/30/24 Stop Date: 04/29/24 Status: Ordered traZODone 50 mg oral tablet 25 mg, 0.5, tablet, By Mouth, Daily at bedtime, # 45 tablet, Refills 1, Tot. Refills 1, Maintenance, 03/30/24 13:12:00 EDT, Route to Pharmacy Electronically, [facility] [address] [place] [address], [place], Partial fill upon patient request if the presc... Start Date: 03/30/24 Status: Ordered traZODone 50 mg oral tablet [...] Tablet, [facility] [address] [place] [address], [place], 175, cm, 12/07/23 9:27:00 EST, Height, 75, kg, ... 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
--- OUTSIDE RECORDS SUMMARY | 2024-05-23 13:04 | XMS_ITS | Continuity of Care Document ---
Author Organization [facility] Nestor lt Address [address] [place] [address]- Care Team Providers Care Automotive Window Tinter Name Role Phone Adarsh Menon MD Primary Care Physician Encounter [facility] [place] Date(s): 03/30/24 - 04/29/24 [facility] Adult [address] [place] [address]- Attending Physician: Asa Jean Baptiste Admitting Physician: Markel, Asa Referring Physician: Matt ISSA, Roberta Referring Physician: Admtr, Asa Allergies, Adverse Reactions, Alerts Substance Reaction Severity Status penicillin Unknown Active Immunizations Given and Recorded Vaccine Date Status Refusal Reason SARS-CoV-2(COVID-19)mRNA-LNP vac([id number]) 09/03/23 Recorded influenza virus vaccine, inactivated 08/20/23 Virgil rded influenza virus vaccine, inactivated 08/20/22 Virgil rded influenza virus vaccine, inactivated 09/04/21 Virgil rded influenza virus vaccine, inactivated 08/12/20 Virgil rded influenza virus vaccine, inactivated 09/04/19 Virgil rded influenza virus vaccine, inactivated 09/04/19 Virgil rded influenza virus vaccine, inactivated 09/24/18 Virgil rded pneumococcal 23-valent vaccine 10/19/22 Given [id number] 12y+ bivalent booster vax 08/25/22 Recorded SARS-CoV-2 [...] to Pharmacy Electronically, [facility] [address] [place] [address], [place], Partialfill upon patient request, 175, cm, 12/07/23 9:27:0... Start Date: 12/07/23 Status: Ordered Aricept 5 mg oral tablet 5 mg, 1, tablet, By Mouth, Daily at bedtime, # 90 tablet, Refills 1, Tot. Refills 1, Maintenance, 12/07/23 9:46:00 EST, Route to Pharmacy Electronically, [facility] [address] [place] [address], [place], Partial fill upon patient request if the prescript... Start Date: 12/07/23 Status: Ordered Flonase 50 mcg/inh nasal spray 1 sprays, Nares, Both, 2 times a day, 0 Refills, Maintenance, 03/23/19 9:41:46 EDT, [place] Start Date: 03/23/19 Status: Ordered Pesonal Care [...] 04/20/24 16:38:00 EDT, Route to Pharmacy Electronically, [facility] [address] [place] [address], Partial fill upon patient request if the prescrip... Start Date: 04/20/24 Status: Ordered tamsulosin 0.4 mg oral capsule 0.8 mg, 2, capsule, By Mouth, Daily, # 180 capsule, Refills 1, Tot. Refills 1, Maintenance, 03/30/24 13:12:00 EDT, Route to Pharmacy Electronically, [facility] - [place], [place], Partial fill upon patient request if the prescription i... Start Date: 03/30/24 Stop Date: 04/29/24 Status: Ordered traZODone 50 mg oral tablet 25 mg, 0.5, tablet, By Mouth, Daily at bedtime, # 45 tablet, Refills 1, Tot. Refills 1, Maintenance, 03/30/24 13:12:00 EDT, Route to Pharmacy Electronically, [facility] [address] [place] [address], [place], Partial fill upon patient request if the [...] 9:46:00 EST, Tablet, [facility] [place] [address] [place] [address], [place], 175, cm, 12/07/23 9:27:00 EST, Height, 75, kg, ... 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 Active Dementia 3 Confirmed Active Forgetfulness Confirmed Active [place] (hard of hearing) Confirmed Active History of [...] Team Personnel Name: Adarsh Menon MD Position: S Physician - Primary Care Member Role: PCP Address: Address: [address] [place] [id number]- Name: Becky Marie PharmD Position: [facility] Associate Professional Member Role: Lifetime Consulting Provider Address: Address: [address] [place] [address] [place] [address]- Name: Ellen Short RN Position: [facility] RN Supv Member Role: Primary Care Nurse Care Team Related Persons Name: JORGE CHANDRA Address: [place] [address] Name: PAUL CHANDRA Address: home [address] [place] [id number]
--- OUTSIDE RECORDS SUMMARY | 2024-05-23 13:04 | XMS_ITS | Continuity of Care Document ---
Author Organization [facility] Nestor lt Address [address] [place] [address]- Care Team Providers Care Manager Child Name Role Phone Adarsh Menon MD Primary Care Physician [phone] Encounter [facility] [place] Date(s): 03/27/24 - 04/26/24 [facility] Adult [address] [place] [address]- Allergies, Adverse Reactions, Alerts Substance Reaction Severity Status penicillin Unknown Active Immunizations Given and Recorded Vaccine Date Status Refusal Reason SARS-CoV-2(COVID-19)mRNA-LNP vac([id number]) 09/03/23 Recorded influenza virus vaccine, inactivated 08/20/23 Virgil rded influenza virus vaccine, inactivated 08/20/22 Virgil rded influenza virus vaccine, inactivated 09/04/21 Virgil rded influenza virus vaccine, inactivated 08/12/20 Virgil rded influenza virus vaccine, inactivated 09/04/19 Virgil rded influenza virus vaccine, inactivated 09/04/19 Virgil rded influenza virus vaccine, inactivated 09/24/18 Virgil rded pneumococcal 23-valent vaccine 10/19/22 Given [id number] 12y+ bivalent booster vax 08/25/22 Recorded SARS-CoV-2 [...] 12/07/23 9:46:00 EST, Route to Pharmacy Electronically, [facility] [address] [place] [address], [place], Partialfill upon patient request, 175, cm, 12/07/23 9:27:0... Start Date: 12/07/23 Status: Ordered Aricept 5 mg oral tablet 5 mg, 1, tablet, By Mouth, Daily at bedtime, # 90 tablet, Refills 1, Tot. Refills 1, Maintenance, 12/07/23 9:46:00 EST, Route to Pharmacy Electronically, [facility] [address] [place] [address], [place], Partial fill upon patient request if the prescript... Start Date: 12/07/23 Status: Ordered Flonase 50 mcg/inh nasal spray 1 sprays, Nares, Both, 2 times a day, 0 Refills, Maintenance, 03/23/19 9:41:46 EDT, [place] Start Date: 03/23/19 Status: Ordered Pesonal Care [...] 04/20/24 16:38:00 EDT, Route to Pharmacy Electronically, [facility] [address] [place] [address], [place], Partial fill upon patient request if the prescrip... Start Date: 04/20/24 Status: Ordered tamsulosin 0.4 mg oral capsule 0.8 mg, 2, capsule, By Mouth, Daily, # 180 capsule, Refills 1, Tot. Refills 1, Maintenance, 03/30/24 13:12:00 EDT, Route to Pharmacy Electronically, [facility] [address] [place] [address], [place], Partial fill upon patient request if the prescription i... Start Date: 03/30/24 Stop Date: 04/29/24 Status: Ordered traZODone 50 mg oral tablet 25 mg, 0.5, tablet, By Mouth, Daily at bedtime, # 45 tablet, Refills 1, Tot. Refills 1, Maintenance, 03/30/24 13:12:00 EDT, Route to Pharmacy Electronically, [facility] [address] [place] [address], [place], Partial fill upon patient request if [...] 5 Refills, Maintenance, 12/07/23 9:46:00 EST, Tablet, [facility] [address] [place] [address], [place], 175, cm, 12/07/23 9:27:00 EST, Height, 75, kg, ... 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 Active Dementia 3 Confirmed Active Forgetfulness Confirmed Active [place] (hard of hearing) Confirmed Active History of [...] Primary Care Member Role: PCP Address: Address: [address] [place] [address]- [place] Name: Becky Marie PharmD Position: [facility] Associate Professional Member Role: Lifetime Consulting Provider Address: Address: [address] [place] [address] [place] [address]- [place] Name: Deja RAMIREZ, Ellen Position: [facility] RN Supv Member Role: Primary Care Nurse Care Team Related Persons Name: JORGE CHANDRA Address: [place] [address] Name: PAUL CHANDRA Address: [address] [address]
--- OUTSIDE RECORDS SUMMARY | 2024-05-23 13:05 | XMS_ITS | Continuity of Care Document ---
Author Organization [facility] ter Address [address] [place] [address]- Care Team Providers Care Correspondence Specialist Name Role Phone Adarsh Menon MD Primary Care Physician Encounter [facility] [place] Date(s): 02/19/24 - 03/20/[address] [id number] Attending Physician: Not on Staff, Attending MD Admitting Physician: Not on Staff, Admitting MD Referring Physician: Not on Staff, Referring MD Allergies, Adverse Reactions, Alerts Substance Reaction Severity Status penicillin Unknown Active Immunizations Given and Recorded Vaccine Date Status Refusal Reason pneumococcal 23-valent vaccine 10/19/22 Given [id number] 12y+ bivalent booster vax 08/25/22 Recorded influenza [...] 12/07/23 9:46:00 EST, Route to Pharmacy Electronically, [facility] [address] [facility], [place], Partialfill upon patient request, 175, cm, 12/07/23 9:27:0... Start Date: 12/07/23 Status: Ordered Aricept 5 mg oral tablet 5 mg, 1, tablet, By Mouth, Daily at bedtime, # 90 tablet, Refills 1, Tot. Refills 1, Maintenance, 12/07/23 9:46:00 EST, Route to Pharmacy Electronically, [facility] [address] [place] [address], [place], Partial fill upon patient request if the prescript... Start Date: 12/07/23 Status: Ordered Flonase 50 mcg/inh nasal spray 1 sprays, Nares, Both, 2 times a day, 0 Refills, Maintenance, 03/23/19 9:41:46 EDT, [place] Start Date: 03/23/19 Status: Ordered SEROquel 25 mg oral tablet 25 mg, 1, tablet, By Mouth, 3 times a day, # 30 capsule, Refills 0, Tot. Refills 0, Maintenance, 01/27/24 11:27:00 EDT, Route to Pharmacy Electronically, [facility] [address] [place] [address], [place], Partial fill upon patient request if the prescript... Start Date: 01/27/24 Status: Ordered tamsulosin 0.4 mg oral capsule 0.4 mg, By Mouth, Daily, # 30 capsule, Refills 0, Tot. Refills 0, Maintenance, 02/19/24 8:03:00 EDT, Route to Pharmacy Electronically, [facility] [address] [place] [address], [place], Partial fill uponpatient request if the [...] EST, Tablet, [facility] - [place], [place], 175, cm, 12/07/23 9:27:00 EST, Height, 75, kg, 2... 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 Active Dementia 3 Confirmed Active Forgetfulness Confirmed Active [place] (hard of hearing) Confirmed Active History of [...] Team Personnel Name: Adarsh Menon MD Position: [facility] Physician - Primary Care Member Role: PCP Address: Address: [address] [place] [address]- [place] Name: Becky Marie PharmD Position: [facility] Associate Professional Member Role: Lifetime Consulting Provider Address: Address: [address] [place] [address] [place] [address]- Name: Ellen Short RN Position: [facility] RN Supv Member Role: Primary Care Nurse Care Team Related Persons Name: JORGE CHANDRA Address: [place] [address] Name: PAUL CHANDRA Address: [address] [address]
--- OUTSIDE RECORDS SUMMARY | 2024-05-23 13:05 | XMS_ITS | Continuity of Care Document ---
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 06:12:00) Pulse Rate: 86 bpm (05/22/24 06:12:00) Respiratory Rate: 18 br/min (05/22/24 06:12:00) Systolic Blood Pressure: 138 mm Hg (05/22/24 10:24:00) Diastolic Blood Pressure: 58 mm Hg (05/22/24 10:24:00) Blood pressure sites: Arm, right (05/22/24 06:12:00) Mean Arterial Pressure: 108 mm Hg (05/22/24 06:12:00) Pulse Pressure: 88 mm Hg (05/22/24 06:12:00) Oxygen Saturation: 95 % (05/22/24 06:12:00) Mode of Delivery (Oxygen): Room air (05/22/24 06:12:00) Early Warning Score: 4 (05/22/24 10:24:43) ? . Physical Exam sleeping comfortably, wakes to voice; no??acute distress?? confused??but??calm, redirectable,??no restraints or sitter for past 3 days at least?? no epistaxis, MMM VSS?? Resp non labored on r/a w/o stridor or wheezing or accessory muscle use Nielsen draining clear yellow urine w/o bleeding Ext warm?? No new neuro deficits appreciated; no seizure activity or asterixis?? Follow-Up Appointments Added Follow Up ?Time Frame ?Comments Do not take naprosyn, Aleve, Motrin, ibuprofen or other similar medications. OK to take Tylenol, aka acetaminophen. Please followup with all of your usual doctors. Return if you have bleeding, fever, cannot eat/drink, or have any other worrisome symptoms Please return if you have fever, chest pain, trouble breathing, neck pain, vision changes, or any other worrisome symptoms. Paul Perez?2 to 3 weeks?Call for Urology followup Coleman Lerma?1 to 2 weeks Post Discharge Care ?? Please check CBC, BMP, LFTs and depakote level by 05/25/24, as he was newly started on depakote 250mg po BID (adjust as needed based on labs and clinical findings) Please follow INRs as usual Home Health Face to Face ^HomeHealthFTF Results Microbiology ?? COVID-19 (Novel Coronavirus), Rapid PCR?? Completed?? Source: Nasal Body Site: Nose Collected Dt/Tm: 05/16/2024 17:38 Last Updated Dt/Tm: 05/17/2024 00:33 ? Test Name Test Result Date/Time WBC 7.1 k/mm3 05/22/2024 04:20 EDT Hgb 14.8 Gm/dL 05/22/2024 04:20 EDT Platelet Count 249 k/mm3 05/22/2024 04:20 EDT INR 2.4 05/22/2024 04:20 EDT Sodium 142 mmol/L 05/21/2024 01:06 EDT Potassium 3.9 mmol/L 05/21/2024 01:06 EDT Creatinine-Blood 1.33 mg/dL 05/21/2024 01:06 EDT Calcium 8.6 mg/dL 05/21/2024 08:59 EDT Calcium, Ionized pH Corrected 1.24 mmol/L 05/21/2024 08:59 EDT Urine Culture Isolate 1 Escherichia coli 05/17/2024 05:18 EDT ?? 48_ minutes spent on discharge * Event Display: Discharge/Transfer Note Hospital Authored Date: * Asha Corcoran RN: PERFORM, SIGN, VERIFY Event Display: Case Management Discharge Plan Authored Date: Patient: CHLOE CHANDRA Age: 78 years Sex: Male : 1945 Associated Diagnoses: None Author: Asha Corcoran RN Discharge Plan Case Management Discharge Plan : Case Management Discharge Plan Data 05/22/2024 10:42 EDT Discharge Level of Care at Discharge [facility] Discharge Nursing Homes/Rehab Facilities [facility] Discharge Transportation Arranged [facility] [address] [facility] [id number] [phone] Mode of Transportation Arranged Ambulance Name of Agency #1 [facility] Agency Contract Admin # Service Comments #1 You are returning to [place] today via ambulance. Your Paul is aware. 05/19/2024 7:56 EDT Discharge Nursing Homes/Rehab Facilities [facility] * Desmond RAMIREZ, Mar: PERFORM Event Display: Patient Education/Instruction Authored Date: [id number] Inpatient Adult Discharge Instructions. [address] [address] Name: CHLOE CHANDRA : 1945?? Visit: 05/18/2024 13:23?? Current Date: 05/22/2024 13:57 ?? Account: [id number]?? Inpatient Adult Discharge Instructions We would like to thank you for allowing us to assist you with your healthcare needs. The following includes patient education materials and information regarding your injury/illness. Our entire staffstrives to provide an excellent experience for our patients and their families. PLEASE ENSURE YOU FOLLOW-UP PER THE INSTRUCTIONS BELOW! ?? YOUR OPINION IS IMPORTANT TO US! Please complete the survey you may receive by mail or email. Your feedback will be used to make improvements to the healthcare experiences of our patients and their families. Surveys are administered by [employer] ?? If further treatment with your primary care physician or another doctor is recommended, it is important for you to keep the appointment. Call your primary care physician or return to the Emergency Department immediately if your condition worsens, fails to improve, or new symptoms develop. If you need to find a doctor, you can call [facility] [employer] [facility] for a referral at [phone] or toll free at [phone]) or log in to [email or web address].. ?? [facility], in keeping with [facility] guidance, no longer requires face masks for staff, patientsor visitors in most situations. Similiar to time spent indoors at other locations, there is the chance that you were exposed to repiratory viruses during your time with us (such as flu or COVID-19). If you develop symptoms concerning for a viral respiratory infection, please seek testing (and treatment if indicated) from your medical provider or home test kit. ?? You can view and manage your care through the patient portal or by using a health care naveen of your choosing. [employer] is a website that allows you to securely view your medical information including your hospital discharge summary, office visit summaries, medications and follow-up visits. You can also request appointments, renew medications, and request access to your medical information using a health care naveen of your choosing, or just ask a question. You can enroll at [email or web address] or register during your next office visit. You have been discharged from [facility], Patient Care Unit: S64??. If you have any questions regarding these instructions, including results of studies pending, afteryou leave, please call us and we will be happy to assist you 07/06. [facility] Your Care Team Attending Physician Freda Fan MD?? Consulting Providers Freda Fan MD?? Discharging Providers Freda Fan MD Reason for Your Visit bib ems from snf. attempting to elope from dementia unit. aggressive with staff?? 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 You may have had other tests and procedures not included in this list. Please discuss all test results with your provider. ALT Amphetamine Urine Screen AST Barbiturate Urine Screen Basic Metabolic Panel Benzodiazepine Urine Screen BUN Calcium Level Cannabinoid Urine Screen CBC CBC w/ Differential Cocaine Urine Screen COVID-19 (Novel Coronavirus), Rapid PCR Creatinine Electrolytes Ethanol Level HOLD GEL TUBE HOLD LAVENDER TUBE INR Ionized Calcium Opiate Screen Urine TSH with T4 Reflex (Adults Only) Urinalysis w/hold for Urine Culture Urine Culture Result Urine Culture, Routine CT Head/Brain W/O Contrast Add On Lab Order?? INR?? Primary Care Provider Coleman Lerma MD? Advance Directive Health Care Proxy on File Yes - Health Care Proxy Yes - MOLST Discharge Vitals Temperature: 97.8 DegF Pulse Rate: 86 bpm Respiratory Rate: 18 br/min Systolic Blood Pressure: 138 mm Hg Diastolic Blood Pressure: 58 mm Hg Oxygen Saturation: 95 % Studies Pending All studies ordered during this hospital stay have been completed unless listed below. Please discuss all pending results with your provider listed above in these instructions. ?? Add On Lab Order?? INR?? What to do next Instructions From Your Doctor ?? Orders?? rehab. NOT ok FOR S3., ??05/22/24 12:28:00 EDT?? Prescriptions??, ??05/22/24 12:28:00 EDT?? Scheduled Follow-Up Appointments Wednesday 9:30 AM EDT ?? With: Kieran ISSA, Argelia Grubbs Where: [address] [address]- Status: Pending Wednesday 8:30 AM EDT ?? Where: [facility] [address] [address]- Status: Pending You Need to Schedule the Following Appointments Follow Up with??Do not take naprosyn, Aleve, Motrin, ibuprofen or other similar medications. OK to take Tylenol, aka acetaminophen. Follow Up with??Please followup with all of your usual doctors. Return if you have bleeding, fever,cannot eat/drink, or have any other worrisome symptoms Follow Up with??Please return if you have fever, chest pain, trouble breathing, neck pain, vision changes, or any other worrisome symptoms. Follow Up with??Paul Perez When:??Within 2 to 3 weeks Why: Call for Urology followup Where: [address] [facility] [place] [address]- Business (1) Follow Up with??Coleman Lerma When:??Within 1 to 2 weeks Where: [address] [place] [address] [place] [address]- Business (1) Discharge Medications PRATEEK CHLOE :1945 Visit Date:05/18/2024 Medications: Please continue your medications until treatment is completed or stopped by your provider. Medications not listed below should be discontinued. Discuss any questions related to medications with your provider. What How Much When Instructions Next Dose New Divalproex Sodium (divalproex sodium 250 mg oral enteric coated tablet) 250 Milligram Oral Two times a day with meals Duration: 30 Days 05/19/2024 5:00PM New Docusate (Docusate Sodium Capsule) 100 Milligram Oral Twice a day as needed for Constipation As needed New Levofloxacin (levoFLOXacin 750 mg oral tablet) 1 tab(s) Oral Every 48 hours Duration: 3 Days Please give this on 05/23 and , then stop. ?? 05/23/2024 9:00AM New Senna (senna 187 mg oral tablet) 1 tab(s) Oral Twice a day as needed for Constipation As needed Changed Quetiapine (QUEtiapine 25 mg oral tablet) See instructions Take one tablet twice a day (morning and after lunch), and two tablets daily in the evening., As needed for Anxiety ?? As needed Changed Trazodone (traZODone 50 mg oral tablet) 0.5 tab(s) Oral Daily at Bedtime 05/22/2024 9:00PM Unchanged Acetaminophen (acetaminophen 325 mg oral tablet) 2 tab(s) Oral Every 6 hours as needed for Pain , Mild/ fever >101 NTE 3G/ 24hrs ?? As needed Unchanged Amlodipine (amLODIPine 2.5 mg oral tablet) 1 tab(s) Oral Daily 05/23/2024 9:00AM Unchanged Bisacodyl (bisacodyl 10 mg rectal suppository) 1 suppository(ies) Per rectum Daily at Bedtime as needed for as needed for constipation As needed Unchanged Donepezil (Aricept 5 mg oral tablet) 1 tab(s) Oral Daily at Bedtime 05/22/2024 9:00PM Unchanged Durable Medical Equipment ([facility] Care Wipe Prevail Soft pack 48count) See instructions 4 packs per month (48 count) per month X 12 months ?? Unchanged Fluticasone Nasal (Flonase 50 mcg/ inh nasal spray) 1 spray(s) Nares, Both Twice a day 05/23/2024 9:00AM Unchanged Lactulose 30 Milliliter Oral Every 24 hours as needed for as needed for constipation As needed Unchanged Milk of Magnesia (Milk of Magnesia Liquid) 30 Milliliter Oral Daily as needed for as needed for constipation As needed Unchanged Sodium Biphosphate-Sodium Phosphate (Fleet Enema) 133 Milliliter Per rectum Once as needed for as needed for constipation As needed Unchanged Tamsulosin (tamsulosin 0.4 mg oral capsule) 2 capsule Oral Daily 05/23/2024 9:00AM Unchanged Warfarin (warfarin 2.5 mg oral tablet) 3 tab(s) Oral Daily 05/23/2024 9:00AM Prescription Given During Visit Divalproex Sodium (divalproex sodium 250 mg oral enteric coated tablet) - 250 mg, By Mouth, 2 timesa day with meals, # 60 each, 0 Refills?? Levofloxacin (levoFLOXacin 750 mg oral tablet) - 1 tablet = 750 mg, By Mouth, Every 48 hours, # 2 tablet, 0 Refills, Please give this on 05/23 and 05/25, then stop.?? Laboratory Results Below is a partial list of the most recent Laboratory test results done prior to this discharge. You may have had other tests and procedures not included in this list. Please discuss all test resultswith your provider. ALT (05/21/2024) ???ALT (SGPT) - 19 units/L Amphetamine Urine Screen (05/16/2024) ???Amphetamine Screen, Urine - NONE DETECTED AST (05/21/2024) ???AST (SGOT) - 26 units/L Barbiturate Urine Screen (05/16/2024) ???Barbiturate Screen, Urine - NONE DETECTED Basic Metabolic Panel (05/21/2024) ???Sodium - 142 mmol/L???Potassium - 3.9 mmol/L???Chloride - 106 mmol/L???Bicarbonate Level - 26 mmol/L???Anion Gap - 10???Glucose Level - 98 mg/dL???BUN - 19 mg/dL???Creatinine-Blood - 1.33 mg/dL???Estimated GFR Creatinine - 54 ML/MIN/1.73 M2???Calcium - 5.0 mg/dL Benzodiazepine Urine Screen (05/16/2024) ???Benzodiazepine Screen, Urine - NONE DETECTED BUN (05/19/2024) ???BUN - 25 mg/dL Calcium Level (05/21/2024) ???Calcium - 8.6 mg/dL Cannabinoid Urine Screen (05/16/2024) ???Cannabinoid Screen, Urine - NONE DETECTED CBC (05/22/2024) ???WBC - 7.1 k/mm3???RBC - 4.35 m/mm3???Hgb - 14.8 Gm/dL???Hct - 44.0 %???MCV - 101.1 femtoliters???MCH - 34.0 pg???MCHC - 33.6 g/dL???Platelet Count - 249 k/mm3???RDW-SD - 46.6 femtoliters???MPV - 9.1 femtoliters???Nucleated RBC (Automated) - 0.0 #/100 WBC'S???Abs. NRBC - 0.0 k/mm3 CBC w/ Differential (05/16/2024) ???WBC - 6.8 k/mm3???RBC - 3.97 m/mm3???Hgb - 13.5 Gm/dL???Hct - 40.4 %???MCV - 101.8 femtoliters???MCH - 34.0 pg???MCHC - 33.4 g/dL???Platelet Count - 245 k/mm3???RDW-SD - 48.1 femtoliters???MPV - 9.4 femtoliters???Nucleated RBC (Automated) - 0.0 #/100 WBC'S???Abs. NRBC - 0.0 k/mm3???Abs. Neut - 3.9 k/mm3???Abs. Lymph - 1.9 k/mm3???Abs. Armstrong - 0.8 k/mm3???Abs. Eo - 0.2 k/mm3???Abs. Baso - 0.0 k/mm3???Neut % - 57.2 %???Lymph % - 27.4 %???Armstrong % - 11.5 %???Eos % - 3.4 %???Baso % - 0.4 %???Imm Gran - 0.1 %???Abs. Imm Gran - 0.0 k/mm3 Cocaine Urine Screen (05/16/2024) ???Cocaine Metabolite Screen, Urine - NONE DETECTED COVID-19 (Novel Coronavirus), Rapid PCR (05/16/2024) ???COVID-19 by RT-PCR - NEGATIVE Creatinine (05/19/2024) ???Creatinine-Blood - 1.35 mg/dL???Estimated GFR Creatinine - 53 ML/MIN/1.73 M2 Electrolytes (05/19/2024) ???Sodium - 141 mmol/L???Potassium - 4.3 mmol/L???Chloride - 108 mmol/L???Bicarbonate Level - 23 mmol/L???Anion Gap - 10 Ethanol Level (05/16/2024) ???Ethanol, Serum or Plasma - NONE DETECTED HOLD GEL TUBE (05/20/2024) ???Hold Gel Top - SPECIMEN DISCARDED AFTER 1 WEEK HOLD LAVENDER TUBE (05/21/2024) ???Hold Lavender Top - SPECIMEN DISCARDED AFTER 24 HOURS. INR (05/22/2024) ???INR - 2.4???Protime (PT) - 24.0 seconds Ionized Calcium (05/21/2024) ???Calcium, Ionized pH Corrected - 1.24 mmol/L Opiate Screen Urine (05/16/2024) ???Opiate Screen, Urine - NONE DETECTED TSH with T4 Reflex (Adults Only) (05/16/2024) ???TSH - 1.34 uIU/mL Urinalysis w/hold for Urine Culture (05/18/2024) ???Appear/Color, Urine - YELLOW???Specific Frederica, Urine - 1.019???pH, Urine - 6.0???Albumin, Urine - 1+???Glucose, Urine - NEGATIVE???Ketones, Urine - 2+???Bilirubin, Urine - NEGATIVE???Hemoglobin,Urine - 2+???Nitrite, Urine - POSITIVE???Leukocyte, Urine - 3+???Urobilinogen - 2 mg/dL???WBC's, Urine - >182 /HPF? ?RBC's, Urine - 29 /HPF? ?Bacteria - HEAVY? ?Squamous Epith - 1 /HPF? ?Mucus - SLIGHT???Hold Urine Culture - Testing available 48 hours from time of collection. Urine Culture Result (05/17/2024) ???Urine Culture Isolate 1 - Escherichia coli???Urine Cult Antimicrobial Susceptibility - Comment Urine Culture, Routine (05/17/2024) ???Urine Culture Results - Final report???Urine Culture Specimen Source - URINE Allergies (NKA means No Known Allergies) penicillin Problems Active Problems??(15) Anticoagulant long-term use?? BPH (benign prostatic hyperplasia)?? Chronic kidney disease, stage 3a?? Chronic sinusitis?? Cognitive impairment?? Dementia?? Forgetfulness?? History of Lyme disease?? CABAZON (hard of hearing)?? HTN (hypertension)?? Hypercholesterolemia?? Lung nodule?? 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 Recurrent pulmonary embolism?? Urinary retention?? Education Materials Below is the list of Educational Leaflet Providered with your Discharge Instructions. Valuables and Belongings I fully understand and agree that [facility] accepts no responsibility for all my personal property including clothing, toilet articles, radios, jewelry, dentures, hearing aids, rings, money, or any other property that is in my possession or is brought to me after admission. I understand certain valuables may be placed in a hospital safe for a short period of time. I understand that the hospital is not liable for loss or damage due to accident, fire, or other natural occurrence while said property is in the safe. I accept full responsibility for any personal property that I keep with me, and will not hold the hospital responsible in case of loss or disappearance. I acknowledge that i have been encouraged to send valuables and belongings home. ?? Review of Valuable and Belonging List: With patient Date for Pt to Sign Valuables/Belongings: 05/18/24 16:31:00 ?? Other Discharge Information ? Case Management Discharge Plan?? Discharge Plan?? Discharge Agency Information?? Discharge Level of Care at Discharge: [facility] facility Name of Agency #1: [facility] [phone] Agency Contract Admin #1: Mode of Transportation Arranged: Ambulance Service Comments #1: You are returning to [facility] today via ambulance. Your Paul is aware. Discharge Nursing Homes/Rehab Facilities: [facility] ? Pulmonary Rehab Status?? Pulmonary Rehab Discharge Status?? Respiratory Rate: 18 br/min ? Common Emergency Awareness Tips IS IT A STROKE? Act FAST and Check for these signs: FACE Does the face look uneven? ARM Does one arm drift down? SPEECH Does their speech sound strange? TIME Call at any sign of stroke ?? Heart Attack Signs Chest discomfort: Most heart attacks involve discomfort in the center of the chest and lasts more than a few minutes, or goes away and comes back. It can feel like uncomfortable pressure, squeezing, fullness or pain. Discomfort in upper body: Symptoms can include pain or discomfort in one or both arms, back, neck, jaw or stomach. Shortness of breath: With or without discomfort. Other signs: Breaking out in a cold sweat, nausea, or lightheaded. Remember, MINUTES DO MATTER. If you experience any of these heart attack warning signs, call to get immediate medical attention! ?? Smoking can increase your chances of developing chronic health problems and can cause harmful effects to other family members in your house. If you smoke, you are strongly encouraged to quit. Please call [facility] [employer] [facility] at [phone] or [phone] ([phone]) or log in to [email or web address] for referrals to smoking cessation programs. ?? 927 Suicide & Crisis Lifeline is available 07/06 if you or someone you know needs to find a reason to keep living. By calling 398 you'll be connected to a skilled, trained counselor at a crisis center in your area. INPATIENT DISCHARGE INSTRUCTIONS SIGNATURE CHLOE RODRÍGUEZ Location:[facility] Registration Date and Time:05/18/2024 13:23 EDT Primary Care Physician: Coleman Lerma MD, Attending Physician: Freda Fan MD, I CHLOE CHANDRA, have received the above patient education materials/instructions and have verbalized understanding. If ambulance or transport services are being used I further acknowledge being given a choice of service. ?? If you need to contact me, please call me at this number: . Patient/Silverware Cleaner Name: Patient/Silverware Cleaner Signature: Relationship to Patient: Witness Name/Signature: Date: * Freda Fan MD: PERFORM, SIGN, VERIFY Event Display: Patient Education Handout Authored Date: Patient Care team information Care Team Personnel Name: Kelly Rebolledo RN Position: S RN Member Role: Primary Care Nurse Name: Charisse Carter LPN Position: S RN Member Role: Primary Care Nurse Name: Ricardo Hedrick RN Position: S RN Member Role: Primary Care Nurse Name: Maribel Ray RN Position: S RN Member Role: Primary Care Nurse Name: Etta Nunez RN Position: S RN Member Role: Primary Care Nurse Name: Coleman Lerma MD Position: S Outreach Member Role: PCP Address: Address: [address] [place] [address]- [place] Name: Ellen Short RN Position: [facility] RN Supv Member Role: Primary Care Nurse Care Team Related Persons Name: BOB CHANDRA Name: PAUL CHANDRA Address: home [address] [place] [address]
--- OUTSIDE RECORDS SUMMARY | 2024-05-23 13:05 | XMS_ITS | Continuity of Care Document ---
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(Discharge Diagnosis) - 03/30/24 Recurrent pulmonary embolism(Discharge Diagnosis) - 03/30/24 Attending Physician: Adarsh Menon MD Referring Physician: Gisselle ISSA, Lois Ferris Allergies, Adverse Reactions, Alerts Substance Reaction Severity Status penicillin Unknown Active Immunizations Given and Recorded Vaccine Date Status Refusal Reason SARS-CoV-2(COVID-19)mRNA-LNP vac([id number]) 09/03/23 Recorded influenza virus vaccine, inactivated 08/20/23 Virgil rded influenza virus vaccine, inactivated 08/20/22 Virgil rded influenza virus vaccine, inactivated 09/04/21 Virgil rded influenza virus vaccine, inactivated 08/12/20 Virgil rded influenza virus vaccine, inactivated 09/04/19 Virgil rded influenza virus vaccine, inactivated 09/04/19 Virgil rded influenza virus vaccine, inactivated 09/24/18 Virgil rded pneumococcal 23-valent vaccine 10/19/22 Given [id number] 12y+ bivalent booster vax 08/25/22 Recorded SARS-CoV-2 [...] Pharmacy Electronically, [facility] [address] [place] [address], [place], Partialfill upon patient request, 175, cm, 12/07/23 9:27:0... Start Date: 12/07/23 Status: Ordered Aricept 5 mg oral tablet 5 mg, 1, tablet, By Mouth, Daily at bedtime, # 90 tablet, Refills 1, Tot. Refills 1, Maintenance, 12/07/23 9:46:00 EST, Route to Pharmacy Electronically, [facility] [address] [place] [address], [place], Partial fill upon patient request if the prescript... Start Date: 12/07/23 Status: Ordered Flonase 50 mcg/inh nasal spray 1 sprays, Nares, Both, 2 times a day, 0 Refills, Maintenance, 03/23/19 9:41:46 EDT, [place] Start Date: 03/23/19 Status: Ordered Pesonal Care [...] capsule, Refills 0, Tot. Refills 0, Maintenance, 03/30/24 13:11:00 EDT, Route to Pharmacy Electronically, [facility] [address] [place] [address], [place], Partial fill upon patient request if the prescrip... Start Date: 03/30/24 Status: Ordered tamsulosin 0.4 mg oral capsule 0.8 mg, 2, capsule, By Mouth, Daily, # 180 capsule, Refills 1, Tot. Refills 1, Maintenance, 03/30/24 13:12:00 EDT, Route to Pharmacy Electronically, [facility] [address] [place] [address], [place], Partial fill upon patient request if the prescription i... Start Date: 03/30/24 Stop Date: 04/29/24 Status: Ordered traZODone 50 mg oral tablet 25 mg, 0.5, tablet, By Mouth, Daily at bedtime, # 45 tablet, Refills 1, Tot. Refills 1, Maintenance, 03/30/24 13:12:00 EDT, Route to Pharmacy Electronically, [facility] [address] [place] [address], [place], Partial fill upon patient request if the [...] EST, Tablet, [facility] [address] [place] [address], [place], 175, cm, 12/07/23 9:27:00 EST, Height, 75, kg, ... 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 Active Dementia 3 Confirmed Active Forgetfulness Confirmed Active [place] (hard of hearing) Confirmed Active History of Lyme disease Confirmed Active Hypercholesterolemia Confirmed Active HTN (hypertension) Confirmed Active Cognitive impairment Confirmed Active Anticoagulant long-term use Confirmed Active Lung nodule Confirmed Active Recurrent pulmonary embolism Confirmed Active Urinary retention Confirmed Active 1Per chart review meeting GFR criteria 2Lower extremity 3MoCA 2018 Diagnosis Diagnosis Type Effective Dates Health Status Clinical Service Informant Urinary retention Discharge Diagnosis 03/30/24 Dementia Discharge Diagnosis 03/30/24 BPH (benign prostatic hyperplasia) Discharge Diagnosis 03/30/24 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 Discharge Diagnosis 03/30/24 Recurrent pulmonary embolism Discharge Diagnosis 03/30/24 Vital Signs Most recent to oldest [Reference Range]: 1 Height 178 cm (03/30/24 12:53 PM) Weight 76.3 kg (03/30/24 12:53 PM) Oxygen Saturation [94-100 %] 96 % (03/30/24 12:53 PM) Pulse Rate [55-90 bpm] 75 bpm (03/30/24 12:53 PM) Body Mass Index [18.5-24.99 kg/m2] 24.08 kg/m2 (03/30/24 12:53 PM) Blood Pressure [90-138/55-84 mm Hg] 131/ 71mm Hg (03/30/24 12:53 PM) Temperature [96.8-100.4 DegF] 98.7 DegF (03/30/24 12:53 PM) Mode of Delivery (Oxygen) Room air (03/30/24 12:53 PM) Blood pressure sites Arm, left (03/30/24 12:53 PM) Temperature Route Oral (03/30/24 12:53 PM) Weight Obtained Via Standing scale (03/30/24 12:53 PM) Social History Social History Type Response Smoking Status Never (less than 100 in lifetime); Tobacco user in household: No entered on: 03/23/19 Sex Note * Brianda Saucedo: PERFORM Event Display: Patient Education/Instruction Authored Date: Ambulatory Adult Visit Summary [facility] Adult [facility] [address] [place] [id number] Name: CHLOE CHANDRA : 1945?? Visit: 03/30/2024 12:46?? Ambulatory Visit Instructions ?? Your Care Team Primary Care Provider Lynsey APPLE, Adarsh Patel? 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 What to do next Scheduled Follow-Up Appointments Wednesday 9:30 AM EDT ?? With: Kieran ISSA, Argelia Grubbs Where: [facility] [address] [place] [address]- Status: Pending Wednesday 8:30 AM EDT ?? Where: [facility] [employer] [facility] [address] [place] [address]- Status: Pending Follow-Up Appointments Follow Up with??Kieran ISSA, Argelia Grbubs Why: as scheduled Where: [address] [place] [phone]- Business (1) Medications The list below reflects the information in our records and provided by you today along with any changes made during this visit. Please continue your medications until treatment is completed or stopped by your provider. If this is different from the information you have or there are other questions,please contact the prescribing provider. What How Much When Instructions Changed Quetiapine (SEROquel 25 mg oral tablet) 1 tab(s) Oral 3 times a day Pickup at [address] Changed Tamsulosin (tamsulosin 0.4 mg oral capsule) 2 capsule Oral Daily Pickup at [address] Changed Trazodone (traZODone 50 mg oral tablet) 0.5 tab(s) Oral Daily at Bedtime Pickup at [address] Changed Trazodone (traZODone 50 mg oral tablet) 25 Milligram Oral Daily at Bedtime Unchanged Amlodipine (amLODIPine 2.5 mg oral tablet) 1 tab(s) Oral Daily Unchanged Donepezil (Aricept 5 mg oral tablet) 1 tab(s) Oral Daily at Bedtime Unchanged Fluticasone Nasal (Flonase 50 mcg/ inh nasal spray) 1 spray(s) Nares, Both Twice a day Unchanged Warfarin (warfarin 2.5 mg oral tablet) See instructions 1 to 4 tablets by mouth daily adjusted by primary care office. ?? Pharmacy Information [address]: [address], [place] [id number] [phone] Medications and Immunizations Administered Medications Given During Visit No medications given during this visit.?? Allergies (NKA means No Known Allergies) penicillin Common Emergency Awareness Tips IS IT A [...] are strongly encouraged to quit. Please call [facility] [facility] at [phone] or 1-523-457OrderBorder ([phone]) or log in to [email or web address] for referrals to smoking cessation programs. ?? The National Suicide Prevention Hotline is available 07/06 if you or someone you know needs to find a reason to keep living. By calling 6-308-000-Sciences-U (7757) you'll be connected to a skilled, trained counselor at a crisis center in your area. [facility] [employer] Portal You can view and manage your care through the patient portal or by using a health care naveen of your choosing. [employer] is a website that allows you to securely view your medical information including your hospital discharge summary, office visit summaries, medications and follow-up visits. You can also request appointments, renew medications, and request access to your medical information using a health care naveen of your choosing, or just ask a question. You can enroll at [email or web address] or register during your next office visit. [facility], in keeping with [facility] guidance, no longer requires face masks for [...] medical provider or home test kit. ?? Disclaimer: The information provided is of a general nature and is intended to be used in conjunction with the recommendations and advice of your health care practitioner. Every effort has been made to ensure that the information provided is accurate and complete at the time it is provided to you however, as your needs change, or, as new information becomes available, different or additional instructions may be required. ?? If you have questions, please consult with your primary care provider or pharmacist, as appropriate. This information is not intended to serve as substitution for assessment and evaluation by a qualified health care provider. If you do not have a primary care provider, you may find a [facility] provider by calling [facility] [employer] [facility] at [phone]. Patient Care team information Care Team Personnel Name: Adarsh Menon MD Position: [facility] Physician - Primary Care Member Role: PCP Address: Address: [address] [place] [address]- [place] Name: Becky Marie PharmD Position: [facility] Associate Professional Member Role: [employer] Provider Address: Address: [address] [place] [address] [facility] [place] [address]- [place] Name: Ellen Short RN Position: [facility] RN Supv Member Role: Primary Care Nurse Care Team Related Persons Name: JORGE CHANDRA Address: [place], [place] Name: PAUL CHANDRA Address: [address] [address]
--- OUTSIDE RECORDS SUMMARY | 2024-05-23 13:05 | XMS_ITS | Continuity of Care Document ---
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 Name Role Phone Adarsh Menon MD Primary Care Physician [phone] [place] [facility] [place]06[place]24 [place] 05/06/24 [facility] Adult [address] [place] [address]- Allergies, Adverse Reactions, Alerts Substance Reaction Severity Status penicillin Unknown Active Immunizations Given and Recorded Vaccine Date Status Refusal Reason SARS-CoV-2(COVID-19)mRNA-LNP vac([id number]) 09/03/23 Recorded influenza virus vaccine, inactivated 08/20/23 Virgil rded influenza virus vaccine, inactivated 08/20/22 Virgil rded influenza virus vaccine, inactivated 09/04/21 Virgil rded influenza virus vaccine, inactivated 08/12/20 Virgil rded influenza virus vaccine, inactivated 09/04/19 Virgil rded influenza virus vaccine, inactivated 09/04/19 Virgil rded influenza virus vaccine, inactivated 09/24/18 Virgil rded pneumococcal 23-valent vaccine 10/19/22 Given [id number] 12y+ bivalent booster vax 08/25/22 Recorded SARS-CoV-2 [...] 9:46:00 EST, Route to Pharmacy Electronically, [facility] [address] [place] [address], [place], Partialfill upon patient request, 175, cm, 12/07/23 9:27:0... Start Date: 12/07/23 Status: Ordered Aricept 5 mg oral tablet 5 mg, 1, tablet, By Mouth, Daily at bedtime, # 90 tablet, Refills 1, Tot. Refills 1, Maintenance, 12/07/23 9:46:00 EST, Route to Pharmacy Electronically, [facility] [address] [place] [address], [place], Partial fill upon patient request if the prescript... Start Date: 12/07/23 Status: Ordered Flonase 50 mcg/inh nasal spray 1 sprays, Nares, Both, 2 times a day, 0 Refills, Maintenance, 03/23/19 9:41:46 EDT, [place] Start Date: 03/23/19 Status: Ordered Pesonal Care [...] 16:38:00 EDT, Route to Pharmacy Electronically, [facility] [address] [place] [address], [place], Partial fill upon patient request if the prescrip... Start Date: 04/20/24 Status: Ordered tamsulosin 0.4 mg oral capsule 0.8 mg, 2, capsule, By Mouth, Daily, # 180 capsule, Refills 1, Tot. Refills 1, Maintenance, 03/30/24 13:12:00 EDT, Route to Pharmacy Electronically, [facility] [address] [place] [address], [place], Partial fill upon patient request if the prescription i... Start Date: 03/30/24 Stop Date: 04/29/24 Status: Ordered traZODone 50 mg oral tablet 25 mg, 0.5, tablet, By Mouth, Daily at bedtime, # 45 tablet, Refills 1, Tot. Refills 1, Maintenance, 03/30/24 13:12:00 EDT, Route to Pharmacy Electronically, [facility] [address] [place] [address], [place], Partial fill upon patient request if the [...] Refills, Maintenance, 12/07/23 9:46:00 EST, Tablet, [facility] [address] [place] [address], [place], 175, cm, 12/07/23 9:27:00 EST, Height, 75, kg, ... 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
--- OUTSIDE RECORDS SUMMARY | 2024-05-23 13:05 | XMS_ITS | Continuity of Care Document ---
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 Name Role Phone Coleman Lerma MD Primary Care Physician Encounter [facility] [place] Date(s): 04/20/24 - 05/20/24 [facility] Adult [address] [place] [address]- Allergies, Adverse Reactions, Alerts Substance Reaction Severity Status penicillin Unknown Active Immunizations Given and Recorded Vaccine Date Status Refusal Reason SARS-CoV-2(COVID-19)mRNA-LNP vac([id number]) 09/03/23 Recorded influenza virus vaccine, inactivated 08/20/23 Virgil rded influenza virus vaccine, inactivated 08/20/22 Virgil rded influenza virus vaccine, inactivated 09/04/21 Virgil rded influenza virus vaccine, inactivated 08/12/20 Virgil rded influenza virus vaccine, inactivated 09/04/19 Virgil rded influenza virus vaccine, inactivated 09/04/19 Virgil rded influenza virus vaccine, inactivated 09/24/18 Virgil rded pneumococcal 23-valent vaccine 10/19/22 Given [id number] 12y+ bivalent booster vax 08/25/22 Recorded SARS-CoV-2 [...] to Pharmacy Electronically, [facility] [address] [place] [address], [place], Partialfill upon patient request, 175, cm, 12/07/23 9:27:0... Start Date: 12/07/23 Status: Ordered Aricept 5 mg oral tablet 5 mg, 1, tablet, By Mouth, Daily at bedtime, # 90 tablet, Refills 1, Tot. Refills 1, Maintenance, 12/07/23 9:46:00 EST, Route to Pharmacy Electronically, [facility] [place] [address] [place] [address], [place], Partial fill upon patient request if the prescript... Start Date: 12/07/23 Status: Ordered bisacodyl 10 mg rectal suppository 1 supp = 10 mg, Rectally, Daily at bedtime, PRN as needed for constipation, 0 Refills, Maintenance,05/18/24 7:16:00 EDT, Partial fill upon patient request if the prescription is for a schedule II opioid drug. Start Date: 05/18/24 Status: Ordered Fleet Enema 133 mL, Rectally, Once, PRN as needed for constipation, 0 Refills, Maintenance, 05/18/24 7:18:00 EDT, Partial fill upon patient request if the prescription is for a schedule II opioid drug. Start Date: 05/18/24 Status: Ordered Flonase 50 mcg/inh nasal spray 1 sprays, Nares, Both, 2 times a day, 0 Refills, Maintenance, 03/23/19 9:41:46 EDT, [place] Start Date: 03/23/19 Status: Ordered Lactulose 30 mL, By Mouth, Every 24 hours, PRN as needed for constipation, 0 Refills, Maintenance, 05/18/24 7:19:00 EDT, Partial fill upon patient request if the prescription is for a schedule II opioid drug. Start Date: 05/18/24 Status: Ordered Milk of Magnesia Liquid 30 [...] to Pharmacy Electronically, [facility] [address] [place] [address], [place], Partial fill upon patient request if the prescrip... Start Date: 04/20/24 Status: Ordered tamsulosin 0.4 mg oral capsule 0.8 mg, 2, capsule, By Mouth, Daily, # 180 capsule, Refills 1, Tot. Refills 1, Maintenance, 03/30/24 13:12:00 EDT, Route to Pharmacy Electronically, [facility] [address] [place] [address], [place], Partial fill upon patient request if the prescription i... Start Date: 03/30/24 Stop Date: 04/29/24 Status: Ordered traZODone 50 mg oral tablet 25 mg, 0.5, tablet, By Mouth, Daily at bedtime, # 45 tablet, Refills 1, Tot. Refills 1, Maintenance, 03/30/24 13:12:00 EDT, Route to Pharmacy Electronically, [facility] [address] [place] [address], [place], Partial fill upon patient request if the presc... Start Date: 03/30/24 Status: Ordered traZODone 50 mg oral tablet 25 mg, By Mouth, Every 24 hours, PRN, Refills 0, Maintenance, [place], 02/23/24 13:34:00 EDT, Partial fill upon patient request if the prescription is for a schedule II opioid drug. Start Date: 02/23/24 Stop Date: 05/18/24 Status: Ordered warfarin 2.5 mg oral tablet [...] Dementia 3 Confirmed Active Forgetfulness Confirmed Active [place] (hard of hearing) Confirmed Active History of [...] Outreach Member Role: PCP Address: Address: [address] [facility] [place] [address]- Name: Ellen Short RN Position: [facility] RN Supv Member Role: Primary Care Nurse Care Team Related Persons Name: JORGE CHANDRA Name: PAUL CHANDRA Address: home [address] [place] [address]
--- OUTSIDE RECORDS SUMMARY | 2024-05-23 13:05 | XMS_ITS | Continuity of Care Document ---
Author Organization [facility] Nestor lt Address [address] [place] [address]- Care Team Providers Care Policy Adviser Name Role Phone Adarsh Menon MD Primary Care Physician [phone] [place] [facility] [place] Date(s): 04/13/24 - 05/13/24 [facility] Adult [address] [place] [address]- Allergies, Adverse Reactions, Alerts Substance Reaction Severity Status penicillin Unknown Active Immunizations Given and Recorded Vaccine Date Status Refusal Reason SARS-CoV-2(COVID-19)mRNA-LNP vac([id number]) 09/03/23 Recorded influenza virus vaccine, inactivated 08/20/23 Virgil rded influenza virus vaccine, inactivated 08/20/22 Virgil rded influenza virus vaccine, inactivated 09/04/21 Virgil rded influenza virus vaccine, inactivated 08/12/20 Virgil rded influenza virus vaccine, inactivated 09/04/19 Virgil rded influenza virus vaccine, inactivated 09/04/19 Virgil rded influenza virus vaccine, inactivated 09/24/18 Virgil rded pneumococcal 23-valent vaccine 10/19/22 Given [id number] 12y+ bivalent booster vax 08/25/22 Recorded SARS-CoV-2 [...] 12/07/23 9:46:00 EST, Route to Pharmacy Electronically, [facility] [address] [place] [address], [place], Partialfill upon patient request, 175, cm, 12/07/23 9:27:0... Start Date: 12/07/23 Status: Ordered Aricept 5 mg oral tablet 5 mg, 1, tablet, By Mouth, Daily at bedtime, # 90 tablet, Refills 1, Tot. Refills 1, Maintenance, 12/07/23 9:46:00 EST, Route to Pharmacy Electronically, [facility] [address] [place] [address], [place], Partial fill upon patient request if the prescript... Start Date: 12/07/23 Status: Ordered Flonase 50 mcg/inh nasal spray 1 sprays, Nares, Both, 2 times a day, 0 Refills, Maintenance, 03/23/19 9:41:46 EDT, [place] Start Date: 03/23/19 Status: Ordered Pesonal Care [...] 04/20/24 16:38:00 EDT, Route to Pharmacy Electronically, [facility] [address] [place] [address], [place], Partial fill upon patient request if the prescrip... Start Date: 04/20/24 Status: Ordered tamsulosin 0.4 mg oral capsule 0.8 mg, 2, capsule, By Mouth, Daily, # 180 capsule, Refills 1, Tot. Refills 1, Maintenance, 03/30/24 13:12:00 EDT, Route to Pharmacy Electronically, [facility] [address] [place] [address], [place], Partial fill upon patient request if the prescription i... Start Date: 03/30/24 Stop Date: 04/29/24 Status: Ordered traZODone 50 mg oral tablet 25 mg, 0.5, tablet, By Mouth, Daily at bedtime, # 45 tablet, Refills 1, Tot. Refills 1, Maintenance, 03/30/24 13:12:00 EDT, Route to Pharmacy Electronically, [facility] [address] [place] [address], [place], Partial fill upon patient request if the [...] 5 Refills, Maintenance, 12/07/23 9:46:00 EST, Tablet, [facility] [address] [place] [address], [place], 175, cm, 12/07/23 9:27:00 EST, Height, 75, kg, ... 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
--- NOTE | 2024-05-23 13:07 | PC.NURSE ---
arlen from [place] after recently being d/c'd from [facility] yesterday d/t UTI. pt being non-medcompliant/refusing abx administration at facility. became agitated/aggressive towards staff (throwing items, spitting at staff). calm/cooperative per EMS. upon ED arrival - pt seemingly confused. alert and oriented to self only. pt seemingly agitated/upset as he remains in the hallway/close to the nurses station. pt keeps attempting to get out of bed w/o assistance. pt has an extremely unsteady gait. pt then became agitated/swearing at staff. pt then medically restrained per Dr. Avery order as pt's safety was a concern. pt medicated per provider order. pt tolerated well. 20gIV placed in the left forearm - wrapped w/ gauze for safety precautions. access patent/intact. UA obtained/sent to lab. chronic nielsen catheter in place prior to ED arrival. plan of care ongoing.
[2024-05-23 13:10] LABS: Anion Gap 11 (12-20); Blood Urea Nitrogen 16 mg/dL (9-16); Calcium 8.9 mg/dL (8.4-10.2); Carbon Dioxide 26 mmol/L (22-29); Chloride 109 mmol/L (96-108); Estimated Glomerular Filt Rate 50; Glucose Random 95 mg/dL (60-115); Potassium 4.3 mmol/L (3.3-5.1); Sodium 142 mmol/L (135-145)
[2024-05-23 13:28] LABS: Bacteria Urine None Seen (None Seen); Hyaline Casts Urine 0-2 /LPF (0-2); RBC Urine 0-2 /HPF (0-2); Squamous Epithelial Cell Urine 0-2 /HPF (0-2); UACC Culture Trigger YES; WBC Urine >50 /HPF (0-5)
--- NOTE | 2024-05-23 14:43 | PC.NURSE ---
pt mostly calm/cooperative s/p chemical restraint. some attempts at getting out of bed but easily redirectable. family member now bedside for support. pt no longer agitated/aggressive. resting in no apparent distress. respirations even/unlabored. plan of care ongoing.
[2024-05-23] MEDS: cephALEXin 500 MG CAPSULE PO (15:07)
[2024-05-23 17:09] VITALS: BP 155/80; PULSE 77; RESP 16; TEMP 36.6; O2SAT 98
--- NOTE | 2024-05-23 17:18 | PC.NURSE ---
Pt got up out of bed without warning- pt stumbled and lost his footing, this feature writer noticed and stated to other RN he us going to fall- and ran to him by the time feature writer got to him he had already fallen- no head strike no LOC- Pt struck L shoulder. Pt assisted back to bed- 1:[address] on [address] in [address]
--- NOTE | 2024-05-23 17:23 | MHC.CARE ---
Patient evaluated by the CARE Team, disposition inpatient geriatric psychiatric placement. ED provider, Dr. Avery updated.
--- NOTE | 2024-05-23 17:28 | PC.NURSE ---
1:1 sitter present for safety precautions. med rec completed at this time. dr. cox notified/aware that medications need to be ordered.
[2024-05-23] MEDS: amLODIPine Besylate 2.5 MG TABLET PO (19:36)
[2024-05-23] MEDS: OLANZapine 10 MG TABLET PO (19:36)
[2024-05-23] MEDS: Tamsulosin HCL 0.4 MG CAPSULE 0.8 MG PO (19:36)
[2024-05-23 20:27] VITALS: BP 145/76; PULSE 87; RESP 16; TEMP 36.6; O2SAT 96
[2024-05-23 21:05] LABS: INTERNATIONAL NORM RATIO 2.5 (0.9-1.1); Prothrombin Time 30.2 SEC (11.1-13.3)
[2024-05-23] MEDS: Divalproex Sodium Sprinkles 125 MG CAP.DR.SPR 250 MG PO (21:23)
[2024-05-23] MEDS: QUEtiapine Fumarate 25 MG TABLET PO (21:25)
[2024-05-23] MEDS: QUEtiapine Fumarate 50 MG TABLET PO (21:25)
[2024-05-23] MEDS: traZODone HCL 25 MG HALFTAB PO (21:25)
[2024-05-23] MEDS: Donepezil HCl 5 MG TABLET PO (21:25)
[2024-05-23 22:13] VITALS: RESP 16
[2024-05-23 23:26] VITALS: BP 174/78; PULSE 77; RESP 16; TEMP 36.7; O2SAT 94
[2024-05-24 06:09] VITALS: BP 145/78; PULSE 81; RESP 16; TEMP 37.2; O2SAT 90
--- NOTE | 2024-05-24 07:51 | PHA.MEDREC ---
Pharmacy Consult ? Medication Reconciliation Pharmacy has reviewed the medication reconciliation done by nursing, and some corrections were made. Noted that pt is on skilled nursing (current) use of anticoagulants per diagnoses from [place] and there are pharmacy claims for warfarin but warfarin is not on the med list from [place]. Dr. Lynn was made aware of this and was recommended to order INR labs.
--- NOTE | 2024-05-24 08:18 | PC.NURSE ---
Patient resting comfortably, breathing even and unlabored
[2024-05-24] MEDS: Divalproex Sodium Sprinkles 125 MG CAP.DR.SPR 250 MG PO ×2 (10:07→20:02)
[2024-05-24] MEDS: QUEtiapine Fumarate 25 MG TABLET PO ×2 (10:07→20:02)
[2024-05-24 10:08] VITALS: BP 128/81
[2024-05-24] MEDS: amLODIPine Besylate 2.5 MG TABLET PO (10:08)
[2024-05-24] MEDS: Tamsulosin HCL 0.4 MG CAPSULE 0.8 MG PO (10:08)
[2024-05-24 10:14] VITALS: BP 128/81; PULSE 94; RESP 18; TEMP 36.9; O2SAT 97
--- NOTE | 2024-05-24 10:56 | MHC.EDTECH ---
pt's leg bag was changed into a larger drainage bag, leg bag was holding 780 ml of urine, rn made aware
[2024-05-24] MEDS: cefuroxime axetiL 250 MG TABLET PO ×2 (11:02→20:02)
[2024-05-24] MEDS: levoFLOXacin 750 MG TABLET PO (11:08)
--- NOTE | 2024-05-24 14:48 | PC.NURSE ---
updated on place of care and is in agreement
[2024-05-24 16:05] VITALS: BP 128/85; PULSE 94; RESP 18; TEMP 37; O2SAT 93
--- NOTE | 2024-05-24 18:40 | P.CNPS_ITS ---
History of Present Illness Date of Service: 05/24/24 Chief Complaint: AGGRESSIVE W/STAFF,REFUSES MEDS,ANGRY NOW PER EMS Reason for Consult: assess etiology for delirium vs psychosis Requesting physician: Enrique Avery Discussed with referring provider: No Sources of Information: patient interviewed, chart reviewed and crisis/core team assessment reviewed HPI Narrative: Patient is a 78-year-old male, living at long-term group home (on a locked, memory care unit), with history of dementia, PE, BPH, hypertension, history of UTI (with chronic indwelling Saeed catheter), pyelonephritis (on 03/04/24) who presents to the emergency room via group home for onset of combative behaviors, throwing things and spitting at group home staff. Patient diagnosed with UTI, for which he was 1st treated at [facility]; issue did not resolve and he presents to [facility] now. Patient is confused at baseline; he has a history of developing agitated/dysregulated behaviors that coincide with UTI, which he did during prior ED admission on 02/26/24. Care team obtained collateral and apparently his behavioral disturbances again coincide with UTI. Digital Marketing Manager asked to assess if patient's agitation is due to an etiology other than delirium secondary to UTI. Patient is confused and unable to answer questions other than his name. He knows some of his date. Otherwise he is not oriented to place, time or situation, where he is or why he is here. He does not know that he as an infection; when this was explained to him, he still did not understand. He can not answer any questions about himself and when asked patient would mumble about irrelevant and nonsensical things. He is however calm and able to follow simple directions. Review of nursing notes indicate that on arrival 05/23 patient was disorganized, getting out of bed and at some points became agitated and swore at staff and was chemically restrained. Going forward notes indicate that patient has been mostly calm and cooperative; still attempting to get out of bed at times but easily redirectable, resting comfortably. It was mentioned that he got agitated last night and given p.o. Zyprexa and agitation was resolved. Past Psychiatric History: no history of mental health of substance use concerns and was diagnosed with Dementia by his PCP seven years ago which reportedly has significantly progressed over the last year and rapidly progressed over the past several months. PMFSH Medical History (Updated 05/25/24 @ 14:18 by Ancelmo Russell MD) Delirium due to medical condition with behavioral disturbance Enlarged prostate Dementia Pulmonary embolus DVT (deep venous thrombosis) Urinary retention HTN (hypertension) BPH (benign prostatic hyperplasia) Social History: Her care team notes, prior to three months ago, patient was living at home home with his and functioning well with some assistance. 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 In addition, calm and mild-mannered with no history of aggression. Substance History: None known Diagnostics Vital Signs (24Hr): Vital Signs - 24 hr 05/23/24 20:27 05/23/24 22:13 05/23/24 23:26 Temperature 97.8 F 98.1 F Pulse Rate 87 77 Respiratory Rate 16 16 16 Blood Pressure 145/76 H 174/78 H Pulse Oximetry 96 94 Oxygen Delivery Method Room Air Room Air Room Air 05/24/24 06:09 05/24/24 10:08 05/24/24 10:14 Temperature 99.0 F 98.4 F Pulse Rate 81 94 Respiratory Rate 16 18 Blood Pressure 145/78 H 128/81 128/81 Pulse Oximetry 90 L 97 Oxygen Delivery Method Room Air Room Air 05/24/24 16:05 Temperature 98.6 F Pulse Rate 94 Respiratory Rate 18 Blood Pressure 128/85 Pulse Oximetry 93 Oxygen Delivery Method Room Air BMI result Body Mass Index 29.8 Labs 05/23/24 12:51 05/23/24 12:51 Labs: Laboratory Results - last 48 hr 05/23/24 05/23/24 05/23/24 12:42 12:51 20:41 WBC 9.5 RBC 4.43 L D Hgb 15.3 D Hct 45.2 MCV 102.0 H MCH 34.5 H MCHC 33.8 RDW 12.9 Plt Count 268 MPV 9.0 L Immature Gran % (Auto) 0.3 Neut % (Auto) 54.2 Lymph % (Auto) 33.5 Sac % (Auto) 7.6 Eos % (Auto) 4.1 H Baso % (Auto) 0.3 Lymph # (Auto) 3.2 Sac # (Auto) 0.7 Eos # (Auto) 0.4 Baso # (Auto) 0.0 Abs Immat Gran (auto) 0.03 Absolute Neuts (auto) 5.1 Absolute Nucleated RBC 0.000 Nucleated RBC % (auto) 0.0 PT 30.2 H D INR 2.5 H Sodium 142 Potassium 4.3 Chloride 109 H Carbon Dioxide 26 Anion Gap 11 L BUN 16 Creatinine 1.38 Estim Creat Clear Calc 53.0 Estimated GFR 50 Random Glucose 95 Calcium 8.9 D Urine Color Yellow Urine Appearance Clear Urine pH 7.0 Ur Specific [place] 1.015 Urine Protein Trace Urine Glucose (UA) Negative Urine Ketones Negative Urine Blood Negative Urine Nitrite Negative Ur Leukocyte Esterase Large (3+) H Urine RBC 0-2 Urine WBC >50 H Ur Squamous Epith Cells 0-2 Urine Bacteria None Seen Hyaline Casts 0-2 Mental Status Exam Mental Status Exam Narrative: Oriented to self only; unkempt; delirious. Insight and judgment chronically, severely impaired Medications Medications Current Medications Acetaminophen (Acetaminophen 325 Mg Tablet) 650 mg PO Q4H PRN PRN Reason: Fever Or Pain Amlodipine Besylate (Amlodipine Besylate 2.5 Mg Tablet) 2.5 mg PO DAILY [facility]; Protocol Last Admin: 05/24/24 10:08 Dose: 2.5 mg Bisacodyl (Bisacodyl 10 Mg Supp.Rect) 10 mg LA DAILY PRN PRN Reason: Constipation Cefuroxime Axetil (Cefuroxime Axetil 250 Mg Tablet) 250 mg PO BID [facility] Last Admin: 05/24/24 11:02 Dose: 250 mg Divalproex Sodium (Divalproex Sodium Sprinkles 125 Mg ) 250 mg PO BID [facility] Last Admin: 05/24/24 10:07 Dose: 250 mg Donepezil HCl (Donepezil Hcl 5 Mg Tablet) 5 mg PO BEDTIME [facility] Last Admin: 05/23/24 21:25 Dose: 5 mg Fluticasone Propionate (Fluticasone Propionate Nasal 16 Gm Belt) 1 spray NOSTRIL-B BID [facility] Last Admin: 05/24/24 10:15 Dose: Not Given Lactulose (Lactulose 20 Gm/30 Ml Solution) 20 gm PO ONCE PRN PRN Reason: constipation Levofloxacin (Levofloxacin 750 Mg Tablet) 750 mg PO Q24H [facility] Last Admin: 05/24/24 11:08 Dose: 750 mg Magnesium Hydroxide (Milk Of Magnesia 30 Ml Oral.Susp) 30 ml PO DAILY PRN PRN Reason: Constipation Quetiapine Fumarate (Quetiapine Fumarate 50 Mg Tablet) 50 mg PO BEDTIME [facility] Last Admin: 05/23/24 21:25 Dose: 50 mg Quetiapine Fumarate (Quetiapine Fumarate 25 Mg Tablet) 25 mg PO BID [facility] Last Admin: 05/24/24 10:07 Dose: 25 mg Sodium Biphosphate/Sodium Phosphate (Sodium Phosphate,Sac-Dibasic 133 Ml Enema) 118 ml LA DAILY PRN PRN Reason: Constipation Tamsulosin HCl (Tamsulosin Hcl 0.4 Mg Capsule) 0.8 mg PO DAILY [facility] Last Admin: 05/24/24 10:08 Dose: 0.8 mg Trazodone HCl (Trazodone Hcl 25 Mg Halftab) 25 mg PO BEDTIME [facility] Last Admin: 05/23/24 21:25 Dose: 25 mg Allergies Allergies Allergy/AdvReac Type Severity Reaction Status Date / Time Penicillins [PCN] Allergy Unknown Unknown Verified 05/23/24 11:55 Assessment & Plan Assessment & Plan (1) Delirium due to medical condition with behavioral disturbance: Status: Acute Code(s): F05 - Delirium due to known physiological condition (2) Dementia: Status: Acute Code(s): F03.90 - Unspecified dementia, unspecified severity, without behavioral disturbance, psychotic disturbance, mood disturbance, and anxiety (3) UTI (urinary tract infection): Status: Acute Code(s): N39.0 - Urinary tract infection, site not specified Plan HPI: Patient is a 78-year-old male, living at long-term group home (on a locked, memory care unit), with history of dementia, PE, BPH, hypertension, history of UTI (with chronic indwelling Saeed catheter), pyelonephritis (on 03/04/24) who presents to the emergency room via group home for onset of combative behaviors, throwing things and spitting at group home staff. Patient diagnosed with UTI, for which he was 1st treated at [facility]; issue did not resolve and he presents to [facility] now. Patient is confused at baseline; he has a history of developing agitated/dysregulated behaviors that coincide with UTI, which he did during prior ED admission on 02/26/24. Care team obtained collateral and apparently his behavioral disturbances again coincide with UTI. Digital Marketing Manager asked to assess if patient's agitation is due to an etiology other than delirium secondary to UTI. Patient is confused and unable to answer questions other than his name. He knows some of his date. Otherwise he is not oriented to place, time or situation, where he is or why he is here. He does not know that he as an infection; when this was explained to him, he still did not understand. He can not answer any questions about himself and when asked patient would mumble about irrelevant and nonsensical things. He is however calm and able to follow simple directions. Review of nursing notes indicate that on arrival 05/23 patient was disorganized, getting out of bed and at some points became agitated and swore at staff and was chemically restrained. Going forward notes indicate that patient has been mostly calm and cooperative; still attempting to get out of bed at times but easily redirectable, resting comfortably. It was mentioned that he got agitated last night and given p.o. Zyprexa and agitation was resolved. -of note it seems that patient was recently prescribed Depakote on 05/22 by outpatient provider which was started here. Impression: Patient has dementia. And He has a history of getting combative coinciding with UTI's. This seems to be the case now. Can continue to monitor however it seems most likely that the UTI is the origin of patient's delirium/dysregulated behavior. As infection is treated, his agitation seems to be calming down and that patient is returning to baseline. At this time there does not seem to be any need for inpatient psychiatric admission and patient can return to group home. Total time managing care of this patient today ____ minutes. Patient educated on: diagnosis, medication risk/benefits and medical condition Informed Consent: does not understand
[2024-05-24] MEDS: Fluticasone Propionate Nasal 16 GM SPRAY 1 SPRAY NOSTRIL-B (20:01)
[2024-05-24] MEDS: Donepezil HCl 5 MG TABLET PO (20:02)
[2024-05-24] MEDS: traZODone HCL 25 MG HALFTAB PO (20:02)
[2024-05-24] MEDS: QUEtiapine Fumarate 50 MG TABLET PO (20:02)
[2024-05-24] MEDS: OLANZapine 10 MG TABLET PO (21:37)
[2024-05-24] MEDS: Acetaminophen 325 MG TABLET 650 MG PO (21:38)
[2024-05-25 06:10] VITALS: BP 117/53; PULSE 73; RESP 16; TEMP 36.8
[2024-05-25 08:21] VITALS: BP 121/81; PULSE 71; RESP 18; TEMP 36.7; O2SAT 94
[2024-05-25 10:34] VITALS: BP 135/66
[2024-05-25] MEDS: amLODIPine Besylate 2.5 MG TABLET PO (10:34)
[2024-05-25] MEDS: QUEtiapine Fumarate 25 MG TABLET PO ×2 (10:35→20:12)
[2024-05-25] MEDS: cefuroxime axetiL 250 MG TABLET PO (10:35)
[2024-05-25] MEDS: levoFLOXacin 750 MG TABLET PO (10:35)
[2024-05-25] MEDS: Divalproex Sodium Sprinkles 125 MG CAP.DR.SPR 250 MG PO ×2 (10:36→23:19)
--- NOTE | 2024-05-25 10:52 | PC.NURSE ---
Addendum entered by Julian Ashby 05/25/24 10:54: per overnight RN, increased agitation overnight, given PO zyprexa w improvement in behaviours. Original Note: pt took medications crushed w applesauce/pudding, unable to give flomax using similar techniques d/t pt spitting capsules out at RN multiple time. pharmacy aware and looking into alternate administration.
[2024-05-25] MEDS: Tamsulosin HCL 0.4 MG CAPSULE 0.8 MG PO (11:15)
--- NOTE | 2024-05-25 11:15 | PC.NURSE ---
flomax administered w capsules opened into apple sauce per pharmacy recommendation. ok to open if pearls don't start dissolving - can't sit in apple sauce for long prior to administration.
--- NOTE | 2024-05-25 14:29 | MHC.EDTECH ---
Spsoke with RN Julian and per Julian patient to have vital signs checked Q8.
--- NOTE | 2024-05-25 15:30 | MHC.CM.ED ---
Addendum entered by Jayne Sanchez 05/26/24 10:22: Correction: Patient was at [facility] for 2 weeks before transferring to [facility] and then back to facility on 05/22. Original Note: Received case management consult from Dr Champion. Patient was transferred to [facility] from [facility] on 05/22. Patient was sent to [facility] ER 05/23 due to agression. Per psych consult, patient is not appropriate for [facility] admission. Referral sent to [facility] via [facility] to see if they can accept patient back. Continue to monitor for d/c needs.
[2024-05-25 18:59] VITALS: BP 147/75; PULSE 102; RESP 16; TEMP 36.3; O2SAT 92
[2024-05-25 19:45] VITALS: BP 147/72; PULSE 72; RESP 16; TEMP 36.2; O2SAT 97
[2024-05-25] MEDS: traZODone HCL 25 MG HALFTAB PO (20:12)
[2024-05-25] MEDS: QUEtiapine Fumarate 50 MG TABLET PO (20:12)
[2024-05-25] MEDS: Donepezil HCl 5 MG TABLET PO (20:12)
--- NOTE | 2024-05-25 22:25 | PC.NURSE ---
pt agitated upon arrival to over flow, sitter needed as well as tech community health program coordinator to assist. pt attempting to get out of bed to go home, very confused and aggressive at times, speech unclear and disorganized. trying to pull nielsen. camera now in place with sitter. pt medicated with 2100 medications. after 45 minutes pt began to settle with constant redirection, conversation and distraction with TV and food. pt now resting comfortably with sitter and camera in place. one medical practice administrator delayed, pt resting with eyes closed before med brought from main ED, will admin when pt wakes next
[2024-05-26 05:53] VITALS: BP 140/80; PULSE 90; RESP 15; TEMP 36.3; O2SAT 93
--- NOTE | 2024-05-26 05:54 | MHC.EDTECH ---
Patient slept most if the night ,patient was reposition and boosted up in bed ,am vitals taken and nielsen catheter empty for 550 ml ,call pierce within Patient reach ,Telle sitter camrea in room and bed alarm on ,Fluids offer Patient refused .
--- NOTE | 2024-05-26 08:38 | MHC.CM.ED ---
Addendum entered by Jayne Sanchez 05/26/24 10:10: Patient's daughter, Bob, updated at plan via telephone at [phone]. Original Note: Patient remains in Er overflow. Sitter documented at 2225 last night. Per conversation with [facility] liaison, will re-eval on Wednesday to see if they can accept patient back. Continue to monitor for d/c needs.
--- NOTE | 2024-05-26 09:28 | PC.NURSE ---
Pt continues resting quietly on bed, respirations equal and unlabored.
--- NOTE | 2024-05-26 10:02 | PC.NURSE ---
Am meds delayed - pt has hx of being agitated and aggressive, is currently sleeping comfortable. Will let patient sleep and admin meds when pt naturally awakes. Respirations equal and unlabored.
[2024-05-26] MEDS: QUEtiapine Fumarate 25 MG TABLET PO ×2 (12:32→20:47)
[2024-05-26] MEDS: Nitrofurantoin Monohyd/M-Cryst 100 MG CAPSULE PO ×2 (12:32→20:53)
[2024-05-26] MEDS: Divalproex Sodium Sprinkles 125 MG CAP.DR.SPR 250 MG PO ×2 (12:32→20:53)
--- NOTE | 2024-05-26 12:38 | PC.NURSE ---
Pt agreeable to taking meds in applesauce.
[2024-05-26 14:20] VITALS: BP 139/72; PULSE 72; RESP 12; O2SAT 93
--- NOTE | 2024-05-26 15:00 | MHC.EDTECH ---
this tech took over care at this time, when checking on the pt he was asleep with equal chest rise present, and in no apparent ditress
--- NOTE | 2024-05-26 19:26 | MHC.EDTECH ---
at this time assisted the pt changing dirty hospital gown and placed in a new one, sheets were also changed
[2024-05-26 20:45] VITALS: BP 123/76; PULSE 91; RESP 18
[2024-05-26] MEDS: traZODone HCL 25 MG HALFTAB PO (20:47)
[2024-05-26] MEDS: QUEtiapine Fumarate 50 MG TABLET PO (20:47)
[2024-05-26] MEDS: Donepezil HCl 5 MG TABLET PO (20:57)
[2024-05-26] MEDS: Fluticasone Propionate Nasal 16 GM SPRAY 1 SPRAY NOSTRIL-B (21:00)
--- NOTE | 2024-05-26 22:24 | PC.NURSE ---
This typewriter mechanic assumed care of this Pt at 1900. Pt A&O to name. Pt attempting to get OOB, easily redirectable. Pt given crushed meds per MAR with ice cream. Plan of care ongoing.
[2024-05-27] MEDS: OLANZapine 10 MG TABLET PO (01:15)
[2024-05-27 06:16] VITALS: RESP 16
--- NOTE | 2024-05-27 07:11 | PC.NURSE ---
Resumed care of pt at 0700. Resting in bed quietly, respirations even and unlabored, call pierce within reach, pt awaiting [facility] placement.
[2024-05-27 11:11] VITALS: BP 142/79; PULSE 75; RESP 18; TEMP 37; O2SAT 90
--- NOTE | 2024-05-27 11:20 | PC.NURSE ---
assumed care from kyrie at 1115am- pt brought to overflow bed 4. pt currently awake, alert to self, pt stating get away from me , this nurse asked pt if he would like some ice cream so he can be medicated with am meds. pt agreeable to ice cream, while this nurse was obtaining medications pts bed alarm began going off and the camera was alarming, pt was oob, tech was able to enter the room and safely get patient back into bed without patient being aggressive. pts nielsen cath intact/draining, pt denying pain/discomfort, lungs diminished/resp rate equal and non labored, pt on contact precautions for VRE in urine, bed alarm intact/camera intact will continue to monitor.
[2024-05-27] MEDS: Tamsulosin HCL 0.4 MG CAPSULE 0.8 MG PO (11:25)
[2024-05-27] MEDS: Nitrofurantoin Monohyd/M-Cryst 100 MG CAPSULE PO ×2 (11:25→21:17)
[2024-05-27 11:26] VITALS: BP 142/79
[2024-05-27] MEDS: Divalproex Sodium Sprinkles 125 MG CAP.DR.SPR 250 MG PO ×2 (11:26→21:17)
[2024-05-27] MEDS: QUEtiapine Fumarate 25 MG TABLET PO ×2 (11:26→21:16)
[2024-05-27] MEDS: amLODIPine Besylate 2.5 MG TABLET PO (11:26)
--- NOTE | 2024-05-27 11:27 | PC.NURSE ---
pt medicated- meds put in ice cream pt tolerated well
--- NOTE | 2024-05-27 12:10 | PC.NURSE ---
pt ate lunch with assist of tech, pt then requested to use bathroom for BM, bedside commode was obtained, pt oob with 2 person assist to commode, pt had very large BM, nielsen cath emptied at this time as well with output of 800. pt assisted back to ed.
--- NOTE | 2024-05-27 18:15 | PC.NURSE ---
pt becoming agitated, got oob, was hitting this nurse and tech, pt was helped back into bed and reclined to prevent him from getting injured, bed alarm on/camera on, pt began spitting at staff, pt tiger texted provider to obtain po medication to help patient be able to participate with care.
[2024-05-27] MEDS: OLANZapine 10 MG VIAL IM (18:25)
--- NOTE | 2024-05-27 18:25 | PC.NURSE ---
pt IM with zyprexa, please see IM medication sheets.
--- NOTE | 2024-05-27 19:25 | PC.NURSE ---
pt continued to spit, and kick/trying to get oob, pt currently has sitter at bedside, provider was notified that the patients behaviors have continued and that he seems to be sundowning as his mild behaviors were redirectable earlier today.
[2024-05-27 21:08] VITALS: BP 154/74; PULSE 73; RESP 16; TEMP 36.6; O2SAT 97
[2024-05-27] MEDS: traZODone HCL 25 MG HALFTAB PO (21:16)
[2024-05-27] MEDS: QUEtiapine Fumarate 50 MG TABLET PO (21:16)
[2024-05-27] MEDS: Donepezil HCl 5 MG TABLET PO (21:17)
[2024-05-28 06:06] VITALS: RESP 18
--- NOTE | 2024-05-28 09:09 | MHC.EDTECH ---
Patient does not want breakfast at the moment.
[2024-05-28] MEDS: QUEtiapine Fumarate 25 MG TABLET PO ×2 (09:15→20:22)
[2024-05-28] MEDS: Nitrofurantoin Monohyd/M-Cryst 100 MG CAPSULE PO ×2 (09:15→20:21)
[2024-05-28] MEDS: amLODIPine Besylate 2.5 MG TABLET PO (09:15)
[2024-05-28] MEDS: Divalproex Sodium Sprinkles 125 MG CAP.DR.SPR 250 MG PO ×3 (09:15→20:22)
[2024-05-28] MEDS: Tamsulosin HCL 0.4 MG CAPSULE 0.8 MG PO (09:15)
--- NOTE | 2024-05-28 09:32 | MHC.EDTECH ---
Set patients food up for him, patient is feeding self.
--- NOTE | 2024-05-28 10:28 | PC.NURSE ---
spoke w pharmacy pm meds rescheduled to 1900 for pt compliance and safety d/t pt having increased agitation later in the evening.
[2024-05-28 10:42] VITALS: BP 149/72; PULSE 75; RESP 14; TEMP 37.1; O2SAT 93
--- NOTE | 2024-05-28 14:28 | MHC.CM.PN ---
EMR REVIEWED, PLAN FOR [facility] TO REVISIT PT ON WEDNESDAY, HOWEVER PT DID RECEIVE IM ZYPREXA LAST NOC, CM MET W/PT'S AT BEDSIDE PER HER REQUEST, PT'S REPORTS PT IS ON LOCKED DEMENTIA UNIT AT [facility] AND REPORTS CM CAN FOLLOW UP W/HER OR DTR PREVIOUS CM SPOKE TO, CM WILL CONT TO FOLLOW.
[2024-05-28 16:47] VITALS: BP 149/74; PULSE 77; RESP 14; TEMP 36.6; O2SAT 91
[2024-05-28] MEDS: QUEtiapine Fumarate 50 MG TABLET PO (18:03)
[2024-05-28] MEDS: Donepezil HCl 5 MG TABLET PO (18:03)
[2024-05-28] MEDS: traZODone HCL 25 MG HALFTAB PO (18:03)
[2024-05-28 20:00] VITALS: BP 124/75; PULSE 103; RESP 17; TEMP 37.2; O2SAT 94
[2024-05-28] MEDS: OLANZapine ODT 10 MG TAB.RAPDIS 20 MG TRANSLINGU (20:21)
[2024-05-28] MEDS: Fluticasone Propionate Nasal 16 GM SPRAY 1 SPRAY NOSTRIL-B (20:22)
--- NOTE | 2024-05-28 20:23 | PC.NURSE ---
pt became aggressive to sitter, pt was swearing at sitter/twisting her arm and attempting to hit her. provider ordered po medication, pt willingly took medication with his other pm medications. fall precautions remain intact/camera intact, bed alarm on, will continue to monitor
--- NOTE | 2024-05-28 21:04 | PC.NURSE ---
This designer writer assumed care of this Pt at 1900. Pt A&O to name. Pt attempting to get out to bed, not redirectable. Pt sitting at edge of bed, ambulated with walker and 3 staff assist to BR, no BM, Pt back to bed. Plan of care ongoing.
--- NOTE | 2024-05-29 02:30 | PC.NURSE ---
Addendum entered by Delfina Yoder 05/29/24 05:22: Pt awake, attempting to get out of bed, redirectable with staff present. Pt given PO fluids. Original Note: Pt appears to be sleeping, equal non labored respirations. Plan of care on going.
[2024-05-29 02:46] VITALS: RESP 16
[2024-05-29 04:59] VITALS: BP 128/77; PULSE 83; RESP 16; TEMP 36.6; O2SAT 92
[2024-05-29 07:04] VITALS: BP 142/102; RESP 17; TEMP 36.7
--- NOTE | 2024-05-29 08:41 | PC.NURSE ---
Report given to RN in overflow. No concerns at this time
[2024-05-29 09:38] VITALS: BP 178/77
[2024-05-29] MEDS: QUEtiapine Fumarate 25 MG TABLET PO ×2 (09:38→20:31)
[2024-05-29] MEDS: Nitrofurantoin Monohyd/M-Cryst 100 MG CAPSULE PO ×2 (09:38→20:31)
[2024-05-29] MEDS: Tamsulosin HCL 0.4 MG CAPSULE 0.8 MG PO (09:38)
[2024-05-29] MEDS: amLODIPine Besylate 2.5 MG TABLET PO (09:38)
[2024-05-29] MEDS: Acetaminophen 325 MG TABLET 650 MG PO (10:16)
[2024-05-29] MEDS: Ondansetron ODT 4 MG TAB.RAPDIS TRANSLINGU (10:44)
[2024-05-29] MEDS: Fluticasone Propionate Nasal 16 GM SPRAY 1 SPRAY NOSTRIL-B ×2 (10:46→20:31)
[2024-05-29] MEDS: OLANZapine 10 MG VIAL IM (13:20)
[2024-05-29 13:40] VITALS: BP 141/67; PULSE 96; RESP 20; TEMP 36.9; O2SAT 96
--- NOTE | 2024-05-29 16:09 | MHC.CM.ED ---
Patient remains in ER overflow. Received IM Zyprexa today. Psych consult pending for med recommendations due to agression. Patient's daughter, Bob, updated via telephone at [phone]. Bob is the boat person for family. Bob will upload Sindhu (patient's ) and the rest of the family. Continue to monitor for d/c needs.
--- NOTE | 2024-05-29 16:39 | PC.NURSE ---
report recieved from ED RN, medical operations supervisor per JAN. Morning dose of depakote noted to be given the night of 05/28. Pharmacy and MD called to double check admin of morning dose, MD verbal orders to hold morning dose. Episode of nausea and emesis this morning, MD notified - new med order in, medical operations supervisor per JAN. Sitter at bedside for safety. Pt with increase in agitation, unable to be redirect by sitter informaticist, notified. Agitation increased, pt swinging at sitter, MD notified again and one time dose of medication admin per JAN. Pt assisted with meals, sitter continues at bedside, saftey precautions remain in place, plan of care ongoing.
[2024-05-29] MEDS: QUEtiapine Fumarate 50 MG TABLET PO (18:00)
[2024-05-29] MEDS: Donepezil HCl 5 MG TABLET PO (18:00)
[2024-05-29] MEDS: traZODone HCL 25 MG HALFTAB PO (18:00)
[2024-05-29] MEDS: Divalproex Sodium Sprinkles 125 MG CAP.DR.SPR 250 MG PO (18:00)
[2024-05-30] VITALS (7 sets, daily range): BP systolic 141–163; BP diastolic 65–78; PULSE 60–111; RESP 12–17; TEMP 36.7–37.4; O2SAT 90–98
--- NOTE | 2024-05-30 05:45 | PC.NURSE ---
Assumed care of patient at 2300, patient slept most of the night, calm. Saeed catheter draining dark yellow urine. Sitter at bedside. call pierce within reach. Offers no complaints at this time.
--- NOTE | 2024-05-30 11:44 | MHC.CM.ED ---
Patient remains in ER overflow. Repeat psych consult was ordered 05/27. Still pending. Elisha Hankins CM director aware. Will not be able to return to [facility] when IM med and sitter free for 24-48 hours. Continue to monitor for d/c needs.
[2024-05-30] MEDS: Divalproex Sodium Sprinkles 125 MG CAP.DR.SPR 250 MG PO ×2 (13:58→20:21)
[2024-05-30] MEDS: Nitrofurantoin Monohyd/M-Cryst 100 MG CAPSULE PO ×2 (13:58→19:42)
[2024-05-30] MEDS: amLODIPine Besylate 2.5 MG TABLET PO (13:59)
[2024-05-30] MEDS: QUEtiapine Fumarate 25 MG TABLET PO ×2 (13:59→19:38)
[2024-05-30] MEDS: Tamsulosin HCL 0.4 MG CAPSULE 0.8 MG PO (13:59)
[2024-05-30] MEDS: Donepezil HCl 5 MG TABLET PO (19:38)
[2024-05-30] MEDS: traZODone HCL 25 MG HALFTAB PO (19:38)
[2024-05-30] MEDS: QUEtiapine Fumarate 50 MG TABLET PO (19:39)
--- NOTE | 2024-05-30 22:30 | PM.EVENT ---
Event Note Date of Service: 05/30/24 Event Note: chart reviewed pt seen reviewed with staff. Patient difficult to arouse sleeping much of the day went away has periods of severe agitation. Has reversed sleep cycle might benefit from exposure to light during the day. Has a treatment resistant organism for urinary infection now on a different antibiotic. Patient with delirium with dementia quite obtunded. Required IM olanzapine. Assessment Delirium with dementia UTI Patient in novel environment urinary infection Remains on Depakote and Seroquel Minimal medication effective for this condition Maintain hydration treat UTI Check Depakote level liver function tests ammonia level Light exposure during the day might be helpful and regaining sleep-wake cycle Would consider change of Seroquel consider Risperdal limited evidence basis for delirium with agitation Time Spent With Patient Time: Total time managing care of this patient today ____ minutes.
[2024-05-31 05:17] VITALS: BP 140/70; PULSE 84; RESP 16; TEMP 36; O2SAT 93
--- NOTE | 2024-05-31 08:44 | MHC.CM.ED ---
Patient remains in ER overflow. Dr Fairbanks recommends following: Check Depakote level liver function tests ammonia level Light exposure during the day might be helpful and regaining sleep-wake cycle Would consider change of Seroquel consider Risperdal limited evidence basis for delirium with agitation Leadership made aware. Leadership requesting repeat UA and Care Team consult. Samanta CHONG made aware. Continue to monitor for d/c needs.
[2024-05-31] MEDS: Tamsulosin HCL 0.4 MG CAPSULE 0.8 MG PO (10:02)
[2024-05-31] MEDS: Divalproex Sodium Sprinkles 125 MG CAP.DR.SPR 250 MG PO (10:02)
[2024-05-31] MEDS: QUEtiapine Fumarate 25 MG TABLET PO ×2 (10:02→22:06)
[2024-05-31] MEDS: amLODIPine Besylate 2.5 MG TABLET PO (10:03)
[2024-05-31] MEDS: Fluticasone Propionate Nasal 16 GM SPRAY 1 SPRAY NOSTRIL-B (10:03)
[2024-05-31] MEDS: Nitrofurantoin Monohyd/M-Cryst 100 MG CAPSULE PO ×2 (10:03→20:01)
[2024-05-31 10:44] LABS: Appearance Urine Clear; Color Urine Dark Yellow; Glucose Urine UA Negative (Negative); Leukocyte Esterase Urine Trace (Negative); Nitrite Urine Negative (Negative); Specific Gravity - Urine 1.025 (1.005-1.025); UMIC TRIGGER UACC YES; Urine Blood Small (1+) (Negative); Urine Ketones Trace mg/dL (Negative); Urine Protein 30 (1+) mg/dL (Neg-Trace)
[2024-05-31 10:49] LABS: Ammonia 31 umol/L (13-55)
--- NOTE | 2024-05-31 10:53 | MHC.CARE ---
CARE Team received a consult for ?kar for inpatient psych??. CARE Team case consulted with Dr. Russell . Plan for CARE Team to defer to psychiatry for further treatment recommendations at this time. Pts presentation does not necessitate care team re-assessment at this time.? CARE Team notified CASTILLO Brooke via [employer].
[2024-05-31 10:58] LABS: Alanine Aminotransferase 14 U/L (0-40); Albumin Level 3.3 g/dL (3.5-5.0); Alkaline Phosphatase 76 U/L (39-117); Anion Gap 12 (12-20); Aspartate Amino Transferase 20 U/L (5-37); Bilirubin Total 0.7 mg/dL (0.0-1.0); Blood Urea Nitrogen 33 mg/dL (9-16); Calcium 8.9 mg/dL (8.4-10.2); Carbon Dioxide 27 mmol/L (22-29); Chloride 109 mmol/L (96-108); Estimated Glomerular Filt Rate 60; Glucose Random 98 mg/dL (60-115); Potassium 4.9 mmol/L (3.3-5.1); Sodium 143 mmol/L (135-145); Total Protein 7.4 g/dL (6.5-8.0)
[2024-05-31 10:59] LABS: Valproate 47.1 mcg/mL (50.0-100.0)
[2024-05-31 10:59] LABS: WBC Urine 0-5 /HPF (0-5)
[2024-05-31 11:00] LABS: Bacteria Urine None Seen (None Seen); Hyaline Casts Urine 0-2 /LPF (0-2); Squamous Epithelial Cell Urine 0-2 /HPF (0-2)
[2024-05-31 15:30] VITALS: BP 137/76; PULSE 78; RESP 18; O2SAT 93
--- NOTE | 2024-05-31 17:36 | PC.NURSE ---
daughter at bedside, patient ate 100% for dinner with 1:1 feed, denies pain or discomfort
[2024-05-31] MEDS: Donepezil HCl 5 MG TABLET PO (20:01)
[2024-05-31] MEDS: traZODone HCL 25 MG HALFTAB PO (20:01)
[2024-05-31] MEDS: QUEtiapine Fumarate 50 MG TABLET PO (20:01)
--- NOTE | 2024-05-31 21:50 | PC.NURSE ---
pt resting quietly in bed at this time, will cont to monitor
[2024-05-31 22:00] VITALS: BP 151/81; PULSE 88; RESP 18; O2SAT 93
--- NOTE | 2024-05-31 22:06 | MHC.CM.ED ---
JOSELINE spoke with Dr.Simon Faustin and Dr Fairbanks regarding the disposition of this patient. Per Greg, Senior management will meet tomorrow to further discuss possibility of patient being admitted to [facility] for medication management.
--- NOTE | 2024-05-31 22:08 | PM.EVENT ---
Event Note Date of Service: 05/31/24 Event Note: Pt seen difficult to arouse again during the day . Was aggressive last nite. Has dementia recent confusion agitation in context of uti no longer acute but remains agitated. Case reviewed chart reviewed unclear pts present baseline. In overflow bed limited stimulation. will stop am seroquel taper depakote reevaluate after. Unclear reasons for daytime lethargy ? medication ? post infection lethargy confusion with agitation. Currently not ambulating Consider tx and d/c options PLAN lower depakote seroquel 50 aft 25 prn pt will nEed much rEassurance orientation as coming out of confusional state Time Spent With Patient Time: Total time managing care of this patient today ____ minutes.
--- NOTE | 2024-05-31 22:08 | PC.NURSE ---
pt is very agitated, pt medicated for agitated, will monitor
[2024-06-01 05:46] VITALS: BP 126/86; PULSE 108; RESP 17; TEMP 36.9; O2SAT 93
--- NOTE | 2024-06-01 08:34 | PC.NURSE ---
patient sleeping, woke to verbal stimulus, lungs clear- rr equal/non labored, nielsen cath patient/draining clear yellow urine, pt medicated with crushed meds in applesauce. fall precautions intact-bed alarm/bedside camera, VRE precautions intact, pt denying pain/discomfort, at this time, call pierce within reach, will continue to monitor.
[2024-06-01] MEDS: Nitrofurantoin Monohyd/M-Cryst 100 MG CAPSULE PO ×2 (08:37→20:06)
[2024-06-01] MEDS: Tamsulosin HCL 0.4 MG CAPSULE 0.8 MG PO (08:37)
[2024-06-01 08:38] VITALS: BP 139/70
[2024-06-01] MEDS: amLODIPine Besylate 2.5 MG TABLET PO (08:38)
[2024-06-01] MEDS: Fluticasone Propionate Nasal 16 GM SPRAY 1 SPRAY NOSTRIL-B ×2 (08:38→20:06)
--- NOTE | 2024-06-01 09:08 | MHC.CM.ED ---
Addendum entered by Jayne Sanchez 06/01/24 10:22: UA and culture faxed to Dr Marvin's office at Bob's request. Original Note: Patient remains in ER overflow. Received notification from Elisha Hankins CM director that patient will go to [facility] when bed available. Anticipate transfers tomorrow 06/02. Patient's daughter, Bob, made aware via telephone at [phone]. Bob will let her family know. Derek Eid made aware. Columab RAMIREZ and Merly CHONG aware. Continue to monitor for d/c needs.
[2024-06-01 14:00] VITALS: RESP 18
--- NOTE | 2024-06-01 14:55 | PC.NURSE ---
Incontinent care provided, linens changed, pt repositioned for comfort.
[2024-06-01] MEDS: QUEtiapine Fumarate 25 MG TABLET PO (16:45)
--- NOTE | 2024-06-01 16:45 | PC.NURSE ---
due to another patients yelling and agitation, this patient became agitated and began to try to pull nielsen cath out and attempted to get oob, this nurse medicated pt with PO PRN medication.
[2024-06-01] MEDS: Divalproex Sodium Sprinkles 125 MG CAP.DR.SPR 250 MG PO (17:53)
[2024-06-01 18:15] VITALS: BP 138/78; PULSE 96; RESP 18; TEMP 36.7; O2SAT 94
--- NOTE | 2024-06-01 18:15 | PC.NURSE ---
pt awake/alert to self, prn medication helped his agitation which had been caused by another patient on the unit screaming. pt took medications due that pharmacy brought up. fall precautions remain intact, bed alarm/camera intact
[2024-06-01] MEDS: traZODone HCL 25 MG HALFTAB PO (19:38)
[2024-06-01] MEDS: QUEtiapine Fumarate 50 MG TABLET PO (19:38)
[2024-06-01] MEDS: Donepezil HCl 5 MG TABLET PO (19:38)
--- NOTE | 2024-06-01 19:42 | PC.NURSE ---
Medications crushed and given with ice cream. Pt tolerated well.
--- NOTE | 2024-06-02 00:34 | PC.NURSE ---
Pt sleeping at the bedside. No apparent distress noted. Breaths are even regular and unlabored. Monitoring is ongoing.
[2024-06-02 05:53] VITALS: BP 147/72; PULSE 93; RESP 17; TEMP 36.4; O2SAT 95
--- NOTE | 2024-06-02 08:50 | PM.EVENT ---
Event Note Date of Service: 06/01/24 Event Note: Pt seen 06/01 more alert n im reported 05/31 not physically aggressive as before was able to engage in brief conversation would reevaluate 06/02 ? is pt appraching baseline Time Spent With Patient Time: Total time managing care of this patient today ____ minutes.
[2024-06-02 09:09] VITALS: BP 150/68; PULSE 93; RESP 18; TEMP 37; O2SAT 94
[2024-06-02 09:12] VITALS: BP 150/68
[2024-06-02] MEDS: Tamsulosin HCL 0.4 MG CAPSULE 0.8 MG PO (09:12)
[2024-06-02] MEDS: amLODIPine Besylate 2.5 MG TABLET PO (09:12)
[2024-06-02] MEDS: Fluticasone Propionate Nasal 16 GM SPRAY 1 SPRAY NOSTRIL-B (11:53)
--- NOTE | 2024-06-02 12:01 | MHC.CM.ED ---
Addendum entered by Jayne Sanchez 06/02/24 12:56: Patient has not had IM medications in [address] Fairbanks feels patient's behaviors are at baseline and wander in patient can return to [facility]. Clinical updates sent via email. [facility] would not accept patient back before Wednesday. Elisha Hankins CM director aware. Original Note: Patient remains in ER overflow. Will admit to [facility] when bed is available.Continue to monitor for d/c needs.
--- NOTE | 2024-06-02 13:14 | MHC.EDTECH ---
Assisted patient with eating breakfast and lunch. Changed patients linen and gown.
--- OUTSIDE RECORDS SUMMARY | 2024-06-02 14:59 | XMS_ITS | Continuity of Care Document ---
Author Organization [facility] Richard De La Torre Nestor lt Address [address] [place] [id number]- Care Team Providers Care Lab Coordinator Name Role Phone Coleman Lerma MD Primary Care Physician Encounter [facility] [place] Date(s): 04/24/24 - 05/24/24 [facility] Adult [address] [place] [address]- Allergies, Adverse Reactions, Alerts Substance Reaction Severity Status penicillin Unknown Active Immunizations Given and Recorded Vaccine Date Status Refusal Reason SARS-CoV-2(COVID-19)mRNA-LNP vac([id number]) 09/03/23 Recorded influenza virus vaccine, inactivated 08/20/23 Virgil rded influenza virus vaccine, inactivated 08/20/22 Virgil rded influenza virus vaccine, inactivated 09/04/21 Virgil rded influenza virus vaccine, inactivated 08/12/20 Virgil rded influenza virus vaccine, inactivated 09/04/19 Virgil rded influenza virus vaccine, inactivated 09/04/19 Virgil rded influenza virus vaccine, inactivated 09/24/18 Virgil rded pneumococcal 23-valent vaccine 10/19/22 Given [id number] 12y+ bivalent booster vax 08/25/22 Recorded SARS-CoV-2 [...] 12/07/23 9:46:00 EST, Route to Pharmacy Electronically, [facility] [address] [place] [address], [place], Partialfill upon patient request, 175, cm, 12/07/23 9:27:0... Start Date: 12/07/23 Status: Ordered Aricept 5 mg oral tablet 5 mg, 1, tablet, By Mouth, Daily at bedtime, # 90 tablet, Refills 1, Tot. Refills 1, Maintenance, 12/07/23 9:46:00 EST, Route to Pharmacy Electronically, [facility] [address] [place] [address], [place], Partial fill upon patient request if [...] day, 0 Refills, Maintenance, 03/23/19 9:41:46 EDT, [place] Start Date: 03/23/19 Status: Ordered Lactulose 30 [...] 03/30/24 13:12:00 EDT, Route to Pharmacy Electronically, [facility] [address] [place] [address], [place], Partial fill upon patient request if the prescription i... Start Date: 03/30/24 Stop Date: 04/29/24 Status: Ordered traZODone 50 mg oral tablet 25 mg, 0.5, tablet, By Mouth, Daily at bedtime, # 45 tablet, Refills 1, Tot. Refills 1, Maintenance, 03/30/24 13:12:00 EDT, Route to Pharmacy Electronically, [facility] [address] [facility], [place], Partial fill upon patient request if [...] Dementia 3 Confirmed Active Forgetfulness Confirmed Active [place] (hard of hearing) Confirmed Active History [...] Care Nurse Name: Charisse Carter LPN Position: [facility] RN Member Role: Primary Care Nurse Name: Ricardo Hedrick RN Position: S RN Member Role: Primary Care Nurse Name: Maribel Ray RN Position: S RN Member Role: Primary Care Nurse Name: Etta Nunez RN Position: [facility] RN Member Role: Primary Care Nurse Name: Coleman Lerma MD Position: [facility] Outreach Member Role: PCP Address: Address: [address] [place] [address] [place] [address]- Name: Ellen Short RN Position: [facility] RN Supv Member Role: Primary Care Nurse Care Team Related Persons Name: JORGE CHANDRA Name: PAUL CHANDRA Address: home [address] [place] [address]
--- OUTSIDE RECORDS SUMMARY | 2024-06-02 14:59 | XMS_ITS | Continuity of Care Document ---
Author Organization [facility] Richard De La Torre Nestor lt Address [address] [place] [address]- Care Team Providers Care Crew Person Name Role Phone Coleman Lerma MD Primary Care Physician Encounter [facility] [place] Date(s): 04/24/24 - 05/24/24 [facility] Adult [address] [place] [address]- Allergies, Adverse Reactions, Alerts Substance Reaction Severity Status penicillin Unknown Active Immunizations Given and Recorded Vaccine Date Status Refusal Reason SARS-CoV-2(COVID-19)mRNA-LNP vac([id number]) 09/03/23 Recorded influenza virus vaccine, inactivated 08/20/23 Virgil rded influenza virus vaccine, inactivated 08/20/22 Virgil rded influenza virus vaccine, inactivated 09/04/21 Virgil rded influenza virus vaccine, inactivated 08/12/20 Virgil rded influenza virus vaccine, inactivated 09/04/19 Virgil rded influenza virus vaccine, inactivated 09/04/19 Virgil rded influenza virus vaccine, inactivated 09/24/18 Virgil rded pneumococcal 23-valent vaccine 10/19/22 Given [id number] 12y+ bivalent booster vax 08/25/22 Recorded SARS-CoV-2 [...] 12/07/23 9:46:00 EST, Route to Pharmacy Electronically, [facility] [address] [place] [address], [place], Partialfill upon patient request, 175, cm, 12/07/23 9:27:0... Start Date: 12/07/23 Status: Ordered Aricept 5 mg oral tablet 5 mg, 1, tablet, By Mouth, Daily at bedtime, # 90 tablet, Refills 1, Tot. Refills 1, Maintenance, 12/07/23 9:46:00 EST, Route to Pharmacy Electronically, [facility] [address] [place] [address], [place], Partial fill upon patient request if the [...] day, 0 Refills, Maintenance, 03/23/19 9:41:46 EDT, [place] Start Date: 03/23/19 Status: Ordered Lactulose 30 [...] 03/30/24 13:12:00 EDT, Route to Pharmacy Electronically, [facility] [address] [place] [address], [place], Partial fill upon patient request if the prescription i... Start Date: 03/30/24 Stop Date: 04/29/24 Status: Ordered traZODone 50 mg oral tablet 25 mg, 0.5, tablet, By Mouth, Daily at bedtime, # 45 tablet, Refills 1, Tot. Refills 1, Maintenance, 03/30/24 13:12:00 EDT, Route to Pharmacy Electronically, [facility] [address] [facility], [place], Partial fill upon patient request if the [...] Dementia 3 Confirmed Active Forgetfulness Confirmed Active [place] (hard of hearing) Confirmed Active History of [...] Care Nurse Name: Charisse Carter LPN Position: [facility] RN Member Role: Primary Care Nurse Name: Ricardo Hedrick RN Position: S RN Member Role: Primary Care Nurse Name: Maribel Ray RN Position: S RN Member Role: Primary Care Nurse Name: Etta Nunez RN Position: [facility] RN Member Role: Primary Care Nurse Name: Coleman Lerma MD Position: [facility] Outreach Member Role: PCP Address: Address: [address] [place] [address] [place] [address]- Name: Ellen Short RN Position: [facility] RN Supv Member Role: Primary Care Nurse Care Team Related Persons Name: JORGE CHANDRA Name: PAUL CHANDRA Address: home [address] [place] [address]
--- OUTSIDE RECORDS SUMMARY | 2024-06-02 14:59 | XMS_ITS | Continuity of Care Document ---
Author Organization [facility] Wil Nestor lt Address [address] [place] [address]- Care Team Providers Care Electric Meter Repairer Helper Name Role Phone Coleman Lerma MD Primary Care Physician [phone] Encounter [facility] [place] Date(s): 04/26/24 - 05/26/24 [facility] Adult [address] [place] [address]- Allergies, Adverse Reactions, Alerts Substance Reaction Severity Status penicillin Unknown Active Immunizations Given and Recorded Vaccine Date Status Refusal Reason SARS-CoV-2(COVID-19)mRNA-LNP vac([id number]) 09/03/23 Recorded influenza virus vaccine, inactivated 08/20/23 Virgil rded influenza virus vaccine, inactivated 08/20/22 Virgil rded influenza virus vaccine, inactivated 09/04/21 Virgil rded influenza virus vaccine, inactivated 08/12/20 Virgil rded influenza virus vaccine, inactivated 09/04/19 Virgil rded influenza virus vaccine, inactivated 09/04/19 Virgil rded influenza virus vaccine, inactivated 09/24/18 Virgil rded pneumococcal 23-valent vaccine 10/19/22 Given [id number] 12y+ bivalent booster vax 08/25/22 Recorded SARS-CoV-2 [...] 12/07/23 9:46:00 EST, Route to Pharmacy Electronically, [facility] [address] [place] [address], [place], Partialfill upon patient request, 175, cm, 12/07/23 9:27:0... Start Date: 12/07/23 Status: Ordered Aricept 5 mg oral tablet 5 mg, 1, tablet, By Mouth, Daily at bedtime, # 90 tablet, Refills 1, Tot. Refills 1, Maintenance, 12/07/23 9:46:00 EST, Route to Pharmacy Electronically, [facility] [address] [place] [address], [place], Partial fill upon patient request if the [...] day, 0 Refills, Maintenance, 03/23/19 9:41:46 EDT, [place] Start Date: 03/23/19 Status: Ordered Lactulose 30 [...] 03/30/24 13:12:00 EDT, Route to Pharmacy Electronically, [facility] [address] [place] [address], [place], Partial fill upon patient request if the prescription i... Start Date: 03/30/24 Stop Date: 04/29/24 Status: Ordered traZODone 50 mg oral tablet 25 mg, 0.5, tablet, By Mouth, Daily at bedtime, # 45 tablet, Refills 1, Tot. Refills 1, Maintenance, 03/30/24 13:12:00 EDT, Route to Pharmacy Electronically, [facility] [address] [place] [address], [place], Partial fill upon patient request if the [...] Dementia 3 Confirmed Active Forgetfulness Confirmed Active [place] (hard of hearing) Confirmed Active History of [...] Care Nurse Name: Coleman Lerma MD Position: [facility] Outreach Member Role: PCP Address: Address: [address] [facility] [place] [address]- Name: Ellen Short RN Position: [facility] RN Supv Member Role: Primary Care Nurse Care Team Related Persons Name: JORGE CHANDRA Name: PAUL CHANDRA Address: home [address] [place] [address]
--- NOTE | 2024-06-02 15:57 | ECG_ITS ---
Test Reason : on seroquel htn Blood Pressure : / mmHG Vent. Rate : 096 BPM Atrial Rate : 096 BPM P-R Int : 146 ms QRS Dur : 084 ms QT Int : 358 ms P-R-T Axes : 058 071 061 degrees QTc Int : 452 ms Normal sinus rhythm Possible Left atrial enlargement Borderline ECG When compared with ECG of 04-MAR-2024 09:59, No significant change was found Referred By: Ottoniel Fairbanks Electronically Signed By:GABBY ROSSI MD
[2024-06-02 16:04] VITALS: BP 143/74; PULSE 89; RESP 18; TEMP 37.1; O2SAT 94
[2024-06-02 16:42] VITALS: BP 141/85; PULSE 92; RESP 18; TEMP 36.8; O2SAT 94
[2024-06-02] MEDS: Donepezil HCl 5 MG TABLET PO (17:54)
[2024-06-02] MEDS: Divalproex Sodium Sprinkles 125 MG CAP.DR.SPR 250 MG PO (17:54)
[2024-06-02] MEDS: QUEtiapine Fumarate 50 MG TABLET PO (17:54)
[2024-06-02] MEDS: traZODone HCL 25 MG HALFTAB PO (17:54)
--- NOTE | 2024-06-02 18:28 | PC.ADMIT ---
Patient admitted to S1 at 1726 from [facility] overflow where he had been admitted 05/23/24 for agitation coinciding with UTi. Vital signs taken, skin check done. Unable to participate in admission process due to mental status. Patient has FC and has completed course of antibiotics. Patient is CV by HCP. signed KULDEEP's. MOLST/HCP documents on file. Trevor is confused at baseline with a diagnosis of dementia x7 years. Up until 3 months ago Trevor had been living at home. Now a resident of [place]. Wheel chair bound at the present time. Minimal assist of 2. EKG done. Takes medication crushed in yogurt or pudding. Placed on 1:1 for safety.
[2024-06-02 20:00] VITALS: BP 146/68; PULSE 92; RESP 16; TEMP 37.2; O2SAT 92
[2024-06-02] MEDS: QUEtiapine Fumarate 25 MG TABLET PO (21:41)
[2024-06-03] MEDS: traZODone HCL 25 MG HALFTAB PO (00:22)
[2024-06-03] MEDS: Acetaminophen 325 MG TABLET 650 MG PO ×2 (00:22→20:22)
[2024-06-03] MEDS: QUEtiapine Fumarate 50 MG TABLET PO ×4 (00:22→22:59)
[2024-06-03 07:55] VITALS: BP 149/67; PULSE 70; RESP 18; TEMP 36.4; O2SAT 95
--- NOTE | 2024-06-03 08:10 | P.HPPS_ITS ---
[facility] Date of Service: 06/03/24 Chief Complaint: Agitation, paranoia with dementia Sources of Information: patient interviewed, chart reviewed and crisis/core team assessment reviewed Additional Sources of Information: Psychiatry consults note 05/24/24: 78-year-old male, living at long-term care home (on a locked, memory care unit), with history of dementia, PE, BPH, hypertension, history of UTI (with chronic indwelling Saeed catheter), pyelonephritis (on 03/04/24) who presents to the emergency room via care home for onset of combative behaviors, throwing things and spitting at care home staff. Patient diagnosed with UTI, for which he was 1st treated at [facility]; issue did not resolve and he presents to [facility] now. Patient is confused at baseline; he has a history of developing agitated/dysregulated behaviors that coincide with UTI, which he did during prior ED admission on 02/26/24. Care team obtained collateral and apparently his behavioral disturbances again coincide with UTI. Mechanical System Technician asked to assess if patient's agitation is due to an etiology other than delirium secondary to UTI. Patient is confused and unable to answer questions other than his name. He knows some of his date. Otherwise he is not oriented to place, time or situation, where he is or why he is here. He does not know that he as an infection; when this was explained to him, he still did not understand. He can not answer any questions about himself and when asked patient would mumble about irrelevant and nonsensical things. He is however calm and able to follow simple directions. Review of nursing notes indicate that on arrival 05/23 patient was disorganized, getting out of bed and at some points became agitated and swore at staff and was chemically restrained. Going forward notes indicate that patient has been mostly calm and cooperative; still attempting to get out of bed at times but easily redirectable, resting comfortably. It was mentioned that he got agitated last night and given p.o. Zyprexa and agitation was resolved...... ......Patient has dementia. And He has a history of getting combative coinciding with UTI's. This seems to be the case now. Can continue to monitor however it seems most likely that the UTI is the origin of patient's delirium/dysregulated behavior. As infection is treated, his agitation seems to be calming down and that patient is returning to baseline. At this time there does not seem to be any need for inpatient psychiatric admission and patient can return to care home. HPI Subjective Notes: Conditional Voluntary Healthcare Proxy: Yes Narrative: Originally brought in from care home on 05/23/2024 in the context of agitation. See psychiatry consult above, which noted agitation usually increases in the context of delirium which is usually in the context of UTIs. ED Addendum note 05/26/24: Patient's final culture came back with Enterococcus, this is a vancomycin resistant Enterococcus it is also resistant to ceftriaxone and levofloxacin. Will start patient on Macrobid at this time for 7 days kidney function is within normal limits.. Physician observation continued. Uneventful night. Vital signs stable. No complaints from nursing overnight. Med reconciliation reviewed and done. Pending disposition. Will continue to monitor. Psychiatry Note 05/31/24: Pt seen difficult to arouse again during the day . Was aggressive last nite. Has dementia recent confusion agitation in context of uti no longer acute but remains agitated. Case reviewed chart reviewed unclear pts present baseline. In overflow bed limited stimulation. will stop am seroquel taper depakote reevaluate after. Unclear reasons for daytime lethargy ? medication ? post infection lethargy confusion with agitation. Currently not ambulating Consider tx and d/c options PLAN lower depakote seroquel 50 aft 25 prn pt will nEed much rEassurance orientation as coming out of confusional state Today: Admitted in the context of UTI being treated, but ongoing agitation on baseline of dementia. Saeed in place. Has been aggressive at times with staff I eat trying to hit them. As needed Seroquel and trazodone appeared to be helpful last night. Today he is sleeping, but rousable and also irritable Who the hell cares, I dont even know you , when attempted to engage in interview and orientation etc.. please refer to psychiatry consultation background above. Established dementia for the best part of 7 years. Locked memory care unit for the last 3 months. Health care proxy noted. Past Psychiatric History: no history of mental health of substance use concerns and was diagnosed with Dementia by his PCP seven years ago which reportedly has significantly progressed over the last year and rapidly progressed over the past several months. Medical Evaluation Reviewed: Yes Hospitalist evaluation today (06/03/24): The patient initially presented to our ED on 05/23 and has been boarding an overflow due to increased agitation and was found to have VRE UTi sensitive to nitrofurantoin, completed 7 day course of macrobid and repeat UTI was not indicative of infection. pt remained acutely agitated and was recommended for admission to [facility] by care team. The patient is disoriented and is combative and unfortunately is not amenable to examination/interview. Renal function baseline, lytes normal overall. Hematology studies unremarkable. EKG yesterday showed NSR, rate 96, no st/t wave abnormality. [facility] Medical History (Updated 06/03/24 @ 17:08 by Valdez Edmonds MD) Delirium due to medical condition with behavioral disturbance Enlarged prostate Dementia Pulmonary embolus DVT (deep venous thrombosis) Urinary retention HTN (hypertension) BPH (benign prostatic hyperplasia) Narrative: MOLST form noted (DNR/DNI) Social History: As per care team notes, prior to three months ago, patient was living at home home with his and functioning well with some assistance. 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 In addition, calm and mild-mannered with no history of aggression. Diagnostics Vital Signs (24Hr): Vital Signs - 24 hr 06/02/24 09:09 06/02/24 09:12 06/02/24 16:04 Temperature 98.6 F 98.8 F Pulse Rate 93 89 Respiratory Rate 18 18 Blood Pressure 150/68 H 150/68 H 143/74 H Pulse Oximetry 94 94 Oxygen Delivery Method Room Air Room Air 06/02/24 16:42 06/02/24 20:00 Temperature 98.2 F 99 F Pulse Rate 92 92 Respiratory Rate 18 16 Blood Pressure 141/85 H 146/68 H Pulse Oximetry 94 92 Oxygen Delivery Method Room Air Room Air BMI result Body Mass Index 29.8 Labs 06/03/24 08:24 06/03/24 08:24 Meds/Allergies Meds Home Medications ?Medication ?Instructions ?Recorded ?Confirmed ?Type acetaminophen 325 mg tablet 650 mg PO Q4H PRN Fever Or Pain 03/04/24 05/23/24 History (Tylenol) amlodipine 2.5 mg tablet 2.5 mg PO DAILY 03/04/24 05/23/24 History bisacodyl 10 mg rectal suppository 10 mg [place] DAILY PRN Constipation 03/04/24 05/23/24 History donepezil 5 mg tablet 5 mg PO BEDTIME 03/04/24 05/23/24 History fluticasone propionate 50 1 spray intranasal BID 03/04/24 05/23/24 History mcg/actuation nasal spray,suspension magnesium hydroxide 400 mg/5 mL 30 ml PO DAILY PRN Constipation 03/04/24 05/23/24 History oral suspension (Milk of Magnesia) naloxone 4 mg/actuation nasal 4 mg intranasal Q3M PRN Opioid 03/04/24 05/23/24 History spray (Narcan) Overdose quetiapine 25 mg tablet 25 mg PO BID 03/04/24 05/23/24 History sodium phosphates 19 gram-7 118 ml [place] DAILY PRN Constipation 03/04/24 05/23/24 History gram/118 mL enema (Fleet Enema) trazodone 50 mg tablet 25 mg PO BEDTIME 03/04/24 05/23/24 History divalproex 125 mg capsule,delayed 250 mg PO BID agitation 05/23/24 05/23/24 History release sprinkle docusate sodium 100 mg tablet 100 mg PO BID constipation 05/23/24 05/24/24 History lactulose 10 gram/15 mL oral 30 ml ONCE PRN constipation 05/23/24 05/23/24 History solution levofloxacin 750 mg tablet 750 mg PO Q48H 05/23/24 05/23/24 History quetiapine 50 mg tablet 50 mg PO BEDTIME 05/23/24 05/23/24 History sennosides 8.6 mg capsule (senna) 8.6 mg PO Q12H PRN Constipation 05/23/24 05/24/24 History Allergies Allergies Allergy/AdvReac Type Severity Reaction Status Date / Time Penicillins [PCN] Allergy Unknown Unknown Verified 05/23/24 11:55 Mental Status Exam Mental Status Exam Narrative: In bed. Hospital clothing. Self-care is poor. Sleeping, but arousable. Irritable. Was moving arm in an effort to get physical with staff. No evidence of SI or HI. Unable to clearly assess paranoia, hallucinations etc. . Who the hell cares, I dont even know you , when attempted to engage in interview and orientation etc.. so unable to formally assess cognition. Insight judgment poor Assessment & Plan Assessment & Plan (1) Dementia with behavioral disturbance: Status: Acute Code(s): F03.918 - Unspecified dementia, unspecified severity, with other behavioral disturbance Assessment and Plan: overall patient has established history of dementia. Has been in a memory care unit for the last 3 months. Does have a history of UTIs with agitation usually in the context of superimposed delirium. Has been treated for a UTI since 05/23/2024. Despite this, has continued to be agitated and aggressive. Therefore admitted to inpatient psychiatry to optimize management of behavioral disturbance in the context of dementia. We will increase Seroquel and trazodone as needed at this did appear to be beneficial. Conditional voluntary signed by healthcare proxy. Hospitalist evaluation as part of [facility] admission noted and appreciated i.e. no acute issues. Patient educated on: other (HCP) Reason for continued inpatient stay Substantial Risk for: harm to others and inability to function Statement Statement: I have reviewed the history and physical and performed a pertinent examination on my patient. No changes have occurred unless specified. If the History and Physical was not performed prior to admission, the Hospitalist's service will be consulted for completing the admission physical. Time Spent With Patient Time: Total time managing care of this patient today ____ minutes.
[2024-06-03 08:28] LABS: MANUAL DIFF FLAG NO
[2024-06-03 08:32] LABS: Basophils Percent Auto 0.6 % (0-2); Eosinophils Absolute Auto 0.4 X10*3/uL (0.0-0.4); Eosinophils Percent Auto 7.5 % (0-4); Hematocrit 42.7 % (42.0-52.0); Hemoglobin 14.3 g/dl (14.0-18.0); Imm Gran Abs Auto 0.02 X10*3/uL (0.00-0.03); Imm Gran Pct Auto 0.4 % (0.0-0.4); Lymphocytes Absolute Auto 1.6 X10*3/uL (1.2-4.9); Lymphocytes Percent Auto 30.8 % (20-40); Mean Corpuscular HGB Conc 33.5 g/dl (31.0-36.0); Mean Corpuscular Hemoglobin 34.1 pg (27.0-33.0); Mean Corpuscular Volume 101.9 fL (80.0-98.0); Mean Platelet Volume 9.1 fL (9.4-12.4); Monocytes Absolute Auto 0.8 X10*3/uL (0.1-1.2); Monocytes Percent Auto 15.8 % (2-11); Neutrophils Absolute Auto 2.3 x10*3/uL (2.0-8.3); Neutrophils Percent Auto 44.9 % (45-73); Platelet Count 255 X10*3/uL (160-400); Red Blood Count 4.19 X10*6/uL (4.60-5.80); Red Cell Distribution Width 12.7 % (11.0-16.0); White Blood Count 5.2 X10*3/uL (4.8-10.8)
[2024-06-03] MEDS: amLODIPine Besylate 2.5 MG TABLET PO (08:41)
[2024-06-03] MEDS: Tamsulosin HCL 0.4 MG CAPSULE 0.8 MG PO (08:41)
[2024-06-03 09:03] LABS: Alanine Aminotransferase 22 U/L (0-40); Alkaline Phosphatase 74 U/L (39-117); Anion Gap 11 (12-20); Aspartate Amino Transferase 31 U/L (5-37); Bilirubin Total 0.5 mg/dL (0.0-1.0); Blood Urea Nitrogen 36 mg/dL (9-16); Calcium 8.6 mg/dL (8.4-10.2); Carbon Dioxide 24 mmol/L (22-29); Chloride 112 mmol/L (96-108); Cholesterol 159 mg/dL (<200); Creatinine Clr Calc Pharmacy 57.6; Estimated Glomerular Filt Rate 55; Glucose Fasting 96 mg/dL (60-99); HDL Cholesterol 41 mg/dL (>40); LDL Cholesterol Calculated 104 mg/dL (<100); Potassium 3.8 mmol/L (3.3-5.1); Sodium 143 mmol/L (135-145); Total Protein 6.4 g/dL (6.5-8.0); Triglycerides 71 mg/dL (<150)
[2024-06-03 09:17] LABS: Thyroid Stimulating Hormone 1.01 uIU/mL (0.32-4.0)
[2024-06-03 09:30] LABS: Folate 9.8 ng/mL (> or = 4.0); Vitamin B12 954 pg/mL (200-900)
--- NOTE | 2024-06-03 13:24 | P.CONHOSP_ITS ---
History of Present Illness Data of Consult Service Date: 06/03/24 Requesting physician: Ottoniel Fairbanks Primary Care Provider: Adarsh Menon MD HPI Reason for consult: medical h&p 78-year-old male with history of PE/DVT no longer on anticoagulation, hypertension, BPH, unspecified dementia, ckd 3 admitted to geriatric psychiatry was consult placed hospitalist service for medical H&P. The patient initially presented to our ED on 05/23 and has been boarding an overflow due to increased agitation and was found to have VRE UTi sensitive to nitrofurantoin, completed 7 day course of macrobid and repeat UTI was not indicative of infection. pt remained acutely agitated and was recommended for admission to [facility] by care team. The patient is disoriented and is combative and unfortunately is not amenable to examination/interview. Renal function baseline, lytes normal overall. Hematology studies unremarkable. EKG yesterday showed NSR, rate 96, no st/t wave abnormality. Review of Systems 2 Review of Systems: Yes Unobtainable due to mental status [facility] Medical History (Updated 06/03/24 @ 13:38 by CASTILLO Stanley) Delirium due to medical condition with behavioral disturbance Enlarged prostate Dementia Pulmonary embolus DVT (deep venous thrombosis) Urinary retention HTN (hypertension) BPH (benign prostatic hyperplasia) Social History Household Members: Other Household Members Other:: SNF Housing: Care Home Do you presently have visiting nurse or other home services: No (unable to respond. resides in SNF) Unable to assess alcohol history related to: Unable to respond Comment: sitter at bedside Patient Tobacco Use Status: Tobacco use Unknown Smoked in Last 30 Days: No Patient Given Instructions on How to Stop Smoking: No Second Hand Smoke Exposure: No (resides in SNF) Use of substances other than those prescribed or required for medical reasons: Unable to respond Substance Use Type Other:: unable to respond Currently Displaying Signs/Symptoms of Drug Intoxication Withdrawal: No Other Past Substance Use Problem:: Unable to respond Any prior treatment program specific to substance use: No (Unable to respond.) Spiritual Healthcare Practices: Unable to respond Confucianist Healthcare Practices: Unable to respond Cultural Healthcare Practices: Unable to respond Advance Directives: Yes ([facility]) Advance Directives Information Provided: No Advance Directives on File: Yes Advance Directives Date on File: 03/08/24 Do you have a plan to hurt others: No Plan Recently lost weight without trying: Unsure Eating poorly because of decreased appetite: No Nutrition Risks: No Nutritional Risk Poor oral hygiene: Yes (does not cooperate with exam, but visible teeth in poor condition.) Meds Allergies Allergy/AdvReac Type Severity Reaction Status Date / Time Penicillins [PCN] Allergy Unknown Unknown Verified 05/23/24 11:55 Active Medications: Current Medications Acetaminophen (Acetaminophen 325 Mg Tablet) 650 mg PO Q4H PRN PRN Reason: Fever Or Pain Last Admin: 06/03/24 00:22 Dose: 650 mg Acetaminophen (Acetaminophen 325 Mg Tablet) 650 mg PO Q6H PRN PRN Reason: Headache/Pain Mild Scale (1-3) Amlodipine Besylate (Amlodipine Besylate 2.5 Mg Tablet) 2.5 mg PO DAILY [facility]; Protocol Last Admin: 06/03/24 08:41 Dose: 2.5 mg Bisacodyl (Bisacodyl 10 Mg Supp.Rect) 10 mg FL DAILY PRN PRN Reason: Constipation Divalproex Sodium (Divalproex Sodium Sprinkles 125 Mg ) 250 mg PO DAILY@1600 TAY Last Admin: 06/02/24 17:54 Dose: 250 mg Donepezil HCl (Donepezil Hcl 5 Mg Tablet) 5 mg PO BEDTIME@1900 TAY Last Admin: 06/02/24 17:54 Dose: 5 mg Fluticasone Propionate (Fluticasone Propionate Nasal 16 Gm [place]) 1 spray NOSTRIL-B BID [facility] Last Admin: 06/03/24 08:56 Dose: Not Given Lactulose (Lactulose 20 Gm/30 Ml Solution) 20 gm PO ONCE PRN PRN Reason: constipation Magnesium Hydroxide (Milk Of Magnesia 30 Ml Oral.Susp) 30 ml PO DAILY PRN PRN Reason: Constipation Quetiapine Fumarate (Quetiapine Fumarate 50 Mg Tablet) 50 mg PO BEDTIME@1900 [facility]; Protocol Last Admin: 06/02/24 17:54 Dose: 50 mg Quetiapine Fumarate (Quetiapine Fumarate 25 Mg Tablet) 25 mg PO BID PRN PRN Reason: anxiety/restlessness Last Admin: 06/02/24 21:41 Dose: 25 mg Sodium Biphosphate/Sodium Phosphate (Sodium Phosphate,[place]-Dibasic 133 Ml Enema) 118 ml [place] DAILY PRN PRN Reason: Constipation Tamsulosin HCl (Tamsulosin Hcl 0.4 Mg Capsule) 0.8 mg PO DAILY [facility] Last Admin: 06/03/24 08:41 Dose: 0.8 mg Trazodone HCl (Trazodone Hcl 25 Mg Halftab) 25 mg PO BEDTIME@1900 [facility] Last Admin: 06/02/24 17:54 Dose: 25 mg Home Medications ?Medication ?Instructions ?Recorded ?Confirmed ?Last Taken ?Type acetaminophen 325 mg tablet 650 mg PO Q4H PRN Fever Or Pain 03/04/24 05/23/24 05/22/24 History (Tylenol) amlodipine 2.5 mg tablet 2.5 mg PO DAILY 03/04/24 05/23/24 05/22/24 History bisacodyl 10 mg rectal suppository 10 mg FL DAILY PRN Constipation 03/04/24 05/23/24 05/22/24 History donepezil 5 mg tablet 5 mg PO BEDTIME 03/04/24 05/23/24 05/22/24 History fluticasone propionate 50 1 spray intranasal BID 03/04/24 05/23/24 05/22/24 History mcg/actuation nasal spray,suspension magnesium hydroxide 400 mg/5 mL 30 ml PO DAILY PRN Constipation 03/04/24 05/23/24 05/22/24 History oral suspension (Milk of Magnesia) naloxone 4 mg/actuation nasal 4 mg intranasal Q3M PRN Opioid 03/04/24 05/23/24 05/22/24 History spray (Narcan) Overdose quetiapine 25 mg tablet 25 mg PO BID 03/04/24 05/23/24 05/22/24 History sodium phosphates 19 gram-7 118 ml FL DAILY PRN Constipation 03/04/24 05/23/24 05/22/24 History gram/118 mL enema (Fleet Enema) trazodone 50 mg tablet 25 mg PO BEDTIME 03/04/24 05/23/24 05/22/24 History divalproex 125 mg capsule,delayed 250 mg PO BID agitation 05/23/24 05/23/24 05/22/24 History release sprinkle docusate sodium 100 mg tablet 100 mg PO BID constipation 05/23/24 05/24/24 Unknown History lactulose 10 gram/15 mL oral 30 ml ONCE PRN constipation 05/23/24 05/23/24 05/22/24 History solution levofloxacin 750 mg tablet 750 mg PO Q48H 05/23/24 05/23/24 Unknown History quetiapine 50 mg tablet 50 mg PO BEDTIME 05/23/24 05/23/24 05/22/24 History sennosides 8.6 mg capsule (senna) 8.6 mg PO Q12H PRN Constipation 05/23/24 05/24/24 Unknown History Physical Exam 2 Vital Signs and Narrative: Vital Signs: Last Vital Signs Temp 97.6 F 06/03/24 07:55 Pulse 70 06/03/24 07:55 Resp 18 06/03/24 07:55 BP 149/67 H 06/03/24 07:55 Pulse Ox 95 06/03/24 07:55 O2 Del Method Room Air 06/03/24 07:55 O2 Flow Rate 2 06/01/24 05:46 BMI result Body Mass Index 29.8 Constitutional - somnolent but arousable, combative, no acute distress Unable to complete full exam Results Labs 06/03/24 08:24 06/03/24 08:24 Labs: Laboratory Results - last 24 hr 06/03/24 08:24 MCV 101.9 H MCH 34.1 H MCHC 33.5 RDW 12.7 Plt Count 255 MPV 9.1 L Immature Gran % (Auto) 0.4 Neut % (Auto) 44.9 L Lymph % (Auto) 30.8 [place] % (Auto) 15.8 H Eos % (Auto) 7.5 H Baso % (Auto) 0.6 Lymph # (Auto) 1.6 [place] # (Auto) 0.8 Eos # (Auto) 0.4 Baso # (Auto) 0.0 Abs Immat Gran (auto) 0.02 Absolute Neuts (auto) 2.3 Absolute Nucleated RBC 0.000 Nucleated RBC % (auto) 0.0 Anion Gap 11 L Estim Creat Clear Calc 57.6 Estimated GFR 55 Fasting Glucose 96 Calcium 8.6 Total Bilirubin 0.5 AST 31 ALT 22 Alkaline Phosphatase 74 Total Protein 6.4 L Albumin 3.0 L Triglycerides 71 Cholesterol 159 LDL Cholesterol, Calc 104 H HDL Cholesterol 41 Vitamin B12 954 H Folate 9.8 TSH 1.01 Assessment and Plan (1) Routine medical exam: Status: Acute Plan 78-year-old male with history of PE/DVT no longer on anticoagulation, hypertension, BPH, unspecified dementia, ckd 3 admitted to geriatric psychiatry was consult placed hospitalist service for medical H&P. #Dementia/mood disorder -plan per psychiatry #VRE UTI -completed course of macrobid -cancel precautions #CKD stage 3 -renal function baseline #BPH -continue flomax #HTN -continue amlodipine #Hx pe/dvt -no longer on ac Thank you for allowing me to participate in this consult. Signing off at this time. Please do not hesitate to call for further questions or for any acute medical issues
[2024-06-03] MEDS: Divalproex Sodium Sprinkles 125 MG CAP.DR.SPR 250 MG PO (15:08)
[2024-06-03 20:00] VITALS: PULSE 99; RESP 18; TEMP 36.2; O2SAT 98
[2024-06-03] MEDS: traZODone HCL 50 MG TABLET PO (20:23)
[2024-06-03] MEDS: Donepezil HCl 5 MG TABLET PO (20:23)
[2024-06-04 08:15] VITALS: BP 142/62; PULSE 60; RESP 18; TEMP 36.6; O2SAT 97
[2024-06-04] MEDS: Tamsulosin HCL 0.4 MG CAPSULE 0.8 MG PO (09:30)
[2024-06-04] MEDS: amLODIPine Besylate 2.5 MG TABLET PO (09:30)
--- NOTE | 2024-06-04 10:26 | P.PNPSI_ITS ---
Subjective Subjective Date of Service: 06/04/24 Reason For Visit: Agitation, paranoia with dementia Subjective Notes: Conditional Voluntary Healthcare Proxy: Yes Interim History: Agitated yesterday. Some response to seroquel. Sleeping alot during the daytime. Needs assistance with ADLs. Established advanced dementia. Unable to engage with interview as sleeping and agitated on wakening Medication Compliance: Yes Side effects from medications: No Attending Groups: No Review of Systems Acute medical concerns: No Review of Systems Review of Systems Yes Unobtainable due to mental status Mental Status Exam Mental Status Exam Narrative: In bed. Hospital clothing. Self-care is poor. Sleeping, but arousable. Irritable. No evidence of SI or HI. Unable to clearly assess paranoia, hallucinations etc. . Insight judgment poor Diagnostics Vital Signs (24Hr): Vital Signs - 24 hr 06/03/24 20:00 Temperature 97.2 F Pulse Rate 99 Respiratory Rate 18 Pulse Oximetry 98 Oxygen Delivery Method Room Air BMI result Body Mass Index 29.8 Labs 06/03/24 08:24 06/03/24 08:24 Labs: Laboratory Results - last 48 hr 06/03/24 08:24 WBC 5.2 RBC 4.19 L Hgb 14.3 Hct 42.7 MCV 101.9 H MCH 34.1 H MCHC 33.5 RDW 12.7 Plt Count 255 MPV 9.1 L Immature Gran % (Auto) 0.4 Neut % (Auto) 44.9 L Lymph % (Auto) 30.8 [place] % (Auto) 15.8 H Eos % (Auto) 7.5 H Baso % (Auto) 0.6 Lymph # (Auto) 1.6 [place] # (Auto) 0.8 Eos # (Auto) 0.4 Baso # (Auto) 0.0 Abs Immat Gran (auto) 0.02 Absolute Neuts (auto) 2.3 Absolute Nucleated RBC 0.000 Nucleated RBC % (auto) 0.0 Sodium 143 Potassium 3.8 D Chloride 112 H Carbon Dioxide 24 Anion Gap 11 L BUN 36 H Creatinine 1.27 Estim Creat Clear Calc 57.6 Estimated GFR 55 Fasting Glucose 96 Calcium 8.6 Total Bilirubin 0.5 AST 31 ALT 22 Alkaline Phosphatase 74 Total Protein 6.4 L Albumin 3.0 L Triglycerides 71 Cholesterol 159 LDL Cholesterol, Calc 104 H HDL Cholesterol 41 Vitamin B12 954 H Folate 9.8 TSH 1.01 Medications Medications Current Medications Acetaminophen (Acetaminophen 325 Mg Tablet) 650 mg PO Q4H PRN PRN Reason: Fever Or Pain Last Admin: 06/03/24 20:22 Dose: 650 mg Acetaminophen (Acetaminophen 325 Mg Tablet) 650 mg PO Q6H PRN PRN Reason: Headache/Pain Mild Scale (1-3) Amlodipine Besylate (Amlodipine Besylate 2.5 Mg Tablet) 2.5 mg PO DAILY [facility]; Protocol Last Admin: 06/04/24 09:30 Dose: 2.5 mg Bisacodyl (Bisacodyl 10 Mg Supp.Rect) 10 mg [place] DAILY PRN PRN Reason: Constipation Divalproex Sodium (Divalproex Sodium Sprinkles 125 Mg Cap.[email or web address]) 250 mg PO DAILY@1600 [facility] Last Admin: 06/03/24 15:08 Dose: 250 mg Donepezil HCl (Donepezil Hcl 5 Mg Tablet) 5 mg PO BEDTIME@1900 [facility] Last Admin: 06/03/24 20:23 Dose: 5 mg Fluticasone Propionate (Fluticasone Propionate Nasal 16 Gm [place]) 1 spray NOSTRIL-B BID [facility] Last Admin: 06/04/24 09:31 Dose: Not Given Lactulose (Lactulose 20 Gm/30 Ml Solution) 20 gm PO ONCE PRN PRN Reason: constipation Magnesium Hydroxide (Milk Of Magnesia 30 Ml Oral.Susp) 30 ml PO DAILY PRN PRN Reason: Constipation Quetiapine Fumarate (Quetiapine Fumarate 50 Mg Tablet) 50 mg PO BEDTIME@1900 [facility]; Protocol Last Admin: 06/03/24 20:23 Dose: 50 mg Quetiapine Fumarate (Quetiapine Fumarate 50 Mg Tablet) 50 mg PO TID PRN PRN Reason: anxiety/restlessness Last Admin: 06/03/24 22:59 Dose: 50 mg Sodium Biphosphate/Sodium Phosphate (Sodium Phosphate,[place]-Dibasic 133 Ml Enema) 118 ml [place] DAILY PRN PRN Reason: Constipation Tamsulosin HCl (Tamsulosin Hcl 0.4 Mg Capsule) 0.8 mg PO DAILY [facility] Last Admin: 06/04/24 09:30 Dose: 0.8 mg Trazodone HCl (Trazodone Hcl 50 Mg Tablet) 50 mg PO BEDTIME@1900 [facility] Last Admin: 06/03/24 20:23 Dose: 50 mg Allergies Allergies Allergy/AdvReac Type Severity Reaction Status Date / Time Penicillins [PCN] Allergy Unknown Unknown Verified 05/23/24 11:55 Assessment & Plan Assessment & Plan (1) Dementia with behavioral disturbance: Status: Acute Code(s): F03.918 - Unspecified dementia, unspecified severity, with other behavioral disturbance Assessment and Plan: overall patient has established history of dementia. Has been in a memory care unit for the last 3 months. Does have a history of UTIs with agitation usually in the context of superimposed delirium. Has been treated for a UTI since 05/23/2024. Despite this, has continued to be agitated and aggressive. Therefore admitted to inpatient psychiatry to optimize management of behavioral disturbance in the context of dementia. We will increase Seroquel and trazodone as needed at this did appear to be beneficial. Conditional voluntary signed by healthcare proxy. Hospitalist evaluation as part of [facility] admission noted and appreciated i.e. no acute issues. 06/04: monitor prn med needs, then schedule doses depending on needs Reason for continued inpatient stay Substantial Risk for: inability to function Time Spent With Patient Time: Total time managing care of this patient today ____ minutes.
[2024-06-04] MEDS: Divalproex Sodium Sprinkles 125 MG CAP.DR.SPR 250 MG PO (15:38)
[2024-06-04] MEDS: QUEtiapine Fumarate 50 MG TABLET PO ×3 (15:38→23:01)
[2024-06-04] MEDS: Donepezil HCl 5 MG TABLET PO (19:59)
[2024-06-04] MEDS: traZODone HCL 50 MG TABLET PO (19:59)
[2024-06-04 20:00] VITALS: RESP 16; TEMP 36.6
[2024-06-05] MEDS: Acetaminophen 325 MG TABLET 650 MG PO ×2 (00:24→22:34)
[2024-06-05] MEDS: LORazepam 1 MG TABLET PO ×2 (00:25→21:39)
[2024-06-05 10:52] VITALS: BP 156/85; PULSE 76; RESP 18; TEMP 36.6; O2SAT 93
[2024-06-05] MEDS: Tamsulosin HCL 0.4 MG CAPSULE 0.8 MG PO (10:53)
[2024-06-05] MEDS: amLODIPine Besylate 2.5 MG TABLET PO (10:53)
[2024-06-05] MEDS: Fluticasone Propionate Nasal 16 GM SPRAY 1 SPRAY NOSTRIL-B ×2 (10:54→16:32)
--- NOTE | 2024-06-05 11:35 | HO.PSYCHPN ---
Subjective Subjective Date of Service: 06/05/24 Reason For Visit: Agitation, paranoia with dementia Subjective Notes: Conditional Voluntary Healthcare Proxy: Yes Interim History: Pt slept5 hrs. This morning he has been cooperative. His speech is minimal, significant expressive and receptive aphasia. VS stable. change of nielsen due to day- he has chronic nielsen. continue to monitor BM. Review of Systems Review of Systems Yes Unobtainable due to mental status Denies Sensory deficit (Neuro) Mental Status Exam Mental Status Exam Narrative: In bed. Hospital clothing. Self-care is poor. Sleeping, but arousable. Irritable. No evidence of SI or HI. Unable to clearly assess paranoia, hallucinations etc. . Insight judgment poor Diagnostics Vital Signs (24Hr): Vital Signs - 24 hr 06/04/24 20:00 06/05/24 10:52 Temperature 98 F 97.9 F Pulse Rate 76 Respiratory Rate 16 18 Blood Pressure 156/85 H Pulse Oximetry 93 Oxygen Delivery Method Room Air BMI result Body Mass Index 29.8 Labs 06/03/24 08:24 06/03/24 08:24 Medications Medications Current Medications Acetaminophen (Acetaminophen 325 Mg Tablet) 650 mg PO Q6H PRN PRN Reason: Headache/Pain Mild Scale (1-3) Amlodipine Besylate (Amlodipine Besylate 2.5 Mg Tablet) 2.5 mg PO DAILY [facility]; Protocol Last Admin: 06/05/24 10:53 Dose: 2.5 mg Bisacodyl (Bisacodyl 10 Mg Supp.Rect) 10 mg [place] DAILY PRN PRN Reason: Constipation Divalproex Sodium (Divalproex Sodium Sprinkles 125 Mg ) 250 mg PO DAILY@1600 [facility] Last Admin: 06/04/24 15:38 Dose: 250 mg Donepezil HCl (Donepezil Hcl 5 Mg Tablet) 5 mg PO BEDTIME@1900 [facility] Last Admin: 06/04/24 19:59 Dose: 5 mg Fluticasone Propionate (Fluticasone Propionate Nasal 16 Gm [place]) 1 spray NOSTRIL-B BID [facility] Last Admin: 06/05/24 10:54 Dose: 1 spray Lactulose (Lactulose 20 Gm/30 Ml Solution) 20 gm PO ONCE PRN PRN Reason: constipation Magnesium Hydroxide (Milk Of Magnesia 30 Ml Oral.Susp) 30 ml PO DAILY PRN PRN Reason: Constipation Quetiapine Fumarate (Quetiapine Fumarate 50 Mg Tablet) 50 mg PO BEDTIME@1900 [facility]; Protocol Last Admin: 06/04/24 19:58 Dose: 50 mg Quetiapine Fumarate (Quetiapine Fumarate 50 Mg Tablet) 50 mg PO TID PRN PRN Reason: anxiety/restlessness Last Admin: 06/04/24 23:01 Dose: 50 mg Sodium Biphosphate/Sodium Phosphate (Sodium Phosphate,[place]-Dibasic 133 Ml Enema) 118 ml [place] DAILY PRN PRN Reason: Constipation Tamsulosin HCl (Tamsulosin Hcl 0.4 Mg Capsule) 0.8 mg PO DAILY [facility] Last Admin: 06/05/24 10:53 Dose: 0.8 mg Trazodone HCl (Trazodone Hcl 50 Mg Tablet) 50 mg PO BEDTIME@1900 [facility] Last Admin: 06/04/24 19:59 Dose: 50 mg Allergies Allergies Allergy/AdvReac Type Severity Reaction Status Date / Time Penicillins [PCN] Allergy Unknown Unknown Verified 05/23/24 11:55 Assessment & Plan Assessment & Plan (1) Dementia with behavioral disturbance: Status: Acute Code(s): F03.918 - Unspecified dementia, unspecified severity, with other behavioral disturbance Assessment and Plan: overall patient has established history of dementia. Has been in a memory care unit for the last 3 months. Does have a history of UTIs with agitation usually in the context of superimposed delirium. Has been treated for a UTI since 05/23/2024. Despite this, has continued to be agitated and aggressive. Therefore admitted to inpatient psychiatry to optimize management of behavioral disturbance in the context of dementia. We will increase Seroquel and trazodone as needed at this did appear to be beneficial. Conditional voluntary signed by healthcare proxy. Hospitalist evaluation as part of [facility] psych admission noted and appreciated i.e. no acute issues. 06/04: monitor prn med needs, then schedule doses depending on needs 06/05 continue tx. Reason for continued inpatient stay Substantial Risk for: inability to function Time Spent With Patient Time: Total time managing care of this patient today ____ minutes.
[2024-06-05 13:23] LABS: Ammonia 29 umol/L (13-55)
[2024-06-05] MEDS: Divalproex Sodium Sprinkles 125 MG CAP.DR.SPR 250 MG PO (16:31)
[2024-06-05] MEDS: Donepezil HCl 5 MG TABLET PO (16:31)
[2024-06-05] MEDS: QUEtiapine Fumarate 50 MG TABLET PO ×3 (16:31→23:07)
[2024-06-05] MEDS: traZODone HCL 50 MG TABLET PO ×2 (16:32→23:50)
[2024-06-05] MEDS: bisacodyL 10 MG SUPP.RECT PR (17:14)
[2024-06-05] MEDS: Lactulose 20 GM/30 ML SOLUTION PO (17:14)
[2024-06-05 20:00] VITALS: RESP 18; TEMP 36.6
[2024-06-06 10:57] VITALS: BP 125/73; PULSE 83; RESP 16; TEMP 36.7; O2SAT 91
[2024-06-06] MEDS: Tamsulosin HCL 0.4 MG CAPSULE 0.8 MG PO (10:57)
[2024-06-06] MEDS: amLODIPine Besylate 2.5 MG TABLET PO (10:58)
[2024-06-06] MEDS: Fluticasone Propionate Nasal 16 GM SPRAY 1 SPRAY NOSTRIL-B ×2 (11:05→21:28)
[2024-06-06] MEDS: QUEtiapine Fumarate 50 MG TABLET PO ×3 (14:44→22:11)
[2024-06-06] MEDS: polyethylene glycoL 3350 17 GM POWD.PACK PO (14:44)
[2024-06-06] MEDS: Sennosides/Docusate Sodium TABLET 1 TAB PO ×2 (14:44→21:08)
[2024-06-06] MEDS: Divalproex Sodium Sprinkles 125 MG CAP.DR.SPR 250 MG PO (14:44)
[2024-06-06] MEDS: Sodium Phosphate,Mono-Dibasic 133 ML ENEMA 118 ML PR (15:56)
--- NOTE | 2024-06-06 16:54 | P.PNPSI_ITS ---
Subjective Subjective Date of Service: 06/06/24 Reason For Visit: Agitation, paranoia with dementia Subjective Notes: Conditional Voluntary Healthcare Proxy: Yes Interim History: Pt slept 5hrs. pt was combative in the evening yesterday, requiring prn ativan. He was trying to strike staff when they were assisting him. During the day he has been calmer, no combative behaviors. He appears constipated, positive bowel sounds and passing gas. he is poor historian. given lactulose, dulcolax [place] with no benefit. ordered KUB. added miralax, senna/colace. no vomiting, no signs of abdominal pain. Diagnostics Vital Signs (24Hr): Vital Signs - 24 hr 06/05/24 20:00 06/06/24 10:57 Temperature 98 F 98.1 F Pulse Rate 83 Respiratory Rate 18 16 Blood Pressure 125/73 Pulse Oximetry 91 L Oxygen Delivery Method Room Air BMI result Body Mass Index 29.8 Labs 06/03/24 08:24 06/03/24 08:24 Labs: Laboratory Results - last 48 hr 06/05/24 13:06 Ammonia 29 Medications Medications Current Medications Acetaminophen (Acetaminophen 325 Mg Tablet) 650 mg PO Q6H PRN PRN Reason: Headache/Pain Mild Scale (1-3) Last Admin: 06/05/24 22:34 Dose: 650 mg Amlodipine Besylate (Amlodipine Besylate 2.5 Mg Tablet) 2.5 mg PO DAILY [facility]; Protocol Last Admin: 06/06/24 10:58 Dose: 2.5 mg Bisacodyl (Bisacodyl 10 Mg Supp.Rect) 10 mg [place] DAILY PRN PRN Reason: Constipation Divalproex Sodium (Divalproex Sodium Sprinkles 125 Mg ) 250 mg PO DAILY@1600 [facility] Last Admin: 06/06/24 14:44 Dose: 250 mg Donepezil HCl (Donepezil Hcl 5 Mg Tablet) 5 mg PO BEDTIME@1900 [facility] Last Admin: 06/05/24 16:31 Dose: 5 mg Fluticasone Propionate (Fluticasone Propionate Nasal 16 Gm [place]) 1 spray NOSTRIL-B BID [facility] Last Admin: 06/06/24 11:05 Dose: 1 spray Lactulose (Lactulose 20 Gm/30 Ml Solution) 20 gm PO ONCE PRN PRN Reason: constipation Magnesium Hydroxide (Milk Of Magnesia 30 Ml Oral.Susp) 30 ml PO DAILY PRN PRN Reason: Constipation Polyethylene Glycol (Polyethylene Glycol 3350 17 Gm Powd.Pack) 17 gm PO DAILY [facility] Last Admin: 06/06/24 14:44 Dose: 17 gm Quetiapine Fumarate (Quetiapine Fumarate 50 Mg Tablet) 50 mg PO BEDTIME@1900 [facility]; Protocol Last Admin: 06/05/24 21:40 Dose: 50 mg Quetiapine Fumarate (Quetiapine Fumarate 50 Mg Tablet) 50 mg PO TID PRN PRN Reason: anxiety/restlessness Last Admin: 06/05/24 23:07 Dose: 50 mg Quetiapine Fumarate (Quetiapine Fumarate 50 Mg Tablet) 50 mg PO DAILY@1630 [facility] Last Admin: 06/06/24 14:44 Dose: 50 mg Senna/Docusate Sodium (Sennosides/Docusate Sodium Tablet) 1 tab PO BID [facility] Last Admin: 06/06/24 14:44 Dose: 1 tab Sodium Biphosphate/Sodium Phosphate (Sodium Phosphate,[place]-Dibasic 133 Ml Enema) 118 ml [place] DAILY PRN PRN Reason: Constipation Last Admin: 06/06/24 15:56 Dose: 118 ml Tamsulosin HCl (Tamsulosin Hcl 0.4 Mg Capsule) 0.8 mg PO DAILY [facility] Last Admin: 06/06/24 10:57 Dose: 0.8 mg Trazodone HCl (Trazodone Hcl 50 Mg Tablet) 50 mg PO BEDTIME [facility] Last Admin: 06/05/24 23:50 Dose: 50 mg Allergies Allergies Allergy/AdvReac Type Severity Reaction Status Date / Time Penicillins [PCN] Allergy Unknown Unknown Verified 05/23/24 11:55 Assessment & Plan Assessment & Plan (1) Dementia with behavioral disturbance: Status: Acute Code(s): F03.918 - Unspecified dementia, unspecified severity, with other behavioral disturbance Assessment and Plan: overall patient has established history of dementia. Has been in a memory care unit for the last 3 months. Does have a history of UTIs with agitation usually in the context of superimposed delirium. Has been treated for a UTI since 05/23/2024. Despite this, has continued to be agitated and aggressive. Therefore admitted to inpatient psychiatry to optimize management of behavioral disturbance in the context of dementia. We will increase Seroquel and trazodone as needed at this did appear to be beneficial. Conditional voluntary signed by healthcare proxy. Hospitalist evaluation as part of [facility] psych admission noted and appreciated i.e. no acute issues. 06/04: monitor prn med needs, then schedule doses depending on needs 06/05 added scheduled dose of seroquel 50mg at 3pm and bedtime, continue prn doses. continue to monitor constipation. Reason for continued inpatient stay Substantial Risk for: inability to function Time Spent With Patient Time: Total time managing care of this patient today ____ minutes.
[2024-06-06 20:00] VITALS: BP 114/59; PULSE 90; RESP 18; TEMP 36.9; O2SAT 94
[2024-06-06] MEDS: traZODone HCL 50 MG TABLET PO (21:08)
[2024-06-06] MEDS: Donepezil HCl 5 MG TABLET PO (21:09)
[2024-06-07] MEDS: bisacodyL 10 MG SUPP.RECT PR
[2024-06-07] MEDS: LORazepam 1 MG TABLET PO (01:09)
[2024-06-07] MEDS: QUEtiapine Fumarate 50 MG TABLET PO ×3 (05:09→21:19)
--- NOTE | 2024-06-07 09:21 | P.PNPSI_ITS ---
Subjective Subjective Date of Service: 06/07/24 Reason For Visit: Agitation, paranoia with dementia Subjective Notes: Conditional Voluntary Healthcare Proxy: Yes Interim History: Pt did not sleep much last night. restless. receive ativan which seem to calm him but no sleep. He slept most of the day. water enema administered for constipation along with miralax, sangita/colace. he is eating well. suspect constipation also exacerbating some of the combative behaviors- close monitoring of constipation to prevent complication. small BM in AM. Diagnostics Vital Signs (24Hr): Vital Signs - 24 hr 06/06/24 10:57 06/06/24 20:00 Temperature 98.1 F 98.4 F Pulse Rate 83 90 Respiratory Rate 16 18 Blood Pressure 125/73 114/59 L Pulse Oximetry 91 L 94 Oxygen Delivery Method Room Air Room Air BMI result Body Mass Index 29.8 Labs 06/03/24 08:24 06/07/24 10:51 Labs: Laboratory Results - last 48 hr 06/05/24 13:06 Ammonia 29 Imaging Radiology Impressions: ITS Impressions KUB X-Ray 06/06/24 17:28 IMPRESSION: Large amount of retained stool in the rectum. Medications Medications Current Medications Acetaminophen (Acetaminophen 325 Mg Tablet) 650 mg PO Q6H PRN PRN Reason: Headache/Pain Mild Scale (1-3) Last Admin: 06/05/24 22:34 Dose: 650 mg Amlodipine Besylate (Amlodipine Besylate 2.5 Mg Tablet) 2.5 mg PO DAILY [facility]; Protocol Last Admin: 06/06/24 10:58 Dose: 2.5 mg Bisacodyl (Bisacodyl 10 Mg Supp.Rect) 10 mg UT DAILY PRN PRN Reason: Constipation Last Admin: 06/07/24 00:00 Dose: 10 mg Donepezil HCl (Donepezil Hcl 5 Mg Tablet) 5 mg PO BEDTIME [facility] Last Admin: 06/06/24 21:09 Dose: 5 mg Fluticasone Propionate (Fluticasone Propionate Nasal 16 Gm [place]) 1 spray NOSTRIL-B BID [facility] Last Admin: 06/06/24 21:28 Dose: 1 spray Lactulose (Lactulose 20 Gm/30 Ml Solution) 20 gm PO ONCE PRN PRN Reason: constipation Magnesium Hydroxide (Milk Of Magnesia 30 Ml Oral.Susp) 30 ml PO DAILY PRN PRN Reason: Constipation Polyethylene Glycol (Polyethylene Glycol 3350 17 Gm Powd.Pack) 17 gm PO DAILY [facility] Last Admin: 06/06/24 14:44 Dose: 17 gm Quetiapine Fumarate (Quetiapine Fumarate 50 Mg Tablet) 50 mg PO TID PRN PRN Reason: anxiety/restlessness Last Admin: 06/07/24 05:09 Dose: 50 mg Quetiapine Fumarate (Quetiapine Fumarate 50 Mg Tablet) 50 mg PO DAILY@1630 [facility] Last Admin: 06/06/24 14:44 Dose: 50 mg Quetiapine Fumarate (Quetiapine Fumarate 50 Mg Tablet) 50 mg PO BEDTIME [facility]; Protocol Last Admin: 06/06/24 21:08 Dose: 50 mg Senna/Docusate Sodium (Sennosides/Docusate Sodium Tablet) 1 tab PO BID [facility] Last Admin: 06/06/24 21:08 Dose: 1 tab Sodium Biphosphate/Sodium Phosphate (Sodium Phosphate,[place]-Dibasic 133 Ml Enema) 118 ml [place] DAILY PRN PRN Reason: Constipation Last Admin: 06/06/24 15:56 Dose: 118 ml Tamsulosin HCl (Tamsulosin Hcl 0.4 Mg Capsule) 0.8 mg PO DAILY [facility] Last Admin: 06/06/24 10:57 Dose: 0.8 mg Trazodone HCl (Trazodone Hcl 50 Mg Tablet) 50 mg PO BEDTIME [facility] Last Admin: 06/06/24 21:08 Dose: 50 mg Allergies Allergies Allergy/AdvReac Type Severity Reaction Status Date / Time Penicillins [PCN] Allergy Unknown Unknown Verified 05/23/24 11:55 Assessment & Plan Assessment & Plan (1) Dementia with behavioral disturbance: Status: Acute Code(s): F03.918 - Unspecified dementia, unspecified severity, with other behavioral disturbance Assessment and Plan: overall patient has established history of dementia. Has been in a memory care unit for the last 3 months. Does have a history of UTIs with agitation usually in the context of superimposed delirium. Has been treated for a UTI since 05/23/2024. Despite this, has continued to be agitated and aggressive. Therefore admitted to inpatient psychiatry to optimize management of behavioral disturbance in the context of dementia. We will increase Seroquel and trazodone as needed at this did appear to be beneficial. Conditional voluntary signed by healthcare proxy. Hospitalist evaluation as part of [facility] psych admission noted and appreciated i.e. no acute issues. 06/04: monitor prn med needs, then schedule doses depending on needs 06/05 added scheduled dose of seroquel 50mg at 3pm and bedtime, continue prn doses. continue to monitor constipation. 06/07 KUB showed severe constipation no obstruction. water enema, along with miralax given. sm bm in AM. continue to monitor. Reason for continued inpatient stay Substantial Risk for: inability to function Time Spent With Patient Time: Total time managing care of this patient today ____ minutes.
[2024-06-07 11:11] LABS: Alanine Aminotransferase 21 U/L (0-40); Albumin Level 3.2 g/dL (3.5-5.0); Alkaline Phosphatase 90 U/L (39-117); Anion Gap 12 (12-20); Aspartate Amino Transferase 23 U/L (5-37); Bilirubin Total 0.6 mg/dL (0.0-1.0); Blood Urea Nitrogen 36 mg/dL (9-16); Calcium 8.9 mg/dL (8.4-10.2); Carbon Dioxide 24 mmol/L (22-29); Chloride 112 mmol/L (96-108); Creatinine Clr Calc Pharmacy 53.8; Estimated Glomerular Filt Rate 51; Glucose Random 98 mg/dL (60-115); Potassium 4.2 mmol/L (3.3-5.1); Sodium 144 mmol/L (135-145); Total Protein 7.1 g/dL (6.5-8.0)
[2024-06-07 11:27] VITALS: BP 121/91; PULSE 97; RESP 16; TEMP 36.8; O2SAT 98
[2024-06-07 20:00] VITALS: BP 140/63; PULSE 106; RESP 18; TEMP 36.2; O2SAT 97
[2024-06-07] MEDS: Donepezil HCl 5 MG TABLET PO (21:19)
[2024-06-07] MEDS: traZODone HCL 50 MG TABLET PO (21:19)
[2024-06-07] MEDS: Sennosides/Docusate Sodium TABLET 1 TAB PO (21:24)
[2024-06-08] MEDS: QUEtiapine Fumarate 50 MG TABLET PO ×3 (00:03→15:48)
[2024-06-08 07:00] VITALS: BMI 20.3
[2024-06-08 08:48] VITALS: BP 150/78; PULSE 78; RESP 14; TEMP 36.6; O2SAT 93
[2024-06-08] MEDS: polyethylene glycoL 3350 17 GM POWD.PACK PO (08:50)
[2024-06-08] MEDS: Tamsulosin HCL 0.4 MG CAPSULE 0.8 MG PO (08:50)
[2024-06-08] MEDS: Lactulose 20 GM/30 ML SOLUTION PO (08:50)
[2024-06-08] MEDS: Sennosides/Docusate Sodium TABLET 1 TAB PO ×2 (08:50→20:59)
[2024-06-08] MEDS: amLODIPine Besylate 2.5 MG TABLET PO (08:51)
--- NOTE | 2024-06-08 11:23 | HO.PSYCHPN ---
Subjective Subjective Date of Service: 06/08/24 Reason For Visit: Agitation, paranoia with dementia Subjective Notes: Conditional Voluntary Interim History: Pt slept 4 hrs, but restless at night. One loose stool. will do another KUB- monitor progress. He has been restless at time this morning. will increase seroquel at bedtime from 50mg po qhs to 100mg po qhs. Diagnostics Vital Signs (24Hr): Vital Signs - 24 hr 06/07/24 11:27 06/07/24 20:00 06/08/24 08:48 Temperature 98.2 F 97.2 F 97.8 F Pulse Rate 97 106 H 78 Respiratory Rate 16 18 14 Blood Pressure 121/91 H 140/63 H 150/78 H Pulse Oximetry 98 97 93 Oxygen Delivery Method Room Air Room Air Room Air BMI result Body Mass Index 20.3 Labs 06/03/24 08:24 06/07/24 10:51 Labs: Laboratory Results - last 48 hr 06/07/24 10:51 Sodium 144 Potassium 4.2 Chloride 112 H Carbon Dioxide 24 Anion Gap 12 BUN 36 H Creatinine 1.36 Estim Creat Clear Calc 53.8 Estimated GFR 51 Random Glucose 98 Calcium 8.9 Total Bilirubin 0.6 AST 23 ALT 21 Alkaline Phosphatase 90 Total Protein 7.1 Albumin 3.2 L Imaging Radiology Impressions: ITS Impressions KUB X-Ray 06/06/24 17:28 IMPRESSION: Large amount of retained stool in the rectum. Medications Medications Current Medications Acetaminophen (Acetaminophen 325 Mg Tablet) 650 mg PO Q6H PRN PRN Reason: Headache/Pain Mild Scale (1-3) Last Admin: 06/05/24 22:34 Dose: 650 mg Amlodipine Besylate (Amlodipine Besylate 2.5 Mg Tablet) 2.5 mg PO DAILY [facility]; Protocol Last Admin: 06/08/24 08:51 Dose: 2.5 mg Bisacodyl (Bisacodyl 10 Mg Supp.Rect) 10 mg [place] DAILY PRN PRN Reason: Constipation Last Admin: 06/07/24 00:00 Dose: 10 mg Donepezil HCl (Donepezil Hcl 5 Mg Tablet) 5 mg PO BEDTIME [facility] Last Admin: 06/07/24 21:19 Dose: 5 mg Fluticasone Propionate (Fluticasone Propionate Nasal 16 Gm [place]) 1 spray NOSTRIL-B BID [facility] Last Admin: 06/08/24 08:52 Dose: Not Given Lactulose (Lactulose 20 Gm/30 Ml Solution) 20 gm PO ONCE PRN PRN Reason: constipation Last Admin: 06/08/24 08:50 Dose: 20 gm Magnesium Hydroxide (Milk Of Magnesia 30 Ml Oral.Susp) 30 ml PO DAILY PRN PRN Reason: Constipation Polyethylene Glycol (Polyethylene Glycol 3350 17 Gm Powd.Pack) 17 gm PO DAILY [facility] Last Admin: 06/08/24 08:50 Dose: 17 gm Quetiapine Fumarate (Quetiapine Fumarate 50 Mg Tablet) 50 mg PO TID PRN PRN Reason: anxiety/restlessness Last Admin: 06/08/24 00:03 Dose: 50 mg Quetiapine Fumarate (Quetiapine Fumarate 50 Mg Tablet) 50 mg PO DAILY@1630 [facility] Last Admin: 06/07/24 16:52 Dose: 50 mg Quetiapine Fumarate (Quetiapine Fumarate 50 Mg Tablet) 50 mg PO BEDTIME [facility]; Protocol Last Admin: 06/07/24 21:19 Dose: 50 mg Senna/Docusate Sodium (Sennosides/Docusate Sodium Tablet) 1 tab PO BID [facility] Last Admin: 06/08/24 08:50 Dose: 1 tab Sodium Biphosphate/Sodium Phosphate (Sodium Phosphate,[place]-Dibasic 133 Ml Enema) 118 ml [place] DAILY PRN PRN Reason: Constipation Last Admin: 06/06/24 15:56 Dose: 118 ml Tamsulosin HCl (Tamsulosin Hcl 0.4 Mg Capsule) 0.8 mg PO DAILY [facility] Last Admin: 06/08/24 08:50 Dose: 0.8 mg Trazodone HCl (Trazodone Hcl 50 Mg Tablet) 50 mg PO BEDTIME [facility] Last Admin: 06/07/24 21:19 Dose: 50 mg Allergies Allergies Allergy/AdvReac Type Severity Reaction Status Date / Time Penicillins [PCN] Allergy Unknown Unknown Verified 05/23/24 11:55 Assessment & Plan Assessment & Plan (1) Dementia with behavioral disturbance: Status: Acute Code(s): F03.918 - Unspecified dementia, unspecified severity, with other behavioral disturbance Assessment and Plan: overall patient has established history of dementia. Has been in a memory care unit for the last 3 months. Does have a history of UTIs with agitation usually in the context of superimposed delirium. Has been treated for a UTI since 05/23/2024. Despite this, has continued to be agitated and aggressive. Therefore admitted to inpatient psychiatry to optimize management of behavioral disturbance in the context of dementia. We will increase Seroquel and trazodone as needed at this did appear to be beneficial. Conditional voluntary signed by healthcare proxy. Hospitalist evaluation as part of [facility] psych admission noted and appreciated i.e. no acute issues. 06/04: monitor prn med needs, then schedule doses depending on needs 06/05 added scheduled dose of seroquel 50mg at 3pm and bedtime, continue prn doses. continue to monitor constipation. 06/08 repeat KUB monitor constipation. increase seroquel 100mg po qhs. Reason for continued inpatient stay Substantial Risk for: inability to function Time Spent With Patient Time: Total time managing care of this patient today ____ minutes.
--- NOTE | 2024-06-08 19:19 | PC.NURSE ---
12 hour Saeed Catheter output 300cc clear dark en urine.
[2024-06-08 20:00] VITALS: BP 147/74; PULSE 99; RESP 18; TEMP 36.4; O2SAT 95
[2024-06-08] MEDS: QUEtiapine Fumarate 100 MG TABLET PO (20:59)
[2024-06-08] MEDS: Donepezil HCl 5 MG TABLET PO (20:59)
[2024-06-08] MEDS: traZODone HCL 50 MG TABLET PO (20:59)
[2024-06-08] MEDS: Acetaminophen 325 MG TABLET 650 MG PO (20:59)
[2024-06-09 08:00] VITALS: TEMP 35.9
[2024-06-09] MEDS: Sennosides/Docusate Sodium TABLET 1 TAB PO (08:38)
[2024-06-09] MEDS: Tamsulosin HCL 0.4 MG CAPSULE 0.8 MG PO (08:38)
[2024-06-09] MEDS: polyethylene glycoL 3350 17 GM POWD.PACK PO (08:38)
[2024-06-09] MEDS: QUEtiapine Fumarate 50 MG TABLET PO ×2 (08:38→15:48)
--- NOTE | 2024-06-09 12:35 | P.PNPSI_ITS ---
Subjective Subjective Date of Service: 06/09/24 Reason For Visit: Agitation, paranoia with dementia Subjective Notes: Conditional Voluntary Healthcare Proxy: Yes Interim History: Pt slept all night. KUB continues to show significant contipation, no obstruction. Pt has had miralax daily, sangita/colace BID, dulcolax, tap water enema- will consult GI for further assistance. Discussed with family- provided update. Family meeting to discuss goals of care. Later pt with lower O2sat on room air- 89, no overt signs of respiratory distress. afebrile, VS lower side but not hypotensive. ordered cbc, cmp. elevation in WBC but still wnl. CMP shows increase in Cr. note BP has been low. will order chest XR. Medication Compliance: Yes Side effects from medications: No Attending Groups: No Review of Systems Review of Systems Yes Unobtainable due to mental status Denies Sensory deficit (Neuro) Mental Status Exam Mental Status Exam Narrative: In bed. Hospital clothing. Self-care is poor. Sleeping, but arousable. Irritable. No evidence of SI or HI. Unable to clearly assess paranoia, hallucinations etc. . Insight judgment poor Diagnostics Vital Signs (24Hr): Vital Signs - 24 hr 06/08/24 20:00 06/09/24 08:00 Temperature 97.6 F 96.6 F L Pulse Rate 99 Respiratory Rate 18 Blood Pressure 147/74 H Pulse Oximetry 95 Oxygen Delivery Method Room Air BMI result Body Mass Index 20.3 Labs 06/09/24 16:21 06/09/24 16:21 Imaging Radiology Impressions: ITS Impressions KUB X-Ray 06/06/24 17:28 IMPRESSION: Large amount of retained stool in the rectum. KUB X-Ray 06/08/24 12:11 IMPRESSION: Large amount of retained stool in the rectal vault. Medications Medications Current Medications Acetaminophen (Acetaminophen 325 Mg Tablet) 650 mg PO Q6H PRN PRN Reason: Headache/Pain Mild Scale (1-3) Last Admin: 06/08/24 20:59 Dose: 650 mg Amlodipine Besylate (Amlodipine Besylate 2.5 Mg Tablet) 2.5 mg PO DAILY [facility]; Protocol Last Admin: 06/09/24 09:01 Dose: Not Given Bisacodyl (Bisacodyl 10 Mg Supp.Rect) 10 mg [place] DAILY PRN PRN Reason: Constipation Last Admin: 06/07/24 00:00 Dose: 10 mg Donepezil HCl (Donepezil Hcl 5 Mg Tablet) 5 mg PO BEDTIME [facility] Last Admin: 06/08/24 20:59 Dose: 5 mg Fluticasone Propionate (Fluticasone Propionate Nasal 16 Gm [place]) 1 spray NOSTRIL-B BID [facility] Last Admin: 06/09/24 08:45 Dose: Not Given Lactulose (Lactulose 20 Gm/30 Ml Solution) 20 gm PO ONCE PRN PRN Reason: constipation Last Admin: 06/08/24 08:50 Dose: 20 gm Magnesium Hydroxide (Milk Of Magnesia 30 Ml Oral.Susp) 30 ml PO DAILY PRN PRN Reason: Constipation Polyethylene Glycol (Polyethylene Glycol 3350 17 Gm Powd.Pack) 17 gm PO DAILY [facility] Last Admin: 06/09/24 08:38 Dose: 17 gm Quetiapine Fumarate (Quetiapine Fumarate 50 Mg Tablet) 50 mg PO TID PRN PRN Reason: anxiety/restlessness Last Admin: 06/09/24 08:38 Dose: 50 mg Quetiapine Fumarate (Quetiapine Fumarate 50 Mg Tablet) 50 mg PO DAILY@1630 [facility] Last Admin: 06/08/24 15:48 Dose: 50 mg Quetiapine Fumarate (Quetiapine Fumarate 100 Mg Tablet) 100 mg PO BEDTIME [facility]; Protocol Last Admin: 06/08/24 20:59 Dose: 100 mg Senna/Docusate Sodium (Sennosides/Docusate Sodium Tablet) 1 tab PO BID [facility] Last Admin: 06/09/24 08:38 Dose: 1 tab Sodium Biphosphate/Sodium Phosphate (Sodium Phosphate,[place]-Dibasic 133 Ml Enema) 118 ml [place] DAILY PRN PRN Reason: Constipation Last Admin: 06/06/24 15:56 Dose: 118 ml Tamsulosin HCl (Tamsulosin Hcl 0.4 Mg Capsule) 0.8 mg PO DAILY [facility] Last Admin: 06/09/24 08:38 Dose: 0.8 mg Trazodone HCl (Trazodone Hcl 50 Mg Tablet) 50 mg PO BEDTIME [facility] Last Admin: 06/08/24 20:59 Dose: 50 mg Allergies Allergies Allergy/AdvReac Type Severity Reaction Status Date / Time Penicillins [PCN] Allergy Unknown Unknown Verified 05/23/24 11:55 Assessment & Plan Assessment & Plan (1) Dementia with behavioral disturbance: Status: Acute Code(s): F03.918 - Unspecified dementia, unspecified severity, with other behavioral disturbance Assessment and Plan: overall patient has established history of dementia. Has been in a memory care unit for the last 3 months. Does have a history of UTIs with agitation usually in the context of superimposed delirium. Has been treated for a UTI since 05/23/2024. Despite this, has continued to be agitated and aggressive. Therefore admitted to inpatient psychiatry to optimize management of behavioral disturbance in the context of dementia. We will increase Seroquel and trazodone as needed at this did appear to be beneficial. Conditional voluntary signed by healthcare proxy. Hospitalist evaluation as part of [facility] psych admission noted and appreciated i.e. no acute issues. 06/04: monitor prn med needs, then schedule doses depending on needs 06/05 added scheduled dose of seroquel 50mg at 3pm and bedtime, continue prn doses. continue to monitor constipation. 06/08 repeat KUB monitor constipation. increase seroquel 100mg po qhs. 06/09 GI consult due to ongoing constipation, not responding to several interventions (dulcolax UT, scheduled miralax and sangita/colace bid, tap water enema). discussed with family clinical picture and scheduled meeting for Tuesday 06/12 discuss goals of care. Pt with O2sat 89% on RA, afebrile, cbc ordered, elevation of wbc but still wnl, increase in Cr (suspect due to BP low). chest xr pending results. continue to monitor. Reason for continued inpatient stay Substantial Risk for: inability to function Time Spent With Patient Time: Total time managing care of this patient today ____ minutes.
[2024-06-09] MEDS: bisacodyL 10 MG SUPP.RECT PR (13:57)
[2024-06-09 14:53] VITALS: O2SAT 89
[2024-06-09 15:09] VITALS: RESP 20; O2SAT 91
--- NOTE | 2024-06-09 16:27 | P.CNGI_ITS ---
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 patient has established history of dementia. Has been in a memory care unit for the last 3 months. The patient initially presented to [facility] ED on 05/23 and was boarded in overflow due to increased agitation and was found to have VRE UTi sensitive to nitrofurantoin. He was treated with 7 day course of macrobid and repeat UA was not indicative of infection. Pt remained acutely agitated and was admitted to [facility] by care team. Renal function baseline, lytes normal overall. Hematology studies unremarkable. GI consulted for management of constipation. Patient has been treated with MiraLax, lactulose and Dulcolax 10 mg daily for constipation. He was given a tap water enema on 06/07/2024 06/06/24 KUB SHOWED: Large amount retained stool seen in the rectum. There is mild gaseous distention of the small bowel loops and stomach. Review of Systems 2 Review of Systems: Yes Unobtainable due to mental status PMFSH Past Medical History Medical History (Updated 06/24/24 @ 00:01 by Betty Nichols) Delirium due to medical condition with behavioral disturbance Enlarged prostate Dementia Pulmonary embolus DVT (deep venous thrombosis) Urinary retention HTN (hypertension) BPH (benign prostatic hyperplasia) Social History Social History Household Members: Other Household Members Other:: SNF Housing: Other Housing Other:: SNF Do you presently have visiting nurse or other home services: No Unable to assess alcohol history related to: Unable to respond Comment: 1:1 Patient Tobacco Use Status: Tobacco use Unknown Advance Directives Date on File: 03/08/24 service: No Sexual orientation: Straight/Heterosexual Meds Allergies Allergy/AdvReac Type Severity Reaction Status Date / Time Penicillins [PCN] Allergy Unknown Unknown Verified 05/23/24 11:55 Active Medications: Current Medications Acetaminophen (Acetaminophen 325 Mg Tablet) 650 mg PO Q6H PRN PRN Reason: Headache/Pain Mild Scale (1-3) Last Admin: 06/08/24 20:59 Dose: 650 mg Amlodipine Besylate (Amlodipine Besylate 2.5 Mg Tablet) 2.5 mg PO DAILY [facility]; Protocol Last Admin: 06/09/24 09:01 Dose: Not Given Bisacodyl (Bisacodyl 10 Mg Supp.Rect) 10 mg [place] DAILY PRN PRN Reason: Constipation Last Admin: 06/09/24 13:57 Dose: 10 mg Donepezil HCl (Donepezil Hcl 5 Mg Tablet) 5 mg PO BEDTIME [facility]AY Last Admin: 06/08/24 20:59 Dose: 5 mg Fluticasone Propionate (Fluticasone Propionate Nasal 16 Gm [place]) 1 spray NOSTRIL-B BID [facility] Last Admin: 06/09/24 08:45 Dose: Not Given Lactulose (Lactulose 20 Gm/30 Ml Solution) 20 gm PO ONCE PRN PRN Reason: constipation Last Admin: 06/08/24 08:50 Dose: 20 gm Magnesium Hydroxide (Milk Of Magnesia 30 Ml Oral.Susp) 30 ml PO DAILY PRN PRN Reason: Constipation Polyethylene Glycol (Polyethylene Glycol 3350 17 Gm Powd.Pack) 17 gm PO DAILY [facility] Last Admin: 06/09/24 08:38 Dose: 17 gm Quetiapine Fumarate (Quetiapine Fumarate 50 Mg Tablet) 50 mg PO TID PRN PRN Reason: anxiety/restlessness Last Admin: 06/09/24 08:38 Dose: 50 mg Quetiapine Fumarate (Quetiapine Fumarate 50 Mg Tablet) 50 mg PO DAILY@1630 [facility] Last Admin: 06/09/24 15:48 Dose: 50 mg Quetiapine Fumarate (Quetiapine Fumarate 100 Mg Tablet) 100 mg PO BEDTIME [facility]; Protocol Last Admin: 06/08/24 20:59 Dose: 100 mg Senna/Docusate Sodium (Sennosides/Docusate Sodium Tablet) 1 tab PO BID [facility] Last Admin: 06/09/24 08:38 Dose: 1 tab Sodium Biphosphate/Sodium Phosphate (Sodium Phosphate,[place]-Dibasic 133 Ml Enema) 118 ml [place] DAILY PRN PRN Reason: Constipation Last Admin: 06/06/24 15:56 Dose: 118 ml Tamsulosin HCl (Tamsulosin Hcl 0.4 Mg Capsule) 0.8 mg PO DAILY [facility] Last Admin: 06/09/24 08:38 Dose: 0.8 mg Trazodone HCl (Trazodone Hcl 50 Mg Tablet) 50 mg PO BEDTIME [facility] Last Admin: 06/08/24 20:59 Dose: 50 mg Physical Exam 2 Vital Signs: Vital Signs: Last Vital Signs Temp 96.6 F L 06/09/24 08:00 Pulse 99 06/08/24 20:00 Resp 20 06/09/24 15:09 BP 147/74 H 06/08/24 20:00 Pulse Ox 91 L 06/09/24 15:09 O2 Del Method Room Air 06/09/24 15:09 O2 Flow Rate 2 06/01/24 05:46 BMI result Body Mass Index 20.3 Const: Other: The patient is disoriented and is combative and unfortunately is not amenable to examination/interview. Limited abdominal exam was performed GI: Palpation (GI): Soft to palpation and nontender Auscultation: normal bowel sounds Results Labs 06/12/24 10:54 06/12/24 10:54 Microbiology Microbiology Results: Microbiology 05/23/24 Unknown Urine Catheterized - Saeed Catheter Urine Culture - Final Enterococcus faecalis Assessment and Plan (1) Obstipation: Status: Acute Plan 78 YM with history of PE/DVT (no longer on anticoagulation), hypertension, BPH, unspecified dementia, ckd 3 admitted to geriatric psychiatry. patient has established history of dementia. Has been in a memory care unit for the last 3 months. GI consulted for management of constipation. Constipation is likely related to medication use and bedridden state with lack of mobility Patient has been treated with MiraLax, lactulose and Dulcolax 10 mg daily for constipation. He was given a tap water enema on 06/07/2024 Pt's nurse, Shantelle, reported she gave pt a Dulcolax 10 mg suppositories and he had a good BM after getting the suppositories RECOMMENDATIONS: 1. Continue Dulcolax suppositories 10 mg daily x 3 days 2. Repeat KUB on 06/11/24 3. Increase Miralax to twice daily and senna to two tab twice daily (scheduled rather than prn) Procedures Date of Service Date of Service: 07/10/24
[2024-06-09 16:29] LABS: MANUAL DIFF FLAG NO
[2024-06-09 16:30] LABS: Basophils Percent Auto 0.3 % (0-2); Eosinophils Absolute Auto 0.2 X10*3/uL (0.0-0.4); Eosinophils Percent Auto 2.2 % (0-4); Hematocrit 47.4 % (42.0-52.0); Hemoglobin 15.9 g/dl (14.0-18.0); Imm Gran Abs Auto 0.04 X10*3/uL (0.00-0.03); Imm Gran Pct Auto 0.4 % (0.0-0.4); Lymphocytes Absolute Auto 2.3 X10*3/uL (1.2-4.9); Lymphocytes Percent Auto 22.4 % (20-40); Mean Corpuscular HGB Conc 33.5 g/dl (31.0-36.0); Mean Corpuscular Volume 101.5 fL (80.0-98.0); Monocytes Percent Auto 9.4 % (2-11); Neutrophils Absolute Auto 6.7 x10*3/uL (2.0-8.3); Neutrophils Percent Auto 65.3 % (45-73); Platelet Count 308 X10*3/uL (160-400); Red Blood Count 4.67 X10*6/uL (4.60-5.80); Red Cell Distribution Width 12.7 % (11.0-16.0); White Blood Count 10.2 X10*3/uL (4.8-10.8)
[2024-06-09 16:45] LABS: Alanine Aminotransferase 23 U/L (0-40); Albumin Level 3.6 g/dL (3.5-5.0); Alkaline Phosphatase 93 U/L (39-117); Anion Gap 17 (12-20); Aspartate Amino Transferase 22 U/L (5-37); Bilirubin Total 0.4 mg/dL (0.0-1.0); Blood Urea Nitrogen 30 mg/dL (9-16); Calcium 9.1 mg/dL (8.4-10.2); Carbon Dioxide 21 mmol/L (22-29); Chloride 107 mmol/L (96-108); Creatinine Clr Calc Pharmacy 37.6; Estimated Glomerular Filt Rate 44; Glucose Random 143 mg/dL (60-115); Sodium 141 mmol/L (135-145); Total Protein 7.7 g/dL (6.5-8.0)
--- NOTE | 2024-06-09 16:47 | PC.NURSE ---
Seen by Alejandra Yip NP. New orders obtained. Labs drawn today and CXRs taken after 1600. Patient had an extra large soft formed bowel movement on the toilet after then suppository. O2 Sat 90-91% on room air.
--- NOTE | 2024-06-09 17:04 | PC.NURSE ---
Seen by GI who recommended that the patient gets daily Bisacodyl suppositories daily for a few more days until his colon empties out. She will also increase his bowel medications.
--- NOTE | 2024-06-09 19:12 | PC.NURSE ---
12 hour Saeed cath output 275 cc clear en urine. Patient fast asleep after supper, senna s and Miralax held. Patient using weighted blanket for restlessness. Now on 5 minute checks.
[2024-06-09 20:00] VITALS: BP 119/93; PULSE 97; RESP 14; TEMP 37.1; O2SAT 96
[2024-06-09] MEDS: Donepezil HCl 5 MG TABLET PO (20:32)
[2024-06-10] MEDS: QUEtiapine Fumarate 50 MG TABLET PO ×3 (00:39→18:06)
--- NOTE | 2024-06-10 12:18 | HO.PSYCHPN ---
Subjective Subjective Date of Service: 06/10/24 Reason For Visit: Agitation, paranoia with dementia Subjective Notes: Conditional Voluntary Healthcare Proxy: Yes Interim History: Patient was seen and discussed in rounds today. Records and plans were reviewed. He did have a KUB done and had some bowel movement. Daily suppositories are being given to clear him out further. Has a Saeed in place. Continues to be very confused. No changes were made today Review of Systems Review of Systems Constipation Yes all other systems are reviewed and are negative Mental Status Exam Mental Status Exam Narrative: In today's visit he is in bed. He is alert, minimally responsive. Soft-spoken speech. No acute signs. No dangerous behaviors. Hard to fully assess. Diagnostics Vital Signs (24Hr): Vital Signs - 24 hr 06/09/24 14:53 06/09/24 15:09 06/09/24 20:00 Temperature 98.8 F Pulse Rate 97 Respiratory Rate 20 14 Blood Pressure 119/93 H Pulse Oximetry 89 L 91 L 96 Oxygen Delivery Method Room Air Room Air Room Air BMI result Body Mass Index 20.3 Labs 06/09/24 16:21 06/09/24 16:21 Labs: Laboratory Results - last 48 hr 06/09/24 16:21 WBC 10.2 RBC 4.67 Hgb 15.9 Hct 47.4 MCV 101.5 H MCH 34.0 H MCHC 33.5 RDW 12.7 Plt Count 308 MPV 9.0 L Immature Gran % (Auto) 0.4 Neut % (Auto) 65.3 Lymph % (Auto) 22.4 [place] % (Auto) 9.4 Eos % (Auto) 2.2 Baso % (Auto) 0.3 Lymph # (Auto) 2.3 [place] # (Auto) 1.0 Eos # (Auto) 0.2 Baso # (Auto) 0.0 Abs Immat Gran (auto) 0.04 H Absolute Neuts (auto) 6.7 Absolute Nucleated RBC 0.000 Nucleated RBC % (auto) 0.0 Sodium 141 Potassium 4.0 Chloride 107 Carbon Dioxide 21 L Anion Gap 17 BUN 30 H Creatinine 1.53 H Estim Creat Clear Calc 37.6 Estimated GFR 44 Random Glucose 143 H Calcium 9.1 Total Bilirubin 0.4 AST 22 ALT 23 Alkaline Phosphatase 93 Total Protein 7.7 Albumin 3.6 Imaging Radiology Impressions: ITS Impressions KUB X-Ray 06/06/24 17:28 IMPRESSION: Large amount of retained stool in the rectum. KUB X-Ray 06/08/24 12:11 IMPRESSION: Large amount of retained stool in the rectal vault. Chest X-Ray 06/09/24 16:40 IMPRESSION: Improved streaky left basilar opacity suggesting atelectasis. Persistent asymmetric elevation of the left hemidiaphragm. Medications Medications Current Medications Acetaminophen (Acetaminophen 325 Mg Tablet) 650 mg PO Q6H PRN PRN Reason: Headache/Pain Mild Scale (1-3) Last Admin: 06/08/24 20:59 Dose: 650 mg Amlodipine Besylate (Amlodipine Besylate 2.5 Mg Tablet) 2.5 mg PO DAILY [facility]; Protocol Last Admin: 06/10/24 12:07 Dose: Not Given Bisacodyl (Bisacodyl 10 Mg Supp.Rect) 10 mg [place] DAILY PRN PRN Reason: Constipation Last Admin: 06/09/24 13:57 Dose: 10 mg Bisacodyl (Bisacodyl 10 Mg Supp.Rect) 10 mg [place] DAILY [facility] Stop: 06/12/24 09:01 Last Admin: 06/10/24 12:08 Dose: Not Given Donepezil HCl (Donepezil Hcl 5 Mg Tablet) 5 mg PO BEDTIME [facility] Last Admin: 06/09/24 20:32 Dose: 5 mg Fluticasone Propionate (Fluticasone Propionate Nasal 16 Gm [place]) 1 spray NOSTRIL-B BID [facility] Last Admin: 06/10/24 12:08 Dose: Not Given Lactulose (Lactulose 20 Gm/30 Ml Solution) 20 gm PO ONCE PRN PRN Reason: constipation Last Admin: 06/08/24 08:50 Dose: 20 gm Magnesium Hydroxide (Milk Of Magnesia 30 Ml Oral.Susp) 30 ml PO DAILY PRN PRN Reason: Constipation Polyethylene Glycol (Polyethylene Glycol 3350 17 Gm Powd.Pack) 17 gm PO BID [facility] Last Admin: 06/10/24 12:08 Dose: Not Given Quetiapine Fumarate (Quetiapine Fumarate 50 Mg Tablet) 50 mg PO TID PRN PRN Reason: anxiety/restlessness Last Admin: 06/10/24 00:39 Dose: 50 mg Quetiapine Fumarate (Quetiapine Fumarate 50 Mg Tablet) 50 mg PO DAILY@1630 [facility] Last Admin: 06/09/24 15:48 Dose: 50 mg Quetiapine Fumarate (Quetiapine Fumarate 100 Mg Tablet) 100 mg PO BEDTIME [facility]; Protocol Last Admin: 06/09/24 23:26 Dose: Not Given Senna/Docusate Sodium (Sennosides/Docusate Sodium Tablet) 2 tab PO BID [facility] Last Admin: 06/10/24 12:08 Dose: Not Given Sodium Biphosphate/Sodium Phosphate (Sodium Phosphate,[place]-Dibasic 133 Ml Enema) 118 ml [place] DAILY PRN PRN Reason: Constipation Last Admin: 06/06/24 15:56 Dose: 118 ml Tamsulosin HCl (Tamsulosin Hcl 0.4 Mg Capsule) 0.8 mg PO DAILY [facility] Last Admin: 06/10/24 12:08 Dose: Not Given Trazodone HCl (Trazodone Hcl 50 Mg Tablet) 50 mg PO BEDTIME [facility] Last Admin: 06/09/24 23:27 Dose: Not Given Allergies Allergies Allergy/AdvReac Type Severity Reaction Status Date / Time Penicillins [PCN] Allergy Unknown Unknown Verified 05/23/24 11:55 Assessment & Plan Assessment & Plan (1) Dementia with behavioral disturbance: Status: Acute Code(s): F03.918 - Unspecified dementia, unspecified severity, with other behavioral disturbance Assessment and Plan: overall patient has established history of dementia. Has been in a memory care unit for the last 3 months. Does have a history of UTIs with agitation usually in the context of superimposed delirium. Has been treated for a UTI since 05/23/2024. Despite this, has continued to be agitated and aggressive. Therefore admitted to inpatient psychiatry to optimize management of behavioral disturbance in the context of dementia. We will increase Seroquel and trazodone as needed at this did appear to be beneficial. Conditional voluntary signed by healthcare proxy. Hospitalist evaluation as part of [facility] admission noted and appreciated i.e. no acute issues. 06/04: monitor prn med needs, then schedule doses depending on needs 06/05 added scheduled dose of seroquel 50mg at 3pm and bedtime, continue prn doses. continue to monitor constipation. 06/08 repeat KUB monitor constipation. increase seroquel 100mg po qhs. 06/09 GI consult due to ongoing constipation, not responding to several interventions (dulcolax [place], scheduled miralax and sangita/colace bid, tap water enema). discussed with family clinical picture and scheduled meeting for Tuesday 06/12 discuss goals of care. Pt with O2sat 89% on RA, afebrile, cbc ordered, elevation of wbc but still wnl, increase in Cr (suspect due to BP low). chest xr pending results. continue to monitor. 06/10: Continue current regimen and plans Reason for continued inpatient stay Substantial Risk for: inability to function Time Spent With Patient Time: Total time managing care of this patient today ____ minutes.
[2024-06-10] MEDS: bisacodyL 10 MG SUPP.RECT PR (14:24)
[2024-06-10] MEDS: Acetaminophen 325 MG TABLET 650 MG PO (18:06)
[2024-06-10] MEDS: clonazePAM 0.5 MG TABLET PO (18:43)
[2024-06-10 20:00] VITALS: BP 142/67; PULSE 89; RESP 16; TEMP 36.3; O2SAT 92
[2024-06-10] MEDS: Sennosides/Docusate Sodium TABLET 2 TAB PO (20:13)
[2024-06-10] MEDS: traZODone HCL 50 MG TABLET PO (20:14)
[2024-06-10] MEDS: Donepezil HCl 5 MG TABLET PO (20:14)
[2024-06-10] MEDS: QUEtiapine Fumarate 100 MG TABLET PO (20:14)
[2024-06-10] MEDS: clonazePAM 1 MG TABLET PO (21:23)
[2024-06-11 07:36] VITALS: PULSE 75; RESP 18; TEMP 36.6; O2SAT 94
--- NOTE | 2024-06-11 09:49 | HO.PSYCHPN ---
Subjective Subjective Date of Service: 06/11/24 Reason For Visit: Agitation, paranoia with dementia Subjective Notes: Conditional Voluntary Healthcare Proxy: Yes Interim History: Patient was seen and discussed in rounds today. Records and plans were reviewed. He had a restless night and [email or web address] Diop was finally very helpful. He has been sleeping and continues to be sleep this morning. No changes were made. Review of Systems Review of Systems Yes Unobtainable due to mental status Mental Status Exam Mental Status Exam Narrative: Could not assess today Diagnostics Vital Signs (24Hr): Vital Signs - 24 hr 06/10/24 20:00 06/11/24 07:36 Temperature 97.4 F 97.9 F Pulse Rate 89 75 Respiratory Rate 16 18 Blood Pressure 142/67 H Pulse Oximetry 92 94 Oxygen Delivery Method Room Air Room Air BMI result Body Mass Index 20.3 Labs 06/09/24 16:21 06/09/24 16:21 Labs: Laboratory Results - last 48 hr 06/09/24 16:21 WBC 10.2 RBC 4.67 Hgb 15.9 Hct 47.4 MCV 101.5 H MCH 34.0 H MCHC 33.5 RDW 12.7 Plt Count 308 MPV 9.0 L Immature Gran % (Auto) 0.4 Neut % (Auto) 65.3 Lymph % (Auto) 22.4 [place] % (Auto) 9.4 Eos % (Auto) 2.2 Baso % (Auto) 0.3 Lymph # (Auto) 2.3 [place] # (Auto) 1.0 Eos # (Auto) 0.2 Baso # (Auto) 0.0 Abs Immat Gran (auto) 0.04 H Absolute Neuts (auto) 6.7 Absolute Nucleated RBC 0.000 Nucleated RBC % (auto) 0.0 Sodium 141 Potassium 4.0 Chloride 107 Carbon Dioxide 21 L Anion Gap 17 BUN 30 H Creatinine 1.53 H Estim Creat Clear Calc 37.6 Estimated GFR 44 Random Glucose 143 H Calcium 9.1 Total Bilirubin 0.4 AST 22 ALT 23 Alkaline Phosphatase 93 Total Protein 7.7 Albumin 3.6 Imaging Radiology Impressions: ITS Impressions KUB X-Ray 06/06/24 17:28 IMPRESSION: Large amount of retained stool in the rectum. KUB X-Ray 06/08/24 12:11 IMPRESSION: Large amount of retained stool in the rectal vault. Chest X-Ray 06/09/24 16:40 IMPRESSION: Improved streaky left basilar opacity suggesting atelectasis. Persistent asymmetric elevation of the left hemidiaphragm. Medications Medications Current Medications Acetaminophen (Acetaminophen 325 Mg Tablet) 650 mg PO Q6H PRN PRN Reason: Headache/Pain Mild Scale (1-3) Last Admin: 06/10/24 18:06 Dose: 650 mg Amlodipine Besylate (Amlodipine Besylate 2.5 Mg Tablet) 2.5 mg PO DAILY [facility]; Protocol Last Admin: 06/10/24 12:07 Dose: Not Given Bisacodyl (Bisacodyl 10 Mg Supp.Rect) 10 mg [place] DAILY PRN PRN Reason: Constipation Last Admin: 06/09/24 13:57 Dose: 10 mg Bisacodyl (Bisacodyl 10 Mg Supp.Rect) 10 mg [place] DAILY [facility] Stop: 06/12/24 09:01 Last Admin: 06/10/24 14:24 Dose: 10 mg Donepezil HCl (Donepezil Hcl 5 Mg Tablet) 5 mg PO BEDTIME [facility] Last Admin: 06/10/24 20:14 Dose: 5 mg Fluticasone Propionate (Fluticasone Propionate Nasal 16 Gm [place]) 1 spray NOSTRIL-B BID [facility] Last Admin: 06/10/24 20:27 Dose: Not Given Lactulose (Lactulose 20 Gm/30 Ml Solution) 20 gm PO ONCE PRN PRN Reason: constipation Last Admin: 06/08/24 08:50 Dose: 20 gm Magnesium Hydroxide (Milk Of Magnesia 30 Ml Oral.Susp) 30 ml PO DAILY PRN PRN Reason: Constipation Polyethylene Glycol (Polyethylene Glycol 3350 17 Gm Powd.Pack) 17 gm PO BID [facility] Last Admin: 06/10/24 20:20 Dose: Not Given Quetiapine Fumarate (Quetiapine Fumarate 50 Mg Tablet) 50 mg PO TID PRN PRN Reason: anxiety/restlessness Last Admin: 06/10/24 18:06 Dose: 50 mg Quetiapine Fumarate (Quetiapine Fumarate 50 Mg Tablet) 50 mg PO DAILY@1630 [facility] Last Admin: 06/10/24 16:56 Dose: 50 mg Quetiapine Fumarate (Quetiapine Fumarate 100 Mg Tablet) 100 mg PO BEDTIME [facility]; Protocol Last Admin: 06/10/24 20:14 Dose: 100 mg [place]/Docusate Sodium (Sennosides/Docusate Sodium Tablet) 2 tab PO BID [facility] Last Admin: 06/10/24 20:13 Dose: 2 tab Sodium Biphosphate/Sodium Phosphate (Sodium Phosphate,[place]-Dibasic 133 Ml Enema) 118 ml [place] DAILY PRN PRN Reason: Constipation Last Admin: 06/06/24 15:56 Dose: 118 ml Tamsulosin HCl (Tamsulosin Hcl 0.4 Mg Capsule) 0.8 mg PO DAILY [facility] Last Admin: 06/10/24 12:08 Dose: Not Given Trazodone HCl (Trazodone Hcl 50 Mg Tablet) 50 mg PO BEDTIME [facility] Last Admin: 06/10/24 20:14 Dose: 50 mg Allergies Allergies Allergy/AdvReac Type Severity Reaction Status Date / Time Penicillins [PCN] Allergy Unknown Unknown Verified 05/23/24 11:55 Assessment & Plan Assessment & Plan (1) Dementia with behavioral disturbance: Status: Acute Code(s): F03.918 - Unspecified dementia, unspecified severity, with other behavioral disturbance Assessment and Plan: overall patient has established history of dementia. Has been in a memory care unit for the last 3 months. Does have a history of UTIs with agitation usually in the context of superimposed delirium. Has been treated for a UTI since 05/23/2024. Despite this, has continued to be agitated and aggressive. Therefore admitted to inpatient psychiatry to optimize management of behavioral disturbance in the context of dementia. We will increase Seroquel and trazodone as needed at this did appear to be beneficial. Conditional voluntary signed by healthcare proxy. Hospitalist evaluation as part of [facility] admission noted and appreciated i.e. no acute issues. 06/04: monitor prn med needs, then schedule doses depending on needs 06/05 added scheduled dose of seroquel 50mg at 3pm and bedtime, continue prn doses. continue to monitor constipation. 06/08 repeat KUB monitor constipation. increase seroquel 100mg po qhs. 06/09 GI consult due to ongoing constipation, not responding to several interventions (dulcolax [place], scheduled miralax and sangita/colace bid, tap water enema). discussed with family clinical picture and scheduled meeting for Tuesday 06/12 discuss goals of care. Pt with O2sat 89% on RA, afebrile, cbc ordered, elevation of wbc but still wnl, increase in Cr (suspect due to BP low). chest xr pending results. continue to monitor. 06/10: Continue current regimen and plans 06/11: Continue current regimen and plans. Reason for continued inpatient stay Substantial Risk for: inability to function Time Spent With Patient Time: Total time managing care of this patient today ____ minutes.
--- NOTE | 2024-06-11 10:12 | PC.NURSE ---
Spoke with Dr. Duffy regarding urgent KUB and requested bedside study as Trevor was very agitated and restless last evening and is currently sleeping. Dr. Duffy stated study could be done tomorrow if Trevor is asleep as bedside imaging isn't great quality. Will f/u with Xray when Trevor is awake and calm.
--- NOTE | 2024-06-11 12:26 | PC.NURSE ---
Trevor has been very sleepy throughout the shift. He would not rouse for breakfast but was able to awaken for lunch but declined offered food/fluids. He also would not take any scheduled morning medications. Dr. Montenegro notified.
--- NOTE | 2024-06-11 17:54 | PC.NURSE ---
Called Xray at [phone] Duffy stated xray could be done tomorrow. No answer when Xray called.
[2024-06-11] MEDS: QUEtiapine Fumarate 50 MG TABLET PO (18:20)
--- NOTE | 2024-06-11 18:24 | PC.ADMIT ---
Trevor was somnolent throughout the day and had no oral intake. This evening he woke up and drank 240ml of juice and ate 2 yogurts.
[2024-06-11 20:00] VITALS: BP 165/65; PULSE 99; RESP 18; TEMP 36.2; O2SAT 93
[2024-06-11] MEDS: QUEtiapine Fumarate 100 MG TABLET PO (20:20)
[2024-06-11] MEDS: Sennosides/Docusate Sodium TABLET 2 TAB PO (20:20)
[2024-06-11] MEDS: traZODone HCL 50 MG TABLET PO (20:20)
[2024-06-11] MEDS: Donepezil HCl 5 MG TABLET PO (20:20)
[2024-06-11] MEDS: polyethylene glycoL 3350 17 GM POWD.PACK PO (20:26)
[2024-06-12] MEDS: Sennosides/Docusate Sodium TABLET 2 TAB PO ×2 (09:22→20:52)
[2024-06-12 09:23] VITALS: BP 144/72
[2024-06-12] MEDS: Tamsulosin HCL 0.4 MG CAPSULE 0.8 MG PO (09:23)
[2024-06-12] MEDS: amLODIPine Besylate 2.5 MG TABLET PO (09:23)
[2024-06-12] MEDS: polyethylene glycoL 3350 17 GM POWD.PACK PO ×2 (09:24→20:53)
[2024-06-12 09:25] VITALS: BP 144/72; PULSE 102; RESP 22; TEMP 36.2
[2024-06-12] MEDS: QUEtiapine Fumarate 50 MG TABLET PO ×2 (09:54→15:40)
--- NOTE | 2024-06-12 10:07 | PC.NURSE ---
Patient with low O2 Sat 87% on room air via earlobe. Patient uncooperative, anxious, restless striking out at nurse and removing O2 Sat monitor. Seroquel 50mg given PO at 0954. Will retake O2 Sat once patient has settled down. Unablwe to give Bisacodyl Suppository due to restlessness and agitation.
[2024-06-12 10:56] LABS: MANUAL DIFF FLAG NO
[2024-06-12 11:04] LABS: Basophils Percent Auto 0.4 % (0-2); Eosinophils Absolute Auto 0.1 X10*3/uL (0.0-0.4); Eosinophils Percent Auto 1.2 % (0-4); Hematocrit 50.4 % (42.0-52.0); Hemoglobin 17.1 g/dl (14.0-18.0); Imm Gran Abs Auto 0.02 X10*3/uL (0.00-0.03); Imm Gran Pct Auto 0.2 % (0.0-0.4); Lymphocytes Absolute Auto 2.3 X10*3/uL (1.2-4.9); Lymphocytes Percent Auto 23.5 % (20-40); Mean Corpuscular HGB Conc 33.9 g/dl (31.0-36.0); Mean Corpuscular Hemoglobin 34.2 pg (27.0-33.0); Mean Corpuscular Volume 100.8 fL (80.0-98.0); Mean Platelet Volume 9.1 fL (9.4-12.4); Monocytes Absolute Auto 0.9 X10*3/uL (0.1-1.2); Monocytes Percent Auto 9.2 % (2-11); Neutrophils Absolute Auto 6.3 x10*3/uL (2.0-8.3); Neutrophils Percent Auto 65.5 % (45-73); Platelet Count 239 X10*3/uL (160-400); Red Cell Distribution Width 12.5 % (11.0-16.0); White Blood Count 9.7 X10*3/uL (4.8-10.8)
[2024-06-12 11:20] LABS: Alanine Aminotransferase 17 U/L (0-40); Alkaline Phosphatase 91 U/L (39-117); Anion Gap 15 (12-20); Aspartate Amino Transferase 22 U/L (5-37); Bilirubin Total 0.6 mg/dL (0.0-1.0); Blood Urea Nitrogen 21 mg/dL (9-16); Calcium 8.9 mg/dL (8.4-10.2); Carbon Dioxide 18 mmol/L (22-29); Chloride 110 mmol/L (96-108); Creatinine Clr Calc Pharmacy 41.4; Estimated Glomerular Filt Rate 49; Glucose Random 136 mg/dL (60-115); Potassium 4.5 mmol/L (3.3-5.1); Sodium 138 mmol/L (135-145); Total Protein 7.1 g/dL (6.5-8.0)
--- NOTE | 2024-06-12 11:42 | P.PNPSI_ITS ---
Subjective Subjective Date of Service: 06/12/24 Reason For Visit: Agitation, paranoia with dementia Subjective Notes: Conditional Voluntary Healthcare Proxy: Yes Interim History: Pt slept through the night. f/u KUB pending. Pt observed hyperventilating- O2sat 86% on RA. Consult to hospitalist ordered. Doppler showed bilat LE DVT, no CTA to check PE but a possibility. Started on therapeutic lovenox, with plan to transition to equilis or restart coumaudin. KUB shows improvement in constipation. Family meeting held to review goals of care. Pt not quiet ready for hospice but this can change unexpectedly. Medication Compliance: Yes Side effects from medications: No Diagnostics Vital Signs (24Hr): Vital Signs - 24 hr 06/11/24 20:00 06/12/24 09:23 06/12/24 09:25 Temperature 97.2 F 97.1 F Pulse Rate 99 102 H Respiratory Rate 18 22 H Blood Pressure 165/65 H 144/72 H 144/72 H Pulse Oximetry 93 Oxygen Delivery Method Room Air BMI result Body Mass Index 20.3 Labs 06/12/24 10:54 06/12/24 10:54 Labs: Laboratory Results - last 48 hr 06/12/24 10:54 WBC 9.7 RBC 5.00 Hgb 17.1 Hct 50.4 MCV 100.8 H MCH 34.2 H MCHC 33.9 RDW 12.5 Plt Count 239 MPV 9.1 L Immature Gran % (Auto) 0.2 Neut % (Auto) 65.5 Lymph % (Auto) 23.5 [place] % (Auto) 9.2 Eos % (Auto) 1.2 Baso % (Auto) 0.4 Lymph # (Auto) 2.3 [place] # (Auto) 0.9 Eos # (Auto) 0.1 Baso # (Auto) 0.0 Abs Immat Gran (auto) 0.02 Absolute Neuts (auto) 6.3 Absolute Nucleated RBC 0.000 Nucleated RBC % (auto) 0.0 Sodium 138 Potassium 4.5 Chloride 110 H Carbon Dioxide 18 L Anion Gap 15 BUN 21 H Creatinine 1.39 Estim Creat Clear Calc 41.4 Estimated GFR 49 Random Glucose 136 H Calcium 8.9 Total Bilirubin 0.6 AST 22 ALT 17 Alkaline Phosphatase 91 Total Protein 7.1 Albumin 3.0 L Imaging Radiology Impressions: ITS Impressions KUB X-Ray 06/06/24 17:28 IMPRESSION: Large amount of retained stool in the rectum. KUB X-Ray 06/08/24 12:11 IMPRESSION: Large amount of retained stool in the rectal vault. Chest X-Ray 06/09/24 16:40 IMPRESSION: Improved streaky left basilar opacity suggesting atelectasis. Persistent asymmetric elevation of the left hemidiaphragm. Medications Medications Current Medications Acetaminophen (Acetaminophen 325 Mg Tablet) 650 mg PO Q6H PRN PRN Reason: Headache/Pain Mild Scale (1-3) Last Admin: 06/10/24 18:06 Dose: 650 mg Amlodipine Besylate (Amlodipine Besylate 2.5 Mg Tablet) 2.5 mg PO DAILY [facility]; Protocol Last Admin: 06/12/24 09:23 Dose: 2.5 mg Bisacodyl (Bisacodyl 10 Mg Supp.Rect) 10 mg [place] DAILY PRN PRN Reason: Constipation Last Admin: 06/09/24 13:57 Dose: 10 mg Donepezil HCl (Donepezil Hcl 5 Mg Tablet) 5 mg PO BEDTIME [facility] Last Admin: 06/11/24 20:20 Dose: 5 mg Fluticasone Propionate (Fluticasone Propionate Nasal 16 Gm [place]) 1 spray NOSTRIL-B BID [facility] Last Admin: 06/12/24 09:37 Dose: Not Given Lactulose (Lactulose 20 Gm/30 Ml Solution) 20 gm PO ONCE PRN PRN Reason: constipation Last Admin: 06/08/24 08:50 Dose: 20 gm Magnesium Hydroxide (Milk Of Magnesia 30 Ml Oral.Susp) 30 ml PO DAILY PRN PRN Reason: Constipation Polyethylene Glycol (Polyethylene Glycol 3350 17 Gm Powd.Pack) 17 gm PO BID [facility] Last Admin: 06/12/24 09:24 Dose: 17 gm Quetiapine Fumarate (Quetiapine Fumarate 50 Mg Tablet) 50 mg PO TID PRN PRN Reason: anxiety/restlessness Last Admin: 06/12/24 09:54 Dose: 50 mg Quetiapine Fumarate (Quetiapine Fumarate 50 Mg Tablet) 50 mg PO DAILY@1630 [facility] Last Admin: 06/11/24 16:40 Dose: Not Given Quetiapine Fumarate (Quetiapine Fumarate 100 Mg Tablet) 100 mg PO BEDTIME [facility]; Protocol Last Admin: 06/11/24 20:20 Dose: 100 mg Senna/Docusate Sodium (Sennosides/Docusate Sodium Tablet) 2 tab PO BID [facility] Last Admin: 06/12/24 09:22 Dose: 2 tab Sodium Biphosphate/Sodium Phosphate (Sodium Phosphate,[place]-Dibasic 133 Ml Enema) 118 ml [place] DAILY PRN PRN Reason: Constipation Last Admin: 06/06/24 15:56 Dose: 118 ml Tamsulosin HCl (Tamsulosin Hcl 0.4 Mg Capsule) 0.8 mg PO DAILY [facility] Last Admin: 06/12/24 09:23 Dose: 0.8 mg Trazodone HCl (Trazodone Hcl 50 Mg Tablet) 50 mg PO BEDTIME [facility] Last Admin: 06/11/24 20:20 Dose: 50 mg Allergies Allergies Allergy/AdvReac Type Severity Reaction Status Date / Time Penicillins [PCN] Allergy Unknown Unknown Verified 05/23/24 11:55 Assessment & Plan Assessment & Plan (1) Dementia with behavioral disturbance: Status: Acute Code(s): F03.918 - Unspecified dementia, unspecified severity, with other behavioral disturbance Assessment and Plan: overall patient has established history of dementia. Has been in a memory care unit for the last 3 months. Does have a history of UTIs with agitation usually in the context of superimposed delirium. Has been treated for a UTI since 05/23/2024. Despite this, has continued to be agitated and aggressive. Therefore admitted to inpatient psychiatry to optimize management of behavioral disturbance in the context of dementia. We will increase Seroquel and trazodone as needed at this did appear to be beneficial. Conditional voluntary signed by healthcare proxy. Hospitalist evaluation as part of [facility] admission noted and appreciated i.e. no acute issues. 06/04: monitor prn med needs, then schedule doses depending on needs 06/05 added scheduled dose of seroquel 50mg at 3pm and bedtime, continue prn doses. continue to monitor constipation. 06/08 repeat KUB monitor constipation. increase seroquel 100mg po qhs. 06/09 GI consult due to ongoing constipation, not responding to several interventions (dulcolax [place], scheduled miralax and sangita/colace bid, tap water enema). discussed with family clinical picture and scheduled meeting for Tuesday 06/12 discuss goals of care. Pt with O2sat 89% on RA, afebrile, cbc ordered, elevation of wbc but still wnl, increase in Cr (suspect due to BP low). chest xr pending results. continue to monitor. 06/10: Continue current regimen and plans 06/11: Continue current regimen and plans. 06/12 continue tx- hospitalist consulted- started on antibiotic for UTI, lovenox for DVT. constipation better Reason for continued inpatient stay Substantial Risk for: inability to function Time Spent With Patient Time: Total time managing care of this patient today ____ minutes.
[2024-06-12 14:39] VITALS: PULSE 100; RESP 24; O2SAT 89
--- NOTE | 2024-06-12 15:28 | PM.EVENT ---
Event Note Date of Service: 06/12/24 Event Note: 78-year-old male with history of PE/DVT no longer on anticoagulation, hypertension, BPH, unspecified dementia, ckd 3 admitted to geriatric psychiatry with consult placed to hospitalist service to evaluate hyperventilation and overall deterioration. Pt has been confused since arrival but has has some increased agitation. He did arrive to the unit from [place] with nielsen catheter in place and had completed course of macrobid prior to admission. Per nursing staff patient has been tachypneic and hypoxic to 89% intermittently with elevated HR around 100. Blood pressures are stable. The patient has been tolerating both liquids and solids without any witnessed aspiration. He has been afebrile. He is primarily bed bound and is no longer on any AC. He has been experiencing constipation with multiple enemas, miralax, sennokots with large BM wednesday and small bm's over the weekend. No nausea or vomiting. Pt is disoriented and is unable to provide history. On exam, he does appear anxious but did allow for blood draw. He does not appear to be in any acute distress. Nielsen is inplace with dark yellow somewhat cloudy urine. It is possible the patient's tachypnea/borderline hypoxia is due to atelectasis secondary to air in the left colon. Repeat KUB is pending. VBG also pending. Pt has had multiple blood draws today. Would consider PE in differential. Will check bilateral venous duplex. If negative, pt should be on dvt prophylaxis with lovenox 40mg daily. It is also possible the patient is microaspirating contributing to the tachypnea/borderline hypoxia. Observed patient swallowing pill in pudding without any difficulty. Also tolerated thin liquids so less likely. Doubt aspiration pneumonia given lack of fevers or leukocytosis. Check CXR. Will also check UA/UC given appearance of urine and presence of nielsen catheter with recent VRE UTI that could be contributing to clinical presentation. Would hold on further enemas as there is not much stool in the sigmoid/descending colon. Give lactulose 20 x1. Will continue following for results. Time Spent With Patient Time: Total time managing care of this patient today ____ minutes.
[2024-06-12 15:53] LABS: Venous Blood Gas Refer to POC result
[2024-06-12 15:54] LABS: VBG Base Excess 1.6 mmol/L; VBG HCO3 24 mmol/L (22-26); VBG pCO2 35 mmHg; VBG pH 7.45 (7.32-7.43); VBG pO2 41 mmHg
--- NOTE | 2024-06-12 16:43 | PC.NURSE ---
Archana CHONG saw patient and several new orders were obtained. Urine collected from patient's Saeed Catheter , 30cc cloudy en urine and was sent to lab. CXR and Venous US bilateral LE also ordered. Patient eating and drinking. No nausea or vomiting.
[2024-06-12 16:51] LABS: Appearance Urine Cloudy; Color Urine Dark Yellow; Glucose Urine UA Negative (Negative); Leukocyte Esterase Urine Moderate (2+) (Negative); Nitrite Urine Negative (Negative); PH 5.5 (5.0-9.0); UMIC TRIGGER UACC YES; Urine Blood Negative (Negative); Urine Ketones 15 mg/dL (Negative); Urine Protein 30 (1+) mg/dL (Neg-Trace)
[2024-06-12 17:15] LABS: Bacteria Urine 4+ (None Seen); Hyaline Casts Urine 0-2 /LPF (0-2); RBC Urine 0-2 /HPF (0-2); Squamous Epithelial Cell Urine 0-2 /HPF (0-2); UACC Culture Trigger YES; WBC Urine >50 /HPF (0-5)
--- NOTE | 2024-06-12 18:05 | PC.NURSE ---
Patient brought up to radiology for CXR and VUS of bilateral lower extremities as ordered. The patient somewhat cooperative and all tests were completed. Blood gases also drawn prior to bringing patient to radiology.
--- NOTE | 2024-06-12 18:39 | PC.NURSE ---
12 hour Saeed Catheter Output 250cc cloudy dark en urine.
[2024-06-12 20:00] VITALS: BP 128/67; PULSE 109; RESP 22; TEMP 36.7; O2SAT 93
[2024-06-12] MEDS: QUEtiapine Fumarate 100 MG TABLET PO (20:52)
[2024-06-12] MEDS: Nitrofurantoin Monohyd/M-Cryst 100 MG CAPSULE PO (20:52)
[2024-06-12] MEDS: Donepezil HCl 5 MG TABLET PO (20:53)
[2024-06-12] MEDS: traZODone HCL 50 MG TABLET PO (20:53)
--- NOTE | 2024-06-12 21:13 | HE.PHANOTE ---
VANCO DOSE ADJUSTMENT BASED ON SCR AND TROUGH OF 26.8 DOSE HELD UNTIL AM DOSE AND ANOTHER TROUGH ORDERED FOR 0700 ON 06/13. PREVIOUS DOSE OF 1500 Q 8H LEAD TO TROUGH OF 15.2. BASE AM DOSE ON AM LABS
[2024-06-12] MEDS: Enoxaparin Sodium 100 MG/ML SYRINGE SUBCUT (22:29)
[2024-06-13] VITALS (8 sets, daily range): BP systolic 104–136; BP diastolic 62–69; PULSE 98–109; RESP 18–28; TEMP 36–37.3; O2SAT 89–96
[2024-06-13] MEDS: Tamsulosin HCL 0.4 MG CAPSULE 0.8 MG PO (09:18)
[2024-06-13] MEDS: Sennosides/Docusate Sodium TABLET 2 TAB PO ×2 (09:18→21:21)
[2024-06-13] MEDS: amLODIPine Besylate 2.5 MG TABLET PO (09:19)
[2024-06-13] MEDS: Nitrofurantoin Monohyd/M-Cryst 100 MG CAPSULE PO ×2 (09:20→21:21)
[2024-06-13] MEDS: polyethylene glycoL 3350 17 GM POWD.PACK PO ×2 (09:21→21:20)
[2024-06-13] MEDS: LORazepam 0.5 MG TABLET PO ×3 (10:25→21:21)
--- NOTE | 2024-06-13 10:28 | P.PNPSI_ITS ---
Subjective Subjective Date of Service: 06/13/24 Reason For Visit: Agitation, paranoia with dementia Subjective Notes: Conditional Voluntary Healthcare Proxy: Yes Interim History: Pt slept through the night. Increase respiratory rate, o2sat>92% on RA. Mostly in bed. hospitalist following. hemodynamically stable. on antibiotic. was on warfarin which was not continued on admission. Diagnostics Vital Signs (24Hr): Vital Signs - 24 hr 06/12/24 14:39 06/12/24 20:00 06/13/24 00:00 Temperature 98.0 F 97.6 F Pulse Rate 100 109 H 106 H Respiratory Rate 24 H 22 H 20 Blood Pressure 128/67 116/62 Pulse Oximetry 89 L 93 95 Oxygen Delivery Method Room Air Room Air Room Air 06/13/24 04:00 06/13/24 08:30 Temperature 97.8 F 97.1 F Pulse Rate 102 H 100 Respiratory Rate 20 26 H Blood Pressure 129/69 136/66 Pulse Oximetry 95 93 Oxygen Delivery Method Room Air Room Air BMI result Body Mass Index 20.3 Labs 06/12/24 10:54 06/12/24 10:54 Labs: Laboratory Results - last 48 hr 06/12/24 06/12/24 06/12/24 10:54 15:47 16:10 WBC 9.7 RBC 5.00 Hgb 17.1 Hct 50.4 MCV 100.8 H MCH 34.2 H MCHC 33.9 RDW 12.5 Plt Count 239 MPV 9.1 L Immature Gran % (Auto) 0.2 Neut % (Auto) 65.5 Lymph % (Auto) 23.5 [place] % (Auto) 9.2 Eos % (Auto) 1.2 Baso % (Auto) 0.4 Lymph # (Auto) 2.3 [place] # (Auto) 0.9 Eos # (Auto) 0.1 Baso # (Auto) 0.0 Abs Immat Gran (auto) 0.02 Absolute Neuts (auto) 6.3 Absolute Nucleated RBC 0.000 Nucleated RBC % (auto) 0.0 VBG pH 7.45 H VBG pCO2 35 VBG pO2 41 VBG HCO3 24 VBG O2 Saturation 66.0 VBG Base Excess 1.6 Sodium 138 Potassium 4.5 Chloride 110 H Carbon Dioxide 18 L Anion Gap 15 BUN 21 H Creatinine 1.39 Estim Creat Clear Calc 41.4 Estimated GFR 49 Random Glucose 136 H Calcium 8.9 Total Bilirubin 0.6 AST 22 ALT 17 Alkaline Phosphatase 91 Total Protein 7.1 Albumin 3.0 L Urine Color Dark Yellow Urine Appearance Cloudy Urine pH 5.5 Ur Specific [place] 1.020 Urine Protein 30 (1+) H Urine Glucose (UA) Negative Urine Ketones 15 Urine Blood Negative Urine Nitrite Negative Ur Leukocyte Esterase Moderate (2+) H Urine RBC 0-2 Urine WBC >50 H Ur Squamous Epith Cells 0-2 Urine Bacteria 4+ Hyaline Casts 0-2 Imaging Radiology Impressions: ITS Impressions KUB X-Ray 06/06/24 17:28 IMPRESSION: Large amount of retained stool in the rectum. KUB X-Ray 06/08/24 12:11 IMPRESSION: Large amount of retained stool in the rectal vault. Chest X-Ray 06/09/24 16:40 IMPRESSION: Improved streaky left basilar opacity suggesting atelectasis. Persistent asymmetric elevation of the left hemidiaphragm. KUB X-Ray 06/12/24 10:31 IMPRESSION: 1. No evidence of obstruction. 2. No excessive stool burden. 3. Question of punctate calcification projected over the lower pole of the right kidney. 4. Question of air within the bladder. Has the patient been recently catheterized? Venous Duplex 06/12/24 17:34 IMPRESSION: Bilateral DVT as described above. This critical result was discussed with Dr Hamm at 06/12/2024 7:56 PM and it was ascertained that the content and urgency of the report was understood at the time of direct communication. Chest X-Ray 06/12/24 17:40 IMPRESSION: Hypoexpanded with basilar markings more likely due to atelectasis. Medications Medications Current Medications Acetaminophen (Acetaminophen 325 Mg Tablet) 650 mg PO Q6H PRN PRN Reason: Headache/Pain Mild Scale (1-3) Last Admin: 06/10/24 18:06 Dose: 650 mg Amlodipine Besylate (Amlodipine Besylate 2.5 Mg Tablet) 2.5 mg PO DAILY [facility]; Protocol Last Admin: 06/13/24 09:19 Dose: 2.5 mg Bisacodyl (Bisacodyl 10 Mg Supp.Rect) 10 mg [place] DAILY PRN PRN Reason: Constipation Last Admin: 06/09/24 13:57 Dose: 10 mg Donepezil HCl (Donepezil Hcl 5 Mg Tablet) 5 mg PO BEDTIME [facility] Last Admin: 06/12/24 20:53 Dose: 5 mg Enoxaparin Sodium (Enoxaparin Sodium 100 Mg/Ml Syringe) 100 mg 1.5 mg/kg (100 mg) SUBCUT Q24H [facility] Last Admin: 06/12/24 22:29 Dose: 100 mg Fluticasone Propionate (Fluticasone Propionate Nasal 16 Gm [place]) 1 spray NOSTRIL-B BID [facility] Last Admin: 06/12/24 20:59 Dose: Not Given Lactulose (Lactulose 20 Gm/30 Ml Solution) 20 gm PO ONCE PRN PRN Reason: constipation Last Admin: 06/08/24 08:50 Dose: 20 gm Lorazepam (Lorazepam 0.5 Mg Tablet) 0.5 mg PO TID [facility] Magnesium Hydroxide (Milk Of Magnesia 30 Ml Oral.Susp) 30 ml PO DAILY PRN PRN Reason: Constipation Nitrofurantoin Macrocrystals (Nitrofurantoin Monohyd/M-Cryst 100 Mg Capsule) 100 mg PO BID [facility] Stop: 06/19/24 09:01 Last Admin: 06/13/24 09:20 Dose: 100 mg Polyethylene Glycol (Polyethylene Glycol 3350 17 Gm Powd.Pack) 17 gm PO BID [facility] Last Admin: 06/13/24 09:21 Dose: 17 gm Quetiapine Fumarate (Quetiapine Fumarate 50 Mg Tablet) 50 mg PO TID PRN PRN Reason: anxiety/restlessness Last Admin: 06/12/24 09:54 Dose: 50 mg Quetiapine Fumarate (Quetiapine Fumarate 50 Mg Tablet) 50 mg PO DAILY@1630 [facility] Last Admin: 06/12/24 15:40 Dose: 50 mg Quetiapine Fumarate (Quetiapine Fumarate 100 Mg Tablet) 100 mg PO BEDTIME [facility]; Protocol Last Admin: 06/12/24 20:52 Dose: 100 mg Senna/Docusate Sodium (Sennosides/Docusate Sodium Tablet) 2 tab PO BID [facility] Last Admin: 06/13/24 09:18 Dose: 2 tab Sodium Biphosphate/Sodium Phosphate (Sodium Phosphate,[place]-Dibasic 133 Ml Enema) 118 ml [place] DAILY PRN PRN Reason: Constipation Last Admin: 06/06/24 15:56 Dose: 118 ml Tamsulosin HCl (Tamsulosin Hcl 0.4 Mg Capsule) 0.8 mg PO DAILY [facility] Last Admin: 06/13/24 09:18 Dose: 0.8 mg Trazodone HCl (Trazodone Hcl 50 Mg Tablet) 50 mg PO BEDTIME [facility] Last Admin: 06/12/24 20:53 Dose: 50 mg Allergies Allergies Allergy/AdvReac Type Severity Reaction Status Date / Time Penicillins [PCN] Allergy Unknown Unknown Verified 05/23/24 11:55 Assessment & Plan Assessment & Plan (1) Dementia with behavioral disturbance: Status: Acute Code(s): F03.918 - Unspecified dementia, unspecified severity, with other behavioral disturbance Assessment and Plan: overall patient has established history of dementia. Has been in a memory care unit for the last 3 months. Does have a history of UTIs with agitation usually in the context of superimposed delirium. Has been treated for a UTI since 05/23/2024. Despite this, has continued to be agitated and aggressive. Therefore admitted to inpatient psychiatry to optimize management of behavioral disturbance in the context of dementia. We will increase Seroquel and trazodone as needed at this did appear to be beneficial. Conditional voluntary signed by healthcare proxy. Hospitalist evaluation as part of [facility] psych admission noted and appreciated i.e. no acute issues. 06/04: monitor prn med needs, then schedule doses depending on needs 06/05 added scheduled dose of seroquel 50mg at 3pm and bedtime, continue prn doses. continue to monitor constipation. 06/08 repeat KUB monitor constipation. increase seroquel 100mg po qhs. 06/09 GI consult due to ongoing constipation, not responding to several interventions (dulcolax [place], scheduled miralax and sangita/colace bid, tap water enema). discussed with family clinical picture and scheduled meeting for Tuesday 06/12 discuss goals of care. Pt with O2sat 89% on RA, afebrile, cbc ordered, elevation of wbc but still wnl, increase in Cr (suspect due to BP low). chest xr pending results. continue to monitor. 06/10: Continue current regimen and plans 06/11: Continue current regimen and plans. 06/12 continue tx- hospitalist consulted- started on antibiotic for UTI, lovenox for DVT. constipation better 06/13 continue tx. hospitalist following as medically seems to be decompensating. Reason for continued inpatient stay Substantial Risk for: inability to function Time Spent With Patient Time: Total time managing care of this patient today ____ minutes.
--- NOTE | 2024-06-13 16:09 | PC.NURSE ---
Patient with increased respirations 28/minute after transfer to bed from wheelchair. O2 Sat 96% on room air, [id number]/69. Will give PO Seroquel and continue to monitor.
[2024-06-13] MEDS: QUEtiapine Fumarate 50 MG TABLET PO (16:27)
--- NOTE | 2024-06-13 16:53 | PC.NURSE ---
2LO2 via nasal cannula applied today at 1645 for O2 Sat 89 with respirations 28/min and labored. Alejandra Yip AREA OPERATIONS MANAGER. Scattered red petchiae seen on patients right lower abdomen today.
[2024-06-13] MEDS: Morphine Sulfate 2 MG/ML CARTRIDGE IM (18:08)
--- NOTE | 2024-06-13 18:17 | PC.NURSE ---
Addendum entered by Anmol Olson RN 06/13/24 18:32: O2 was removed per provider's order Addendum entered by Anmol Olson RN 06/13/24 18:31: Nursing supervisor electronics assembly notified that pt in need of IV stat. Original Note: Spoke with provider who requested that pt be given 2mg of Morphine IM once as well as 1/2 liter of NS bolus before pt goes for a STAT CT scan. This is to ensure proper kidney function after pt had elevated creatinine levels recently. The provider also mentioned that placing O2 on the patient won't relieve his respiratory distress.
--- NOTE | 2024-06-13 18:27 | PC.ADMIT ---
Nursing supervisor pipelines Soni notified that pt is in need of IV stat.
--- NOTE | 2024-06-13 18:33 | PC.NURSE ---
Alejandra Yip CLAIMS COLLECTOR updated regarding increased labored respirations 28/min with varying O2 Sat from 89-95% at 1619. Call from Archana CHONG to my coworker with STAT orders to insert 20 gauge IV, Give 2mg Morpine IM and give bolus of 500ml 0.9% NS IV at 500ml/hour bolus so patient can have a chest CT with contrast to rule out PE. Patient had recent kidney function issues. IM Morphine given and nursing vegetable farming supervisor notified of need for STAT IV insertion needed. O2 removed as PA said that it will not help labored respirations if patient has a PE, so Morphine was given.
--- NOTE | 2024-06-13 18:58 | PC.NURSE ---
12 hour Saeed catheter output 300cc clear dark en urine.
--- NOTE | 2024-06-13 19:02 | PM.EVENT ---
Event Note Date of Service: 06/13/24 Event Note: Patient with persistent tachypnea and intermittent hypoxia to 89% on room air but otherwise has been saturating around 95%, question poor perfusion. However, given ongoing tachypnea and improvement in renal function, will check CTA chest to evaluate for PE/R heart strain. He is otherwise hemodyanically stable so doubt R heart strain. Will also check for any other acute cardiopulmonary abnormality that could be contributing to patient;s clinical presentation though cxr yesterday was normal. Continue lovenox subcut as ordered. Plan to transition to eliquis tomorrow evening. Use supplemental O2 per protocol if satting <88%. Will continue following. Time Spent With Patient Time: Total time managing care of this patient today ____ minutes.
[2024-06-13] MEDS: 0.9 % Sodium Chloride 500 ML IV (20:00)
[2024-06-13] MEDS: Fluticasone Propionate Nasal 16 GM SPRAY 1 SPRAY NOSTRIL-B (21:18)
[2024-06-13] MEDS: Enoxaparin Sodium 100 MG/ML SYRINGE SUBCUT (21:19)
[2024-06-13] MEDS: traZODone HCL 50 MG TABLET PO (21:21)
[2024-06-13] MEDS: Donepezil HCl 5 MG TABLET PO (21:21)
[2024-06-13] MEDS: QUEtiapine Fumarate 100 MG TABLET PO (21:21)
[2024-06-13] MEDS: iohexoL 350 MG/ML 100 ML INFUS..BTL 65 ML IV (22:18)
[2024-06-14] VITALS (7 sets, daily range): BP systolic 120–149; BP diastolic 70–87; PULSE 92–115; RESP 18–22; TEMP 36.3; O2SAT 82–92
--- NOTE | 2024-06-14 | ECG_ITS ---
Test Reason : hypoxic Blood Pressure : / mmHG Vent. Rate : 088 BPM Atrial Rate : 088 BPM P-R Int : 160 ms QRS Dur : 094 ms QT Int : 424 ms P-R-T Axes : 061 079 002 degrees QTc Int : 513 ms Normal sinus rhythm Precordial T wave inversions-consider ischemia Prolonged QT Abnormal ECG When compared with ECG of 02-JUN-2024 17:36, T wave inversion now evident in Inferior leads T wave inversion now evident in Anterior leads QT has lengthened Referred By: Luca Gandara Electronically Signed By:Andrew Garcia
--- NOTE | 2024-06-14 00:26 | PM.EVENT ---
Event Note Date of Service: 06/14/24 Event Note: Radiologist called to inform about bilateral PE. Patient is hemodynamically stable and not requiring supplemental oxygen. Patient is on anticoagulation, continue therapeutic Lovenox. Time Spent With Patient Time: Total time managing care of this patient today ____ minutes.
--- NOTE | 2024-06-14 08:16 | PM.PSYDC ---
DS: Providers Provider Date of Service: 06/14/24 Date of admission: 06/02/24 14:43 Date of discharge: 06/14/24 Primary care physician: Adarsh Menon MD Consults: 06/02/24 22:14 Consult to Hospitalist Routine Comment: Consulting Provider: Hospitalist Reason For Exam: admission phy see er adm uti isolation 06/09/24 10:52 Consult to Gastroenterology Routine Consulting Provider: [facility] Reason for consultation: severe constipation, not responding to tx Has provider been notified: Yes 06/12/24 10:26 Consult to Hospitalist Routine Comment: Consulting Provider: Hospitalist Reason For Exam: hyperventilanting, deteriorating physically DS: Diagnosis Discharge Diagnosis (1) Dementia with behavioral disturbance: Status: Acute DS: Medications Discharge Medications Home Medications: Home Medications ?Medication ?Instructions ?Recorded ?Confirmed acetaminophen 325 mg tablet 650 mg PO Q4H PRN Fever Or Pain 03/04/24 05/23/24 (Tylenol) amlodipine 2.5 mg tablet 2.5 mg PO DAILY 03/04/24 05/23/24 bisacodyl 10 mg rectal suppository 10 mg SC DAILY PRN Constipation 03/04/24 05/23/24 donepezil 5 mg tablet 5 mg PO BEDTIME 03/04/24 05/23/24 fluticasone propionate 50 1 spray intranasal BID 03/04/24 05/23/24 mcg/actuation nasal spray,suspension magnesium hydroxide 400 mg/5 mL 30 ml PO DAILY PRN Constipation 03/04/24 05/23/24 oral suspension (Milk of Magnesia) naloxone 4 mg/actuation nasal 4 mg intranasal Q3M PRN Opioid 03/04/24 05/23/24 spray (Narcan) Overdose quetiapine 25 mg tablet 25 mg PO BID 03/04/24 05/23/24 sodium phosphates 19 gram-7 118 ml SC DAILY PRN Constipation 03/04/24 05/23/24 gram/118 mL enema (Fleet Enema) trazodone 50 mg tablet 25 mg PO BEDTIME 03/04/24 05/23/24 divalproex 125 mg capsule,delayed 250 mg PO BID agitation 05/23/24 05/23/24 release sprinkle docusate sodium 100 mg tablet 100 mg PO BID constipation 05/23/24 05/24/24 lactulose 10 gram/15 mL oral 30 ml ONCE PRN constipation 05/23/24 05/23/24 solution levofloxacin 750 mg tablet 750 mg PO Q48H 05/23/24 05/23/24 quetiapine 50 mg tablet 50 mg PO BEDTIME 05/23/24 05/23/24 sennosides 8.6 mg capsule (senna) 8.6 mg PO Q12H PRN Constipation 05/23/24 05/24/24 Previous Rx's ?Medication ?Instructions ?Recorded tamsulosin 0.4 mg capsule 0.8 mg (2 x 0.4 mg) PO DAILY #60 03/07/24 [facility] Mental Status Exam Mental Status Exam Patient Appearance: Disheveled Patient Orientation: Person Level of Consciousness: Lethargic Patient Behavior: Asleep Mood Description: Blunted Affect Description: Blunted Patient Cognition Impaired: Yes Ability to Follow Directions: Poor Speech Pattern: No Speech Hallucinations: None Delusions: Not Present Thought Process: Slowed Thinking and Confusion Thought Content: positive for [place] and positive for Poverty of Content Judgement: Poor Data Data Completed and Pending Completed studies during hospitalization [Text1]: 06/07/24 06/09/24 06/12/24 10:51 16:21 10:54 WBC 10.2 9.7 RBC 4.67 5.00 Hgb 15.9 17.1 Hct 47.4 50.4 MCV 101.5 H 100.8 H MCH 34.0 H 34.2 H MCHC 33.5 33.9 RDW 12.7 12.5 Plt Count 308 239 MPV 9.0 L 9.1 L Immature Gran % (Auto) 0.4 0.2 Neut % (Auto) 65.3 65.5 Lymph % (Auto) 22.4 23.5 [place] % (Auto) 9.4 9.2 Eos % (Auto) 2.2 1.2 Baso % (Auto) 0.3 0.4 Lymph # (Auto) 2.3 2.3 [place] # (Auto) 1.0 0.9 Eos # (Auto) 0.2 0.1 Baso # (Auto) 0.0 0.0 Abs Immat Gran (auto) 0.04 H 0.02 Absolute Neuts (auto) 6.7 6.3 Absolute Nucleated RBC 0.000 0.000 Nucleated RBC % (auto) 0.0 0.0 VBG pH VBG pCO2 VBG pO2 VBG HCO3 VBG O2 Saturation VBG Base Excess Sodium 144 141 138 Potassium 4.2 4.0 4.5 Chloride 112 H 107 110 H Carbon Dioxide 24 21 L 18 L Anion Gap 12 17 15 BUN 36 H 30 H 21 H Creatinine 1.36 1.53 H 1.39 Estim Creat Clear Calc 53.8 37.6 41.4 Estimated GFR 51 44 49 Random Glucose 98 143 H 136 H Calcium 8.9 9.1 8.9 Total Bilirubin 0.6 0.4 0.6 AST 23 22 22 ALT 21 23 17 Alkaline Phosphatase 90 93 91 Total Protein 7.1 7.7 7.1 Albumin 3.2 L 3.6 3.0 L Urine Color Urine Appearance Urine pH Ur Specific [place] Urine Protein Urine Glucose (UA) Urine Ketones Urine Blood Urine Nitrite Ur Leukocyte Esterase Urine RBC Urine WBC Ur Squamous Epith Cells Urine Bacteria Hyaline Casts 06/12/24 06/12/24 15:47 16:10 WBC RBC Hgb Hct MCV MCH MCHC RDW Plt Count MPV Immature Gran % (Auto) Neut % (Auto) Lymph % (Auto) [place] % (Auto) Eos % (Auto) Baso % (Auto) Lymph # (Auto) [place] # (Auto) Eos # (Auto) Baso # (Auto) Abs Immat Gran (auto) Absolute Neuts (auto) Absolute Nucleated RBC Nucleated RBC % (auto) VBG pH 7.45 H VBG pCO2 35 VBG pO2 41 VBG HCO3 24 VBG O2 Saturation 66.0 VBG Base Excess 1.6 Sodium Potassium Chloride Carbon Dioxide Anion Gap BUN Creatinine Estim Creat Clear Calc Estimated GFR Random Glucose Calcium Total Bilirubin AST ALT Alkaline Phosphatase Total Protein Albumin Urine Color Dark Yellow Urine Appearance Cloudy Urine pH 5.5 Ur Specific [place] 1.020 Urine Protein 30 (1+) H Urine Glucose (UA) Negative Urine Ketones 15 Urine Blood Negative Urine Nitrite Negative Ur Leukocyte Esterase Moderate (2+) H Urine RBC 0-2 Urine WBC >50 H Ur Squamous Epith Cells 0-2 Urine Bacteria 4+ Hyaline Casts 0-2 06/12/24 Unknown Urine clean catch - Clean Catch Midstream Urine Culture - Preliminary Culture in progress. 05/23/24 Unknown Urine Catheterized - Saeed Catheter Urine Culture - Final Enterococcus faecalis Imaging Diagnostic Imaging Impressions KUB X-Ray 06/06/24 17:28 IMPRESSION: Large amount of retained stool in the rectum. KUB X-Ray 06/08/24 12:11 IMPRESSION: Large amount of retained stool in the rectal vault. Chest X-Ray 06/09/24 16:40 IMPRESSION: Improved streaky left basilar opacity suggesting atelectasis. Persistent asymmetric elevation of the left hemidiaphragm. KUB X-Ray 06/12/24 10:31 IMPRESSION: 1. No evidence of obstruction. 2. No excessive stool burden. 3. Question of punctate calcification projected over the lower pole of the right kidney. 4. Question of air within the bladder. Has the patient been recently catheterized? Venous Duplex 06/12/24 17:34 IMPRESSION: Bilateral DVT as described above. This critical result was discussed with Dr Hamm at 06/12/2024 7:56 PM and it was ascertained that the content and urgency of the report was understood at the time of direct communication. Chest X-Ray 06/12/24 17:40 IMPRESSION: Hypoexpanded with basilar markings more likely due to atelectasis. Chest CTA 06/13/24 22:33 IMPRESSION: 1. Filling defects in the proximal right middle and lower lobar pulmonary arteries consistent with pulmonary emboli. Multiple additional scattered subsegmental emboli cannot be excluded in the setting of extensive respiratory motion artifact. 2. Right ventricular prominence with flattening of the interventricular septum suggesting at least mild right-sided heart strain. 3. Left hemidiaphragm elevation with adjacent basilar opacity favoring atelectasis. Trace left pleural effusion. VTE: positive. This critical result was discussed with Dr. Hamm on 06/14/2024 12:08 AM, and it was ascertained that the content and urgency of the report was understood at the time of direct communication. DS: Summary Hospital Course Hospital Course: The patient is an elderly male with a past history of advanced dementia who was transferring to this facility after being seen by crisis due to exacerbation of agitation in the context of a UTI. He was been treated and we were discussing with the family disposition. Today, the nursing staff reported the patient started desaturating she called the code and the medical team decided to transfer him to Medicine. Time spent discussing smoking cessation with patient: 3 to 10 minutes Status at Discharge Cognitive/behavioral status at discharge: Impaired at baseline Functional status at discharge: bed bound Overall status at discharge: patient is not back to baseline Time Spent with Patient Time attestation: Total time managing care of this patient today _30___ minutes. Time spent: Less than 30 minutes Discharge Plan Discharge Anticipated Discharge Date/Time: 06/14/24 08:19 Patient Disposition: Xfer Acute Care Hospital Discharge Diagnosis: Dementia Acute respiratory distress Referrals: [facility] [Other] - 1 Week Adarsh Menon MD [Primary Care Provider] - 1 Week Discharge Medications: New acetaminophen 325 mg Tablet 650 mg PO Q6H PRN (Reason: Headache/Pain Mild Scale (1-3)) 30 Days Qty: 30 0RF donepezil 5 mg Tablet 5 mg PO BEDTIME 30 Days Qty: 30 0RF trazodone 50 mg Tablet 50 mg PO BEDTIME 30 Days Qty: 30 0RF amlodipine 2.5 mg Tablet 2.5 mg PO DAILY 30 Days Qty: 30 0RF Protocol: Hold for SBP< HOLD for SBP < : 90 quetiapine 100 mg Tablet 100 mg PO BEDTIME 30 Days Qty: 30 0RF lorazepam 0.5 mg Tablet 0.5 mg PO TID 30 Days Qty: 90 0RF fluticasone propionate 50 mcg/actuation [place],Suspension 1 spray intranasal BID 30 Days Qty: 5 0RF enoxaparin 100 mg/mL Syringe 100 mg subcut Q24H 30 Days Qty: 30 0RF nitrofurantoin monohyd/m-cryst 100 mg Capsule 100 mg PO BID 30 Days Qty: 60 0RF quetiapine 50 mg Tablet 50 mg PO TID PRN (Reason: Anxiety/Restlessness) 30 Days Qty: 30 0RF quetiapine 50 mg Tablet 50 mg PO DAILY@1630 30 Days Qty: 30 0RF lactulose 20 gram/30 mL Solution 20 g PO ONCE PRN (Reason: constipation) 30 Days Qty: 600 0RF polyethylene glycol 3350 17 gram Powder In Packet 17 g PO BID 30 Days Qty: 60 0RF sennosides-docusate sodium [Senna Plus] 8.6-50 mg Tablet 2 tab PO BID 30 Days Qty: 120 0RF magnesium hydroxide [Milk of Magnesia] 400 mg/5 mL Suspension 30 ml PO DAILY PRN (Reason: Constipation) 30 Days Qty: 120 0RF tamsulosin 0.4 mg Capsule 0.8 mg PO DAILY 30 Days Qty: 60 0RF bisacodyl [Gentle Laxative (bisacodyl)] 10 mg Suppository 10 mg SC DAILY PRN (Reason: Constipation) 30 Days Qty: 30 0RF Fleet Enema 19-7 gram/118 mL Enema 118 ml SC DAILY PRN (Reason: Constipation) 30 Days Qty: 118 0RF Discontinued divalproex 125 mg Capsule, Delayed Rel Sprinkle 250 mg PO BID docusate sodium 100 mg Tablet 100 mg PO BID senna 8.6 mg Capsule 8.6 mg PO Q12H PRN (Reason: Constipation) lactulose 10 gram/15 mL Solution 30 ml ONCE PRN (Reason: constipation) quetiapine 50 mg tablet 50 mg PO BEDTIME levofloxacin 750 mg tablet 750 mg PO Q48H Rx Instructions: take in the morning on 05/23 and 05/25 then stop quetiapine 25 mg Tablet 25 mg PO BID acetaminophen [Tylenol] 325 mg Tablet 650 mg PO Q4H PRN (Reason: Fever Or Pain) donepezil 5 mg tablet 5 mg PO BEDTIME trazodone 50 mg Tablet 25 mg PO BEDTIME amlodipine 2.5 mg tablet 2.5 mg PO DAILY magnesium hydroxide [Milk of Magnesia] 400 mg/5 mL Suspension 30 ml PO DAILY PRN (Reason: Constipation) bisacodyl 10 mg Suppository 10 mg SC DAILY PRN (Reason: Constipation) Fleet Enema 19-7 gram/118 mL Enema 118 ml SC DAILY PRN (Reason: Constipation) fluticasone propionate 50 mcg/actuation [place],Suspension 1 spray INTRANASAL BID Rx Instructions: administer into each nostril naloxone [Narcan] 4 mg/actuation [place],Non-Aerosol 4 mg INTRANASAL Q3M PRN (Reason: Opioid Overdose) Rx Instructions: spray 1 dose into ONE nostril; alternate nostrils w each dose until help arrives tamsulosin 0.4 mg Capsule 0.8 mg PO DAILY Qty: 60 0RF Discharge Orders: Discharge Order (Routine); Ordered 06/14/24 Ordered By: Binh Hood Diet: Advance to usual diet Activity on Discharge: As tolerated Stand Alone Forms: Patient Portal Discharge page Print Language: Maori Care Plan Goals: Patient transferred to Medicine for continuation of care Health Concerns: Patient transferred to Medicine for continuation of care Plan of Treatment: Patient transferred to Medicine for continuation of care Assessment: Elderly male with a past history of dementia who was brought to the facility for delirium with UTI, who decompensate and desaturate and transferred to Medicine.
--- NOTE | 2024-06-14 08:20 | PC.RT ---
RT called by Nurse on S1 regarding pt inc O2 requirements. Initially 2 lpm n/c nursing told RT that the pt was now on 10 lpm n/c. This RT conveyed to nurse that I will come down with oxymask as n/c cannot deliver 10 lpm flow. The call ended abruptly and a rapid response was called for the same desaturation. RT's responded and the oxymask was placed and the pt transferred.
--- NOTE | 2024-06-14 08:59 | PC.NURSE ---
Upon morning assessment Trevor was asleep and 82% on 2L with cyanotic lips. Increased 02 to get sets higher, see VS flow sheet for incremental increase in 02. Alejandra Yip NP notified and this physician underwriter was instructed to notify hospitalist. Dr. Gandara came to beside and assessed patient and instructed this physician underwriter to notify respiratory. Respiratory notified for alternate [address] Gandara instructed this physician underwriter to call a rapid response at approximately 0815 which was done. Patient transferred to medical/telemetry unit at 0828 and report given to JAMES Haile.
== END 2024-06-14 08:28 | disposition short-term general hospital (02) | DRG 884 ==
LOC: HO.ED 06-01 06:27 → HO.PGERI 06-02 14:57
PROVIDERS: Emergency Medicine; Physician Assistant; Physician Assistant Medical; Social Worker; Admitting Provider Psychiatry & Neurology Psychiatry; Emergency Provider Emergency Medicine; PCP Internal Medicine; Visit Provider Psychiatry & Neurology Psychiatry
DX: F03.918 Unspecified dementia, unspecified severity, with other behavioral disturbance (principal); I26.99 Other pulmonary embolism without acute cor pulmonale; N39.0 Urinary tract infection, site not specified; F05 Delirium due to known physiological condition; Z16.21 Resistance to vancomycin; Z16.23 Resistance to quinolones and fluoroquinolones; Z16.19 Resistance to other specified beta lactam antibiotics; I82.413 Acute embolism and thrombosis of femoral vein, bilateral; R06.03 Acute respiratory distress; K59.00 Constipation, unspecified; B95.2 Enterococcus as the cause of diseases classified elsewhere; I12.9 Hypertensive chronic kidney disease with stage 1 through stage 4 chronic kidney disease, or unspecified chronic kidney disease; N18.30 Chronic kidney disease, stage 3 unspecified; N40.0 Benign prostatic hyperplasia without lower urinary tract symptoms; Z86.711 Personal history of pulmonary embolism; Z86.718 Personal history of other venous thrombosis and embolism; Z87.440 Personal history of urinary (tract) infections; Z79.899 Other long term (current) drug therapy
CPT/HCPCS: 36415; 71045; 71046; 71275; 74018; 80048; 80053; 80061; 80164; 81001; 82140; 82607; 82746; 82803; 83880; 84443; 84484; 85025; 85027; 85610; 87086; 87088; 87186; 92950; 93005; 93970; 94799; 99285; C1758; J1200; J1630; J1650; J2270; J2359; Q9967; S9485

== ENCOUNTER → 2024-05-23 13:01 | Outpatient (BNV) | payer MEDICARE, MEDICAID, SELFPAY | PROVIDERS: Emergency Provider Emergency Medicine; PCP Emergency Medicine; Visit Provider Psychiatry & Neurology Psychiatry | DX: F03.918 Unspecified dementia, unspecified severity, with other behavioral disturbance (principal) | CPT/HCPCS: 90792; 99231; 99232; 99238; 99283 ==

== ENCOUNTER 2024-06-02 14:43 | Outpatient (BNV) | payer MEDICARE, MEDICAID, SELFPAY | END 2024-06-02 15:57 | PROVIDERS: Admitting Provider Psychiatry & Neurology Psychiatry; Emergency Provider Emergency Medicine; PCP Internal Medicine; Visit Provider Internal Medicine Cardiovascular Disease | DX: I10 Essential (primary) hypertension (principal); R94.31 Abnormal electrocardiogram [ECG] [EKG] | CPT/HCPCS: 93010 ==

== ENCOUNTER → 2024-06-02 14:43 | Outpatient (BNV) | payer MEDICARE, MEDICAID, SELFPAY | PROVIDERS: Admitting Provider Psychiatry & Neurology Psychiatry; Emergency Provider Emergency Medicine; PCP Internal Medicine; Visit Provider Internal Medicine Gastroenterology | DX: K59.00 Constipation, unspecified (principal) | CPT/HCPCS: 99222 ==

== ENCOUNTER → 2024-06-02 14:43 | Outpatient (BNV) | payer MEDICARE, MEDICAID, SELFPAY | PROVIDERS: Admitting Provider Psychiatry & Neurology Psychiatry; Emergency Provider Emergency Medicine; PCP Internal Medicine; Visit Provider Physician Assistant | DX: Z02.2 Encounter for examination for admission to residential institution (principal) | CPT/HCPCS: 99429; 99499 ==

== ENCOUNTER → 2024-06-14 07:00 | Outpatient (BNV) | payer MEDICARE, MEDICAID, SELFPAY | PROVIDERS: Admitting Provider Internal Medicine; Visit Provider Internal Medicine Cardiovascular Disease | DX: R94.31 Abnormal electrocardiogram [ECG] [EKG] (principal) | CPT/HCPCS: 93010; 93306 ==

== ENCOUNTER 2024-06-14 08:35 | Inpatient (IN) | payer MEDICARE, MEDICAID, SELFPAY ==
[2024-06-14] VITALS (7 sets, daily range): BP systolic 136–140; BP diastolic 69–88; PULSE 87–113; RESP 16–24; TEMP 36.2–37.5; O2SAT 89–97; BMI 24.7
--- NOTE | 2024-06-14 07:00 | CA_ITS ---
Transthoracic Echocardiogram Patient (Last, First, Middle): Trevor Haley, Gender: Male Date of : 1945 Age: 79 Procedure Date: 06/14/2024 Procedure Type: Transthoracic Echocardiogram Location: [facility] – [place] Height: 182.88 cm Weight: 67.59 kg BSA: 1.88 m2 Heart Rate: bpm BP: 149 / 87 mmHg Movement Assembly Final Inspector: ARA Referring MD: Luca Gandara MD Symptoms: acute pe Study Quality: Technically Difficult Conclusions: - Decreased left ventricular cavity size. There is normal left ventricular wall thickness. The left ventricular systolic function is normal. The visually estimated ejection fraction is between 60-65%. - Imaging overall is limited. RV is at least moderately dilated with moderate dysfunction. In some views D-shaped LV cavity is noted. Imaging overall consistent with significant pulmonary embolism (known). - [id number]-[id number] dilation of aortic root 4.3 cm. Findings Procedure Information The patient declines contrast. Left Ventricle Decreased left ventricular cavity size. There is normal left ventricular wall thickness. The left ventricular systolic function is normal. The visually estimated ejection fraction is between 60-65%. Diastolic function is indeterminate on the basis of available data. Right Ventricle Imaging overall is limited. RV is at least moderately dilated with moderate dysfunction. In some views D-shaped LV cavity is noted. Atria The left atrium is mildly dilated. The right atrium is normal in size. Aortic Valve The aortic valve was not well visualized. There is no aortic valve stenosis. There is trace (trivial) aortic valve regurgitation. Mitral Valve The mitral valve appears normal. There is no mitral valve regurgitation. There is no mitral valve stenosis. Pulmonic Valve The pulmonic valve was not well visualized. Tricuspid Valve The tricuspid valve was not well visualized. Indeterminate right atrial pressure. Great Vessels [id number] dilation of aortic root 4.3 cm. Venous The inferior vena cava was not well visualized. Pericardium/Pleural There is no evidence of pericardial effusion. Prior Study Comparison No prior study available for comparison. Measurements 2D Linear Measurements IVSd: 0.94 0.6-0.9/0.6-1.0 cm LVIDd: 1.97 3.9-5.3/4.2-5.9 cm LVIDd Index: 1.05 2.4-3.2/2.2-3.1 cm/m2 LVIDs: 1.39 2.0-3.6 cm LVPWd: 0.99 0.7-1.1 cm Ao Root: 4.30 2.1-3.5 cm LV Mass: 53.84 67-162/88-224 g LV Mass Index: 28.64 43-95/49-115 g/m2 LVOT Diam: 2.10 3.0+(-)1.3 cm Mitral Valve E'Lateral: 7.40 E'Medial: 6.31 Aortic Valve AoV Pk [place]: 0.93 AoV Mn [place]: 0.60 AoV VTI: 0.13 AoV Pk Grad: 3.00 Aov Mn Grad: 2.00 LUCILA Cont.VTI: 3.82 LVOT LVOT Pk [place]: 0.94 LVOT Mn [place]: 0.65 LVOT VTI: 0.15 LVOT Pk Grad: 4.00 LVOT Mn Grad: 2.00 LVOT Diam: 2.10 LVOT Area: 3.46 Diastolic Function E'Medial: 6.31 E' Laterial: 7.40 Right Ventricle TAPSE (mm): 16.80 TVS' [place]: 10.00 Tricuspid Valve TR Pk [place]: 3.03 TR Pk Grad: 37.00 RVSP: 35.00 Great Vessels Aorta Ao Root-2D: 4.30 2.0-3.7 cm Ao Arch: 3.20 Updated in Other Vendor System with Status of Final Andrew Garcia MD electronically signed on 06/14/2024 12:23:03 PM with status of Final
--- NOTE | 2024-06-14 08:42 | PM.IMHP ---
History of Present Illness Date of Service: 06/14/24 Chief Complaint: pe 79M PMH DVT/PE, htn, bph, unspecified dementia, ckd III, admitted to [facility] for agitation. rapid response called for worsening hypoxia. patient has been off coumadin for about 3 weeks. diagnosed with recurrent bilateral DVT and right sided PE night prior to [employer]. was placed on therapeutic lovenox, required 2L yesterday, found to be 82% on 2L this AM, still saturating high 80s on 10L so rapid response was called. patient is arousable but unable to give history. placed on oxymask and transferred to medical floor. Review of Systems Review of Systems: Yes all other systems are reviewed and are negative [facility] Medical History (Updated 06/14/24 @ 08:47 by Luca Gandara MD) Delirium due to medical condition with behavioral disturbance Enlarged prostate Dementia Pulmonary embolus DVT (deep venous thrombosis) Urinary retention HTN (hypertension) BPH (benign prostatic hyperplasia) Social History Household Members: Other Household Members Other:: SNF Housing: Custodial Do you presently have visiting nurse or other home services: No (unable to respond. resides in SNF) Unable to assess alcohol history related to: Unable to respond Comment: 5 minute checks for safety Patient Tobacco Use Status: Tobacco use Unknown Second Hand Smoke Exposure: No (resides in SNF) Advance Directives: Yes Advance Directives on File: Yes Advance Directives Date on File: 03/08/24 service: No Sexual orientation: Straight/Heterosexual Meds Allergies Allergy/AdvReac Type Severity Reaction Status Date / Time Penicillins [PCN] Allergy Unknown Unknown Verified 05/23/24 11:55 Active Medications: Current Medications Acetaminophen (Acetaminophen 325 Mg Tablet) 650 mg PO Q6H PRN PRN Reason: Pain, Mild (Pain Scale 1-3), fever or headache Calcium Carbonate (Calcium Carbonate 750 Mg Tab.Chew) 750 mg PO Q4H PRN PRN Reason: Heartburn Enoxaparin Sodium (Enoxaparin Sodium 100 Mg/Ml Syringe) 100 mg SUBCUT Q12H TAY Magnesium Hydroxide (Milk Of Magnesia 30 Ml Oral.Susp) 30 ml PO DAILY PRN PRN Reason: Constipation Melatonin (Melatonin 3 Mg Tablet) 6 mg PO BEDTIME PRN PRN Reason: Insomnia Sodium Chloride (0.9 % Sodium Chloride Flush 3 Ml Syringe) 3 ml IVFLUSH QSHIFT TAY Tamsulosin HCl (Tamsulosin Hcl 0.4 Mg Capsule) 0.8 mg PO DAILY [facility] Physical Exam Vital Signs and Narrative: letathargic, non communicative, lungs clear Assessment and Plan (1) Pulmonary embolus: Status: Acute Plan 79M PMH DVT/PE, htn, bph, unspecified dementia, ckd III, admitted to [facility] for agitation. rapid response called for worsening hypoxia Acute hypoxic respiratory failure secondary to acute recurrent PE Code status confirmed with family and molst Will transfer to med tele, oxygen supplementation for goal saturation 89-91% Check echo, BNP, troponin Continue therapeutic Lovenox Unspecified dementia Patient currently lethargic will hold meds for now VRE UTI Completed course of Macrobid CKD 3 Monitor BPH Continue Flomax DNR/DNI Patient with severe acute hypoxia likely require at least 2 midnights inpatient Quality Stroke Does the patient have a stroke diagnosis?: No VTE Prior VTE?: Yes VTE Risk Level:: Medical - moderate - high VTE Device Contraindication: Treatment Not Tolerated VTE Drug Contraindication: N/A - Med Ordered
[2024-06-14 09:01] LABS: Hematocrit 49.6 % (42.0-52.0); Hemoglobin 16.7 g/dl (14.0-18.0); Mean Corpuscular HGB Conc 33.7 g/dl (31.0-36.0); Mean Corpuscular Hemoglobin 34.1 pg (27.0-33.0); Mean Corpuscular Volume 101.2 fL (80.0-98.0); Mean Platelet Volume 9.1 fL (9.4-12.4); Platelet Count 213 X10*3/uL (160-400); Red Cell Distribution Width 12.8 % (11.0-16.0); White Blood Count 8.3 X10*3/uL (4.8-10.8)
--- NOTE | 2024-06-14 09:03 | PHA.MEDREC ---
Pharmacy Consult ? Medication Reconciliation Pharmacy has completed the medication reconciliation. Patient transferred from [facility]
[2024-06-14 09:05] LABS: Prothrombin Time 12.3 SEC (11.1-13.3)
[2024-06-14 09:18] LABS: B Type Natriuretic Peptide 274 pg/mL (<100)
[2024-06-14 09:29] LABS: Alanine Aminotransferase 11 U/L (0-40); Albumin Level 3.2 g/dL (3.5-5.0); Alkaline Phosphatase 96 U/L (39-117); Anion Gap 15 (12-20); Aspartate Amino Transferase 19 U/L (5-37); Bilirubin Direct 0.2 mg/dL (0.0-0.5); Bilirubin Total 0.7 mg/dL (0.0-1.0); Blood Urea Nitrogen 24 mg/dL (9-16); Calcium 8.7 mg/dL (8.4-10.2); Carbon Dioxide 21 mmol/L (22-29); Chloride 112 mmol/L (96-108); Estimated Glomerular Filt Rate 48; Glucose Random 111 mg/dL (60-115); Potassium 4.5 mmol/L (3.3-5.1); Sodium 143 mmol/L (135-145); Total Protein 7.2 g/dL (6.5-8.0)
[2024-06-14 10:01] LABS: Troponin-I High Sensitivity 257.3 ng/L (<3.5-35.0)
--- NOTE | 2024-06-14 11:34 | P.CONGS_ITS ---
History of Present Illness Consult details Consult date: 06/14/24 Reason for consult: other (DVT/PE) Narrative: Very complex 79-year-old gentleman presents for evaluation regarding DVT and PE. He originally presented to the geriatric psych unit for altered mental status. Medical service had been consulted and was found to have increased agitation along with a UTI. This was subsequently treated. Upon workup and subsequent treatment he was found to desat. And was worked up and found to have a DVT with PE. Now presents for vascular evaluation regarding possible pulmonary embolectomy. Upon discussion with the patient's family was discovered that he had a DVT nearly 7 years ago secondary to an injury after would cutting. He was taken off and had a recurrent DVT and was then placed on long-term anticoagulation with Coumadin. The most recent event he was off anticoagulation for a period of time and developed this DVT with PE. Review of Systems 2 Review of Systems: Yes Unobtainable due to mental condition Neurologic: Reports confusion Psychiatric: Psychiatric: Reports confusion PMFSH Past Medical History Medical History (Updated 06/14/24 @ 11:39 by Jamie Gandhi MD) Delirium due to medical condition with behavioral disturbance Enlarged prostate Dementia Pulmonary embolus DVT (deep venous thrombosis) Urinary retention HTN (hypertension) BPH (benign prostatic hyperplasia) Social History Social History Household Members: Other Household Members Other:: SNF Housing: Intermediate Do you presently have visiting nurse or other home services: No (unable to respond. resides in SNF) Unable to assess alcohol history related to: Unable to respond Comment: 5 minute checks for safety Patient Tobacco Use Status: Tobacco use Unknown Second Hand Smoke Exposure: No (resides in SNF) Use of substances other than those prescribed or required for medical reasons: Unknown Advance Directives: Yes Advance Directives on File: Yes Advance Directives Date on File: 03/08/24 Recently lost weight without trying: Unsure Nutrition Risks: Difficulty chewing and Difficulty swallowing service: No Sexual orientation: Straight/Heterosexual Meds Allergies Allergy/AdvReac Type Severity Reaction Status Date / Time Penicillins [PCN] Allergy Unknown Unknown Verified 05/23/24 11:55 Active Medications: Current Medications Acetaminophen (Acetaminophen 325 Mg Tablet) 650 mg PO Q6H PRN PRN Reason: Pain, Mild (Pain Scale 1-3), fever or headache Calcium Carbonate (Calcium Carbonate 750 Mg Tab.Chew) 750 mg PO Q4H PRN PRN Reason: Heartburn Enoxaparin Sodium (Enoxaparin Sodium 100 Mg/Ml Syringe) 100 mg SUBCUT Q24H TAY Magnesium Hydroxide (Milk Of Magnesia 30 Ml Oral.Susp) 30 ml PO DAILY PRN PRN Reason: Constipation Melatonin (Melatonin 3 Mg Tablet) 6 mg PO BEDTIME PRN PRN Reason: Insomnia Sodium Chloride (0.9 % Sodium Chloride Flush 3 Ml Syringe) 3 ml IVFLUSH QSHIFT TAY Tamsulosin HCl (Tamsulosin Hcl 0.4 Mg Capsule) 0.8 mg PO DAILY [facility] Physical Exam 2 Vital Signs: Vital Signs: Last Vital Signs Temp 97.1 F 06/14/24 09:01 Pulse 92 06/14/24 09:01 Resp 16 06/14/24 09:01 BP 136/78 06/14/24 09:01 Pulse Ox 89 L 06/14/24 09:11 O2 Del Method Oxymask 06/14/24 09:11 O2 Flow Rate 8 06/14/24 09:01 Const: General: cooperative and confusion Orientation/consciousness: c onfusion HEENT: Head: Yes normal to inspection Neck: Carotids: no bruits Chest: Chest palpation & inspection: normal inspection of the chest Resp: Effort & Inspection: normal respiratory effort and able to speak in complete sentences Auscultation: clear to auscultation bilaterally Cardio: Rate: regular rate Heart sounds: S1 normal heart sound present and S2 normal heart sound present GI: Inspection: Yes normal to inspection Skin: General skin exam: no rashes or lesions noted Wounds: no wounds Neuro: General: CN's II-XI intact bilaterally and confusion Extrem: General: Yes normal to inspection, Yes full ROM and Yes no clubbing, cyanosis or edema Psych: Appearance: grossly normal and well kempt Speech and movement: N ormal speech and movement present Affect: normal affect Results Labs 06/14/24 08:45 06/14/24 08:52 Labs: Abnormal lab results 06/14/24 06/14/24 Range/Units 08:45 08:52 MCV 101.2 H (80.0-98.0) fL MCH 34.1 H (27.0-33.0) pg MPV 9.1 L (9.4-12.4) fL Chloride 112 H (96-108) mmol/L Carbon Dioxide 21 L (22-29) mmol/L BUN 24 H (9-16) mg/dL Creatinine 1.42 H (0.5-1.4) mg/dL Troponin I High Sens 257.3 H* D (<3.5-35.0) ng/L B-Natriuretic Peptide 274 H (<100) pg/mL Albumin 3.2 L (3.5-5.0) g/dL Short CBC 06/14/24 Range/Units 08:45 WBC 8.3 (4.8-10.8) X10*3/uL Hgb 16.7 (14.0-18.0) g/dl Hct 49.6 (42.0-52.0) % Plt Count 213 (160-400) X10*3/uL BMP 06/14/24 08:52 Sodium 143 Potassium 4.5 Chloride 112 H Carbon Dioxide 21 L BUN 24 H Creatinine 1.42 H Calcium 8.7 Liver Function 06/14/24 Range/Units 08:52 Total Bilirubin 0.7 (0.0-1.0) mg/dL Direct Bilirubin 0.2 (0.0-0.5) mg/dL AST 19 (5-37) U/L ALT 11 (0-40) U/L Alkaline Phosphatase 96 (39-117) U/L Albumin 3.2 L (3.5-5.0) g/dL All other labs normal. Assessment and Plan (1) Pulmonary embolus: Qualifiers: Pulmonary embolism type: unspecified Chronicity: acute Acute cor pulmonale presence: unspecified Qualified Code(s): I26.99 - Other pulmonary embolism without acute cor pulmonale Status: Acute Plan In short patient has DVT with PE. The concern here is the PE which has caused mild heart strain. Does appear to be satting better with just anticoagulation of Lovenox. I had an extensive discussion with the patient's family regarding risks benefits complications of the procedure. At the current time they have elected to not intervene and allow anticoagulation to continue to work. I do believe this is a reasonable option as this sedation and anesthesia may increase his confusion and agitation. We will follow-up on an as-needed basis. Thank you for allowing us to assist in his care. If there are any questions or concerns please do not hesitate to contact us. Procedures Date of Service Date of Service: 06/14/24
--- NOTE | 2024-06-14 12:57 | MHC.CM.PN ---
Patient has a diagnosis of Dementia; CM spoke with /HCP/Sindhu @ [phone] and addressed IMM with her (original will be mailed certified mail to Sindhu and a copy will be placed on the chart). Patient was LTC @ [facility] ([facility])prior to being admitted to [facility] here; returning to LTC at [facility] VS [facility] is the goal and CM has initiated and will continue to follow for dc planning. Patient will need a Care Team Consult to assist with disposition, once medically cleared for dc.
[2024-06-14] MEDS: OLANZapine 10 MG VIAL 5 MG IM (20:16)
[2024-06-14] MEDS: 0.9 % Sodium Chloride Flush 3 ML SYRINGE IVFLUSH (20:17)
[2024-06-14] MEDS: Enoxaparin Sodium 100 MG/ML SYRINGE SUBCUT (20:17)
[2024-06-14] MEDS: LORazepam 2 MG/ML VIAL 1 MG IVPUSH (22:01)
[2024-06-14] MEDS: QUEtiapine Fumarate 100 MG TABLET PO (23:51)
[2024-06-14] MEDS: traZODone HCL 50 MG TABLET PO (23:51)
[2024-06-15 03:23] VITALS: BP 146/76; PULSE 103; RESP 16; TEMP 36.4; O2SAT 96
[2024-06-15 07:51] VITALS: BP 139/81; PULSE 94; RESP 18; TEMP 37.1; O2SAT 95
[2024-06-15] MEDS: 0.9 % Sodium Chloride Flush 3 ML SYRINGE IVFLUSH ×3 (08:19→22:42)
--- NOTE | 2024-06-15 09:02 | HO.PM.IMPN ---
Subjective Subjective Date of Service: 06/15/24 Interval History: was agitated overnight, now fairly lethargic Physical Exam Vital Signs: Vital Signs: Last Vital Signs Temp 98.7 F 06/15/24 07:51 Pulse 94 06/15/24 07:51 Resp 18 06/15/24 07:51 BP 139/81 06/15/24 07:51 Pulse Ox 95 06/15/24 07:51 O2 Del Method Humidified O2 06/15/24 07:51 O2 Flow Rate 6 06/15/24 07:51 BMI result Body Mass Index 24.7 lethargic, non participatory, no acute distress Objective Data Active Medications Acetaminophen (Acetaminophen 325 Mg Tablet) 650 mg PO Q6H PRN PRN Reason: Pain, Mild (Pain Scale 1-3), fever or headache Acetaminophen (Acetaminophen 325 Mg Tablet) 650 mg PO Q6H PRN PRN Reason: Headache/Pain Mild Scale (1-3) Calcium Carbonate (Calcium Carbonate 750 Mg Tab.Chew) 750 mg PO Q4H PRN PRN Reason: Heartburn Enoxaparin Sodium (Enoxaparin Sodium 100 Mg/Ml Syringe) 100 mg SUBCUT Q24H [facility] Last Admin: 06/14/24 20:17 Dose: 100 mg Documented By: KRISH Magnesium Hydroxide (Milk Of Magnesia 30 Ml Oral.Susp) 30 ml PO DAILY PRN PRN Reason: Constipation Melatonin (Melatonin 3 Mg Tablet) 6 mg PO BEDTIME PRN PRN Reason: Insomnia Sodium Chloride (0.9 % Sodium Chloride Flush 3 Ml Syringe) 3 ml IVFLUSH QSHIFT [facility] Last Admin: 06/15/24 08:19 Dose: 3 ml Documented By: PRADEEP Tamsulosin HCl (Tamsulosin Hcl 0.4 Mg Capsule) 0.8 mg PO DAILY [facility] Last Admin: 06/14/24 12:11 Dose: Not Given Documented By: UYEN Non-Admin Reason: NOT ABLE TO SWALLOW PILL SAFELY Labs 06/14/24 08:45 06/14/24 08:52 Labs: Laboratory Results - last 24 hr 06/14/24 06/14/24 08:45 08:52 MCV 101.2 H MCH 34.1 H MCHC 33.7 RDW 12.8 Plt Count 213 MPV 9.1 L Absolute Nucleated RBC 0.000 Nucleated RBC % (auto) 0.0 PT 12.3 D INR 1.0 Anion Gap 15 Estim Creat Clear Calc TNP Estimated GFR 48 Random Glucose 111 Calcium 8.7 Total Bilirubin 0.7 Direct Bilirubin 0.2 AST 19 ALT 11 Alkaline Phosphatase 96 Troponin I High Sens 257.3 H* D B-Natriuretic Peptide 274 H Total Protein 7.2 Albumin 3.2 L Assessment and Plan (1) Pulmonary embolus: Status: Acute Plan 79M PMH DVT/PE, htn, bph, unspecified dementia, ckd III, admitted to [facility] for agitation. rapid response called for worsening hypoxia Acute hypoxic respiratory failure secondary to acute recurrent PE oxygen supplementation for goal saturation 89-91% Continue therapeutic Lovenox vascular appreciated - family would like to avoid invasive treatments such as thrombectomy at this time Unspecified dementia with behaviour distrurbances restart seroquel, ativan, trazadone VRE UTI Completed course of Macrobid CKD 3 Monitor BPH Continue Flomax DNR/DNI reason for continued hospitalization:still very hypoxic Quality Stroke Does the patient have a stroke diagnosis?: No VTE Prior VTE?: Yes VTE Risk Level:: Medical - moderate - high VTE Device Contraindication: Treatment Not Tolerated VTE Drug Contraindication: N/A - Med Ordered
[2024-06-15 12:00] VITALS: BP 134/74; PULSE 86; RESP 20; TEMP 36.8; O2SAT 97
[2024-06-15 16:00] VITALS: BP 141/84; PULSE 93; TEMP 36.8; O2SAT 94
[2024-06-15] MEDS: Enoxaparin Sodium 100 MG/ML SYRINGE SUBCUT (22:41)
[2024-06-15] MEDS: QUEtiapine Fumarate 100 MG TABLET PO (22:41)
[2024-06-15] MEDS: traZODone HCL 50 MG TABLET PO (22:41)
[2024-06-15] MEDS: LORazepam 0.5 MG TABLET PO (22:41)
[2024-06-16] VITALS: BP 160/91; PULSE 103; RESP 16; TEMP 36.6; O2SAT 94
[2024-06-16 03:49] VITALS: BP 150/68; PULSE 98; RESP 16; TEMP 36
[2024-06-16 05:42] LABS: Hematocrit 47.5 % (42.0-52.0); Hemoglobin 15.8 g/dl (14.0-18.0); Mean Corpuscular HGB Conc 33.3 g/dl (31.0-36.0); Mean Corpuscular Hemoglobin 33.9 pg (27.0-33.0); Mean Corpuscular Volume 101.9 fL (80.0-98.0); Mean Platelet Volume 9.6 fL (9.4-12.4); Platelet Count 213 X10*3/uL (160-400); Red Blood Count 4.66 X10*6/uL (4.60-5.80); Red Cell Distribution Width 12.7 % (11.0-16.0); White Blood Count 7.6 X10*3/uL (4.8-10.8)
[2024-06-16 05:58] LABS: Anion Gap 13 (12-20); Blood Urea Nitrogen 32 mg/dL (9-16); Calcium 8.5 mg/dL (8.4-10.2); Carbon Dioxide 22 mmol/L (22-29); Chloride 114 mmol/L (96-108); Creatinine Clr Calc Pharmacy 38.5; Estimated Glomerular Filt Rate 50; Glucose Fasting 107 mg/dL (60-99); Sodium 145 mmol/L (135-145)
[2024-06-16 07:07] VITALS: BP 120/62; PULSE 63; RESP 18; TEMP 36.3; O2SAT 95
[2024-06-16] MEDS: amLODIPine Besylate 2.5 MG TABLET PO (08:44)
[2024-06-16] MEDS: 0.9 % Sodium Chloride Flush 3 ML SYRINGE IVFLUSH (08:44)
[2024-06-16] MEDS: Tamsulosin HCL 0.4 MG CAPSULE 0.8 MG PO (08:44)
[2024-06-16] MEDS: LORazepam 0.5 MG TABLET PO (08:44)
--- NOTE | 2024-06-16 10:19 | MHC.CM.PN ---
Per ROUNDS discussion, Patient is down to 2L O2 and is medically cleared for dc pending Care Team Consult. CM will follow.
--- NOTE | 2024-06-16 11:01 | P.PNIM_ITS ---
Subjective Subjective Date of Service: 06/16/24 Interval History: feels better Physical Exam 2 Vital Signs: Vital Signs: Last Vital Signs Temp 97.3 F 06/16/24 07:07 Pulse 63 06/16/24 07:07 Resp 18 06/16/24 07:07 BP 120/62 06/16/24 07:07 Pulse Ox 95 06/16/24 07:07 O2 Del Method Nasal Cannula 06/16/24 07:07 O2 Flow Rate 3 06/16/24 07:07 BMI result Body Mass Index 24.7 alert, no acute distress Objective Data Active Medications Acetaminophen (Acetaminophen 325 Mg Tablet) 650 mg PO Q6H PRN PRN Reason: Pain, Mild (Pain Scale 1-3), fever or headache Amlodipine Besylate (Amlodipine Besylate 2.5 Mg Tablet) 2.5 mg PO DAILY [facility]; Protocol Last Admin: 06/16/24 08:44 Dose: 2.5 mg Documented By: PRISCA Apixaban (Apixaban 5 Mg Tablet) 10 mg PO BID [facility] Stop: 06/19/24 21:01 Apixaban (Apixaban 5 Mg Tablet) 5 mg PO BID [facility] Bisacodyl (Bisacodyl 10 Mg Supp.Rect) 10 mg [place] DAILY PRN PRN Reason: Constipation Calcium Carbonate (Calcium Carbonate 750 Mg Tab.Chew) 750 mg PO Q4H PRN PRN Reason: Heartburn Lorazepam (Lorazepam 0.5 Mg Tablet) 0.5 mg PO TID [facility] Last Admin: 06/16/24 08:44 Dose: 0.5 mg Documented By: PRISCA Magnesium Hydroxide (Milk Of Magnesia 30 Ml Oral.Susp) 30 ml PO DAILY PRN PRN Reason: Constipation Melatonin (Melatonin 3 Mg Tablet) 6 mg PO BEDTIME PRN PRN Reason: Insomnia Quetiapine Fumarate (Quetiapine Fumarate 50 Mg Tablet) 50 mg PO TID PRN PRN Reason: Anxiety/Restlessness Quetiapine Fumarate (Quetiapine Fumarate 100 Mg Tablet) 100 mg PO BEDTIME [facility] Last Admin: 06/15/24 22:41 Dose: 100 mg Documented By: KRISH Quetiapine Fumarate (Quetiapine Fumarate 50 Mg Tablet) 50 mg PO DAILY@1630 [facility] Last Admin: 06/15/24 18:27 Dose: Not Given Documented By: HO.PHANLYM Non-Admin Reason: pt drowsy Sodium Chloride (0.9 % Sodium Chloride Flush 3 Ml Syringe) 3 ml IVFLUSH QSHIFT [facility] Last Admin: 06/16/24 08:44 Dose: 3 ml Documented By: PRISCA Tamsulosin HCl (Tamsulosin Hcl 0.4 Mg Capsule) 0.8 mg PO DAILY [facility] Last Admin: 06/16/24 08:44 Dose: 0.8 mg Documented By: PRISCA Trazodone HCl (Trazodone Hcl 50 Mg Tablet) 50 mg PO BEDTIME [facility] Last Admin: 06/15/24 22:41 Dose: 50 mg Documented By: KRISH Labs 06/16/24 05:27 06/16/24 05:27 Labs: Laboratory Results - last 24 hr 06/16/24 05:27 MCV 101.9 H MCH 33.9 H MCHC 33.3 RDW 12.7 Plt Count 213 MPV 9.6 Absolute Nucleated RBC 0.000 Nucleated RBC % (auto) 0.0 Anion Gap 13 Estim Creat Clear Calc 38.5 Estimated GFR 50 Fasting Glucose 107 H Calcium 8.5 Assessment and Plan (1) Pulmonary embolus: Status: Acute Plan 79M PMH DVT/PE, htn, bph, unspecified dementia, ckd III, admitted to [facility] for agitation. rapid response called for worsening hypoxia Acute hypoxic respiratory failure secondary to acute recurrent PE oxygen supplementation for goal saturation 89-91% change to eliquis 10mg bid, decrease to 5mg bid on 06/20/24 vascular appreciated - family would like to avoid invasive treatments such as thrombectomy at this time o2 much improved to 97% on 2L, will medically clear for transfer to [facility] when bed available Unspecified dementia with behaviour disturbances restarted seroquel, ativan, trazadone much calmer today VRE UTI Completed course of Macrobid CKD 3 Monitor BPH Continue Flomax DNR/DNI reason for continued hospitalization: awaiting bed on [facility] Quality Stroke Does the patient have a stroke diagnosis?: No VTE Prior VTE?: Yes VTE Risk Level:: Medical - moderate - high VTE Device Contraindication: Treatment Not Tolerated VTE Drug Contraindication: N/A - Med Ordered
--- NOTE | 2024-06-16 11:14 | PM.DS ---
DS: Providers Provider Date of Service: 06/16/24 Date of admission: 06/14/24 08:35 Primary care physician: Adarsh Menon MD Consults: 06/14/24 09:59 Consult to Vascular Surgery Routine Consulting Provider: [facility] Reason for consultation: bilateral dvt/pe DS: Diagnosis Discharge Diagnosis (1) Pulmonary embolus: Status: Acute DS: Summary Hospital Course Hospital Course: from initial hpi: 79M PMH DVT/PE, htn, bph, unspecified dementia, ckd III, admitted to [facility] for agitation. rapid response called for worsening hypoxia. patient has been off coumadin for about 3 weeks. 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 was placed on therapeutic lovenox, required 2L yesterday, found to be 82% on 2L this AM, still saturating high 80s on 10L so rapid response was called. patient is arousable but unable to give history. placed on oxymask and transferred to medical floor. hospital course: Patient was admitted for acute hypoxic respiratory failure secondary to acute recurrent pulmonary embolism. He was treated with subcutaneous therapeutic Lovenox. Echocardiogram did show significant RV strain, was seen by vascular who offered basilar intervention, however, decision made by family to continue conservative management only with anticoagulation. Patient transitioned to p.o. Eliquis, will continue 10 mg b.i.d. and then decrease to 5 mg b.i.d. on 06/20/2024. Oxygen requirements significantly improved, now down to 97% on 2 L in no acute distress alert and talking. For unspecified dementia with behavior disturbances was restarted on his Seroquel, Ativan, trazodone. For history of VRE UTI completed course of Macrobid. For CKD 3 remained stable. For BPH was continued on Flomax. Patient will be transferred back to [facility]. Time Attestation Discharge Coordination Time (in mins): 34 Quality: Safe Use of Opioids Does Pt have an Active Cancer Diagnosis on the Problem List?: No Quality: Stroke Does the patient have a stroke diagnosis?: No Physical Exam Vital Signs: Vital Signs: Last Vital Signs Temp 97.3 F 06/16/24 07:07 Pulse 63 06/16/24 07:07 Resp 18 06/16/24 07:07 BP 120/62 06/16/24 07:07 Pulse Ox 95 06/16/24 07:07 O2 Del Method Nasal Cannula 06/16/24 07:07 O2 Flow Rate 3 06/16/24 07:07 BMI result Body Mass Index 24.7 alert, no acute distress DS: Data Data Completed and Pending Labs on day of discharge: Laboratory Results - last 24 hr 06/16/24 05:27 WBC 7.6 RBC 4.66 Hgb 15.8 Hct 47.5 MCV 101.9 H MCH 33.9 H MCHC 33.3 RDW 12.7 Plt Count 213 MPV 9.6 Absolute Nucleated RBC 0.000 Nucleated RBC % (auto) 0.0 Sodium 145 Potassium 4.0 Chloride 114 H Carbon Dioxide 22 Anion Gap 13 BUN 32 H Creatinine 1.38 Estim Creat Clear Calc 38.5 Estimated GFR 50 Fasting Glucose 107 H Calcium 8.5 Discharge Plan Discharge Anticipated Discharge Date/Time: 06/16/24 11:11 Patient Disposition: Xfer Other Discharge Diagnosis: PE Referrals: Adarsh Menon MD [Primary Care Provider] - 1 Week Discharge Medications: New Eliquis 5 mg Tablet 10 mg PO BID Qty: 0 0RF Continued acetaminophen 325 mg Tablet 650 mg PO Q6H PRN (Reason: Headache/Pain Mild Scale (1-3)) 30 Days Qty: 30 0RF donepezil 5 mg Tablet 5 mg PO BEDTIME 30 Days Qty: 30 0RF trazodone 50 mg Tablet 50 mg PO BEDTIME 30 Days Qty: 30 0RF amlodipine 2.5 mg Tablet 2.5 mg PO DAILY 30 Days Qty: 30 0RF Protocol: Hold for SBP< HOLD for SBP < : 90 quetiapine 100 mg Tablet 100 mg PO BEDTIME 30 Days Qty: 30 0RF lorazepam 0.5 mg Tablet 0.5 mg PO TID 30 Days Qty: 90 0RF fluticasone propionate 50 mcg/actuation [place],Suspension 1 spray intranasal BID 30 Days Qty: 5 0RF quetiapine 50 mg Tablet 50 mg PO TID PRN (Reason: Anxiety/Restlessness) 30 Days Qty: 30 0RF quetiapine 50 mg Tablet 50 mg PO DAILY@1630 30 Days Qty: 30 0RF lactulose 20 gram/30 mL Solution 20 g PO ONCE PRN (Reason: constipation) 30 Days Qty: 600 0RF polyethylene glycol 3350 17 gram Powder In Packet 17 g PO BID 30 Days Qty: 60 0RF sennosides-docusate sodium [Senna Plus] 8.6-50 mg Tablet 2 tab PO BID 30 Days Qty: 120 0RF magnesium hydroxide [Milk of Magnesia] 400 mg/5 mL Suspension 30 ml PO DAILY PRN (Reason: Constipation) 30 Days Qty: 120 0RF tamsulosin 0.4 mg Capsule 0.8 mg PO DAILY 30 Days Qty: 60 0RF bisacodyl [Gentle Laxative (bisacodyl)] 10 mg Suppository 10 mg [place] DAILY PRN (Reason: Constipation) 30 Days Qty: 30 0RF Fleet Enema 19-7 gram/118 mL Enema 118 ml [place] DAILY PRN (Reason: Constipation) 30 Days Qty: 118 0RF Discontinued nitrofurantoin monohyd/m-cryst 100 mg Capsule 100 mg PO BID 30 Days Qty: 60 0RF Discharge Orders: Discharge Order (Routine); Ordered 06/16/24 Ordered By: Luca Gandara Diet: Advance to usual diet Activity on Discharge: As tolerated Stand Alone Forms: Patient Portal Discharge page Print Language: Upper Sorbian Care Plan Goals: recovery Health Concerns: pe Plan of Treatment: eliquis 10mg bid then decrease to 5mg bid on 06/20/24 Assessment: see above
[2024-06-16 11:27] VITALS: BP 113/96; PULSE 85; RESP 18; TEMP 36.1; O2SAT 95
[2024-06-16] MEDS: Docusate Sodium 100 MG CAPSULE PO (12:39)
--- NOTE | 2024-06-16 13:36 | MHC.SLORD ---
Speech Language Pathology Order Status: WALL MIRROR DEPARTMENT SUPERVISOR attempted to see patient x2 in a.m. and p.m. for bedside swallow exam. Patient was sleeping, not waking to sternal rub, and unable to participate in eval at both visits. Sitters report patient had eaten small amounts of pudding today, but did not have a full breakfast or lunch. Notified Marichuy
== END 2024-06-16 15:10 | disposition other institution (70) | DRG 175 ==
PROVIDERS: Admitting Provider Internal Medicine; PCP Internal Medicine; Visit Provider Internal Medicine
DX: I26.99 Other pulmonary embolism without acute cor pulmonale (principal); J96.01 Acute respiratory failure with hypoxia; Z16.21 Resistance to vancomycin; I82.403 Acute embolism and thrombosis of unspecified deep veins of lower extremity, bilateral; F03.918 Unspecified dementia, unspecified severity, with other behavioral disturbance; Z66 Do not resuscitate; I12.9 Hypertensive chronic kidney disease with stage 1 through stage 4 chronic kidney disease, or unspecified chronic kidney disease; N18.30 Chronic kidney disease, stage 3 unspecified; N40.0 Benign prostatic hyperplasia without lower urinary tract symptoms; Z79.51 Long term (current) use of inhaled steroids; Z79.899 Other long term (current) drug therapy
CPT/HCPCS: 36415; 80048; 80076; 83880; 84484; 85027; 85610; 93306; 94799; C1758; J1650; J2060; J2359; Q9957; S9485

== ENCOUNTER → 2024-06-14 08:35 | Outpatient (BNV) | payer MEDICARE, MEDICAID, SELFPAY | PROVIDERS: Admitting Provider Internal Medicine; Visit Provider Internal Medicine | DX: I26.99 Other pulmonary embolism without acute cor pulmonale (principal); J96.01 Acute respiratory failure with hypoxia | CPT/HCPCS: 99223; 99232; 99239; 99499 ==

== ENCOUNTER → 2024-06-14 08:35 | Outpatient (BNV) | payer MEDICARE, MEDICAID, SELFPAY | PROVIDERS: Admitting Provider Internal Medicine; Visit Provider Surgery Vascular Surgery | DX: I26.99 Other pulmonary embolism without acute cor pulmonale (principal) | CPT/HCPCS: 99222 ==

== ENCOUNTER 2024-06-16 15:23 | Inpatient (IN) | payer MEDICARE, MEDICAID, SELFPAY ==
[2024-06-16 15:55] VITALS: BP 144/81; PULSE 87; RESP 18; TEMP 37.1; O2SAT 90
[2024-06-16 16:53] VITALS: BMI 20.3
--- NOTE | 2024-06-16 19:12 | PC.ADMIT ---
Pt. arrived on unit via stretcher at 15:50 accompanied by med telephone exchange operator and staff. Assisted to transfer to bed by 4 staff. Pt. somnolent, but rouses and startles with movement. Minimally responsive to name. Pt. changed into clean dejuan and care provided by staff. Senile purpura and bruising from IVs noted to justyna. UE's, but skin otherwise intact. Saeed catheter patent and draining clear dark yellow urine. O2 sat 87-89 on 2 LPM. O2 increased to 3 LPM and sat js to 89-90%. O2 increased to 3.5 LPM and sats vary from 91-95. One to one observation maintained. Pt. remained somnolent and afternoon meds held for lethargy. /HCP Sindhu updated by phone about pt's admission.
[2024-06-16 20:00] VITALS: BP 128/80; PULSE 100; RESP 18; TEMP 36.6; O2SAT 92
[2024-06-16] MEDS: Fluticasone Propionate 100 MCG BLST.W.DEV 2 PUFF INHALE (20:43)
[2024-06-16] MEDS: polyethylene glycoL 3350 17 GM POWD.PACK PO (20:44)
[2024-06-16] MEDS: Lactulose 20 GM/30 ML SOLUTION PO (20:44)
[2024-06-16] MEDS: Apixaban 5 MG TABLET 10 MG PO (20:44)
[2024-06-16] MEDS: QUEtiapine Fumarate 100 MG TABLET PO (20:44)
[2024-06-16] MEDS: Donepezil HCl 5 MG TABLET PO (20:44)
[2024-06-16] MEDS: LORazepam 0.5 MG TABLET PO (20:44)
[2024-06-16] MEDS: Sennosides 8.6 MG TABLET 17.2 MG PO (20:45)
[2024-06-16] MEDS: traZODone HCL 50 MG TABLET PO (20:45)
[2024-06-17 07:57] LABS: Alanine Aminotransferase 22 U/L (0-40); Albumin Level 3.2 g/dL (3.5-5.0); Alkaline Phosphatase 98 U/L (39-117); Anion Gap 14 (12-20); Aspartate Amino Transferase 32 U/L (5-37); Bilirubin Total 0.7 mg/dL (0.0-1.0); Blood Urea Nitrogen 32 mg/dL (9-16); Calcium 8.8 mg/dL (8.4-10.2); Carbon Dioxide 23 mmol/L (22-29); Chloride 115 mmol/L (96-108); Cholesterol 179 mg/dL (<200); Creatinine Clr Calc Pharmacy 43.9; Estimated Glomerular Filt Rate 54; Glucose Fasting 109 mg/dL (60-99); HDL Cholesterol 42 mg/dL (>40); LDL Cholesterol Calculated 120 mg/dL (<100); Potassium 4.6 mmol/L (3.3-5.1); Sodium 147 mmol/L (135-145); Total Protein 7.5 g/dL (6.5-8.0); Triglycerides 86 mg/dL (<150)
[2024-06-17 08:00] VITALS: BP 151/76; PULSE 84; RESP 24; TEMP 36.3; O2SAT 98
--- NOTE | 2024-06-17 08:31 | P.HPPS_ITS ---
HPI Date of Service: 06/17/24 Chief Complaint: Psych Sources of Information: patient interviewed, chart reviewed and crisis/core team assessment reviewed HPI Subjective Notes: Conditional Voluntary Healthcare Proxy: Yes Narrative: Mr. Haley was originally admitted to on 06/04 due to combative behaviors in setting of advanced dementia. While on the unit, pt found to have DVT, suspected PE on lovenox, however, pt desaturated and was transferred to medicine for further treat of PE. Pt currently on nasal canula 2-3L. He is alert but speech is impaired and unable to provide any history. Pt appears to be decompensation physically at this point. May consider hospice care. Past Psychiatric History: no history of mental health of substance use concerns and was diagnosed with Dementia by his PCP seven years ago which reportedly has significantly progressed over the last year and rapidly progressed over the past several months. Medical Evaluation Reviewed: Yes [facility] Medical History (Updated 06/22/24 @ 00:02 by Betty Nichols) Delirium due to medical condition with behavioral disturbance Enlarged prostate Dementia Pulmonary embolus DVT (deep venous thrombosis) Urinary retention HTN (hypertension) BPH (benign prostatic hyperplasia) Social History: As per care team notes, prior to three months ago, patient was living at home home with his and functioning well with some assistance. 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 In addition, calm and mild-mannered with no history of aggression. Diagnostics Vital Signs (24Hr): Vital Signs - 24 hr 06/16/24 15:55 06/16/24 20:00 Temperature 98.8 F 98 F Pulse Rate 87 100 Respiratory Rate 18 18 Blood Pressure 144/81 H 128/80 Pulse Oximetry 90 L 92 Oxygen Delivery Method Nasal Cannula Nasal Cannula Oxygen Flow Rate 3 3 BMI result Body Mass Index 20.3 Labs 06/20/24 15:15 Labs: Laboratory Results - last 48 hr 06/17/24 07:31 Sodium 147 H Potassium 4.6 Chloride 115 H Carbon Dioxide 23 Anion Gap 14 BUN 32 H Creatinine 1.29 Estim Creat Clear Calc 43.9 Estimated GFR 54 Fasting Glucose 109 H Calcium 8.8 Total Bilirubin 0.7 AST 32 ALT 22 Alkaline Phosphatase 98 Total Protein 7.5 Albumin 3.2 L Triglycerides 86 Cholesterol 179 LDL Cholesterol, Calc 120 H HDL Cholesterol 42 Meds/Allergies Allergies Allergies Allergy/AdvReac Type Severity Reaction Status Date / Time Penicillins [PCN] Allergy Unknown Unknown Verified 05/23/24 11:55 Mental Status Exam Mental Status Exam Narrative: Pt in bed, minimally verbal but awake. Assessment & Plan Assessment & Plan (1) Dementia: Status: Acute Code(s): F03.90 - Unspecified dementia, unspecified severity, without behavioral disturbance, psychotic disturbance, mood disturbance, and anxiety Plan Mr. Haley is an 79 year-old male with advanced dementia, initially admitted on 06/04, transferred to medicine due to PE. PE successfully treated. He has significantly decompensated physically. plan admit to s1, cv by HCP. goals of care may include hospice. Patient educated on: medication risk/benefits Reason for continued inpatient stay Substantial Risk for: inability to function Statement Statement: I have reviewed the history and physical and performed a pertinent examination on my patient. No changes have occurred unless specified. If the History and Physical was not performed prior to admission, the Hospitalist's service will be consulted for completing the admission physical. Time Spent With Patient Time: Total time managing care of this patient today ____ minutes.
[2024-06-17] MEDS: Sennosides 8.6 MG TABLET 17.2 MG PO ×2 (08:40→21:47)
[2024-06-17 08:41] VITALS: BP 107/76
[2024-06-17] MEDS: Tamsulosin HCL 0.4 MG CAPSULE PO (08:41)
[2024-06-17] MEDS: amLODIPine Besylate 2.5 MG TABLET PO (08:41)
[2024-06-17] MEDS: Apixaban 5 MG TABLET 10 MG PO ×2 (08:42→21:46)
[2024-06-17] MEDS: LORazepam 0.5 MG TABLET PO ×2 (08:43→14:41)
[2024-06-17] MEDS: polyethylene glycoL 3350 17 GM POWD.PACK PO ×2 (08:48→21:47)
[2024-06-17] MEDS: Lactulose 20 GM/30 ML SOLUTION PO ×2 (08:48→21:47)
[2024-06-17] MEDS: QUEtiapine Fumarate 50 MG TABLET PO (15:47)
--- NOTE | 2024-06-17 19:47 | PC.NURSE ---
Patient with 300 cc Saeed Catheter output today, concentrated en urine. Patient in bed today with labored respirations 22-24 all day with 10 second periods of apnea at times and grimacing. Alejandra Yip CRYPTOLOGIC TECHNICIAN OPERATOR/ANALYST updated.. Patient on air bed and was incontinent of a large amount of soft stool with care. O2 down to 2L/min with O2 Sat 93%. Patient's appetite is poor. Ate only 25% of lunch and refused breakfast and dinner. Patient on 1:1 for O2. Head of the bed up at least 30 degrees at all times.
[2024-06-17 20:00] VITALS: BP 118/77; PULSE 72; RESP 20; TEMP 36.8; O2SAT 92
[2024-06-17] MEDS: Donepezil HCl 5 MG TABLET PO (21:47)
[2024-06-17] MEDS: QUEtiapine Fumarate 100 MG TABLET PO (21:47)
[2024-06-17] MEDS: traZODone HCL 50 MG TABLET PO (21:53)
[2024-06-18 07:42] LABS: Anion Gap 12 (12-20); Blood Urea Nitrogen 30 mg/dL (9-16); Calcium 8.9 mg/dL (8.4-10.2); Carbon Dioxide 24 mmol/L (22-29); Chloride 115 mmol/L (96-108); Creatinine Clr Calc Pharmacy 42.6; Estimated Glomerular Filt Rate 52; Glucose Random 105 mg/dL (60-115); Potassium 3.8 mmol/L (3.3-5.1); Sodium 147 mmol/L (135-145)
[2024-06-18 08:27] VITALS: BP 138/63; PULSE 68; RESP 22; TEMP 36.1; O2SAT 94
[2024-06-18] MEDS: polyethylene glycoL 3350 17 GM POWD.PACK PO (09:18)
[2024-06-18] MEDS: Lactulose 20 GM/30 ML SOLUTION PO (09:22)
[2024-06-18] MEDS: Apixaban 5 MG TABLET 10 MG PO ×2 (09:22→21:12)
[2024-06-18] MEDS: Sennosides 8.6 MG TABLET 17.2 MG PO ×2 (09:23→21:11)
[2024-06-18] MEDS: amLODIPine Besylate 2.5 MG TABLET PO (09:24)
[2024-06-18] MEDS: Tamsulosin HCL 0.4 MG CAPSULE PO (09:24)
--- NOTE | 2024-06-18 12:30 | PC.NURSE ---
Patient continues to have labored respirations 20-24/min and 10 second periods of apnea at times. Vital signs are stable. Patient is forcibly coughing after eating ice cream. Patient with facial grimacing also. On air bed with the head of the bed up at least 30 degrees at all times. Patient's appetite is poor. Repositioned by staff every 2 hours. Saeed catheter is patent draining dark yellow clear urine. Alejandra Yip LEASE EXAMINER updated and spoke with patient's daughter in length about patient's current condition. Referral will be made to Hospice care, family in agreement. Patient is sleeping most of the shift.
--- NOTE | 2024-06-18 19:12 | PC.NURSE ---
12 hour Saeed Catheter output 300 cc dark yellow concentrated urine. Drank 720 cc of thickened apple juice after supper. Did not eat solids.
--- NOTE | 2024-06-18 19:14 | PC.NURSE ---
12 hour Saeed catheter output 300cc en concentrated urine.
[2024-06-18 20:00] VITALS: BP 122/61; PULSE 93; RESP 18; TEMP 37.2; O2SAT 92
--- NOTE | 2024-06-18 20:06 | P.PNPSI_ITS ---
Subjective Subjective Date of Service: 06/18/24 Reason For Visit: Psych Subjective Notes: Conditional Voluntary Healthcare Proxy: Yes Interim History: Pt slept most night. Somnolent today. period of apnea but o2sat stable on nasal cannal. discussed with family dc with hospice care. Mental Status Exam Mental Status Exam Narrative: Pt in bed, minimally verbal but awake. Diagnostics Vital Signs (24Hr): Vital Signs - 24 hr 06/18/24 08:27 Temperature 96.9 F Pulse Rate 68 Respiratory Rate 22 H Blood Pressure 138/63 Pulse Oximetry 94 Oxygen Delivery Method Nasal Cannula Oxygen Flow Rate 2 BMI result Body Mass Index 20.3 Labs 06/18/24 07:18 Labs: Laboratory Results - last 48 hr 06/17/24 06/18/24 07:31 07:18 Sodium 147 H 147 H Potassium 4.6 3.8 Chloride 115 H 115 H Carbon Dioxide 23 24 Anion Gap 14 12 BUN 32 H 30 H Creatinine 1.29 1.33 Estim Creat Clear Calc 43.9 42.6 Estimated GFR 54 52 Random Glucose 105 Fasting Glucose 109 H Calcium 8.8 8.9 Total Bilirubin 0.7 AST 32 ALT 22 Alkaline Phosphatase 98 Total Protein 7.5 Albumin 3.2 L Triglycerides 86 Cholesterol 179 LDL Cholesterol, Calc 120 H HDL Cholesterol 42 Medications Medications Current Medications Acetaminophen (Acetaminophen 325 Mg Tablet) 650 mg PO Q6H PRN PRN Reason: Headache/Pain Mild Scale (1-3) Al Hydroxide/Mg Hydroxide (Magnesium Hydrox/Alum Hydrox 30 Ml Oral.Susp) 30 ml PO Q6H PRN PRN Reason: Heartburn/Nausea Amlodipine Besylate (Amlodipine Besylate 2.5 Mg Tablet) 2.5 mg PO DAILY COUNTS INCLUDE 234 BEDS AT THE [facility]; Protocol Last Admin: 06/18/24 09:24 Dose: 2.5 mg Apixaban (Apixaban 5 Mg Tablet) 10 mg PO BID COUNTS INCLUDE 234 BEDS AT THE [facility] Stop: 06/23/24 09:01 Last Admin: 06/18/24 09:22 Dose: 10 mg Donepezil HCl (Donepezil Hcl 5 Mg Tablet) 5 mg PO BEDTIME COUNTS INCLUDE 234 BEDS AT THE [facility] Last Admin: 06/17/24 21:47 Dose: 5 mg Fluticasone Propionate (Fluticasone Propionate 100 Mcg Blst.W.Dev) 2 puff INHALE RBID COUNTS INCLUDE 234 BEDS AT THE [facility] Last Admin: 06/18/24 09:18 Dose: Not Given Lorazepam (Lorazepam 0.5 Mg Tablet) 0.5 mg PO TID PRN PRN Reason: severe anxiety Magnesium Hydroxide (Milk Of Magnesia 30 Ml Oral.Susp) 30 ml PO DAILY PRN PRN Reason: Constipation Polyethylene Glycol (Polyethylene Glycol 3350 17 Gm Powd.Pack) 17 gm PO DAILY COUNTS INCLUDE 234 BEDS AT THE [facility] Quetiapine Fumarate (Quetiapine Fumarate 50 Mg Tablet) 50 mg PO TID PRN PRN Reason: Restlesness Quetiapine Fumarate (Quetiapine Fumarate 100 Mg Tablet) 100 mg PO BEDTIME PRN PRN Reason: sleep Senna (Sennosides 8.6 Mg Tablet) 17.2 mg PO BID COUNTS INCLUDE 234 BEDS AT THE [facility] Last Admin: 06/18/24 09:23 Dose: 17.2 mg Tamsulosin HCl (Tamsulosin Hcl 0.4 Mg Capsule) 0.4 mg PO DAILY COUNTS INCLUDE 234 BEDS AT THE [facility] Last Admin: 06/18/24 09:24 Dose: 0.4 mg Trazodone HCl (Trazodone Hcl 50 Mg Tablet) 50 mg PO BEDTIME MRX1 PRN PRN Reason: Insomnia Trazodone HCl (Trazodone Hcl 50 Mg Tablet) 50 mg PO BEDTIME COUNTS INCLUDE 234 BEDS AT THE [facility] Last Admin: 06/17/24 21:53 Dose: 50 mg Allergies Allergies Allergy/AdvReac Type Severity Reaction Status Date / Time Penicillins [PCN] Allergy Unknown Unknown Verified 05/23/24 11:55 Assessment & Plan Assessment & Plan (1) Dementia: Status: Acute Code(s): F03.90 - Unspecified dementia, unspecified severity, without behavioral disturbance, psychotic disturbance, mood disturbance, and anxiety Plan advance dementia with need for hospice care Reason for continued inpatient stay Substantial Risk for: inability to function Time Spent With Patient Time: Total time managing care of this patient today ____ minutes.
[2024-06-18] MEDS: traZODone HCL 50 MG TABLET PO ×3 (21:11→23:00)
[2024-06-18] MEDS: Donepezil HCl 5 MG TABLET PO (21:11)
[2024-06-18] MEDS: QUEtiapine Fumarate 50 MG TABLET PO (21:12)
[2024-06-18] MEDS: LORazepam 0.5 MG TABLET PO ×2 (21:12→23:00)
[2024-06-18] MEDS: QUEtiapine Fumarate 100 MG TABLET PO (23:00)
[2024-06-19] MEDS: polyethylene glycoL 3350 17 GM POWD.PACK PO (08:06)
[2024-06-19] MEDS: Apixaban 5 MG TABLET 10 MG PO ×2 (08:06→21:06)
[2024-06-19] MEDS: Tamsulosin HCL 0.4 MG CAPSULE PO (08:07)
[2024-06-19 08:08] VITALS: BP 125/80; PULSE 78; RESP 18; O2SAT 85
[2024-06-19 08:09] VITALS: O2SAT 92
[2024-06-19] MEDS: amLODIPine Besylate 2.5 MG TABLET PO (08:09)
[2024-06-19] MEDS: Sennosides 8.6 MG TABLET 17.2 MG PO ×2 (08:19→21:06)
[2024-06-19] MEDS: Fluticasone Propionate 100 MCG BLST.W.DEV 2 PUFF INHALE (08:20)
[2024-06-19 08:23] VITALS: TEMP 36.7
--- NOTE | 2024-06-19 09:55 | HO.PSYCHPN ---
Subjective Subjective Date of Service: 06/19/24 Reason For Visit: Psych Subjective Notes: Conditional Voluntary Healthcare Proxy: Yes Interim History: Pt was restless at night- given seroquel and ativan. Somnolent today. period of apnea but o2sat stable on nasal cannal. discussed with family dc with hospice care. Family meeting with daughter and hospice. will referred to hospice service and send back to [facility]. Mental Status Exam Mental Status Exam Narrative: Pt in bed, minimally verbal but awake. Diagnostics Vital Signs (24Hr): Vital Signs - 24 hr 06/18/24 20:00 06/19/24 08:08 06/19/24 08:09 Temperature 98.9 F Pulse Rate 93 78 Respiratory Rate 18 18 Blood Pressure 122/61 125/80 Pulse Oximetry 92 85 L 92 Oxygen Delivery Method Nasal Cannula Room Air Nasal Cannula Oxygen Flow Rate 2 2.5 06/19/24 08:23 Temperature 98.1 F Pulse Rate Respiratory Rate Blood Pressure Pulse Oximetry Oxygen Delivery Method Oxygen Flow Rate BMI result Body Mass Index 20.3 Labs 06/18/24 07:18 Labs: Laboratory Results - last 48 hr 06/18/24 07:18 Sodium 147 H Potassium 3.8 Chloride 115 H Carbon Dioxide 24 Anion Gap 12 BUN 30 H Creatinine 1.33 Estim Creat Clear Calc 42.6 Estimated GFR 52 Random Glucose 105 Calcium 8.9 Medications Medications Current Medications Acetaminophen (Acetaminophen 325 Mg Tablet) 650 mg PO Q6H PRN PRN Reason: Headache/Pain Mild Scale (1-3) Al Hydroxide/Mg Hydroxide (Magnesium Hydrox/Alum Hydrox 30 Ml Oral.Susp) 30 ml PO Q6H PRN PRN Reason: Heartburn/Nausea Amlodipine Besylate (Amlodipine Besylate 2.5 Mg Tablet) 2.5 mg PO DAILY [facility]; Protocol Last Admin: 06/19/24 08:09 Dose: 2.5 mg Apixaban (Apixaban 5 Mg Tablet) 10 mg PO BID [facility] Stop: 06/23/24 09:01 Last Admin: 06/19/24 08:06 Dose: 10 mg Donepezil HCl (Donepezil Hcl 5 Mg Tablet) 5 mg PO BEDTIME [facility] Last Admin: 06/18/24 21:11 Dose: 5 mg Fluticasone Propionate (Fluticasone Propionate 100 Mcg Blst.W.Dev) 2 puff INHALE RBID [facility] Last Admin: 06/19/24 08:20 Dose: 2 puff Lorazepam (Lorazepam 0.5 Mg Tablet) 0.5 mg PO TID PRN PRN Reason: severe anxiety Last Admin: 06/18/24 23:00 Dose: 0.5 mg Magnesium Hydroxide (Milk Of Magnesia 30 Ml Oral.Susp) 30 ml PO DAILY PRN PRN Reason: Constipation Polyethylene Glycol (Polyethylene Glycol 3350 17 Gm Powd.Pack) 17 gm PO DAILY ON LICENSE OF [facility] Last Admin: 06/19/24 08:06 Dose: 17 gm Quetiapine Fumarate (Quetiapine Fumarate 50 Mg Tablet) 50 mg PO TID PRN PRN Reason: Restlesness Last Admin: 06/18/24 21:12 Dose: 50 mg Quetiapine Fumarate (Quetiapine Fumarate 100 Mg Tablet) 100 mg PO BEDTIME PRN PRN Reason: sleep Last Admin: 06/18/24 23:00 Dose: 100 mg Senna (Sennosides 8.6 Mg Tablet) 17.2 mg PO BID ON LICENSE OF [facility] Last Admin: 06/19/24 08:19 Dose: 17.2 mg Tamsulosin HCl (Tamsulosin Hcl 0.4 Mg Capsule) 0.4 mg PO DAILY ON LICENSE OF [facility] Last Admin: 06/19/24 08:07 Dose: 0.4 mg Trazodone HCl (Trazodone Hcl 50 Mg Tablet) 50 mg PO BEDTIME MRX1 PRN PRN Reason: Insomnia Last Admin: 06/18/24 23:00 Dose: 50 mg Trazodone HCl (Trazodone Hcl 50 Mg Tablet) 50 mg PO BEDTIME ON LICENSE OF [facility] Last Admin: 06/18/24 21:11 Dose: 50 mg Allergies Allergies Allergy/AdvReac Type Severity Reaction Status Date / Time Penicillins [PCN] Allergy Unknown Unknown Verified 05/23/24 11:55 Assessment & Plan Assessment & Plan (1) Dementia: Status: Acute Code(s): F03.90 - Unspecified dementia, unspecified severity, without behavioral disturbance, psychotic disturbance, mood disturbance, and anxiety Plan advance dementia with need for hospice care Reason for continued inpatient stay Substantial Risk for: inability to function Time Spent With Patient Time: Total time managing care of this patient today ____ minutes.
--- NOTE | 2024-06-19 10:20 | MHC.CLN ---
NUTRITION PATIENT WITH RECENT HX OF POOR PO INTAKE. DIET=REGULAR. ADDING MAGIC CUP TID TO PROMOTE NUTRITIONAL INTAKE. SUPPLEMENT PROVIDES 870 KCALS, 27 G PROTEIN. MONITOR PO INTAKE AND DIET TOLERANCE.
[2024-06-19 20:00] VITALS: BP 124/60; PULSE 78; RESP 16; TEMP 36.3; O2SAT 94
[2024-06-19] MEDS: Donepezil HCl 5 MG TABLET PO (21:06)
[2024-06-19] MEDS: traZODone HCL 50 MG TABLET PO (21:06)
[2024-06-20] MEDS: QUEtiapine Fumarate 50 MG TABLET PO ×2 (05:12→21:22)
[2024-06-20 08:20] VITALS: BP 130/62; PULSE 68; RESP 14; TEMP 36.4; O2SAT 96
--- NOTE | 2024-06-20 14:38 | HO.PSYCHPN ---
Subjective Subjective Date of Service: 06/20/24 Reason For Visit: Psych Subjective Notes: Conditional Voluntary Healthcare Proxy: Yes Interim History: Pt slept 6 hrs, some difficulty sleeping but he was asleep most of the day yesterday. Awaiting hospice services to be put in place to return to [place]. much decrease oral intake. Family meeting with daughter and hospice. will referred to hospice service and send back to [place]. Mental Status Exam Mental Status Exam Narrative: Pt in bed, minimally verbal but awake. Diagnostics Vital Signs (24Hr): Vital Signs - 24 hr 06/19/24 20:00 06/20/24 08:20 Temperature 97.4 F 97.6 F Pulse Rate 78 68 Respiratory Rate 16 14 Blood Pressure 124/60 130/62 Pulse Oximetry 94 96 Oxygen Delivery Method Room Air Nasal Cannula Oxygen Flow Rate 2.5 BMI result Body Mass Index 20.3 Labs 06/20/24 15:15 Medications Medications Current Medications Acetaminophen (Acetaminophen 325 Mg Tablet) 650 mg PO Q6H PRN PRN Reason: Headache/Pain Mild Scale (1-3) Al Hydroxide/Mg Hydroxide (Magnesium Hydrox/Alum Hydrox 30 Ml Oral.Susp) 30 ml PO Q6H PRN PRN Reason: Heartburn/Nausea Amlodipine Besylate (Amlodipine Besylate 2.5 Mg Tablet) 2.5 mg PO DAILY [facility]; Protocol Last Admin: 06/20/24 11:15 Dose: Not Given Apixaban (Apixaban 5 Mg Tablet) 10 mg PO BID [facility] Stop: 06/23/24 09:01 Last Admin: 06/20/24 11:18 Dose: Not Given Donepezil HCl (Donepezil Hcl 5 Mg Tablet) 5 mg PO BEDTIME [facility] Last Admin: 06/19/24 21:06 Dose: 5 mg Fluticasone Propionate (Fluticasone Propionate 100 Mcg Blst.W.Dev) 2 puff INHALE RBID [facility] Last Admin: 06/20/24 11:14 Dose: Not Given Lorazepam (Lorazepam 0.5 Mg Tablet) 0.5 mg PO TID PRN PRN Reason: severe anxiety Last Admin: 06/18/24 23:00 Dose: 0.5 mg Magnesium Hydroxide (Milk Of Magnesia 30 Ml Oral.Susp) 30 ml PO DAILY PRN PRN Reason: Constipation Polyethylene Glycol (Polyethylene Glycol 3350 17 Gm Powd.Pack) 17 gm PO DAILY [facility] Last Admin: 06/20/24 11:18 Dose: Not Given Quetiapine Fumarate (Quetiapine Fumarate 50 Mg Tablet) 50 mg PO TID PRN PRN Reason: Restlesness Last Admin: 06/20/24 05:12 Dose: 50 mg Quetiapine Fumarate (Quetiapine Fumarate 100 Mg Tablet) 100 mg PO BEDTIME PRN PRN Reason: sleep Last Admin: 06/18/24 23:00 Dose: 100 mg Senna (Sennosides 8.6 Mg Tablet) 17.2 mg PO BID [facility] Last Admin: 06/20/24 11:19 Dose: Not Given Tamsulosin HCl (Tamsulosin Hcl 0.4 Mg Capsule) 0.4 mg PO DAILY [facility] Last Admin: 06/20/24 11:19 Dose: Not Given Trazodone HCl (Trazodone Hcl 50 Mg Tablet) 50 mg PO BEDTIME MRX1 PRN PRN Reason: Insomnia Last Admin: 06/18/24 23:00 Dose: 50 mg Trazodone HCl (Trazodone Hcl 50 Mg Tablet) 50 mg PO BEDTIME [facility] Last Admin: 06/19/24 21:06 Dose: 50 mg Allergies Allergies Allergy/AdvReac Type Severity Reaction Status Date / Time Penicillins [PCN] Allergy Unknown Unknown Verified 05/23/24 11:55 Assessment & Plan Assessment & Plan (1) Dementia: Status: Acute Code(s): F03.90 - Unspecified dementia, unspecified severity, without behavioral disturbance, psychotic disturbance, mood disturbance, and anxiety Plan advance dementia with need for hospice care Reason for continued inpatient stay Substantial Risk for: inability to function Time Spent With Patient Time: Total time managing care of this patient today ____ minutes.
[2024-06-20 15:43] LABS: Alanine Aminotransferase 18 U/L (0-40); Albumin Level 2.7 g/dL (3.5-5.0); Alkaline Phosphatase 84 U/L (39-117); Anion Gap 11 (12-20); Aspartate Amino Transferase 22 U/L (5-37); Bilirubin Total 0.5 mg/dL (0.0-1.0); Blood Urea Nitrogen 32 mg/dL (9-16); Calcium 8.4 mg/dL (8.4-10.2); Carbon Dioxide 21 mmol/L (22-29); Chloride 113 mmol/L (96-108); Creatinine Clr Calc Pharmacy 47.2; Estimated Glomerular Filt Rate 58; Glucose Random 105 mg/dL (60-115); Potassium 5.2 mmol/L (3.3-5.1); Sodium 140 mmol/L (135-145); Total Protein 6.2 g/dL (6.5-8.0)
[2024-06-20 20:00] VITALS: BP 111/74; PULSE 85; RESP 18; TEMP 36; O2SAT 98
[2024-06-20] MEDS: Apixaban 5 MG TABLET 10 MG PO (21:22)
[2024-06-20] MEDS: Donepezil HCl 5 MG TABLET PO (21:22)
[2024-06-20] MEDS: traZODone HCL 50 MG TABLET PO ×2 (21:22→23:36)
[2024-06-20] MEDS: Sennosides 8.6 MG TABLET 17.2 MG PO (21:22)
[2024-06-20] MEDS: LORazepam 0.5 MG TABLET PO (23:43)
[2024-06-21 08:00] VITALS: BP 127/77; PULSE 80; RESP 16; TEMP 36.4; O2SAT 94
[2024-06-21] MEDS: Apixaban 5 MG TABLET 10 MG PO ×2 (09:51→21:33)
[2024-06-21] MEDS: amLODIPine Besylate 2.5 MG TABLET PO (09:51)
[2024-06-21] MEDS: Sennosides 8.6 MG TABLET 17.2 MG PO ×2 (09:51→21:33)
[2024-06-21] MEDS: Tamsulosin HCL 0.4 MG CAPSULE PO (09:52)
[2024-06-21] MEDS: polyethylene glycoL 3350 17 GM POWD.PACK PO (09:52)
[2024-06-21] MEDS: LORazepam 0.5 MG TABLET PO (10:26)
[2024-06-21] MEDS: QUEtiapine Fumarate 50 MG TABLET PO (10:26)
--- NOTE | 2024-06-21 12:49 | P.PNPSI_ITS ---
Subjective Subjective Date of Service: 06/21/24 Reason For Visit: Psych Interim History: in bed, daughter present. non-verbal with MD. interacting with daughter by feeling her fingers and holding her hands. brief discussion held with daughter. plan to transfer pt elsewhere for hospice services discussed. per staff, awaiting transfer to hospice for tomorrow. Mental Status Exam Mental Status Exam Narrative: Pt in bed, minimally verbal but awake. Diagnostics Vital Signs (24Hr): Vital Signs - 24 hr 06/20/24 20:00 06/21/24 08:00 Temperature 96.8 F 97.6 F Pulse Rate 85 80 Respiratory Rate 18 16 Blood Pressure 111/74 127/77 Pulse Oximetry 98 94 Oxygen Delivery Method Room Air Nasal Cannula Oxygen Flow Rate 2 BMI result Body Mass Index 20.3 Labs 06/20/24 15:15 Labs: Laboratory Results - last 48 hr 06/20/24 15:15 Sodium 140 Potassium 5.2 H D Chloride 113 H Carbon Dioxide 21 L Anion Gap 11 L BUN 32 H Creatinine 1.20 Estim Creat Clear Calc 47.2 Estimated GFR 58 Random Glucose 105 Calcium 8.4 Total Bilirubin 0.5 AST 22 ALT 18 Alkaline Phosphatase 84 Total Protein 6.2 L Albumin 2.7 L Medications Medications Current Medications Acetaminophen (Acetaminophen 325 Mg Tablet) 650 mg PO Q6H PRN PRN Reason: Headache/Pain Mild Scale (1-3) Al Hydroxide/Mg Hydroxide (Magnesium Hydrox/Alum Hydrox 30 Ml Oral.Susp) 30 ml PO Q6H PRN PRN Reason: Heartburn/Nausea Amlodipine Besylate (Amlodipine Besylate 2.5 Mg Tablet) 2.5 mg PO DAILY [facility]AY; Protocol Last Admin: 06/21/24 09:51 Dose: 2.5 mg Apixaban (Apixaban 5 Mg Tablet) 10 mg PO BID [facility] Stop: 06/23/24 09:01 Last Admin: 06/21/24 09:51 Dose: 10 mg Donepezil HCl (Donepezil Hcl 5 Mg Tablet) 5 mg PO BEDTIME [facility]AY Last Admin: 06/20/24 21:22 Dose: 5 mg Fluticasone Propionate (Fluticasone Propionate 100 Mcg Blst.W.Dev) 2 puff INHALE RBID [facility] Last Admin: 06/21/24 09:52 Dose: Not Given Lorazepam (Lorazepam 0.5 Mg Tablet) 0.5 mg PO TID PRN PRN Reason: severe anxiety Last Admin: 06/21/24 10:26 Dose: 0.5 mg Magnesium Hydroxide (Milk Of Magnesia 30 Ml Oral.Susp) 30 ml PO DAILY PRN PRN Reason: Constipation Polyethylene Glycol (Polyethylene Glycol 3350 17 Gm Powd.Pack) 17 gm PO DAILY TAY Last Admin: 06/21/24 09:52 Dose: 17 gm Quetiapine Fumarate (Quetiapine Fumarate 50 Mg Tablet) 50 mg PO TID PRN PRN Reason: Restlesness Last Admin: 06/21/24 10:26 Dose: 50 mg Quetiapine Fumarate (Quetiapine Fumarate 100 Mg Tablet) 100 mg PO BEDTIME PRN PRN Reason: sleep Last Admin: 06/18/24 23:00 Dose: 100 mg Senna (Sennosides 8.6 Mg Tablet) 17.2 mg PO BID [facility] Last Admin: 06/21/24 09:51 Dose: 17.2 mg Tamsulosin HCl (Tamsulosin Hcl 0.4 Mg Capsule) 0.4 mg PO DAILY [facility] Last Admin: 06/21/24 09:52 Dose: 0.4 mg Trazodone HCl (Trazodone Hcl 50 Mg Tablet) 50 mg PO BEDTIME MRX1 PRN PRN Reason: Insomnia Last Admin: 06/20/24 23:36 Dose: 50 mg Trazodone HCl (Trazodone Hcl 50 Mg Tablet) 50 mg PO BEDTIME [facility] Last Admin: 06/20/24 21:22 Dose: 50 mg Allergies Allergies Allergy/AdvReac Type Severity Reaction Status Date / Time Penicillins [PCN] Allergy Unknown Unknown Verified 05/23/24 11:55 Assessment & Plan Assessment & Plan (1) Dementia: Status: Acute Code(s): F03.90 - Unspecified dementia, unspecified severity, without behavioral disturbance, psychotic disturbance, mood disturbance, and anxiety Plan advance dementia with need for hospice care. per RN, transfer out tomorrow for hospice care. appears comfortable and calm at present. Reason for continued inpatient stay Substantial Risk for: inability to function Time Spent With Patient Time: Total time managing care of this patient today ____ minutes.
[2024-06-21 20:00] VITALS: BP 122/64; PULSE 60; RESP 18; TEMP 36.3; O2SAT 92
[2024-06-21] MEDS: traZODone HCL 50 MG TABLET PO (21:33)
[2024-06-21] MEDS: Donepezil HCl 5 MG TABLET PO (21:33)
--- NOTE | 2024-06-22 08:26 | P.DS_ITS ---
DS: Providers Provider Date of Service: 06/22/24 Date of admission: 06/16/24 15:23 Date of discharge: 06/22/24 Primary care physician: Unknown Physician DS: Diagnosis Discharge Diagnosis (1) Dementia: Status: Acute DS: Medications Discharge Medications Home Medications: Previous Rx's ?Medication ?Instructions ?Recorded acetaminophen 325 mg tablet 650 mg (2 x 325 mg) PO Q6H PRN 06/14/24 Headache/Pain Mild Scale (1-3) 30 days #30 tabs amlodipine 2.5 mg tablet 2.5 mg PO DAILY 30 days #30 tabs 06/14/24 bisacodyl 10 mg rectal suppository 10 mg UT DAILY PRN Constipation 30 06/14/24 (Gentle Laxative (bisacodyl)) days #30 ea donepezil 5 mg tablet 5 mg PO BEDTIME 30 days #30 tabs 06/14/24 fluticasone propionate 50 1 spray intranasal BID 30 days #5 06/14/24 mcg/actuation nasal grams spray,suspension lactulose 20 gram/30 mL oral 20 g (30 mL) PO ONCE PRN 06/14/24 solution constipation 30 days #600 mL lorazepam 0.5 mg tablet 0.5 mg PO TID 30 days #90 tabs 06/14/24 magnesium hydroxide 400 mg/5 mL 30 ml PO DAILY PRN Constipation 30 06/14/24 oral suspension (Milk of Magnesia) days #120 mL polyethylene glycol 3350 17 gram 17 g PO BID 30 days #60 ea 06/14/24 oral powder packet quetiapine 100 mg tablet 100 mg PO BEDTIME 30 days #30 tabs 06/14/24 quetiapine 50 mg tablet 50 mg PO DAILY@1630 30 days #30 06/14/24 tabs quetiapine 50 mg tablet 50 mg PO TID PRN 06/14/24 Anxiety/Restlessness 30 days #30 tabs sennosides 8.6 mg-docusate sodium 2 tab PO BID 30 days #120 tabs 06/14/24 50 mg tablet (Senna Plus) sodium phosphates 19 gram-7 118 ml UT DAILY PRN Constipation 06/14/24 gram/118 mL enema (Fleet Enema) 30 days #118 mL tamsulosin 0.4 mg capsule 0.8 mg (2 x 0.4 mg) PO DAILY 30 06/14/24 days #60 caps trazodone 50 mg tablet 50 mg PO BEDTIME 30 days #30 tabs 06/14/24 apixaban 5 mg tablet (Eliquis) 10 mg (2 x 5 mg) PO BID #0 tabs 06/16/24 acetaminophen 325 mg tablet 650 mg (2 x 325 mg) PO Q6H PRN 06/22/24 Headache/Pain Mild Scale (1-3) 30 days #60 tabs aluminum-magnesium hydroxide 200 30 ml PO Q6H PRN Heartburn/Nausea 06/22/24 mg-200 mg/5 mL oral suspension 30 days #300 mL (MAG-AL) amlodipine 2.5 mg tablet 2.5 mg PO DAILY 30 days #30 tabs 06/22/24 apixaban 5 mg tablet (Eliquis) 10 mg (2 x 5 mg) PO BID #60 tabs 06/22/24 donepezil 5 mg tablet 5 mg PO BEDTIME 30 days #30 tabs 06/22/24 fluticasone propionate 100 1 inh inhalation RBID 30 days #60 06/22/24 mcg/actuation blister powder for ea inhalation lorazepam 0.5 mg tablet 0.5 mg PO TID PRN severe anxiety 06/22/24 30 days #60 tabs magnesium hydroxide 400 mg/5 mL 30 ml PO DAILY PRN Constipation 30 06/22/24 oral suspension (Milk of Magnesia) days #300 mL polyethylene glycol 3350 17 gram 17 g PO DAILY 30 days #30 ea 06/22/24 oral powder packet quetiapine 100 mg tablet 100 mg PO BEDTIME PRN sleep 30 06/22/24 days #30 tabs quetiapine 50 mg tablet 50 mg PO TID PRN Restlesness 30 06/22/24 days #60 tabs sennosides 8.6 mg tablet (Senna 17.2 mg (2 x 8.6 mg) PO BID 30 06/22/24 Lax) days #120 tabs trazodone 50 mg tablet 50 mg PO BEDTIME 30 days #30 tabs 06/22/24 trazodone 50 mg tablet 50 mg PO BEDTIME MRX1 PRN Insomnia 06/22/24 30 days #60 tabs Mental Status Exam Mental Status Exam Patient Appearance: Unkempt Patient Orientation: Person Level of Consciousness: Disoriented Patient Behavior: Passive and Restless Mood Description: Withdrawn Affect Description: Constricted Patient Cognition Impaired: Yes Ability to Follow Directions: Fair Speech Pattern: Clear Hallucinations: None Delusions: Not Present Thought Process: Distracted and Slowed Thinking Thought Content: positive for Poverty of Content and positive for Thought Blocking Judgement: Poor Data Data Completed and Pending Completed studies during hospitalization [Text1]: 06/17/24 06/18/24 06/20/24 07:31 07:18 15:15 Sodium 147 H 147 H 140 Potassium 4.6 3.8 5.2 H D Chloride 115 H 115 H 113 H Carbon Dioxide 23 24 21 L Anion Gap 14 12 11 L BUN 32 H 30 H 32 H Creatinine 1.29 1.33 1.20 Estim Creat Clear Calc 43.9 42.6 47.2 Estimated GFR 54 52 58 Random Glucose 105 105 Fasting Glucose 109 H Calcium 8.8 8.9 8.4 Total Bilirubin 0.7 0.5 AST 32 22 ALT 22 18 Alkaline Phosphatase 98 84 Total Protein 7.5 6.2 L Albumin 3.2 L 2.7 L Triglycerides 86 Cholesterol 179 LDL Cholesterol, Calc 120 H HDL Cholesterol 42 DS: Summary Hospital Course Hospital Course: The patient is an 79-year-old male with a past history of dementia who was initially admitted into this facility for treatment of agitation and disorganized behavior in the context of dementia. He day condition it was transferred to Medicine where he was diagnosed with a pulmonary embolism after being medically cleared he was transferred back to this facility. Please see the HPI of the admission note for further details. While he was in the unit, several teams assess him and we had several family meetings. It was clear that the patient's dementia is terminal at this point and they decided to go with hospice care. The patient had been stable and arrangements for hospice were done. Time spent discussing smoking cessation with patient: 3 to 10 minutes Status at Discharge Cognitive/behavioral status at discharge: Impaired at baseline Functional status at discharge: bed bound Overall status at discharge: patient is not back to baseline Time Spent with Patient Time attestation: Total time managing care of this patient today __30__ minutes. Time spent: Less than 30 minutes Discharge Plan Discharge Anticipated Discharge Date/Time: 06/22/24 08:27 Patient Disposition: Hospice - Home Discharge Diagnosis: Dementia terminal Referrals: Physician,Coleen J [Primary Care Provider] - 1 Week Discharge Medications: New donepezil 5 mg Tablet 5 mg PO BEDTIME 30 Days Qty: 30 0RF lorazepam 0.5 mg Tablet 0.5 mg PO TID PRN (Reason: severe anxiety) 30 Days Qty: 60 0RF Eliquis 5 mg Tablet 10 mg PO BID Qty: 60 0RF sennosides [Senna Lax] 8.6 mg Tablet 17.2 mg PO BID 30 Days Qty: 120 0RF acetaminophen 325 mg Tablet 650 mg PO Q6H PRN (Reason: Headache/Pain Mild Scale (1-3)) 30 Days Qty: 60 0RF trazodone 50 mg Tablet 50 mg PO BEDTIME MRX1 PRN (Reason: Insomnia) 30 Days Qty: 60 0RF trazodone 50 mg Tablet 50 mg PO BEDTIME 30 Days Qty: 30 0RF polyethylene glycol 3350 17 gram Powder In Packet 17 g PO DAILY 30 Days Qty: 30 0RF amlodipine 2.5 mg Tablet 2.5 mg PO DAILY 30 Days Qty: 30 0RF Protocol: Hold for SBP< HOLD for SBP < : 90 quetiapine 100 mg Tablet 100 mg PO BEDTIME PRN (Reason: sleep) 30 Days Qty: 30 0RF magnesium hydroxide [Milk of Magnesia] 400 mg/5 mL Suspension 30 ml PO DAILY PRN (Reason: Constipation) 30 Days Qty: 300 0RF fluticasone propionate 100 mcg/actuation Blister With Device 1 inh inhalation RBID 30 Days Qty: 60 0RF MAG-AL 200-200 mg/5 mL Suspension 30 ml PO Q6H PRN (Reason: Heartburn/Nausea) 30 Days Qty: 300 0RF quetiapine 50 mg Tablet 50 mg PO TID PRN (Reason: Restlesness) 30 Days Qty: 60 0RF Discontinued acetaminophen 325 mg Tablet 650 mg PO Q6H PRN (Reason: Headache/Pain Mild Scale (1-3)) 30 Days Qty: 30 0RF donepezil 5 mg Tablet 5 mg PO BEDTIME 30 Days Qty: 30 0RF trazodone 50 mg Tablet 50 mg PO BEDTIME 30 Days Qty: 30 0RF amlodipine 2.5 mg Tablet 2.5 mg PO DAILY 30 Days Qty: 30 0RF Protocol: Hold for SBP< HOLD for SBP < : 90 quetiapine 100 mg Tablet 100 mg PO BEDTIME 30 Days Qty: 30 0RF lorazepam 0.5 mg Tablet 0.5 mg PO TID 30 Days Qty: 90 0RF fluticasone propionate 50 mcg/actuation [place],Suspension 1 spray intranasal BID 30 Days Qty: 5 0RF quetiapine 50 mg Tablet 50 mg PO TID PRN (Reason: Anxiety/Restlessness) 30 Days Qty: 30 0RF quetiapine 50 mg Tablet 50 mg PO DAILY@1630 30 Days Qty: 30 0RF lactulose 20 gram/30 mL Solution 20 g PO ONCE PRN (Reason: constipation) 30 Days Qty: 600 0RF polyethylene glycol 3350 17 gram Powder In Packet 17 g PO BID 30 Days Qty: 60 0RF sennosides-docusate sodium [Senna Plus] 8.6-50 mg Tablet 2 tab PO BID 30 Days Qty: 120 0RF magnesium hydroxide [Milk of Magnesia] 400 mg/5 mL Suspension 30 ml PO DAILY PRN (Reason: Constipation) 30 Days Qty: 120 0RF bisacodyl [Gentle Laxative (bisacodyl)] 10 mg Suppository 10 mg UT DAILY PRN (Reason: Constipation) 30 Days Qty: 30 0RF Fleet Enema 19-7 gram/118 mL Enema 118 ml UT DAILY PRN (Reason: Constipation) 30 Days Qty: 118 0RF Eliquis 5 mg Tablet 10 mg PO BID Qty: 0 0RF Rx Instructions: 10mg. BID then decrease to 5mg on 06/20/24 No Action tamsulosin 0.4 mg Capsule 0.8 mg PO DAILY 30 Days Qty: 60 0RF Discharge Orders: Discharge Order (Routine); Ordered 06/22/24 Ordered By: Binh Hood Diet: Advance to usual diet Activity on Discharge: As tolerated Stand Alone Forms: Patient Portal Discharge page Print Language: Indonesian Care Plan Goals: The patient will be transferred to hospice Health Concerns: The patient will be transferred to hospice Plan of Treatment: Continue treatment as per hospice team Assessment: The patient is an elderly male with a past history of dementia who was brought back from Medicine after he had a pulmonary embolism, more medically stable. He was already assessed by several teams and he will be transferred to hospice for continuation of care. The patient at this moment is severely day condition it, on terminal dementia.
[2024-06-22 08:40] VITALS: BP 127/70; PULSE 81; RESP 15; TEMP 36.3; O2SAT 93
[2024-06-22] MEDS: Sennosides 8.6 MG TABLET 17.2 MG PO (08:45)
[2024-06-22] MEDS: Apixaban 5 MG TABLET 10 MG PO (08:45)
[2024-06-22] MEDS: Tamsulosin HCL 0.4 MG CAPSULE PO (08:45)
[2024-06-22 08:52] VITALS: BP 127/70
[2024-06-22] MEDS: amLODIPine Besylate 2.5 MG TABLET PO (08:52)
[2024-06-22] MEDS: LORazepam 0.5 MG TABLET PO (09:30)
== END 2024-06-22 09:45 | disposition hospice, home (50) | DRG 884 ==
PROVIDERS: Social Worker; Admitting Provider Psychiatry & Neurology Psychiatry; Visit Provider Psychiatry & Neurology Psychiatry
DX: F03.90 Unspecified dementia, unspecified severity, without behavioral disturbance, psychotic disturbance, mood disturbance, and anxiety (principal); Z51.5 Encounter for palliative care; Z79.01 Long term (current) use of anticoagulants; Z79.51 Long term (current) use of inhaled steroids; Z79.899 Other long term (current) drug therapy
CPT/HCPCS: 36415; 80048; 80053; 80061

== ENCOUNTER → 2024-06-16 15:23 | Outpatient (BNV) | payer MEDICARE, MEDICAID, SELFPAY | PROVIDERS: Admitting Provider Psychiatry & Neurology Psychiatry; Visit Provider Social Worker | DX: F03.90 Unspecified dementia, unspecified severity, without behavioral disturbance, psychotic disturbance, mood disturbance, and anxiety (principal) | CPT/HCPCS: 99221; 99231; 99232; 99238 ==